=== PATIENT | male | born 1965 | race Caucasian/White ===

== ENCOUNTER → 2017-05-30 | Outpatient (CLI) | payer SELFPAY ==
--- NOTE | 2017-05-30 17:33 | RADIOLOGY REPORT (SQ) ---
EXAM DESCRIPTION: ANKLE LEFT COMPLETE COMPLETED DATE/TIME: 05/30/2017 4:38 pm REASON FOR STUDY: EFFUSION, LEFT ANKLE M25.472 EFFUSION, LEFT ANKLE COMPARISON: None. NUMBER OF VIEWS: Three views. TECHNIQUE: AP, lateral, and oblique radiographic images acquired of the left ankle. LIMITATIONS: None. FINDINGS: MINERALIZATION: Normal. BONES: No acute fracture or dislocation. No worrisome bone lesions. JOINTS: Joint effusion SOFT TISSUES: Moderate diffuse soft tissue swelling OTHER: Small heel spur. IMPRESSION: Soft tissue swelling joint effusion. Small heel spur. TECHNICAL DOCUMENTATION: JOB ID: [id number] [employer].- All Rights Reserved
== END ==
LOC: OD 16:12
PROVIDERS: ATTEND Physician Assistant Surgical
DX: M25.472 Effusion, left ankle (principal); M77.32 Calcaneal spur, left foot

== ENCOUNTER → 2017-08-16 | Outpatient (CLI) | payer SELFPAY ==
[2017-08-16 17:00] LABS: ABSOLUTE BASOPHILS # (AUTO) 0.1 10^3/uL (0.0-0.2); ABSOLUTE EOSINOPHILS # (AUTO) 0.2 10^3/uL (0.0-0.6); ABSOLUTE LYMPHOCYTES (AUTO) 1.6 10^3/uL (0.5-4.7); ABSOLUTE MONOCYTES (AUTO) 0.6 10^3/uL (0.1-1.4); ABSOLUTE NEUT (AUTO) 6.4 10^3/uL (1.7-8.2); BASOPHILS % (AUTO) 0.9 % (0-2); EOSINOPHILS % (AUTO) 1.9 % (0-6); HEMATOCRIT 39.5 % (37.9-51.0); HEMOGLOBIN 14.2 g/dL (13.5-17.0); LYMPHOCYTES % (AUTO) 17.6 % (13-45); MEAN CORPUSCULAR HGB CONC 35.9 g/dL (32.0-36.0); MEAN CORPUSCULAR VOLUME 84 fl (80-97); MONOCYTES % (AUTO) 7.2 % (3-13); PLATELET COUNT 285 10^3/uL (150-450); RED BLOOD COUNT 4.72 10^6/uL (4.35-5.55); RED CELL DISTRIBUTION WIDTH 13.2 % (11.5-14.0); SEGMENTED NEUTROPHILS % (AUTO) 72.4 % (42-78); TOTAL CELLS COUNTED % (AUTO) 100 %; WHITE BLOOD COUNT 8.9 10^3/uL (4.0-10.5)
[2017-08-16 17:17] LABS: ALANINE AMINOTRANSFERASE 35 U/L (21-72); ALBUMIN 4.1 g/dL (3.5-5.0); ALKALINE PHOSPHATASE 78 U/L (38-126); ANION GAP 11 (5-19); ASPARTATE AMINO TRANSFERASE 24 U/L (17-59); BILIRUBIN,DIRECT 0.4 mg/dL (0.0-0.4); BILIRUBIN,TOTAL 0.7 mg/dL (0.2-1.3); BLOOD UREA NITROGEN 16 mg/dL (7-20); CALCIUM 9.8 mg/dL (8.4-10.2); CARBON DIOXIDE 35 mmol/L (22-30); CHLORIDE 94 mmol/L (98-107); GLUCOSE 180 mg/dL (75-110); POTASSIUM 4.7 mmol/L (3.6-5.0); SODIUM 140.3 mmol/L (137-145); TOTAL PROTEIN 7.4 g/dL (6.3-8.2)
--- NOTE | 2017-08-16 18:10 | EKG REPORT ---
SEVERITY:- ABNORMAL ECG - SINUS RHYTHM LEFT VENTRICULAR HYPERTROPHY PROBABLE INFERIOR INFARCT, AGE INDETERMINATE : Confirmed by: Edgar Lobo MD 16-Aug-2017 18:09:13
== END ==
LOC: OD 15:43
PROVIDERS: ATTEND Podiatrist
DX: M67.472 Ganglion, left ankle and foot (principal); M79.672 Pain in left foot
CPT/HCPCS: 36415; 80053; 85025; 93005; 93010

== ENCOUNTER 2020-01-17 10:21 | Inpatient (IN) | payer BC ==
[2020-01-17] MEDS ORDERED: VANCOMYCIN HCL INJ 1000 MG VIAL IV ONE (13:09)
[2020-01-17] MEDS ORDERED: LEVOFLOXACIN 750 MG/D5W RTU 750 MG/150 ML RTUPB IV ONE (13:09)
[2020-01-17] MEDS ORDERED: RINGERS LACTATED IV ONE (13:09)
[2020-01-17] MEDS ORDERED: MORPHINE SULFATE 10 MG/ML INJ IV ONE (13:15)
[2020-01-17] MEDS ORDERED: METOCLOPRAMIDE HCL INJ/PF 10 MG/2 ML SDV IV ONE (13:15)
--- NOTE | 2020-01-17 13:27 | ER Document Report ---
ED General - General Chief Complaint: Leg Pain Stated Complaint: RIGHT LEG PAIN Time Seen by Provider: 01/17/20 10:43 TRAVEL OUTSIDE OF THE [place] IN LAST 30 DAYS: No - HPI Notes: Chief complaint: Right calf pain History of present illness: 54-year-old male presents via EMS for evaluation of severe right proximal calf pain. Patient has had progressively worsening pain in the right calf area for the last 3 days. He currently rates his pain 10/10. Patient denies any known prior history of DVT. He denies trauma to the extremity but notes that he has had what sounds like chronic osteomyelitis of his left foot and ankle for several years related to an old fracture. As a result of this he uses a cane and bears most of his weight on his right lower extremity. He apparently was seen by an orthopedic surgeon in [facility] recently who noted that the patient was having chronic recurrent infections in his left foot and ankle and indicated that it might be in his best interest to consider having the foot amputated. The patient is a poorly controlled type II diabetic and has a history of hypertension. He sees [facility]. Notes that he has been treated for "infection in his body" recently and was told specifically that he had a urinary tract infection. He is grown progressively weaker. He reports intermittent fevers at home. He denies chills. He denies nausea vomiting. He is taking multiple oral hypoglycemics. He is not currently on insulin. Patient says he is a former cigarette smoker. He denies consumption of alcohol. - Related Data Allergies/Adverse Reactions: Penicillins Allergy (Verified 01/17/20 11:49) Past Medical History - General Information source: Patient, Relative - Social History Smoking Status: Former Smoker Frequency of alcohol use: Rare Drug Abuse: None Family History: DM - Past Medical History Cardiac Medical History: Reports: Hx Hypertension Endocrine Medical History: Reports: Hx Diabetes Mellitus Type 2 Musculoskeletal Medical History: Reports Hx Musculoskeletal Trauma Traumatic Medical History: Reports: Hx Fractures Past Surgical History: Reports: Hx Orthopedic Surgery Review of Systems - Review of Systems Notes: Constitutional: As per HPI. HENT: Negative for sore throat. Eyes: Negative for visual changes. Cardiovascular: Negative for chest pain. Respiratory: Negative for shortness of breath. Gastrointestinal: Negative for abdominal pain, vomiting or diarrhea. Genitourinary: Reports polyuria. Musculoskeletal: As per HPI. Skin: Negative for rash. Neurological: Negative for headaches, weakness or numbness. 10 point ROS negative except as marked above and in HPI. Physical Exam - Vital signs Vitals: Temp Pulse Resp BP Pulse Ox 97.9 F 139 H 22 H 152/68 H 100 01/17/20 11:27 01/17/20 11:27 01/17/20 11:27 01/17/20 11:27 01/17/20 11:27 - Notes Notes: GENERAL: Acute and chronically ill-appearing middle-age male. SKIN: Sallow complexion. HEAD: Normocephalic atraumatic. EYES: PERRLA. EOMI. Conjunctivae and sclerae clear. EARS: CANALS AND TMS CLEAR. NOSE: CLEAR. MOUTH: Dry oral mucosa. Good dentition. No stridor or edema. No drooling. NECK: Supple. No masses or thyromegaly. No adenopathy. Carotids 2+ without bruits. No JVD. BACK: Symmetrical without tenderness. CHEST: Respirations unlabored. Breath sounds clear and symmetrical. HEART: Tachycardic regular rhythm. No murmur gallop or rub. ABDOMEN: Soft nontender without masses, organomegaly or rebound. Bowel sounds normally active. No bruits. GENITALIA: Deferred. EXTREMITIES: 1+ edema right lower leg. Patient has exquisite posterior calf tenderness proximally on the right side. Patient has chronic deformity of the medial aspect of the left foot and has a chronic open draining wound in this area. Cap refill less than 1.5 seconds. Dorsalis pedis and posterior tibial pulses 3+ and symmetrical. NEUROLOGICAL: GCS 15. Alert and oriented x3. Fluent speech. Cranial nerves II through XII intact. Sensorimotor and cerebellar normal. Normal tone. PSYCHIATRIC: Appropriate affect. Course - Vital Signs Vital signs: Temp Pulse Resp BP Pulse Ox 97.9 F 70 20 130/55 H 98 01/18/20 03:15 01/18/20 03:15 01/18/20 03:15 01/18/20 03:15 01/18/20 03:15 - Laboratory Result Diagrams: 01/17/20 09:55 01/17/20 09:55 Laboratory results interpreted by me: 01/17/20 01/17/20 01/17/20 09:55 09:55 09:55 WBC 26.3 H RBC 2.61 L Hgb 7.7 L Hct 22.4 L RDW 14.8 H Plt Count 816 H Seg Neuts % (Manual) 89 H Lymphocytes % (Manual) 5 L Abs Neuts (Manual) 23.4 H Abs Monocytes (Manual) 1.6 H PT 16.7 H Sodium 134.6 L Chloride 96 L Carbon Dioxide 19 L Anion Gap 20 H BUN 25 H Glucose 251 H POC Glucose Lactic Acid Direct Bilirubin 0.5 H Alkaline Phosphatase 200 H Albumin 2.6 L Urine Protein Urine Glucose (UA) Urine Ketones Urine Blood 01/17/20 01/17/20 01/17/20 13:38 13:55 14:30 WBC RBC Hgb Hct RDW Plt Count Seg Neuts % (Manual) Lymphocytes % (Manual) Abs Neuts (Manual) Abs Monocytes (Manual) PT Sodium Chloride Carbon Dioxide Anion Gap BUN Glucose POC Glucose 281 H Lactic Acid 3.1 H Direct Bilirubin Alkaline Phosphatase Albumin Urine Protein 100 H Urine Glucose (UA) >=500 H Urine Ketones 20 H Urine Blood SMALL H - EKG Interpretation by Me Additional EKG results interpreted by me: 01/17/20 13:31 Twelve-lead EKG reviewed by me contemporaneously: 1247 hrs. Indication for study: Tachycardia Rhythm: Sinus tachycardia Rate: 131 Intervals: Normal QRS axis: +[address]/T wave changes: None Comparison with prior tracing: Since prior tracing of 1506 the rate has increased to a sinus tachycardia. Interpretation: Sinus tachycardia Discharge - Discharge Clinical Impression: Charcot foot due to diabetes mellitus, DVT RLE, sepsis Anemia Qualifiers: Anemia type: unspecified type Qualified Code(s): D64.9 - Anemia, unspecified Clinical Impression: (Ruled Out): Sepsis Condition: Fair Disposition: ADMITTED INPATIENT Admitting Provider: Sree (Hospitalist) Unit Admitted: [facility]
[2020-01-17 13:40] LABS: INTERNATIONAL RATION (INR) 1.34; PROTHROMBIN TIME 16.7 SEC (11.4-15.4)
--- NOTE | 2020-01-17 13:42 | RADIOLOGY REPORT (SQ) ---
EXAM DESCRIPTION: CHEST SINGLE VIEW IMAGES COMPLETED DATE/TIME: 01/17/2020 1:33 pm REASON FOR STUDY: sepsis COMPARISON: 2009 EXAM PARAMETERS: NUMBER OF VIEWS: One view. TECHNIQUE: Single frontal radiographic view of the chest acquired. RADIATION DOSE: NA LIMITATIONS: None. FINDINGS: LUNGS AND PLEURA: No opacities, masses or pneumothorax. No pleural effusion. MEDIASTINUM AND HILAR STRUCTURES: No masses. Contour normal. HEART AND VASCULAR STRUCTURES: Heart normal in size. Normal vasculature. BONES: No acute findings. HARDWARE: None in the chest. OTHER: No other significant finding. IMPRESSION: NO ACUTE RADIOGRAPHIC FINDING IN THE CHEST. TECHNICAL DOCUMENTATION: JOB ID: [id number] 2010 [employer]- All Rights Reserved Reading location - IP/workstation name: [email or web address]
--- NOTE | 2020-01-17 13:44 | RADIOLOGY REPORT (SQ) ---
EXAM DESCRIPTION: FOOT LEFT COMPLETE IMAGES COMPLETED DATE/TIME: 01/17/2020 1:33 pm REASON FOR STUDY: pain/swelling COMPARISON: None. NUMBER OF VIEWS: Three views. TECHNIQUE: AP, lateral and oblique radiographic images acquired of the left foot. LIMITATIONS: None. FINDINGS: MINERALIZATION: Normal. BONES: Marked deformity of the hindfoot with Charcot joints. No acute fracture is seen. No osteomye litis is appreciated. JOINTS: No effusions. SOFT TISSUES: There is marked soft tissue swelling. OTHER: No other significant finding. IMPRESSION: There appear to be diabetic foot changes. No osteomyelitis is seen. Findings as descri bed. Marked soft tissue swelling. TECHNICAL DOCUMENTATION: JOB ID: [id number] 2010 [employer]- All Rights Reserved Reading location - IP/workstation name: [email or web address]
--- NOTE | 2020-01-17 13:47 | RADIOLOGY REPORT (SQ) ---
EXAM DESCRIPTION: TIBIA FIBULA RIGHT IMAGES COMPLETED DATE/TIME: 01/17/2020 1:33 pm REASON FOR STUDY: pain COMPARISON: None. NUMBER OF VIEWS: Two views. TECHNIQUE: Two radiographic images acquired of the right tibia and fibula to include the knee and an kle in at least one projection. LIMITATIONS: None. FINDINGS: MINERALIZATION: Normal. BONES: No acute fracture dislocation. There is calcification in the interosseous ligament in the dist al tib-fib SOFT TISSUES: No obvious swelling or foreign body. OTHER: No other significant finding. IMPRESSION: Possible prior interosseous ligament disruption. No acute finding in either the tibia o r the fibula. TECHNICAL DOCUMENTATION: JOB ID: [id number] 2010 [employer]- All Rights Reserved Reading location - IP/workstation name: [email or web address]
[2020-01-17 13:53] LABS: HEMATOCRIT 22.4 % (37.9-51.0); MEAN CORPUSCULAR HEMOGLOBIN 29.5 pg (27.0-33.4); MEAN CORPUSCULAR HGB CONC 34.4 g/dL (32.0-36.0); MEAN CORPUSCULAR VOLUME 86 fl (80-97); PLATELET COUNT 816 10^3/uL (150-450); RED BLOOD COUNT 2.61 10^6/uL (4.35-5.55); RED CELL DISTRIBUTION WIDTH 14.8 % (11.5-14.0); WHITE BLOOD COUNT 26.3 10^3/uL (4.0-10.5)
[2020-01-17 13:54] LABS: ALBUMIN 2.6 g/dL (3.5-5.0); ALKALINE PHOSPHATASE 200 U/L (38-126); ASPARTATE AMINO TRANSFERASE 35 U/L (17-59); BILIRUBIN,DIRECT 0.5 mg/dL (0.0-0.4); BILIRUBIN,TOTAL 0.8 mg/dL (0.2-1.3); BLOOD UREA NITROGEN 25 mg/dL (7-20); CALCIUM 9.1 mg/dL (8.4-10.2); CARBON DIOXIDE 19 mmol/L (22-30); CHLORIDE 96 mmol/L (98-107); GLUCOSE 251 mg/dL (75-110); POTASSIUM 4.4 mmol/L (3.6-5.0); TOTAL PROTEIN 6.9 g/dL (6.3-8.2)
[2020-01-17 14:01] LABS: ANION GAP 20 (5-19)
[2020-01-17 14:28] LABS: HEMOGLOBIN 7.7 g/dL (13.5-17.0)
[2020-01-17 14:31] LABS: ABSOLUTE LYMPHOCYTES# (MANUAL) 1.3 10^3/uL (0.5-4.7); ABSOLUTE MONOCYTES # (MANUAL) 1.6 10^3/uL (0.1-1.4); ANISOCYTOSIS SLIGHT; BASOPHILS % (MANUAL) 0 % (0-2); EOSINOPHILS % (MANUAL) 0 % (0-6); LYMPHOCYTES % (MANUAL) 5 % (13-45); MONOCYTES % (MANUAL) 6 % (3-13); PLATELET COMMENT INCREASED; SEGMENTED NEUTROPHILS % (MAN) 89 % (42-78); TOTAL CELLS COUNTED 100
[2020-01-17 14:32] LABS: POLYCHROMASIA 1+; TOXIC VACUOLATION PRESENT
[2020-01-17 14:33] LABS: HYPOCHROMASIA SLIGHT
[2020-01-17 14:47] LABS: APPEARANCE,URINE CLEAR; BILIRUBIN,URINE NEGATIVE (NEGATIVE); COLOR,URINE YELLOW; GLUCOSE, URINE >=500 mg/dL (NEGATIVE); KETONES,URINE 20 mg/dL (NEGATIVE); PROTEIN,URINE 100 mg/dL (NEGATIVE); URINE SPECIFIC GRAVITY 1.024; UROBILINOGEN,URINE NEGATIVE mg/dL (<2.0)
[2020-01-17 15:12] LABS: VENOUS BLOOD BASE EXCESS -3.1 mmol/L; VENOUS BLOOD HCO3 21.7 mmol/L (20-32); VENOUS BLOOD PCO2 37.1 mmHg (35-63); VENOUS BLOOD PH 7.39 (7.30-7.42)
--- NOTE | 2020-01-17 16:18 | RADIOLOGY REPORT (SQ) ---
EXAM DESCRIPTION: VENOUS UNILATERAL LOWER IMAGES COMPLETED DATE/TIME: 01/17/2020 4:00 pm REASON FOR STUDY: right calf pain/swelling COMPARISON: None. TECHNIQUE: Dynamic and static bell scale and color images acquired of the right leg venous system. S elected spectral images acquired with additional compression and augmentation maneuvers. The contrala teral common femoral vein and saphenofemoral junction were also imaged. Images stored on PACS. LIMITATIONS: None. FINDINGS: COMMON FEMORAL: Normal phasicity, compression and augmentation. No visualized echogenic ma terial on bell scale. No defects on color images. FEMORAL: Occlusive thrombus in the distal femoral vein and popliteal vein. POPLITEAL: See above. CALF VESSELS: Normal compression, augmentation. No visualized echogenic material on bell scale. No de fects on color images. GSV and SSV: Normal compression, augmentation. No visualized echogenic material on bell scale. No def ects on color images. ANY DEEP VENOUS INSUFFICIENCY: Not evaluated. ANY EVIDENCE OF POPLITEAL CYST: 4.9 x 3.9 x 2.0 cm. OTHER: No other significant finding. CONTRALATERAL COMMON FEMORAL VEIN AND SAPHENOFEMORAL JUNCTION: Normal phasicity, compression and augmentation. No visualized echogenic material on bell scale. No de fects on color images. IMPRESSION: Positive acute deep vein thrombosis femoral and popliteal veins. TECHNICAL DOCUMENTATION: JOB ID: [id number] 2010 [employer]- All Rights Reserved Reading location - IP/workstation name: [email or web address]
[2020-01-17] MEDS ORDERED: MAG HYDROX/AL HYDROX/SIMETH SUSP 30 ML UDCUP PO PRN (16:52)
[2020-01-17] MEDS ORDERED: ONDANSETRON HCL INJ/PF 4 MG/2 ML SDV IV PRN (16:52)
[2020-01-17] MEDS ORDERED: DEXTROSE 50%-WATER 25 GM/50 ML DISP.SYRIN IV PRN ×2 (16:58)
[2020-01-17] MEDS ORDERED: DEXTROSE 40% GEL 15 GM TUBE PO PRN ×2 (16:58)
[2020-01-17] MEDS ORDERED: GLUCAGON,HUMAN RECOMB 1 MG INJ IM PRN (16:58)
[2020-01-17] MEDS ORDERED: CLONIDINE HCL 0.2 MG TABLET PO ONE (17:03)
[2020-01-17] MEDS ORDERED: ACETAMINOPHEN 325 MG TABLET PO PRN (17:05)
--- NOTE | 2020-01-17 17:32 | PDOC H&P ---
History of Present Illness Admission Date/PCP: 01/17/20 16:53 Patient complains of: Right lower extremity pain History of Present Illness: BETTE LECHUGA is a 54 year old male with history of diabetes mellitus, hypertension, left foot fracture 2 years ago with subsequent deformity, GERD, who presents to the hospital with complaints of persistent pain in his right lower extremity from the region of years right thigh just above the knee to mid rubalcava. Mostly involving the posterior side and his calves. Pain is worse on ambulation. He denies chronic neuropathy. Patient notably had ankle fracture 2 years ago and never got surgical operation needs to fix it. Since then he has developed significant deformity of his right foot now with Charcot Beckie joint. He sees a cashier assistant outpatient and had initially planned to get it fixed but was never done. On his most recent visit with his cashier assistant, they made the decision that he needed to get it amputated. He is hoping that I could be a below the knee amputation. He denies any pain in the region but the area is pretty much normal. He does have significant ecchymosis and fluctuance over his left foot. Patient also notes that he was feeling ill about 3 weeks ago with generalized malaise and occasional chills. At this time he went to his PCP at [facility] and was placed on antibiotics. Reviewing his external medications it seems that this was Levaquin. He completed a course of 7 days of antibiotics and told he may have the flu but states he was treated for kidney infection. He however states he was not having any urinary symptoms at that point. And also had a COVID 19 test done at [facility] 2 weeks ago according to him which came back negative. Still occasionally feels malaise and some chills but not spiking any fevers. He denies any respiratory symptoms. Past Medical History Cardiac Medical History: Reports: Hypertension Denies: Atrial Fibrillation, Congestive Heart Failure, Coronary Artery Disease, Myocardial Infarction Pulmonary Medical History: Denies: Asthma, Chronic Obstructive Pulmonary Disease (COPD) Neurological Medical History: Denies: Hemorrhagic CVA, Ischemic CVA Endocrine Medical History: Reports: Diabetes Mellitus Type 2 Renal/ Medical History: Denies: Chronic Kidney Disease GI Medical History: Denies: Cirrhosis Past Surgical History Past Surgical History: Reports: Orthopedic Surgery Social History Information Source: Patient Smoking Status: Former Smoker Frequency of Alcohol Use: None Hx Recreational Drug Use: No - Advance Directive Resuscitation Status: Full Code Family History Family History: DM, Hypertension Parental Family History Reviewed: Yes Children Family History Reviewed: NA Sibling(s) Family History Reviewed.: Yes Medication/Allergy Allergies/Adverse Reactions: Penicillins Allergy (Verified 01/17/20 11:49) Review of Systems Constitutional: PRESENT: chills. ABSENT: fever(s), night sweats Eyes: ABSENT: visual disturbances Ears: ABSENT: hearing changes Nose, Mouth, and Throat: ABSENT: headache(s) Cardiovascular: ABSENT: chest pain, dyspnea on exertion Respiratory: ABSENT: cough, dyspnea, hemoptysis, sputum Gastrointestinal: PRESENT: constipation. ABSENT: abdominal pain, diarrhea, hematemesis, hematochezia, melena, nausea, vomiting Genitourinary: ABSENT: difficulty urinating, dysuria, hematuria Musculoskeletal: PRESENT: deformity - Left foot Integumentary: PRESENT: diaphoresis - Occasional Neurological: ABSENT: confusion, dizziness Psychiatric: ABSENT: depression Endocrine: ABSENT: polyuria Hematologic/Lymphatic: ABSENT: easy bleeding, easy bruising Physical Exam Vital Signs: Temp Pulse Resp BP Pulse Ox 97.9 F 139 H 18 184/95 H 99 01/17/20 11:27 01/17/20 11:27 01/17/20 16:01 01/17/20 16:01 01/17/20 16:01 Intake & Output 01/16/20 01/17/20 01/18/20 06:59 06:59 06:59 Intake Total 3550 Balance 3550 Weight 113.398 kg General appearance: PRESENT: no acute distress, cooperative Eye exam: PRESENT: EOMI Mouth exam: ABSENT: neck supple Neck exam: ABSENT: JVD Respiratory exam: PRESENT: clear to auscultation amdeline, symmetrical, unlabored. ABSENT: tachypnea, wheezes Cardiovascular exam: PRESENT: +S1, +S2, tachycardia. ABSENT: irregular rhythm GI/Abdominal exam: PRESENT: normal bowel sounds, soft. ABSENT: distended, firm, guarding, rebound, rigid, tenderness Extremities exam: PRESENT: other - Significant deformity with bony deformity and overlying soft tissue fluctuance with induration and ecchymosis of the left foot with some area of erythema. No active drainage. Right lower extremity tender a nd swollen all the way up to the knee tenderness mostly in cough.. ABSENT: calf tenderness, pedal edema Neurological exam: PRESENT: alert, awake, oriented to person, oriented to place, oriented to time, oriented to situation Psychiatric exam: ABSENT: agitated, anxious Focused psych exam: ABSENT: pressured speech Results Laboratory Results: 01/17/20 09:55 01/17/20 09:55 01/17/20 01/17/20 01/17/20 09:55 09:55 13:38 WBC 26.3 H RBC 2.61 L Hgb 7.7 L Hct 22.4 L MCV 86 MCH 29.5 MCHC 34.4 RDW 14.8 H Plt Count 816 H Seg Neutrophils % Not Reportable VBG pH VBG pCO2 VBG HCO3 VBG Base Excess Sodium 134.6 L Potassium 4.4 Chloride 96 L Carbon Dioxide 19 L Anion Gap 20 H BUN 25 H Creatinine 0.98 Est GFR ( Amer) > 60 Glucose 251 H Lactic Acid 3.1 H Calcium 9.1 Total Bilirubin 0.8 AST 35 Alkaline Phosphatase 200 H Total Protein 6.9 Albumin 2.6 L Urine Color Urine Appearance Urine pH Ur Specific [place] Urine Protein Urine Glucose (UA) Urine Ketones Urine Blood Urine RBC (Auto) 01/17/20 01/17/20 14:30 15:03 WBC RBC Hgb Hct MCV MCH MCHC RDW Plt Count Seg Neutrophils % VBG pH 7.39 VBG pCO2 37.1 VBG HCO3 21.7 VBG Base Excess -3.1 Sodium Potassium Chloride Carbon Dioxide Anion Gap BUN Creatinine Est GFR ( Amer) Glucose Lactic Acid Calcium Total Bilirubin AST Alkaline Phosphatase Total Protein Albumin Urine Color YELLOW Urine Appearance CLEAR Urine pH 5.0 Ur Specific [place] 1.024 Urine Protein 100 H Urine Glucose (UA) >=500 H Urine Ketones 20 H Urine Blood SMALL H Urine RBC (Auto) 1 Impressions: Chest X-Ray 01/17/20 13:10 IMPRESSION: NO ACUTE RADIOGRAPHIC FINDING IN THE CHEST. Venous Doppler Study 01/17/20 13:12 IMPRESSION: Positive acute deep vein thrombosis femoral and popliteal veins. Foot X-Ray 01/17/20 13:13 IMPRESSION: There appear to be diabetic foot changes. No osteomyelitis is seen. Findings as described. Marked soft tissue swelling. Tibia/Fibula X-Ray 01/17/20 13:14 IMPRESSION: Possible prior interosseous ligament disruption. No acute finding in either the tibia or the fibula. Assessment and Plan - Diagnosis (1) Left foot infection Is this a current diagnosis for this admission?: Yes Plan: Patient has fluctuant mass overlying his Charcot foot deformity of his left hindfoot. It is infected and may represent an abscess. Significant leukocytosis noted on lab work with sepsis. I have asked surgery to evaluate as he will likely need urgent OR for source control given sepsis and amputation. Empiric antibiotics with vancomycin and cefepime. Blood cultures have been obtained. (2) Charcot foot due to diabetes mellitus Is this a current diagnosis for this admission?: Yes Plan: Significant deformity of his left hindfoot. Does have history of ankle fracture 2 years ago that was never treated according to him. Follows with cashier assistant as outpatient and they agreed on proceeding with amputation. (3) Sepsis Qualifiers: Sepsis type: sepsis due to unspecified organism Sepsis acute organ dysfunction status: without acute organ dysfunction Qualified Code(s): A41.9 - Sepsis, unspecified organism Is this a current diagnosis for this admission?: Yes Plan: Significant leukocytosis, very tachycardic [EKG showing sinus tachycardia], with lactic acidosis. IV fluids IV antibiotics have been initiated Repeat lactic acid level (4) Acute deep vein thrombosis (DVT) of right lower extremity Qualifiers: Affected thrombotic vein of extremity: femoral Qualified Code(s): I82.411 - Acute embolism and thrombosis of right femoral vein Is this a current diagnosis for this admission?: Yes Plan: Noted on ultrasound Patient will need to be started on anticoagulation. I will await surgical evaluation regarding need for OR today before initiating patient on heparin drip. Pain control (5) Normocytic anemia Is this a current diagnosis for this admission?: Yes Plan: Significantly anemic with hemoglobin of 7.7. Hemoglobin was 14 2 years ago. Patient denies any evidence of bleeding GI//respiratory. We will get an urgent type and screen especially as I anticipate patient will need to go to the OR tonight. Iron studies, B12 and folic acid levels He has never had a colonoscopy (6) Lactic acidosis Is this a current diagnosis for this admission?: Yes Plan: Secondary to sepsis. Repeat lab (7) Hyperglycemia due to type 2 diabetes mellitus Qualifiers: Diabetes mellitus longterm insulin use: without truck terminal manager use Qualified Code(s): E11.65 - Type 2 diabetes mellitus with hyperglycemia Is this a current diagnosis for this admission?: Yes Plan: Takes metformin at home. We will put on sliding scale insulin and Accu-Cheks currently. (8) HTN (hypertension) Qualifiers: Hypertension type: essential hypertension Qualified Code(s): I10 - Essential (primary) hypertension Is this a current diagnosis for this admission?: Yes Plan: Uncontrolled hypertension currently with hypertensive urgency. Will resume his home antihypertensives and give him his first dose of clonidine now. We will also give losartan now. (9) Thrombocytosis Is this a current diagnosis for this admission?: Yes Plan: Likely reactive to anemic state - Time Time Spent with patient: 35 or more minutes Anticipated Discharge Disposition: Home, Self Care Anticipated Discharge Timeframe: undetermined
[2020-01-17] MEDS ORDERED: LOSARTAN POTASSIUM 50 MG TABLET PO ONE (17:33)
[2020-01-17] MEDS: INSULIN LISPRO 100 UNIT/ML 3 ML VIAL SUBCUT SCH (17:55)
[2020-01-17] MEDS ORDERED: METOPROLOL TARTRATE PF/INJ 5 MG/5 ML SDV IV ONE (18:06)
[2020-01-17] MEDS ORDERED: ONDANSETRON HCL INJ/PF 4 MG/2 ML SDV ONE (18:29)
[2020-01-17] MEDS ORDERED: HYDROMORPHONE HCL INJ/PF 2 MG/ML AMPULE ONE (18:29)
[2020-01-17] MEDS ORDERED: MIDAZOLAM 2 MG/2 ML INJ ONE (18:29)
[2020-01-17] MEDS ORDERED: FENTANYL CITRATE INJ/PF 100 MCG/2 ML AMPUL ONE (18:29)
[2020-01-17] MEDS ORDERED: LIDOCAINE 2% INJ-PF (20 MG/ML) 10 ML AMPUL ONE (18:29)
[2020-01-17] MEDS ORDERED: PROPOFOL INJ 200 MG/20 ML VIAL IV ONE (18:30)
[2020-01-17] MEDS ORDERED: NORMAL SALINE 250 ML IV PRN ×2 (18:38→18:43)
[2020-01-17] MEDS ORDERED: OXYCODONE-ACETAMINOPHEN 5-325 MG TABLET PO PRN ×2 (19:35)
[2020-01-17] MEDS ORDERED: FENTANYL CITRATE INJ/PF 100 MCG/2 ML AMPUL IV PRN ×3 (19:35)
[2020-01-17] MEDS ORDERED: MEPERIDINE HCL/PF INJ 25 MG/1 ML DISP.SYRIN IV PRN (19:35)
[2020-01-17] MEDS ORDERED: DIPHENHYDRAMINE HCL 50 MG/ML VIAL IV PRN (19:35)
[2020-01-17] MEDS ORDERED: MORPHINE SULFATE 10 MG/ML INJ IV PRN (19:35)
[2020-01-17] MEDS ORDERED: PROMETHAZINE HCL INJ 25 MG/1 ML VIAL IV PRN ×2 (19:35)
--- NOTE | 2020-01-17 20:39 | PDOC CONSULTATION ---
Consultation Consult Date: 01/17/20 Provider Consulted: SURGICAL SURGICALIST Consult reason:: Septic foot History of Present Illness Admission Date/PCP: 01/17/20 16:53 History of Present Illness: BETTE LECHUGA is a 54 year old male seen in consultation at the request of the hospitalist service. The patient presents to the emergency department for pain in his right leg, however upon admission he was found to be excessively tachycardic (140s), with a lactic acidosis, and a severe leukocytosis. The hospitalist believes the patient was exhibiting signs of severe sepsis. I was consulted to evaluate the patient and determine if the patient's left Charcot foot was possibly the source of this sepsis. The patient reports a long history of Charcot foot, treated conservatively. He reports that his orthopedist has been urging him to undergo amputation. He is a poorly controlled diabetic. The patient denies any pain in the left foot at present, but he does report increasing redness and swelling. He reports palpitations, fevers, chills, malaise, headache. He has not eaten since yesterday because he "does not feel good". He denies chest pain, shortness of breath, blurry vision. Past Medical History Cardiac Medical History: Reports: Hypertension Denies: Atrial Fibrillation, Congestive Heart Failure, Coronary Artery Disease, Myocardial Infarction Pulmonary Medical History: Denies: Asthma, Chronic Obstructive Pulmonary Disease (COPD) Neurological Medical History: Denies: Hemorrhagic CVA, Ischemic CVA Endocrine Medical History: Reports: Diabetes Mellitus Type 2 Renal/ Medical History: Denies: Chronic Kidney Disease GI Medical History: Denies: Cirrhosis Past Surgical History Past Surgical History: Reports: Orthopedic Surgery Social History Smoking Status: Former Smoker Frequency of Alcohol Use: None Hx Recreational Drug Use: No - Advance Directive Resuscitation Status: Full Code Family History Family History: DM, Hypertension Parental Family History Reviewed: Yes Children Family History Reviewed: Yes Sibling(s) Family History Reviewed.: Yes Medication/Allergy Home Medications: Clonidine HCl 0.3 mg PO QIDP PRN 01/17/20 Diazepam [Valium 5 mg Tablet] 5 mg PO BID 01/17/20 Empagliflozin [Jardiance] 10 mg PO DAILY 01/17/20 Hydrochlorothiazide 12.5 mg PO DAILY 01/17/20 Hydrocodone/Acetaminophen [[place] 5-325 mg Tablet] 2 tab PO BIDP PRN 01/17/20 Levofloxacin [Levaquin 500 mg Tablet] 500 mg PO DAILY 01/17/20 Losartan Potassium 100 mg PO DAILY 01/17/20 Metoprolol Succinate [Toprol Xl 25 mg Tab.sr] 25 mg PO BID 01/17/20 Allergies/Adverse Reactions: Penicillins Allergy (Verified 01/17/20 11:49) Review of Systems Constitutional: PRESENT: anorexia, chills, fatigue, fever(s) Eyes: ABSENT: visual disturbances Ears: ABSENT: hearing changes Nose, Mouth, and Throat: ABSENT: sore throat Cardiovascular: ABSENT: chest pain Respiratory: ABSENT: cough, dyspnea Gastrointestinal: ABSENT: abdominal pain, bloating Genitourinary: ABSENT: dysuria Musculoskeletal: ABSENT: back pain Integumentary: PRESENT: erythema, other - Swelling and erythema of the left foot. Swelling and tenderness of the right leg. Neurological: ABSENT: confusion, convulsions, dizziness Psychiatric: ABSENT: anxiety, depression Endocrine: ABSENT: cold intolerance, heat intolerance Physical Exam Vital Signs: Temp Pulse Resp BP Pulse Ox 97.9 F 139 H 18 175/96 H 100 01/17/20 11:27 01/17/20 11:27 01/17/20 18:41 01/17/20 18:41 01/17/20 18:31 Intake & Output 01/16/20 01/17/20 01/18/20 06:59 06:59 06:59 Intake Total 3550 Balance 3550 Weight 113.398 kg General appearance: PRESENT: other - Moderate distress, diaphoretic, tachycardic Head exam: PRESENT: atraumatic, normocephalic Eye exam: PRESENT: EOMI, PERRLA. ABSENT: scleral icterus Mouth exam: PRESENT: moist, neck supple Neck exam: ABSENT: meningismus, tenderness, thyromegaly, tracheal deviation Respiratory exam: PRESENT: unlabored. ABSENT: tachypnea Cardiovascular exam: PRESENT: tachycardia - Severe Pulses: PRESENT: normal radial pulses Vascular exam: PRESENT: pallor GI/Abdominal exam: PRESENT: soft. ABSENT: distended, rebound, tenderness Rectal exam: PRESENT: deferred Extremities exam: PRESENT: other - Severe left Charcot foot. Free-floating ankle joints. Large amount of erythema of the left ankle, with fluctuance of the entire left foot and lower leg Neurological exam: PRESENT: alert, awake, oriented to person, oriented to place, oriented to time, oriented to situation, CN II-XII grossly intact. ABSENT: motor sensory deficit Psychiatric exam: ABSENT: agitated, anxious, depressed Focused psych exam: ABSENT: delusional Skin exam: PRESENT: erythema - Left foot, other - Edema and mild tenderness to palpation of the right lower extremity. ABSENT: cyanosis Results Laboratory Results: 01/17/20 09:55 01/17/20 09:55 01/17/20 01/17/20 01/17/20 09:55 09:55 13:38 WBC 26.3 H RBC 2.61 L Hgb 7.7 L Hct 22.4 L MCV 86 MCH 29.5 MCHC 34.4 RDW 14.8 H Plt Count 816 H Seg Neutrophils % Not Reportable VBG pH VBG pCO2 VBG HCO3 VBG Base Excess Sodium 134.6 L Potassium 4.4 Chloride 96 L Carbon Dioxide 19 L Anion Gap 20 H BUN 25 H Creatinine 0.98 Est GFR ( Amer) > 60 Glucose 251 H Lactic Acid 3.1 H Calcium 9.1 Total Bilirubin 0.8 AST 35 Alkaline Phosphatase 200 H Total Protein 6.9 Albumin 2.6 L Urine Color Urine Appearance Urine pH Ur Specific [place] Urine Protein Urine Glucose (UA) Urine Ketones Urine Blood Urine RBC (Auto) Blood Type Antibody Screen 01/17/20 01/17/20 01/17/20 14:30 15:03 17:15 WBC RBC Hgb Hct MCV MCH MCHC RDW Plt Count Seg Neutrophils % VBG pH 7.39 VBG pCO2 37.1 VBG HCO3 21.7 VBG Base Excess -3.1 Sodium Potassium Chloride Carbon Dioxide Anion Gap BUN Creatinine Est GFR ( Amer) Glucose Lactic Acid 1.9 Calcium Total Bilirubin AST Alkaline Phosphatase Total Protein Albumin Urine Color YELLOW Urine Appearance CLEAR Urine pH 5.0 Ur Specific [place] 1.024 Urine Protein 100 H Urine Glucose (UA) >=500 H Urine Ketones 20 H Urine Blood SMALL H Urine RBC (Auto) 1 Blood Type Antibody Screen 01/17/20 17:15 WBC RBC Hgb Hct MCV MCH MCHC RDW Plt Count Seg Neutrophils % VBG pH VBG pCO2 VBG HCO3 VBG Base Excess Sodium Potassium Chloride Carbon Dioxide Anion Gap BUN Creatinine Est GFR ( Amer) Glucose Lactic Acid Calcium Total Bilirubin AST Alkaline Phosphatase Total Protein Albumin Urine Color Urine Appearance Urine pH Ur Specific [place] Urine Protein Urine Glucose (UA) Urine Ketones Urine Blood Urine RBC (Auto) Blood Type O POSITIVE Antibody Screen NEGATIVE Impressions: Chest X-Ray 01/17/20 13:10 IMPRESSION: NO ACUTE RADIOGRAPHIC FINDING IN THE CHEST. Venous Doppler Study 01/17/20 13:12 IMPRESSION: Positive acute deep vein thrombosis femoral and popliteal veins. Foot X-Ray 01/17/20 13:13 IMPRESSION: There appear to be diabetic foot changes. No osteomyelitis is seen. Findings as described. Marked soft tissue swelling. Tibia/Fibula X-Ray 01/17/20 13:14 IMPRESSION: Possible prior interosseous ligament disruption. No acute finding in either the tibia or the fibula. Assessment & Plan - Diagnosis (1) Diabetic infection of left foot Is this a current diagnosis for this admission?: Yes (2) Sepsis Qualifiers: Sepsis type: sepsis due to unspecified organism Sepsis acute organ dysfunction status: without acute organ dysfunction Qualified Code(s): A41.9 - Sepsis, unspecified organism Is this a current diagnosis for this admission?: Yes - Plan Summary Plan Summary: This is a 54-year-old male with signs of sepsis (tachycardia, leukocytosis, chills, diaphoresis) and a fluctuant, erythematous left foot and leg. I believe the patient has a septic left foot. I have recommended guillotine amputation immediately to help resolve the source of his sepsis. Plan for repeat evaluatio n in approximately 48 hours. When the wound appears clean, plan for formalization of below-knee amputation.
--- NOTE | 2020-01-17 20:45 | Operative Report ---
Nonrecallable Operative Report DATE OF SURGERY: 01/17/20 PREOPERATIVE DIAGNOSIS: Septic left foot POSTOPERATIVE DIAGNOSIS: 1. Septic left foot. 2. Large abscess, extending from the foot into the posterior compartment of the left leg. OPERATION: Guillotine amputation of the left leg, above the ankle with drainage of deep space abscess of the left lower leg SURGEON: FAB LEAL ANESTHESIA: GA TISSUE REMOVED OR ALTERED: Left foot and ankle COMPLICATIONS: None apparent ESTIMATED BLOOD LOSS: 30 cc PROCEDURE: Drains/implants: 4 x 4 gauze and Surgicel. Procedure in detail: After informed consent was obtained, the patient was brought to the operating room and laid in the supine position. The area of the left foot and leg were prepped and draped in a normal sterile fashion. A fishmouth incision was created at the ankle. Dissection was carried through the subcutaneous tissues using sharp dissection. The anterior tibial artery was identified first. It was suture ligated with 0 Vicryl. As the dissection was carried posteriorly, the tibia and fibula were encountered, above the ankle. These were divided using the reciprocating bone saw. Next, the posterior tibial artery was identified. It was ligated and divided using 0 Vicryl suture and Metzenbaum scissors. The Achilles tendon was divided above the ankle. Upon its division, a large amount of purulent material was encountered. There appeared to be a large abscess extending from the foot, up to the deep posterior compartment. An incision was extended up the medial portion of the leg, medial and posterior to the tibia, opening the deep posterior compartment. A large amount of purulent material was cleaned from the area. Oozing was encountered, without surgical bleeding. Electrocautery was used to achieve hemostasis. Surgicel was packed into the wound. Betadine soaked 4 x 4's were packed over top of the Surgicel, and over the distal tibia and fibula (at the point of transection). The fishmouth incision was reapproximated over the 4x4's. The stump was then wrapped in Kerlix and Coban. The procedure was at this time concluded. All sponge, instrument, and needle counts were correct x2 Condition: Fair.
[2020-01-17] MEDS: AMLODIPINE BESYLATE 5 MG TABLET PO SCH (21:24)
[2020-01-17] MEDS ORDERED: CEFEPIME 1 GM/D5W RTU 2 GM/100 ML RTUPB IV ONE (21:32)
--- NOTE | 2020-01-17 21:35 | EKG REPORT ---
SEVERITY:- OTHERWISE NORMAL ECG - SINUS TACHYCARDIA : Confirmed by: Riri Driscoll MD 17-Jan-2020 21:34:07
[2020-01-17] MEDS ORDERED: CEFEPIME 2 GM/D5W RTU 2 GM/50 ML RTUPB IV SCH (22:00)
[2020-01-17] MEDS ORDERED: VANCOMYCIN HCL INJ 1000 MG VIAL IV SCH (22:00)
[2020-01-18] MEDS: MELATONIN 5 MG TABLET PO PRN (00:42)
[2020-01-18] MEDS: MORPHINE SULFATE 10 MG/ML INJ IV PRN ×2 (02:23→06:17)
[2020-01-18] MEDS: CLONIDINE HCL 0.2 MG TABLET PO SCH ×4 (05:41→17:45)
[2020-01-18] MEDS: INSULIN LISPRO 100 UNIT/ML 3 ML VIAL SUBCUT SCH ×5 (05:41→22:36)
[2020-01-18] MEDS: PANTOPRAZOLE SODIUM 40 MG TABLET.DR PO SCH (05:41)
[2020-01-18] MEDS: KETOROLAC TROMETHAMINE INJ/PF 30 MG/1 ML SDV IV SCH ×3 (05:42→22:36)
[2020-01-18] MEDS ORDERED: VANCOMYCIN HCL INJ 1000 MG VIAL IV PRN (06:27)
[2020-01-18] MEDS ORDERED: VANCOMYCIN HCL 2,000 MG in DEXTROSE 5%-WATER 500 ML IV ONE (06:30)
[2020-01-18 06:46] LABS: ABSOLUTE RETICS # 0.088 10^6/uL (0.028-0.122); HEMATOCRIT 22.1 % (37.9-51.0); MEAN CORPUSCULAR HEMOGLOBIN 28.6 pg (27.0-33.4); MEAN CORPUSCULAR HGB CONC 33.8 g/dL (32.0-36.0); MEAN CORPUSCULAR VOLUME 85 fl (80-97); PLATELET COUNT 642 10^3/uL (150-450); RED BLOOD COUNT 2.62 10^6/uL (4.35-5.55); RED CELL DISTRIBUTION WIDTH 14.8 % (11.5-14.0); RETICULOCYTE COUNT (AUTO) 3.37 % (0.66-2.85); WHITE BLOOD COUNT 21.6 10^3/uL (4.0-10.5)
[2020-01-18 06:47] LABS: INTERNATIONAL RATION (INR) 1.32; PROTHROMBIN TIME 16.6 SEC (11.4-15.4)
[2020-01-18 06:48] LABS: PARTIAL THROMBOPLASTIN TIME 47.6 SEC (23.5-35.8)
[2020-01-18 07:05] LABS: ALBUMIN 2.5 g/dL (3.5-5.0); ALKALINE PHOSPHATASE 162 U/L (38-126); ANION GAP 19 (5-19); ASPARTATE AMINO TRANSFERASE 35 U/L (17-59); BILIRUBIN,DIRECT 0.5 mg/dL (0.0-0.4); BILIRUBIN,TOTAL 0.7 mg/dL (0.2-1.3); BLOOD UREA NITROGEN 20 mg/dL (7-20); CALCIUM 8.4 mg/dL (8.4-10.2); CARBON DIOXIDE 18 mmol/L (22-30); CHLORIDE 100 mmol/L (98-107); GLUCOSE 117 mg/dL (75-110); HEMOGLOBIN 7.5 g/dL (13.5-17.0); IRON(TIBC) 34.7 ug/dL (49-181); POTASSIUM 4.1 mmol/L (3.6-5.0); TOTAL PROTEIN 6.7 g/dL (6.3-8.2)
[2020-01-18 07:29] LABS: ABSOLUTE LYMPHOCYTES# (MANUAL) 0.2 10^3/uL (0.5-4.7); ABSOLUTE MONOCYTES # (MANUAL) 1.9 10^3/uL (0.1-1.4); BASOPHILS % (MANUAL) 0 % (0-2); EOSINOPHILS % (MANUAL) 0 % (0-6); LYMPHOCYTES % (MANUAL) 1 % (13-45); MONOCYTES % (MANUAL) 9 % (3-13); SEGMENTED NEUTROPHILS % (MAN) 90 % (42-78); TOTAL CELLS COUNTED 100
[2020-01-18 07:31] LABS: ANISOCYTOSIS SLIGHT; HYPOCHROMASIA SLIGHT; PLATELET COMMENT INCREASED; POLYCHROMASIA SLIGHT; TOXIC GRANULATION SLIGHT
[2020-01-18] MEDS ORDERED: VANCOMYCIN HCL INJ 1000 MG VIAL ONE (07:33)
[2020-01-18] MEDS: CEFEPIME HCL 2 GM in DEXTROSE 5%-WATER 50 ML IV SCH ×2 (10:21→22:35)
[2020-01-18] MEDS: HYDROCHLOROTHIAZIDE 12.5 MG TABLET PO SCH (10:22)
[2020-01-18] MEDS: LOSARTAN POTASSIUM 50 MG TABLET PO SCH (10:22)
[2020-01-18] MEDS: VANCOMYCIN HCL 1,500 MG in DEXTROSE 5%-WATER 250 ML IV SCH ×2 (10:22→17:43)
[2020-01-18] MEDS: AMLODIPINE BESYLATE 5 MG TABLET PO SCH ×2 (10:22→22:37)
[2020-01-18] MEDS: DIAZEPAM 5 MG TABLET PO SCH ×2 (10:22→17:45)
[2020-01-18] MEDS: METOPROLOL SUCCINATE 25 MG TAB.SR.24H PO SCH ×2 (10:23→17:45)
[2020-01-18] MEDS: HYDROCODONE/ACETAMINOPHEN 10-325 MG TABLET PO PRN ×3 (10:32→21:35)
--- NOTE | 2020-01-18 10:56 | PDOC PROGRESS REPORT ---
Subjective Progress Note for:: 01/18/20 Reason For Visit: LEFT FOOT ABSCESS,CHAROT JOINT,SEPSIS ; Patient doing well, recovered from the knee amputation; anticoagulation not resumed yet. Minimal drainage from stump dressing. Patient complaining of right calf and thigh pain Physical Exam Vital Signs: Temp Pulse Resp BP Pulse Ox 97.9 F 133 H 19 139/79 H 97 01/18/20 07:59 01/18/20 07:59 01/18/20 07:59 01/18/20 07:59 01/18/20 07:59 Intake & Output 01/17/20 01/18/20 01/19/20 06:59 06:59 06:59 Intake Total 4885 Output Total 1485 Balance 3400 Weight 105.9 kg General appearance: PRESENT: mild distress Musculoskeletal exam: PRESENT: other - Left lower extremity examined. Covan intact, with minimal drainage posteriorly. Right lower extremity examined; plus for tenderness, swelling of the calf, popliteal area and distal thigh consistent with acute DVT Results Laboratory Results: 01/18/20 05:56 01/18/20 05:56 01/17/20 01/17/20 01/17/20 09:55 09:55 13:38 WBC 26.3 H RBC 2.61 L Hgb 7.7 L Hct 22.4 L MCV 86 MCH 29.5 MCHC 34.4 RDW 14.8 H Plt Count 816 H Seg Neutrophils % Not Reportable Retic Count (auto) VBG pH VBG pCO2 VBG HCO3 VBG Base Excess Sodium 134.6 L Potassium 4.4 Chloride 96 L Carbon Dioxide 19 L Anion Gap 20 H BUN 25 H Creatinine 0.98 Est GFR ( Amer) > 60 Glucose 251 H Lactic Acid 3.1 H Calcium 9.1 Magnesium Iron TIBC % Saturation Ferritin Total Bilirubin 0.8 AST 35 Alkaline Phosphatase 200 H Total Protein 6.9 Albumin 2.6 L Vitamin B12 Folate Urine Color Urine Appearance Urine pH Ur Specific [place] Urine Protein Urine Glucose (UA) Urine Ketones Urine Blood Urine RBC (Auto) Blood Type Antibody Screen 01/17/20 01/17/20 01/17/20 14:30 15:03 17:15 WBC RBC Hgb Hct MCV MCH MCHC RDW Plt Count Seg Neutrophils % Retic Count (auto) VBG pH 7.39 VBG pCO2 37.1 VBG HCO3 21.7 VBG Base Excess -3.1 Sodium Potassium Chloride Carbon Dioxide Anion Gap BUN Creatinine Est GFR ( Amer) Glucose Lactic Acid 1.9 Calcium Magnesium Iron TIBC % Saturation Ferritin Total Bilirubin AST Alkaline Phosphatase Total Protein Albumin Vitamin B12 Folate Urine Color YELLOW Urine Appearance CLEAR Urine pH 5.0 Ur Specific [place] 1.024 Urine Protein 100 H Urine Glucose (UA) >=500 H Urine Ketones 20 H Urine Blood SMALL H Urine RBC (Auto) 1 Blood Type Antibody Screen 01/17/20 01/17/20 01/18/20 17:15 21:23 05:56 WBC 21.6 H RBC 2.62 L Hgb 7.5 L Hct 22.1 L MCV 85 MCH 28.6 MCHC 33.8 RDW 14.8 H Plt Count 642 H Seg Neutrophils % Not Reportable Retic Count (auto) 3.37 H VBG pH VBG pCO2 VBG HCO3 VBG Base Excess Sodium Potassium Chloride Carbon Dioxide Anion Gap BUN Creatinine Est GFR ( Amer) Glucose Lactic Acid 1.9 Calcium Magnesium Iron TIBC % Saturation Ferritin Total Bilirubin AST Alkaline Phosphatase Total Protein Albumin Vitamin B12 Folate Urine Color Urine Appearance Urine pH Ur Specific [place] Urine Protein Urine Glucose (UA) Urine Ketones Urine Blood Urine RBC (Auto) Blood Type O POSITIVE Antibody Screen NEGATIVE 01/18/20 05:56 WBC RBC Hgb Hct MCV MCH MCHC RDW Plt Count Seg Neutrophils % Retic Count (auto) VBG pH VBG pCO2 VBG HCO3 VBG Base Excess Sodium 136.8 L Potassium 4.1 Chloride 100 Carbon Dioxide 18 L Anion Gap 19 BUN 20 Creatinine 0.86 Est GFR ( Amer) > 60 Glucose 117 H Lactic Acid Calcium 8.4 Magnesium 1.7 Iron 34.7 L TIBC 168 L % Saturation 21 Ferritin 885.00 H Total Bilirubin 0.7 AST 35 Alkaline Phosphatase 162 H Total Protein 6.7 Albumin 2.5 L Vitamin B12 901.0 Folate 12.60 Urine Color Urine Appearance Urine pH Ur Specific [place] Urine Protein Urine Glucose (UA) Urine Ketones Urine Blood Urine RBC (Auto) Blood Type Antibody Screen 01/17/20 09:55 Blood Blood Culture (PCR) - Final Staphylococcus Aureus 01/17/20 13:38 Blood Blood Culture (PCR) - Final Staphylococcus Aureus Impressions: Chest X-Ray 01/17/20 13:10 IMPRESSION: NO ACUTE RADIOGRAPHIC FINDING IN THE CHEST. Venous Doppler Study 01/17/20 13:12 IMPRESSION: Positive acute deep vein thrombosis femoral and popliteal veins. Foot X-Ray 01/17/20 13:13 IMPRESSION: There appear to be diabetic foot changes. No osteomyelitis is seen. Findings as described. Marked soft tissue swelling. Tibia/Fibula X-Ray 01/17/20 13:14 IMPRESSION: Possible prior interosseous ligament disruption. No acute finding in either the tibia or the fibula. Assessment & Plan - Diagnosis (1) Diabetic infection of left foot Is this a current diagnosis for this admission?: Yes Plan: Impression: Patient is 1 day status post guillotine amputation left below the knee, with the wound packed open, interval control of septic focus; distant leukocytosis; on intravenous antibiotics Plan: 1. We will leave stump dressing intact today 2. Anticipate dressing takedown tomorrow, to reexamination; patient may be candidate for takeback for closure on Monday. 3. The above discussed with patient and hospitalist service. (2) Acute deep vein thrombosis (DVT) of right lower extremity Qualifiers: Affected thrombotic vein of extremity: femoral Qualified Code(s): I82.411 - Acute embolism and thrombosis of right femoral vein Is this a current diagnosis for this admission?: Yes Plan: Impression: Symptomatic right lower extremity DVT, acute Plan: 1. Re-bolus with heparin and resume heparin drip; discussed with hospitalist service 2. Patient can be up in a limited fashion, within 24 hours, with the physical therapy using a walker ,after heparin resumed. - Time Time Spent: 30 to 50 Minutes Critical Time spent with patient: Less than 15 minutes Medications reviewed and adjusted accordingly: Yes Anticipated Discharge Disposition: Home, Self Care Anticipated Discharge Timeframe: within 72 hours
--- NOTE | 2020-01-18 15:04 | PDOC PROGRESS REPORT ---
Subjective Progress Note for:: 01/18/20 Subjective:: Patient feels better today. I did have an amputation performed yesterday evening. Blood cultures growing staph aureus seems to be MRSA. He did complain of having some bleeding from the site. Reason For Visit: LEFT FOOT ABSCESS,CHAROT JOINT,SEPSIS Physical Exam Vital Signs: Temp Pulse Resp BP Pulse Ox 98.1 F 115 H 20 132/73 H 99 01/18/20 12:03 01/18/20 12:03 01/18/20 12:03 01/18/20 12:03 01/18/20 12:03 Intake & Output 01/17/20 01/18/20 01/19/20 06:59 06:59 06:59 Intake Total 4885 230 Output Total 1485 Balance 3400 230 Weight 105.9 kg General appearance: PRESENT: no acute distress, cooperative Neck exam: ABSENT: JVD Respiratory exam: PRESENT: symmetrical, unlabored. ABSENT: tachypnea, wheezes Cardiovascular exam: PRESENT: +S1, +S2, tachycardia. ABSENT: irregular rhythm GI/Abdominal exam: PRESENT: soft. ABSENT: rebound, rigid, tenderness Extremities exam: PRESENT: tenderness - Swelling and tenderness of his right's lower extremity from just above his thigh downwards, other - Left BKA Neurological exam: PRESENT: alert, awake, oriented to person, oriented to place, oriented to time Psychiatric exam: ABSENT: agitated, anxious Results Laboratory Results: 01/18/20 05:56 01/18/20 05:56 01/17/20 01/17/20 01/17/20 13:38 14:30 15:03 WBC RBC Hgb Hct MCV MCH MCHC RDW Plt Count Seg Neutrophils % Retic Count (auto) VBG pH 7.39 VBG pCO2 37.1 VBG HCO3 21.7 VBG Base Excess -3.1 Sodium Potassium Chloride Carbon Dioxide Anion Gap BUN Creatinine Est GFR ( Amer) Glucose Lactic Acid 3.1 H Calcium Magnesium Iron TIBC % Saturation Ferritin Total Bilirubin AST Alkaline Phosphatase Total Protein Albumin Vitamin B12 Folate Urine Color YELLOW Urine Appearance CLEAR Urine pH 5.0 Ur Specific [place] 1.024 Urine Protein 100 H Urine Glucose (UA) >=500 H Urine Ketones 20 H Urine Blood SMALL H Urine RBC (Auto) 1 Blood Type Antibody Screen 01/17/20 01/17/20 01/17/20 17:15 17:15 21:23 WBC RBC Hgb Hct MCV MCH MCHC RDW Plt Count Seg Neutrophils % Retic Count (auto) VBG pH VBG pCO2 VBG HCO3 VBG Base Excess Sodium Potassium Chloride Carbon Dioxide Anion Gap BUN Creatinine Est GFR ( Amer) Glucose Lactic Acid 1.9 1.9 Calcium Magnesium Iron TIBC % Saturation Ferritin Total Bilirubin AST Alkaline Phosphatase Total Protein Albumin Vitamin B12 Folate Urine Color Urine Appearance Urine pH Ur Specific [place] Urine Protein Urine Glucose (UA) Urine Ketones Urine Blood Urine RBC (Auto) Blood Type O POSITIVE Antibody Screen NEGATIVE 01/18/20 01/18/20 05:56 05:56 WBC 21.6 H RBC 2.62 L Hgb 7.5 L Hct 22.1 L MCV 85 MCH 28.6 MCHC 33.8 RDW 14.8 H Plt Count 642 H Seg Neutrophils % Not Reportable Retic Count (auto) 3.37 H VBG pH VBG pCO2 VBG HCO3 VBG Base Excess Sodium 136.8 L Potassium 4.1 Chloride 100 Carbon Dioxide 18 L Anion Gap 19 BUN 20 Creatinine 0.86 Est GFR ( Amer) > 60 Glucose 117 H Lactic Acid Calcium 8.4 Magnesium 1.7 Iron 34.7 L TIBC 168 L % Saturation 21 Ferritin 885.00 H Total Bilirubin 0.7 AST 35 Alkaline Phosphatase 162 H Total Protein 6.7 Albumin 2.5 L Vitamin B12 901.0 Folate 12.60 Urine Color Urine Appearance Urine pH Ur Specific [place] Urine Protein Urine Glucose (UA) Urine Ketones Urine Blood Urine RBC (Auto) Blood Type Antibody Screen 01/17/20 13:38 Blood Blood Culture (PCR) - Final Staphylococcus Aureus 01/17/20 09:55 Blood Blood Culture (PCR) - Final Staphylococcus Aureus Impressions: Chest X-Ray 01/17/20 13:10 IMPRESSION: NO ACUTE RADIOGRAPHIC FINDING IN THE CHEST. Venous Doppler Study 01/17/20 13:12 IMPRESSION: Positive acute deep vein thrombosis femoral and popliteal veins. Foot X-Ray 01/17/20 13:13 IMPRESSION: There appear to be diabetic foot changes. No osteomyelitis is seen. Findings as described. Marked soft tissue swelling. Tibia/Fibula X-Ray 01/17/20 13:14 IMPRESSION: Possible prior interosseous ligament disruption. No acute finding in either the tibia or the fibula. Assessment and Plan - Diagnosis (1) Abscess of left foot Is this a current diagnosis for this admission?: Yes Plan: Had large deep leg abscess. 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 Has open wound with plans for continued surgical debridement for inner leg abscess Empiric antibiotics with vancomycin and cefepime. Pain control with IV Toradol and morphine (2) MRSA bacteremia Is this a current diagnosis for this admission?: Yes Plan: Likely secondary to left leg abscess. Will treat with vancomycin. Will await full report about susceptibility. check a TTE on Monday. (3) Charcot foot due to diabetes mellitus Is this a current diagnosis for this admission?: Yes Plan: Had foot amputated (4) Sepsis Qualifiers: Sepsis type: sepsis due to unspecified organism Sepsis acute organ dysfunction status: without acute organ dysfunction Qualified Code(s): A41.9 - Sepsis, unspecified organism Is this a current diagnosis for this admission?: Yes Plan: Source control has been achieved. Continue IV antibiotics. Sepsis improved. Lactic acidosis resolved. (5) Acute deep vein thrombosis (DVT) of right lower extremity Qualifiers: Affected thrombotic vein of extremity: femoral Qualified Code(s): I82.411 - Acute embolism and thrombosis of right femoral vein Is this a current diagnosis for this admission?: Yes Plan: On heparin drip. (6) Anemia of chronic disease Is this a current diagnosis for this admission?: Yes Plan: Labs consistent with anemia of chronic disease. Actually not iron deficient on all. I suspect this is probably due to pain in the prolonged infected state carrying around that foot abscess for several months likely. He was transfused 1 unit. Will monitor CBC. (7) Hyperglycemia due to type 2 diabetes mellitus Qualifiers: Diabetes mellitus shelter insulin use: without director long term care use Qualified Code(s): E11.65 - Type 2 diabetes mellitus with hyperglycemia Is this a current diagnosis for this admission?: Yes Plan: Takes metformin and Jardiance at home. We will put on sliding scale insulin and Accu-Cheks currently. Hemoglobin A1c is 9.2. He will likely need to be on insulin. I will discuss this with him. In the meantime we will start a small dose of Lantus. (8) HTN (hypertension) Qualifiers: Hypertension type: essential hypertension Qualified Code(s): I10 - Essential (primary) hypertension Is this a current diagnosis for this admission?: Yes Plan: BP is better controlled. Continue clonidine, amlodipine and losartan (9) Thrombocytosis Is this a current diagnosis for this admission?: Yes Plan: Likely reactive to anemic state - Time Time Spent with patient: 15-24 minutes Anticipated Discharge Disposition: Home, Self Care Anticipated Discharge Timeframe: UNDETERMINED
[2020-01-18 15:21] LABS: HEMATOCRIT 19.6 % (37.9-51.0); MEAN CORPUSCULAR HEMOGLOBIN 28.5 pg (27.0-33.4); MEAN CORPUSCULAR HGB CONC 33.6 g/dL (32.0-36.0); MEAN CORPUSCULAR VOLUME 85 fl (80-97); PLATELET COUNT 542 10^3/uL (150-450); RED BLOOD COUNT 2.32 10^6/uL (4.35-5.55); WHITE BLOOD COUNT 16.2 10^3/uL (4.0-10.5)
[2020-01-18 15:25] LABS: INTERNATIONAL RATION (INR) 1.37
[2020-01-18 15:26] LABS: PARTIAL THROMBOPLASTIN TIME 49.4 SEC (23.5-35.8)
[2020-01-18 15:50] LABS: HEMOGLOBIN 6.6 g/dL (13.5-17.0)
[2020-01-18 15:51] LABS: ABSOLUTE LYMPHOCYTES# (MANUAL) 1.6 10^3/uL (0.5-4.7); ABSOLUTE MONOCYTES # (MANUAL) 0.5 10^3/uL (0.1-1.4); ANISOCYTOSIS SLIGHT; BAND NEUTROPHILS % (MANUAL) 2 % (3-5); BASOPHILS % (MANUAL) 0 % (0-2); EOSINOPHILS % (MANUAL) 0 % (0-6); LYMPHOCYTES % (MANUAL) 10 % (13-45); MONOCYTES % (MANUAL) 3 % (3-13); SEGMENTED NEUTROPHILS % (MAN) 85 % (42-78); TOTAL CELLS COUNTED 100; TOXIC GRANULATION 2+
[2020-01-18 15:52] LABS: PLATELET COMMENT ADEQUATE
[2020-01-18] MEDS ORDERED: NORMAL SALINE 250 ML IV PRN ×2 (15:53)
[2020-01-18] MEDS ORDERED: HEPARIN SOD (PORCINE) 1,000 UNIT/ML 10 ML VIAL IV PRN (17:19)
[2020-01-18 17:40] LABS: APPEARANCE,URINE CLEAR; BILIRUBIN,URINE NEGATIVE (NEGATIVE); COLOR,URINE YELLOW; GLUCOSE, URINE >=500 mg/dL (NEGATIVE); KETONES,URINE 20 mg/dL (NEGATIVE); LEUKOCYTE ESTERASE,URINE NEGATIVE (NEGATIVE); NITRITE,URINE NEGATIVE (NEGATIVE); PROTEIN,URINE 30 mg/dL (NEGATIVE); URINE SPECIFIC GRAVITY 1.023; UROBILINOGEN,URINE NEGATIVE mg/dL (<2.0)
[2020-01-18] MEDS: DOCUSATE SODIUM 100 MG CAPSULE PO SCH (17:45)
[2020-01-18] MEDS: HEPARIN SODIUM,PORCINE/D5W 25,000 UNIT/250 ML RTUINJ IV PRN (17:52)
[2020-01-18] MEDS ORDERED: INSULIN GLARGINE,HUM.REC.ANLOG 1,000 UNIT/10 ML VIAL SUBCUT SCH (22:00)
[2020-01-19] MEDS: CLONIDINE HCL 0.2 MG TABLET PO SCH ×4 (00:39→17:25)
[2020-01-19 04:38] LABS: ALBUMIN 2.2 g/dL (3.5-5.0); ALKALINE PHOSPHATASE 144 U/L (38-126); ANION GAP 6 (5-19); ASPARTATE AMINO TRANSFERASE 53 U/L (17-59); BILIRUBIN,DIRECT 0.4 mg/dL (0.0-0.4); BILIRUBIN,TOTAL 0.7 mg/dL (0.2-1.3); BLOOD UREA NITROGEN 25 mg/dL (7-20); CALCIUM 7.4 mg/dL (8.4-10.2); CARBON DIOXIDE 26 mmol/L (22-30); CHLORIDE 100 mmol/L (98-107); GLUCOSE 177 mg/dL (75-110); POTASSIUM 3.9 mmol/L (3.6-5.0)
[2020-01-19] MEDS: PANTOPRAZOLE SODIUM 40 MG TABLET.DR PO SCH (06:25)
[2020-01-19] MEDS: KETOROLAC TROMETHAMINE INJ/PF 30 MG/1 ML SDV IV SCH ×3 (06:26→21:38)
[2020-01-19] MEDS: VANCOMYCIN HCL 1,500 MG in DEXTROSE 5%-WATER 250 ML IV SCH ×2 (06:26→17:23)
[2020-01-19 08:42] LABS: HEMATOCRIT 23.5 % (37.9-51.0); HEMOGLOBIN 8.5 g/dL (13.5-17.0); MEAN CORPUSCULAR HEMOGLOBIN 30.9 pg (27.0-33.4); MEAN CORPUSCULAR HGB CONC 36.3 g/dL (32.0-36.0); MEAN CORPUSCULAR VOLUME 85 fl (80-97); PLATELET COUNT 473 10^3/uL (150-450); RED BLOOD COUNT 2.76 10^6/uL (4.35-5.55); RED CELL DISTRIBUTION WIDTH 14.2 % (11.5-14.0); WHITE BLOOD COUNT 18.5 10^3/uL (4.0-10.5)
[2020-01-19] MEDS: HEPARIN SODIUM,PORCINE/D5W 25,000 UNIT/250 ML RTUINJ IV PRN ×2 (09:24→23:53)
[2020-01-19] MEDS: METOPROLOL SUCCINATE 25 MG TAB.SR.24H PO SCH ×2 (09:25→17:25)
[2020-01-19] MEDS: DIAZEPAM 5 MG TABLET PO SCH ×2 (09:25→17:25)
[2020-01-19] MEDS: AMLODIPINE BESYLATE 5 MG TABLET PO SCH ×2 (09:25→21:39)
[2020-01-19] MEDS: INSULIN LISPRO 100 UNIT/ML 3 ML VIAL SUBCUT SCH ×4 (09:25→21:40)
[2020-01-19] MEDS: DOCUSATE SODIUM 100 MG CAPSULE PO SCH ×2 (09:25→17:25)
[2020-01-19] MEDS: LOSARTAN POTASSIUM 50 MG TABLET PO SCH (09:25)
[2020-01-19] MEDS: HYDROCHLOROTHIAZIDE 12.5 MG TABLET PO SCH (09:25)
[2020-01-19] MEDS: INSULIN GLARGINE,HUM.REC.ANLOG 1,000 UNIT/10 ML VIAL SUBCUT SCH ×2 (09:28→21:40)
[2020-01-19] MEDS: CEFEPIME HCL 2 GM in DEXTROSE 5%-WATER 50 ML IV SCH ×2 (09:29→23:07)
[2020-01-19] MEDS: HYDROCODONE/ACETAMINOPHEN 10-325 MG TABLET PO PRN ×3 (12:39→21:39)
[2020-01-19] MEDS: MORPHINE SULFATE 10 MG/ML INJ IV PRN ×2 (12:52→20:25)
--- NOTE | 2020-01-19 15:05 | PDOC PROGRESS REPORT ---
Subjective Progress Note for:: 01/19/20 Subjective:: Patient is doing well today. He has no complaints. He does complain of pain in the right leg due to the blood clot but actually has no pain whatsoever in his left leg as he has really bad neuropathy in that leg. States he takes metformin at home and was recently started on Jardiance breathing the past week before coming into the hospital. Reason For Visit: LEFT FOOT ABSCESS,CHAROT JOINT,SEPSIS Physical Exam Vital Signs: Temp Pulse Resp BP Pulse Ox 97.6 F 90 18 136/73 H 95 01/19/20 12:07 01/19/20 12:07 01/19/20 12:07 01/19/20 12:07 01/19/20 12:07 Intake & Output 01/18/20 01/19/20 01/20/20 06:59 06:59 06:59 Intake Total 4885 2843 387 Output Total 1485 1325 Balance 3400 1518 387 Weight 105.9 kg 106.1 kg General appearance: PRESENT: no acute distress, cooperative Neck exam: ABSENT: JVD Respiratory exam: PRESENT: symmetrical, unlabored. ABSENT: tachypnea, wheezes Cardiovascular exam: PRESENT: RRR, +S1, +S2. ABSENT: tachycardia GI/Abdominal exam: PRESENT: soft. ABSENT: rebound, rigid, tenderness Extremities exam: PRESENT: other - Swelling in right lower thigh and calf with tenderness. Nontender left BKA site Neurological exam: PRESENT: alert, awake, oriented to person, oriented to place, oriented to time, oriented to situation Psychiatric exam: ABSENT: agitated, anxious Results Laboratory Results: 01/19/20 06:06 01/19/20 03:38 01/17/20 01/18/20 01/18/20 17:15 15:00 17:15 WBC 16.2 H RBC 2.32 L Hgb 6.6 L Hct 19.6 L MCV 85 MCH 28.5 MCHC 33.6 RDW 15.0 H Plt Count 542 H Seg Neutrophils % Not Reportable Sodium Potassium Chloride Carbon Dioxide Anion Gap BUN Creatinine Est GFR ( Amer) Glucose Calcium Total Bilirubin AST Alkaline Phosphatase Total Protein Albumin Urine Color YELLOW Urine Appearance CLEAR Urine pH 5.0 Ur Specific [place] 1.023 Urine Protein 30 H Urine Glucose (UA) >=500 H Urine Ketones 20 H Urine Blood NEGATIVE Urine Nitrite NEGATIVE Ur Leukocyte Esterase NEGATIVE Urine WBC (Auto) 2 Urine RBC (Auto) 0 Blood Type O POSITIVE Antibody Screen NEGATIVE 01/19/20 01/19/20 03:38 06:06 WBC 18.5 H RBC 2.76 L Hgb 8.5 L Hct 23.5 L MCV 85 MCH 30.9 MCHC 36.3 H RDW 14.2 H Plt Count 473 H Seg Neutrophils % Sodium 131.8 L Potassium 3.9 Chloride 100 Carbon Dioxide 26 Anion Gap 6 BUN 25 H Creatinine 0.99 Est GFR ( Amer) > 60 Glucose 177 H Calcium 7.4 L Total Bilirubin 0.7 AST 53 Alkaline Phosphatase 144 H Total Protein 6.0 L Albumin 2.2 L Urine Color Urine Appearance Urine pH Ur Specific [place] Urine Protein Urine Glucose (UA) Urine Ketones Urine Blood Urine Nitrite Ur Leukocyte Esterase Urine WBC (Auto) Urine RBC (Auto) Blood Type Antibody Screen 01/17/20 19:40 Leg - Left Gram Stain - Final 01/17/20 19:40 Leg - Left Wound Culture - Final Mrsa (Meth Resis Staph Aureus) No Anaerobic Organisms 01/17/20 13:38 Blood Blood Culture (PCR) - Final Staphylococcus Aureus 01/17/20 13:38 Blood Blood Culture - Final Mrsa (Meth Resis Staph Aureus) 01/17/20 09:55 Blood Blood Culture (PCR) - Final Staphylococcus Aureus 01/17/20 09:55 Blood Blood Culture - Final Mrsa (Meth Resis Staph Aureus) Impressions: Chest X-Ray 01/17/20 13:10 IMPRESSION: NO ACUTE RADIOGRAPHIC FINDING IN THE CHEST. Venous Doppler Study 01/17/20 13:12 IMPRESSION: Positive acute deep vein thrombosis femoral and popliteal veins. Foot X-Ray 01/17/20 13:13 IMPRESSION: There appear to be diabetic foot changes. No osteomyelitis is seen. Findings as described. Marked soft tissue swelling. Tibia/Fibula X-Ray 01/17/20 13:14 IMPRESSION: Possible prior interosseous ligament disruption. No acute finding in either the tibia or the fibula. Assessment and Plan - Diagnosis (1) Abscess of left foot Is this a current diagnosis for this admission?: Yes Plan: Had large deep leg abscess. 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 Has open wound with plans for continued surgical debridement for inner leg abscess Wound culture growing MRSA. We will leave on empiric antibiotics with vancomycin and cefepime for today and consider de-escalating to vancomycin tomorrow or next if no further growths from the wound culture. PT/OT (2) MRSA bacteremia Is this a current diagnosis for this admission?: Yes Plan: Secondary to left leg abscess. Continue with vancomycin. Check a TTE on . (3) Charcot foot due to diabetes mellitus Is this a current diagnosis for this admission?: Yes Plan: S/p amputation (4) Acute deep vein thrombosis (DVT) of right lower extremity Qualifiers: Affected thrombotic vein of extremity: femoral Qualified Code(s): I82.411 - Acute embolism and thrombosis of right femoral vein Is this a current diagnosis for this admission?: Yes Plan: Continue with heparin drip for now as patient will need more surgical procedures. Monitor PTT. Pain control with Toradol and morphine. (5) Anemia of chronic disease Is this a current diagnosis for this admission?: Yes Plan: Labs consistent with anemia of chronic disease. Actually not iron deficient on all. I suspect this is probably due to pain in the prolonged infected state carrying around that foot abscess for several months likely. Complicated by acute blood loss from amputation. Received 3 units of blood so far. Hemoglobin seems good today. Will check another CBC in the morning. (6) Hyperglycemia due to type 2 diabetes mellitus Qualifiers: Diabetes mellitus senior living insulin use: without senior living use Qualified Code(s): E11.65 - Type 2 diabetes mellitus with hyperglycemia Is this a current diagnosis for this admission?: Yes Plan: Takes metformin and very recently started on Jardiance at home. Hemoglobin A1c is 9.2. He is willing to start insulin if needed. Resume metformin. We will put him on Lantus while inpatient and may possibly discharge him on a small dose of Lantus as well. Diabetes education (7) HTN (hypertension) Qualifiers: Hypertension type: essential hypertension Qualified Code(s): I10 - Essential (primary) hypertension Is this a current diagnosis for this admission?: Yes Plan: BP is better controlled. Continue clonidine, amlodipine and losartan (8) Thrombocytosis Is this a current diagnosis for this admission?: Yes Plan: Likely reactive to anemic state (9) Sepsis Qualifiers: Sepsis type: sepsis due to unspecified organism Sepsis acute organ dysfunction status: without acute organ dysfunction Qualified Code(s): A41.9 - Sepsis, unspecified organism Is this a current diagnosis for this admission?: Yes Plan: Resolved - Time Time Spent with patient: 15-24 minutes Anticipated Discharge Disposition: Home with Home Health Anticipated Discharge Timeframe: Undetermined
--- NOTE | 2020-01-19 15:23 | PDOC PROGRESS REPORT ---
Subjective Progress Note for:: 01/19/20 Reason For Visit: LEFT FOOT ABSCESS,CHAROT JOINT,SEPSIS Patient states his right lower extremity feels better; no complaints with his left leg. No fever overnight Physical Exam Vital Signs: Temp Pulse Resp BP Pulse Ox 97.6 F 98 18 136/73 H 95 01/19/20 12:07 01/19/20 14:00 01/19/20 12:07 01/19/20 12:07 01/19/20 12:07 Intake & Output 01/18/20 01/19/20 01/20/20 06:59 06:59 06:59 Intake Total 4885 2843 387 Output Total 1485 1325 Balance 3400 1518 387 Weight 105.9 kg 106.1 kg General appearance: PRESENT: no acute distress Musculoskeletal exam: PRESENT: other - Right lower extremity with persisting edema, tenderness and significantly changed compared to 24 hours ago Left lower extremity dressing completely removed with temporary sutures. There is vitalized fascia trimmed with scissors. 80% of the deep tissue appears viable; anterior skin flap mild to moderate ischemic changes Results Laboratory Results: 01/19/20 06:06 01/19/20 03:38 01/17/20 01/18/20 01/18/20 17:15 15:00 17:15 WBC 16.2 H RBC 2.32 L Hgb 6.6 L Hct 19.6 L MCV 85 MCH 28.5 MCHC 33.6 RDW 15.0 H Plt Count 542 H Seg Neutrophils % Not Reportable Sodium Potassium Chloride Carbon Dioxide Anion Gap BUN Creatinine Est GFR ( Amer) Glucose Calcium Total Bilirubin AST Alkaline Phosphatase Total Protein Albumin Urine Color YELLOW Urine Appearance CLEAR Urine pH 5.0 Ur Specific [place] 1.023 Urine Protein 30 H Urine Glucose (UA) >=500 H Urine Ketones 20 H Urine Blood NEGATIVE Urine Nitrite NEGATIVE Ur Leukocyte Esterase NEGATIVE Urine WBC (Auto) 2 Urine RBC (Auto) 0 Blood Type O POSITIVE Antibody Screen NEGATIVE 01/19/20 01/19/20 03:38 06:06 WBC 18.5 H RBC 2.76 L Hgb 8.5 L Hct 23.5 L MCV 85 MCH 30.9 MCHC 36.3 H RDW 14.2 H Plt Count 473 H Seg Neutrophils % Sodium 131.8 L Potassium 3.9 Chloride 100 Carbon Dioxide 26 Anion Gap 6 BUN 25 H Creatinine 0.99 Est GFR ( Amer) > 60 Glucose 177 H Calcium 7.4 L Total Bilirubin 0.7 AST 53 Alkaline Phosphatase 144 H Total Protein 6.0 L Albumin 2.2 L Urine Color Urine Appearance Urine pH Ur Specific [place] Urine Protein Urine Glucose (UA) Urine Ketones Urine Blood Urine Nitrite Ur Leukocyte Esterase Urine WBC (Auto) Urine RBC (Auto) Blood Type Antibody Screen 01/17/20 19:40 Leg - Left Gram Stain - Final 01/17/20 19:40 Leg - Left Wound Culture - Final Mrsa (Meth Resis Staph Aureus) No Anaerobic Organisms 01/17/20 13:38 Blood Blood Culture (PCR) - Final Staphylococcus Aureus 01/17/20 13:38 Blood Blood Culture - Final Mrsa (Meth Resis Staph Aureus) 01/17/20 09:55 Blood Blood Culture (PCR) - Final Staphylococcus Aureus 01/17/20 09:55 Blood Blood Culture - Final Mrsa (Meth Resis Staph Aureus) Impressions: Chest X-Ray 01/17/20 13:10 IMPRESSION: NO ACUTE RADIOGRAPHIC FINDING IN THE CHEST. Venous Doppler Study 01/17/20 13:12 IMPRESSION: Positive acute deep vein thrombosis femoral and popliteal veins. Foot X-Ray 01/17/20 13:13 IMPRESSION: There appear to be diabetic foot changes. No osteomyelitis is seen. Findings as described. Marked soft tissue swelling. Tibia/Fibula X-Ray 01/17/20 13:14 IMPRESSION: Possible prior interosseous ligament disruption. No acute finding in either the tibia or the fibula. Assessment & Plan - Diagnosis (1) Diabetic infection of left foot Is this a current diagnosis for this admission?: Yes Plan: Impression: Status post open amputation below the knee left side with marginal superior skin edge, and the devitalized tissue, a portion debrided today bedside; will need additional debridement prior to closure Plan: 1. Patient growing MRSA, on vancomycin 2. We will keep patient n.p.o. possible take back tomorrow for washout, additional debridement left BKA stump (2) Acute deep vein thrombosis (DVT) of right lower extremity Qualifiers: Affected thrombotic vein of extremity: femoral Qualified Code(s): I82.411 - Acute embolism and thrombosis of right femoral vein Is this a current diagnosis for this admission?: Yes - Time Time Spent: 30 to 50 Minutes Critical Time spent with patient: Less than 15 minutes Medications reviewed and adjusted accordingly: Yes Anticipated Discharge Disposition: Home with Home Health Anticipated Discharge Timeframe: within 72 hours
[2020-01-19] MEDS: METFORMIN HCL 500 MG TABLET PO SCH (17:24)
[2020-01-20] MEDS: MORPHINE SULFATE 10 MG/ML INJ IV PRN ×3 (00:28→09:22)
[2020-01-20] MEDS: CLONIDINE HCL 0.2 MG TABLET PO SCH ×5 (00:29→23:18)
[2020-01-20] MEDS: HYDROCODONE/ACETAMINOPHEN 10-325 MG TABLET PO PRN ×5 (02:27→23:20)
[2020-01-20] MEDS: KETOROLAC TROMETHAMINE INJ/PF 30 MG/1 ML SDV IV SCH ×3 (05:09→21:47)
[2020-01-20] MEDS: PANTOPRAZOLE SODIUM 40 MG TABLET.DR PO SCH (05:10)
[2020-01-20] MEDS: VANCOMYCIN HCL 1,500 MG in DEXTROSE 5%-WATER 250 ML IV SCH ×2 (05:42→17:46)
[2020-01-20 05:43] LABS: HEMATOCRIT 25.8 % (37.9-51.0); MEAN CORPUSCULAR HEMOGLOBIN 29.4 pg (27.0-33.4); MEAN CORPUSCULAR HGB CONC 34.9 g/dL (32.0-36.0); MEAN CORPUSCULAR VOLUME 84 fl (80-97); PLATELET COUNT 588 10^3/uL (150-450); RED BLOOD COUNT 3.07 10^6/uL (4.35-5.55); RED CELL DISTRIBUTION WIDTH 14.8 % (11.5-14.0); WHITE BLOOD COUNT 25.6 10^3/uL (4.0-10.5)
[2020-01-20 06:29] LABS: VANCOMYCIN,TROUGH 14.2 ug/mL (5.0-20.0)
[2020-01-20] MEDS: INSULIN LISPRO 100 UNIT/ML 3 ML VIAL SUBCUT SCH ×4 (08:50→21:46)
[2020-01-20] MEDS ORDERED: SUCCINYLCHOLINE CHLORIDE INJ 200 MG/10 ML VIAL ONE (08:57)
[2020-01-20] MEDS ORDERED: PHENYLEPHRINE HCL INJ/PF 10 MG/1 ML SDV ONE (08:57)
[2020-01-20] MEDS: DOCUSATE SODIUM 100 MG CAPSULE PO SCH ×2 (09:18→17:44)
[2020-01-20] MEDS: METFORMIN HCL 500 MG TABLET PO SCH ×2 (09:18→16:47)
[2020-01-20] MEDS: HYDROCHLOROTHIAZIDE 12.5 MG TABLET PO SCH (09:19)
[2020-01-20] MEDS: LOSARTAN POTASSIUM 50 MG TABLET PO SCH (09:19)
[2020-01-20] MEDS: AMLODIPINE BESYLATE 5 MG TABLET PO SCH ×2 (09:20→21:47)
[2020-01-20] MEDS: INSULIN GLARGINE,HUM.REC.ANLOG 1,000 UNIT/10 ML VIAL SUBCUT SCH ×2 (09:20→21:46)
[2020-01-20] MEDS: CEFEPIME HCL 2 GM in DEXTROSE 5%-WATER 50 ML IV SCH ×2 (09:20→21:49)
[2020-01-20] MEDS: METOPROLOL SUCCINATE 25 MG TAB.SR.24H PO SCH ×2 (09:21→17:44)
[2020-01-20] MEDS: DIAZEPAM 5 MG TABLET PO SCH ×2 (09:21→17:44)
[2020-01-20] MEDS ORDERED: FENTANYL CITRATE INJ/PF 250 MCG/5 ML AMPULE ONE (13:43)
[2020-01-20] MEDS ORDERED: ONDANSETRON HCL INJ/PF 4 MG/2 ML SDV ONE (13:44)
[2020-01-20] MEDS ORDERED: EPHEDRINE SULFATE INJ 50 MG/1 ML AMPULE ONE (13:44)
[2020-01-20] MEDS ORDERED: PROPOFOL INJ 200 MG/20 ML VIAL IV ONE (13:44)
[2020-01-20] MEDS ORDERED: MIDAZOLAM 2 MG/2 ML INJ ONE (13:44)
[2020-01-20] MEDS ORDERED: BUPIVACAINE HCL 0.25 % INJ/PF (2.5 MG/1 ML) 30 ML VIAL ONE (13:53)
[2020-01-20] MEDS ORDERED: PROMETHAZINE HCL INJ 25 MG/1 ML VIAL IV PRN ×2 (14:36)
[2020-01-20] MEDS ORDERED: MORPHINE SULFATE 10 MG/ML INJ IV PRN (14:36)
[2020-01-20] MEDS ORDERED: OXYCODONE-ACETAMINOPHEN 5-325 MG TABLET PO PRN (14:36)
[2020-01-20] MEDS ORDERED: FENTANYL CITRATE INJ/PF 100 MCG/2 ML AMPUL IV PRN ×3 (14:36)
[2020-01-20] MEDS ORDERED: DIPHENHYDRAMINE HCL 50 MG/ML VIAL IV PRN (14:36)
[2020-01-20] MEDS ORDERED: MEPERIDINE HCL/PF INJ 25 MG/1 ML DISP.SYRIN IV PRN (14:36)
--- NOTE | 2020-01-20 16:00 | PDOC PROGRESS REPORT ---
Subjective Progress Note for:: 01/20/20 Subjective:: Patient is doing well today. He has no complaints. He continues to complain of pain in the right leg due to the blood clot but actually has no pain whatsoever in his left leg as he has really bad neuropathy in that leg. Reason For Visit: LEFT FOOT ABSCESS,CHAROT JOINT,SEPSIS Physical Exam Vital Signs: Temp Pulse Resp BP Pulse Ox 98.2 F 116 H 12 126/75 H 94 01/20/20 14:51 01/20/20 15:06 01/20/20 15:06 01/20/20 15:06 01/20/20 15:06 Intake & Output 01/19/20 01/20/20 01/21/20 06:59 06:59 06:59 Intake Total 2843 1475 593 Output Total 1325 1475 500 Balance 1518 0 93 Weight 106.1 kg 107.4 kg General appearance: PRESENT: no acute distress, cooperative Neck exam: ABSENT: JVD Respiratory exam: PRESENT: symmetrical, unlabored. ABSENT: tachypnea, wheezes Cardiovascular exam: PRESENT: RRR, +S1, +S2. ABSENT: tachycardia GI/Abdominal exam: PRESENT: soft. ABSENT: rebound, rigid, tenderness Extremities exam: PRESENT: tenderness - right calf and thigh with swelling. Nontender left BKA stump Neurological exam: PRESENT: alert, awake, oriented to person, oriented to place, oriented to time Results Laboratory Results: 01/20/20 05:16 01/19/20 03:38 01/20/20 05:16 WBC 25.6 H RBC 3.07 L Hgb 9.0 L Hct 25.8 L MCV 84 MCH 29.4 MCHC 34.9 RDW 14.8 H Plt Count 588 H 01/19/20 03:38 Blood Blood Culture (PCR) - Final Staphylococcus Aureus Impressions: Chest X-Ray 01/17/20 13:10 IMPRESSION: NO ACUTE RADIOGRAPHIC FINDING IN THE CHEST. Venous Doppler Study 01/17/20 13:12 IMPRESSION: Positive acute deep vein thrombosis femoral and popliteal veins. Foot X-Ray 01/17/20 13:13 IMPRESSION: There appear to be diabetic foot changes. No osteomyelitis is seen. Findings as described. Marked soft tissue swelling. Tibia/Fibula X-Ray 01/17/20 13:14 IMPRESSION: Possible prior interosseous ligament disruption. No acute finding in either the tibia or the fibula. Assessment and Plan - Diagnosis (1) Abscess of left foot Is this a current diagnosis for this admission?: Yes Plan: Status post left BKA 01/17/2020. Wound culture growing MRSA. We will leave on empiric antibiotics with vancomycin and cefepime for today and consider de-escalating to vancomycin only tomorrow or next if no further growths from the wound culture. Patient being taken back to the OR today for further debridement and washout. PT/OT (2) MRSA bacteremia Is this a current diagnosis for this admission?: Yes Plan: Secondary to left leg abscess. Bacteremia persist on repeat blood cultures likely secondary to heavy bacterial burden from chronic abscess. Continue with vancomycin. Check a TTE. (3) Charcot foot due to diabetes mellitus Is this a current diagnosis for this admission?: Yes Plan: S/p amputation (4) Acute deep vein thrombosis (DVT) of right lower extremity Qualifiers: Affected thrombotic vein of extremity: femoral Qualified Code(s): I82.411 - Acute embolism and thrombosis of right femoral vein Is this a current diagnosis for this admission?: Yes Plan: Continue with heparin drip for now as patient will need more surgical procedures. Monitor PTT. Pain control with Toradol and morphine. (5) Anemia of chronic disease Is this a current diagnosis for this admission?: Yes Plan: Labs consistent with anemia of chronic disease. Actually not iron deficient on all. I suspect this is probably due to pain in the prolonged infected state carrying around that foot abscess for several months likely. Complicated by acute blood loss from amputation. Received 3 units of blood so far. Hemoglobin seems good today. Will monitor (6) Hyperglycemia due to type 2 diabetes mellitus Qualifiers: Diabetes mellitus care home insulin use: without moth exterminator use Qualified Code(s): E11.65 - Type 2 diabetes mellitus with hyperglycemia Is this a current diagnosis for this admission?: Yes Plan: Takes metformin and very recently started on Jardiance at home. Hemoglobin A1c is 9.2. He is willing to start insulin if needed. Resume metformin. We will put him on Lantus while inpatient and may possibly discharge him on a small dose of Lantus as well. Diabetes education (7) HTN (hypertension) Qualifiers: Hypertension type: essential hypertension Qualified Code(s): I10 - Essential (primary) hypertension Is this a current diagnosis for this admission?: Yes Plan: BP is better controlled. Continue clonidine, amlodipine and losartan (8) Thrombocytosis Is this a current diagnosis for this admission?: Yes Plan: Likely reactive to anemic state (9) Sepsis Qualifiers: Sepsis type: sepsis due to unspecified organism Sepsis acute organ dysfunction status: without acute organ dysfunction Qualified Code(s): A41.9 - Sepsis, unspecified organism Is this a current diagnosis for this admission?: Yes - Time Time Spent with patient: 15-24 minutes Anticipated Discharge Disposition: [facility] Facility Anticipated Discharge Timeframe: within 72 hours
--- NOTE | 2020-01-20 16:06 | PDOC PROGRESS REPORT ---
Subjective Progress Note for:: 01/20/20 Reason For Visit: LEFT FOOT ABSCESS,CHAROT JOINT,SEPSIS Physical Exam Vital Signs: Temp Pulse Resp BP Pulse Ox 98.2 F 116 H 12 126/75 H 94 01/20/20 14:51 01/20/20 15:06 01/20/20 15:06 01/20/20 15:06 01/20/20 15:06 Intake & Output 01/19/20 01/20/20 01/21/20 06:59 06:59 06:59 Intake Total 2843 1475 593 Output Total 1325 1475 500 Balance 1518 0 93 Weight 106.1 kg 107.4 kg Results Laboratory Results: 01/20/20 05:16 01/19/20 03:38 01/20/20 05:16 WBC 25.6 H RBC 3.07 L Hgb 9.0 L Hct 25.8 L MCV 84 MCH 29.4 MCHC 34.9 RDW 14.8 H Plt Count 588 H 01/19/20 03:38 Blood Blood Culture (PCR) - Final Staphylococcus Aureus Impressions: Chest X-Ray 01/17/20 13:10 IMPRESSION: NO ACUTE RADIOGRAPHIC FINDING IN THE CHEST. Venous Doppler Study 01/17/20 13:12 IMPRESSION: Positive acute deep vein thrombosis femoral and popliteal veins. Foot X-Ray 01/17/20 13:13 IMPRESSION: There appear to be diabetic foot changes. No osteomyelitis is seen. Findings as described. Marked soft tissue swelling. Tibia/Fibula X-Ray 01/17/20 13:14 IMPRESSION: Possible prior interosseous ligament disruption. No acute finding in either the tibia or the fibula. Assessment & Plan - Diagnosis (1) Diabetic infection of left foot Is this a current diagnosis for this admission?: Yes (2) Sepsis Qualifiers: Sepsis type: sepsis due to unspecified organism Sepsis acute organ dysfunction status: without acute organ dysfunction Qualified Code(s): A41.9 - Sepsis, unspecified organism Is this a current diagnosis for this admission?: Yes - Time Anticipated Discharge Disposition: Home with Home Health Anticipated Discharge Timeframe: unknown - Plan Summary Plan Summary: 54-year-old male status post guillotine amputation of the left foot due to overwhelming infection of the foot and leg. The patient looks better today. His heart rate is improved. Plan for washout of the lower extremities and debridement of any significantly necrotic tissue. The patient has agreed to this. Risks/benefits discussed, informed consent obtained, and all questions answered.
--- NOTE | 2020-01-20 19:31 | Operative Report ---
Nonrecallable Operative Report DATE OF SURGERY: 01/20/20 PREOPERATIVE DIAGNOSIS: Severe diabetic infection of the left lower extremity POSTOPERATIVE DIAGNOSIS: Same as above OPERATION: Irrigation and debridement of left lower extremity (skin and fatty soft tissue). SURGEON: FAB LEAL 1[employer] GUIDE: NISHA BENAVIDES ANESTHESIA: GA TISSUE REMOVED OR ALTERED: Skin and fatty soft tissue of the distal amputation site COMPLICATIONS: None apparent ESTIMATED BLOOD LOSS: Minimal PROCEDURE: Drains/implants: 4 x 4 soaked in Betadine. Procedure in detail: After informed consent was obtained, the patient was brought to the operating room and laid in the supine position. The previous amputation site was prepped and draped in a normal sterile fashion. There was necrotic appearing skin and fatty soft tissue in the distal amputation site. The necrotic skin and fatty soft tissue was debrided away sharply, excisionally. The wound was inspected. There was no active purulence. The wound was then irrigated. 4 x 4's soaked in Betadine were packed into the wound. The amputation stump was then wrapped with Kerlix and Lior bandages. At this time the procedure was concluded. All sponge, instrument, and needle counts were correct x2. Condition: Stable. Nisha Benavides PA-C was scrubbed and present the entirety of the procedure. She assisted with all portions of the procedure including inspection of the wound, debridement of the tissue, placement of the dressing.
--- NOTE | 2020-01-20 21:25 | XCELERA REPORT ---
[address] [address] Transthoracic Echocardiogram Report Name: BETTE LECHUGA Age: 54 yrs Gender: Male : 1965 Patient Status: Inpatient Patient Location: [address] [place] [address] Study Date: 01/20/2020 07:29 PM Height: 69 in Weight: 236 lb BSA: 2.2 m2 Procedure: A two-dimensional transthoracic echocardiogram with color flow and Doppler was performed. Study Quality: Poor. Reason For Study: SAureus bacteremia. Valve evaluation History: SAureus bacteremia : assess endocarditis. Ordering Physician: MONA COOMBS Performed By: Octavia Roche Interpretation Summary Poor qaulity study.No defenite vegetations or evidence of endocsrditis.Recommend PERLA if clinical suspicion is high. The left ventricle is normal in size. There is normal left ventricular wall thickness. LV EF is 60% Left ventricular systolic function is normal. Probably no regional or focal wall motion abnormalit. There is no thrombus. No ASD,VSD,or PFO seen. The right atrium is normal. The left atrial size is normal. There is no evidence of mitral valve prolapse. There is no mitral valve stenosis. There is a mild amount of mitral regurgitation There is no vegetation seen on the mitral valve. There is no aortic valvular vegetation. There is no aortic valve stenosis There is aortic sclerosis without aortic stenosis. No aortic regurgitation is present. There is no tricuspid stenosis. There is a trace amount of tricuspid regurgitation Tricuspid regurgitation jet envelope not well defined to measure RV systolic pressure accurately. There is no pulmonic valvular stenosis. There is a trace amount of pulmonic regurgitation The aortic root is not well visualized but is probably normal size. Poor qaulity study.No defenite vegetations or evidence of endocsrditis.Recommend PERLA if clinical suspicion is high. MMode/2D Measurements & Calculations RVDd: 3.6 cm LVIDd: 5.6 cm FS: 27.6 % Ao root diam: 3.5 cm IVSd: 0.97 cm LVIDs: 4.1 cm EDV(Teich): 156.3 ml Ao root area: 9.6 cm2 LVPWd: 1.0 cm ESV(Teich): 73.7 ml LA dimension: 4.0 cm EF(Teich): 52.9 % Doppler Measurements & Calculations MV E max maria c: MV P1/2t max maria c: Ao V2 max: LV V1 max P.9 cm/sec 100.8 cm/sec 135.7 cm/sec 3.9 mmHg MV A max maria c: MV P1/2t: 64.4 msec Ao max PG: LV V1 max: 101.2 cm/sec MVA(P1/2t): 3.4 cm2 7.4 mmHg 98.2 cm/sec MV E/A: 0.85 MV dec slope: 458.0 cm/sec2 MV dec time: 0.18 sec PA V2 max: MV P1/2t-pr_phl: 94.8 cm/sec 64.4 msec PA max P.6 mmHg Left Ventricle The left ventricle is normal in size. There is normal left ventricular wall thickness. LV EF is 60%. Left ventricular systolic function is normal. Doppler measurements suggest impaired left ventricular relaxation, which is associated with grade I/IV or mild diastolic dysfunction. Probably no regional or focal wall motion abnormalit. There is no thrombus. No ASD,VSD,or PFO seen. Right Ventricle The right ventricle is not well visualized secondary to technical limitations. Atria The right atrium is normal. The left atrial size is normal. Mitral Valve There is no evidence of mitral valve prolapse. There is no vegetation seen on the mitral valve. There is no mitral valve stenosis. There is a mild amount of mitral regurgitation. Aortic Valve There is no aortic valvular vegetation. There is no aortic valve stenosis. There is aortic sclerosis without aortic stenosis. No aortic regurgitation is present. Tricuspid Valve There is no tricuspid stenosis. There is a trace amount of tricuspid regurgitation. Tricuspid regurgitation jet envelope not well defined to measure RV systolic pressure accurately. Pulmonic Valve There is no pulmonic valvular stenosis. There is a trace amount of pulmonic regurgitation. Great Vessels The aortic root is not well visualized but is probably normal size. The inferior vena cava appeared normal and decreased > 50% with respiration (RAP 5-10 mmHg). Effusions There is no pericardial effusion. : MONA COOMBS Lakshmi
[2020-01-21] MEDS: HEPARIN SODIUM,PORCINE/D5W 25,000 UNIT/250 ML RTUINJ IV PRN ×2 (01:31→20:42)
[2020-01-21] MEDS: HYDROCODONE/ACETAMINOPHEN 10-325 MG TABLET PO PRN ×5 (03:23→23:26)
[2020-01-21] MEDS: CLONIDINE HCL 0.2 MG TABLET PO SCH ×4 (05:02→23:26)
[2020-01-21] MEDS: PANTOPRAZOLE SODIUM 40 MG TABLET.DR PO SCH (05:03)
[2020-01-21] MEDS: VANCOMYCIN HCL 1,500 MG in DEXTROSE 5%-WATER 250 ML IV SCH ×2 (05:03→17:15)
[2020-01-21] MEDS: KETOROLAC TROMETHAMINE INJ/PF 30 MG/1 ML SDV IV SCH ×3 (05:03→21:09)
[2020-01-21 06:38] LABS: HEMATOCRIT 23.1 % (37.9-51.0); HEMOGLOBIN 8.2 g/dL (13.5-17.0); MEAN CORPUSCULAR HGB CONC 35.2 g/dL (32.0-36.0); MEAN CORPUSCULAR VOLUME 85 fl (80-97); RED BLOOD COUNT 2.72 10^6/uL (4.35-5.55); RED CELL DISTRIBUTION WIDTH 14.5 % (11.5-14.0)
[2020-01-21 07:19] LABS: PLATELET COUNT 554 10^3/uL (150-450); WHITE BLOOD COUNT 25.2 10^3/uL (4.0-10.5)
[2020-01-21] MEDS: MORPHINE SULFATE 10 MG/ML INJ IV PRN ×3 (07:43→20:29)
[2020-01-21] MEDS: INSULIN LISPRO 100 UNIT/ML 3 ML VIAL SUBCUT SCH ×4 (07:56→21:10)
[2020-01-21] MEDS: METFORMIN HCL 500 MG TABLET PO SCH ×2 (07:56→17:15)
[2020-01-21] MEDS: HYDROCHLOROTHIAZIDE 12.5 MG TABLET PO SCH (09:35)
[2020-01-21] MEDS: LOSARTAN POTASSIUM 50 MG TABLET PO SCH (09:36)
[2020-01-21] MEDS: DOCUSATE SODIUM 100 MG CAPSULE PO SCH ×2 (09:36→17:15)
[2020-01-21] MEDS: METOPROLOL SUCCINATE 25 MG TAB.SR.24H PO SCH ×2 (09:36→17:15)
[2020-01-21] MEDS: DIAZEPAM 5 MG TABLET PO SCH ×2 (09:36→17:15)
[2020-01-21] MEDS: AMLODIPINE BESYLATE 5 MG TABLET PO SCH ×2 (09:36→21:11)
[2020-01-21] MEDS: INSULIN GLARGINE,HUM.REC.ANLOG 1,000 UNIT/10 ML VIAL SUBCUT SCH ×2 (09:37→21:10)
--- NOTE | 2020-01-21 10:11 | PDOC PROGRESS REPORT ---
Subjective Progress Note for:: 01/21/20 Reason For Visit: LEFT FOOT ABSCESS,CHAROT JOINT,SEPSIS Physical Exam Vital Signs: Temp Pulse Resp BP Pulse Ox 98.5 F 94 20 151/73 H 98 01/21/20 08:29 01/21/20 07:00 01/21/20 03:38 01/21/20 03:38 01/21/20 03:38 Intake & Output 01/20/20 01/21/20 01/22/20 06:59 06:59 06:59 Intake Total 1475 2228 Output Total 1475 2210 Balance 0 18 Weight 107.4 kg 108.1 kg General appearance: PRESENT: no acute distress Head exam: PRESENT: normocephalic Eye exam: PRESENT: EOMI Ear exam: PRESENT: normal external ear exam Mouth exam: PRESENT: dry mucosa Neck exam: PRESENT: full ROM Respiratory exam: PRESENT: clear to auscultation madeline Cardiovascular exam: PRESENT: RRR Pulses: PRESENT: +1 pedal pulses bilateral Vascular exam: PRESENT: normal capillary refill Breast: PRESENT: Normal GI/Abdominal exam: PRESENT: soft Rectal exam: PRESENT: deferred Extremities exam: PRESENT: other - left stump with betadine gauze in place min swelling or celliulitis Psychiatric exam: PRESENT: appropriate affect Skin exam: PRESENT: dry Results Laboratory Results: 01/21/20 05:45 01/19/20 03:38 01/21/20 05:45 WBC 25.2 H RBC 2.72 L Hgb 8.2 L Hct 23.1 L MCV 85 MCH 30.0 MCHC 35.2 RDW 14.5 H Plt Count 554 H 01/19/20 03:38 Blood Blood Culture (PCR) - Final Staphylococcus Aureus Impressions: Chest X-Ray 01/17/20 13:10 IMPRESSION: NO ACUTE RADIOGRAPHIC FINDING IN THE CHEST. Venous Doppler Study 01/17/20 13:12 IMPRESSION: Positive acute deep vein thrombosis femoral and popliteal veins. Foot X-Ray 01/17/20 13:13 IMPRESSION: There appear to be diabetic foot changes. No osteomyelitis is seen. Findings as described. Marked soft tissue swelling. Tibia/Fibula X-Ray 01/17/20 13:14 IMPRESSION: Possible prior interosseous ligament disruption. No acute finding in either the tibia or the fibula. Assessment & Plan - Time Anticipated Discharge Disposition: Home, Self Care Anticipated Discharge Timeframe: unk - Plan Summary Plan Summary: s/p above ankle amputation for deep abscess ]stump clean no cellulitis plan on formal bka in am.
--- NOTE | 2020-01-21 11:45 | PDOC PROGRESS REPORT ---
Subjective Progress Note for:: 01/21/20 Subjective:: Patient complains of pain in his right neck today. Little improved from yesterday. Pain medications. Denies any fever or chills. Reason For Visit: LEFT FOOT ABSCESS,CHAROT JOINT,SEPSIS Physical Exam Vital Signs: Temp Pulse Resp BP Pulse Ox 98.5 F 94 20 151/73 H 98 01/21/20 08:29 01/21/20 07:00 01/21/20 03:38 01/21/20 03:38 01/21/20 03:38 Intake & Output 01/20/20 01/21/20 01/22/20 06:59 06:59 06:59 Intake Total 1475 2228 Output Total 1475 2210 Balance 0 18 Weight 107.4 kg 108.1 kg General appearance: PRESENT: no acute distress, cooperative Neck exam: ABSENT: JVD Respiratory exam: PRESENT: symmetrical, unlabored. ABSENT: accessory muscle use, crackles, tachypnea, wheezes Cardiovascular exam: PRESENT: RRR, +S1, +S2. ABSENT: tachycardia GI/Abdominal exam: PRESENT: soft. ABSENT: rebound, rigid, tenderness Extremities exam: PRESENT: other - left BKA stump in clean dressing. right lower extremity tenderness and swelling -swelling improved Neurological exam: PRESENT: alert, awake, oriented to person, oriented to place, oriented to time, oriented to situation Results Laboratory Results: 01/21/20 05:45 01/19/20 03:38 01/21/20 05:45 WBC 25.2 H RBC 2.72 L Hgb 8.2 L Hct 23.1 L MCV 85 MCH 30.0 MCHC 35.2 RDW 14.5 H Plt Count 554 H 01/19/20 03:38 Blood Blood Culture (PCR) - Final Staphylococcus Aureus 01/19/20 03:38 Blood Blood Culture - Final Mrsa (Meth Resis Staph Aureus) Impressions: Chest X-Ray 01/17/20 13:10 IMPRESSION: NO ACUTE RADIOGRAPHIC FINDING IN THE CHEST. Venous Doppler Study 01/17/20 13:12 IMPRESSION: Positive acute deep vein thrombosis femoral and popliteal veins. Foot X-Ray 01/17/20 13:13 IMPRESSION: There appear to be diabetic foot changes. No osteomyelitis is seen. Findings as described. Marked soft tissue swelling. Tibia/Fibula X-Ray 09/25/20 13:14 IMPRESSION: Possible prior interosseous ligament disruption. No acute finding in either the tibia or the fibula. 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 OR wash out and further debridement done on 01/19 Wound culture growing MRSA. Continue Vancomycin Surgery following PT/OT (2) MRSA bacteremia Is this a current diagnosis for this admission?: Yes Plan: Secondary to abscess. TTE was technically suboptimal but did not show any vegetations Continue vancomycin and monitor Vanco trough Repeat blood cultures today. (3) Charcot foot due to diabetes mellitus Is this a current diagnosis for this admission?: Yes Plan: S/p amputation (4) Acute deep vein thrombosis (DVT) of right lower extremity Qualifiers: Affected thrombotic vein of extremity: femoral Qualified Code(s): I82.411 - Acute embolism and thrombosis of right femoral vein Is this a current diagnosis for this admission?: Yes Plan: Continue with heparin drip for now as patient will need more surgical p rocedures. Monitor PTT. Pain control (5) Anemia of chronic disease Is this a current diagnosis for this admission?: Yes Plan: Labs consistent with anemia of chronic disease. Actually not iron deficient on all. I suspect this is probably due to pain in the prolonged infected state carrying around that foot abscess for several months likely. Complicated by acute blood loss from amputation. Received 3 units of blood so far. Will monitor (6) Hyperglycemia due to type 2 diabetes mellitus Qualifiers: Diabetes mellitus computer terminal operator insulin use: without assisted use Qualified Code(s): E11.65 - Type 2 diabetes mellitus with hyperglycemia Is this a current diagnosis for this admission?: Yes Plan: Takes metformin and very recently started on Jardiance at home. Hemoglobin A1c is 9.2. He is willing to start insulin if needed. Continue metformin. Continue Lantus for now Diabetes education (7) HTN (hypertension) Qualifiers: Hypertension type: essential hypertension Qualified Code(s): I10 - Essential (primary) hypertension Is this a current diagnosis for this admission?: Yes Plan: Continue clonidine, amlodipine and losartan (8) Thrombocytosis Is this a current diagnosis for this admission?: Yes Plan: Likely reactive to anemic state (9) Sepsis Qualifiers: Sepsis type: sepsis due to unspecified organism Sepsis acute organ dysfunction status: without acute organ dysfunction Qualified Code(s): A41.9 - Sepsis, unspecified organism Is this a current diagnosis for this admission?: Yes - Time Time Spent with patient: Less than 15 minutes Anticipated Discharge Disposition: rehab vs home health Anticipated Discharge Timeframe: undetermined
[2020-01-21 12:53] LABS: PATH REVIEW PATHOLOGIST REVIEWED
[2020-01-22] MEDS: PANTOPRAZOLE SODIUM 40 MG TABLET.DR PO SCH (05:28)
[2020-01-22] MEDS: VANCOMYCIN HCL 1,500 MG in DEXTROSE 5%-WATER 250 ML IV SCH ×2 (05:33→18:46)
[2020-01-22] MEDS: KETOROLAC TROMETHAMINE INJ/PF 30 MG/1 ML SDV IV SCH ×3 (05:34→21:00)
[2020-01-22] MEDS: CLONIDINE HCL 0.2 MG TABLET PO SCH ×3 (06:55→17:31)
[2020-01-22] MEDS: MORPHINE SULFATE 10 MG/ML INJ IV PRN ×4 (06:55→21:40)
[2020-01-22 07:11] LABS: HEMATOCRIT 23.5 % (37.9-51.0); MEAN CORPUSCULAR HEMOGLOBIN 29.2 pg (27.0-33.4); MEAN CORPUSCULAR HGB CONC 34.2 g/dL (32.0-36.0); MEAN CORPUSCULAR VOLUME 85 fl (80-97); PLATELET COUNT 539 10^3/uL (150-450); RED BLOOD COUNT 2.75 10^6/uL (4.35-5.55); RED CELL DISTRIBUTION WIDTH 15.3 % (11.5-14.0)
[2020-01-22 07:32] LABS: WHITE BLOOD COUNT 23.9 10^3/uL (4.0-10.5)
[2020-01-22 07:36] LABS: ABSOLUTE LYMPHOCYTES# (MANUAL) 1.7 10^3/uL (0.5-4.7); ABSOLUTE MONOCYTES # (MANUAL) 0.2 10^3/uL (0.1-1.4); BASOPHILS % (MANUAL) 0 % (0-2); EOSINOPHILS % (MANUAL) 1 % (0-6); LYMPHOCYTES % (MANUAL) 7 % (13-45); MONOCYTES % (MANUAL) 1 % (3-13); SEGMENTED NEUTROPHILS % (MAN) 91 % (42-78); TOTAL CELLS COUNTED 100
[2020-01-22 07:39] LABS: ANISOCYTOSIS SLIGHT; PLATELET COMMENT ADEQUATE
[2020-01-22 07:40] LABS: POLYCHROMASIA SLIGHT
[2020-01-22] MEDS: INSULIN LISPRO 100 UNIT/ML 3 ML VIAL SUBCUT SCH ×4 (08:31→21:27)
[2020-01-22] MEDS: METFORMIN HCL 500 MG TABLET PO SCH ×2 (08:31→17:30)
[2020-01-22] MEDS: HYDROCODONE/ACETAMINOPHEN 10-325 MG TABLET PO PRN ×2 (09:04→18:46)
[2020-01-22] MEDS: DOCUSATE SODIUM 100 MG CAPSULE PO SCH ×2 (09:04→17:31)
[2020-01-22] MEDS: LOSARTAN POTASSIUM 50 MG TABLET PO SCH (09:04)
[2020-01-22] MEDS: HYDROCHLOROTHIAZIDE 12.5 MG TABLET PO SCH (09:05)
[2020-01-22] MEDS: INSULIN GLARGINE,HUM.REC.ANLOG 1,000 UNIT/10 ML VIAL SUBCUT SCH ×2 (09:05→21:28)
[2020-01-22] MEDS: AMLODIPINE BESYLATE 5 MG TABLET PO SCH ×2 (09:06→21:24)
[2020-01-22] MEDS: METOPROLOL SUCCINATE 25 MG TAB.SR.24H PO SCH ×2 (09:06→17:31)
[2020-01-22] MEDS: DIAZEPAM 5 MG TABLET PO SCH ×2 (09:06→17:30)
[2020-01-22] MEDS ORDERED: PHENYLEPHRINE HCL INJ/PF 10 MG/1 ML SDV ONE (09:48)
--- NOTE | 2020-01-22 12:11 | PDOC PROGRESS REPORT ---
Subjective Progress Note for:: 01/22/20 Subjective:: Patient is doing well today. Still has some pain in his leg. Plan for OR today. Reason For Visit: LEFT FOOT ABSCESS,CHAROT JOINT,SEPSIS Physical Exam Vital Signs: Temp Pulse Resp BP Pulse Ox 98.3 F 106 H 17 141/72 H 97 01/22/20 09:20 01/22/20 07:59 01/22/20 07:59 01/22/20 07:59 01/22/20 07:59 Intake & Output 01/21/20 01/22/20 01/23/20 06:59 06:59 06:59 Intake Total 2478 2452 250 Output Total 2210 2260 Balance 268 192 250 Weight 108.1 kg 108.1 kg General appearance: PRESENT: no acute distress, cooperative Neck exam: ABSENT: JVD Respiratory exam: PRESENT: symmetrical, unlabored. ABSENT: tachypnea, wheezes Cardiovascular exam: PRESENT: RRR, +S1, +S2. ABSENT: tachycardia GI/Abdominal exam: PRESENT: soft. ABSENT: rebound, rigid, tenderness Extremities exam: PRESENT: tenderness - Over right leg. Left leg is nontender. Neurological exam: PRESENT: alert, awake, oriented to person, oriented to place, oriented to time Results Laboratory Results: 01/22/20 06:49 01/22/20 06:49 01/22/20 01/22/20 06:49 06:49 WBC 23.9 H RBC 2.75 L Hgb 8.0 L Hct 23.5 L MCV 85 MCH 29.2 MCHC 34.2 RDW 15.3 H Plt Count 539 H Seg Neutrophils % Not Reportable Creatinine 0.93 Est GFR ( Amer) > 60 01/19/20 03:38 Blood Blood Culture (PCR) - Final Staphylococcus Aureus 01/19/20 03:38 Blood Blood Culture - Final Mrsa (Meth Resis Staph Aureus) Impressions: Chest X-Ray 01/17/20 13:10 IMPRESSION: NO ACUTE RADIOGRAPHIC FINDING IN THE CHEST. Venous Doppler Study 01/17/20 13:12 IMPRESSION: Positive acute deep vein thrombosis femoral and popliteal veins. Foot X-Ray 01/17/20 13:13 IMPRESSION: There appear to be diabetic foot changes. No osteomyelitis is seen. Findings as described. Marked soft tissue swelling. Tibia/Fibula X-Ray 01/17/20 13:14 IMPRESSION: Possible prior interosseous ligament disruption. No acute finding in either the tibia or the fibula. 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 OR wash out and further debridement done on 01/19 Wound culture growing MRSA. Continue Vancomycin -check trough Surgery taking patient to the OR today PMR consult placed for tomorrow for assessment for acute rehabilitation pending PT/OT assessment following further surgery today. systems planner confirms they can manage prolonged IV antibiotic course there. (2) MRSA bacteremia Is this a current diagnosis for this admission?: Yes Plan: Secondary to abscess. TTE was technically suboptimal but did not show any vegetations Continue vancomycin and monitor Vanco trough Follow-up repeat blood cultures PICC line to be placed once we can achieve negative blood cultures for at least 48 to 72 hours. ID consult (3) Charcot foot due to diabetes mellitus Is this a current diagnosis for this admission?: Yes Plan: S/p amputation (4) Acute deep vein thrombosis (DVT) of right lower extremity Qualifiers: Affected thrombotic vein of extremity: femoral Qualified Code(s): I82.411 - Acute embolism and thrombosis of right femoral vein Is this a current diagnosis for this admission?: Yes Plan: Continue with heparin drip for now as patient will need more surgical procedures. Monitor PTT. Pain control (5) Anemia of chronic disease Is this a current diagnosis for this admission?: Yes Plan: Labs consistent with anemia of chronic disease. Actually not iron deficient on all. I suspect this is probably due to pain in the prolonged infected state carrying around that foot abscess for several months likely. Complicated by acute blood loss from amputation. Received 3 units of blood so far during this admission. Will monitor (6) Hyperglycemia due to type 2 diabetes mellitus Qualifiers: Diabetes mellitus custodial insulin use: without custodial use Qualified Code(s): E11.65 - Type 2 diabetes mellitus with hyperglycemia Is this a current diagnosis for this admission?: Yes Plan: Takes metformin and very recently started on Jardiance at home. Hemoglobin A1c is 9.2. He is willing to start insulin if needed. Continue metformin. Continue Lantus for now Diabetes education (7) HTN (hypertension) Qualifiers: Hypertension type: essential hypertension Qualified Code(s): I10 - Essential (primary) hypertension Is this a current diagnosis for this admission?: Yes Plan: Continue clonidine, amlodipine and losartan (8) Thrombocytosis Is this a current diagnosis for this admission?: Yes Plan: Likely reactive to anemic state (9) Sepsis Qualifiers: Sepsis type: sepsis due to unspecified organism Sepsis acute organ dysfunction status: without acute organ dysfunction Qualified Code(s): A41.9 - Sepsis, unspecified organism Is this a current diagnosis for this admission?: Yes Plan: Resolved - Time Time Spent with patient: Less than 15 minutes Anticipated Discharge Disposition: Rehab Anticipated Discharge Timeframe: within 72 hours
[2020-01-22 12:31] LABS: VANCOMYCIN,TROUGH 42.5 ug/mL (5.0-20.0)
[2020-01-22] MEDS ORDERED: LIDOCAINE 2% INJ-PF (20 MG/ML) 10 ML AMPUL ONE (12:36)
[2020-01-22] MEDS ORDERED: FENTANYL CITRATE INJ/PF 100 MCG/2 ML AMPUL ONE (12:36)
[2020-01-22] MEDS ORDERED: PROPOFOL INJ 200 MG/20 ML VIAL IV ONE (12:36)
[2020-01-22] MEDS ORDERED: MIDAZOLAM 2 MG/2 ML INJ ONE (12:36)
[2020-01-22] MEDS ORDERED: ONDANSETRON HCL INJ/PF 4 MG/2 ML SDV ONE (12:36)
[2020-01-22] MEDS ORDERED: LIDOCAINE 1% INJ-PF (10 MG/ML) 30 ML SDV ONE (13:10)
[2020-01-22] MEDS ORDERED: BUPIVACAINE HCL 0.25 % INJ/PF (2.5 MG/1 ML) 30 ML VIAL ONE (13:10)
[2020-01-22] MEDS ORDERED: MEPERIDINE HCL/PF INJ 25 MG/1 ML DISP.SYRIN IV PRN (13:44)
[2020-01-22] MEDS ORDERED: DIPHENHYDRAMINE HCL 50 MG/ML VIAL IV PRN (13:44)
[2020-01-22] MEDS ORDERED: FENTANYL CITRATE INJ/PF 100 MCG/2 ML AMPUL IV PRN ×3 (13:44)
[2020-01-22] MEDS ORDERED: MORPHINE SULFATE 10 MG/ML INJ IV PRN (13:44)
[2020-01-22] MEDS ORDERED: OXYCODONE-ACETAMINOPHEN 5-325 MG TABLET PO PRN ×2 (13:44)
[2020-01-22] MEDS ORDERED: PROMETHAZINE HCL INJ 25 MG/1 ML VIAL IV PRN ×2 (13:44)
[2020-01-22] MEDS ORDERED: HYDROMORPHONE HCL INJ/PF 2 MG/ML AMPULE ONE (13:56)
--- NOTE | 2020-01-22 16:05 | PDOC PROGRESS REPORT ---
Subjective Progress Note for:: 01/22/20 Reason For Visit: LEFT FOOT ABSCESS,CHAROT JOINT,SEPSIS Physical Exam Vital Signs: Temp Pulse Resp BP Pulse Ox 99.1 F 105 H 20 131/74 H 96 01/22/20 12:38 01/22/20 12:38 01/22/20 12:38 01/22/20 12:38 01/22/20 12:38 Intake & Output 01/21/20 01/22/20 01/23/20 06:59 06:59 06:59 Intake Total 2478 2452 250 Output Total 2210 2260 1090 Balance 268 192 -840 Weight 108.1 kg 108.1 kg Results Laboratory Results: 01/22/20 06:49 01/22/20 06:49 01/22/20 01/22/20 06:49 06:49 WBC 23.9 H RBC 2.75 L Hgb 8.0 L Hct 23.5 L MCV 85 MCH 29.2 MCHC 34.2 RDW 15.3 H Plt Count 539 H Seg Neutrophils % Not Reportable Creatinine 0.93 Est GFR ( Amer) > 60 Impressions: Chest X-Ray 01/17/20 13:10 IMPRESSION: NO ACUTE RADIOGRAPHIC FINDING IN THE CHEST. Venous Doppler Study 01/17/20 13:12 IMPRESSION: Positive acute deep vein thrombosis femoral and popliteal veins. Foot X-Ray 01/17/20 13:13 IMPRESSION: There appear to be diabetic foot changes. No osteomyelitis is seen. Findings as described. Marked soft tissue swelling. Tibia/Fibula X-Ray 01/17/20 13:14 IMPRESSION: Possible prior interosseous ligament disruption. No acute finding in either the tibia or the fibula. Assessment & Plan - Diagnosis (1) Diabetic infection of left foot Is this a current diagnosis for this admission?: Yes (2) Sepsis Qualifiers: Sepsis type: sepsis due to unspecified organism Sepsis acute organ dysfunction status: without acute organ dysfunction Qualified Code(s): A41.9 - Sepsis, unspecified organism Is this a current diagnosis for this admission?: Yes - Time Anticipated Discharge Disposition: Home with Home Health Anticipated Discharge Timeframe: unknown - Plan Summary Plan Summary: 54-year-old male status post guillotine amputation of the left foot due to overwhelming infection of the foot and leg. The patient looks good today. Plan for formal Left BKA today. The patient has agreed to this. Risks/benefits discussed, informed consent obtained, and all questions answered
--- NOTE | 2020-01-22 17:12 | Operative Report ---
Nonrecallable Operative Report DATE OF SURGERY: 01/22/20 PREOPERATIVE DIAGNOSIS: 1. Septic left foot (diabetic foot infection). 2. Charcot joint POSTOPERATIVE DIAGNOSIS: Same as above OPERATION: Left below-knee amputation SURGEON: FAB LEAL ANESTHESIA: GA TISSUE REMOVED OR ALTERED: Left lower leg COMPLICATIONS: None apparent ESTIMATED BLOOD LOSS: 500 cc PROCEDURE: Drain/implants: 15 [place] round Rajiv drain. Procedure in detail: After informed consent was obtained, the patient was brought to the operating room and laid in the supine position. The area of the left lower extremity was prepped and draped in a normal sterile fashion. A ashleigh was made anteriorly, 5 fingerbreadths below the tibial tuberosity. Another 5 fingerbreadths were used to ashleigh the posterior flap. Once the leg was marked, the blade to create an incision through the skin, fatty soft tissue, and fascia of the anterior leg. The incision was carried distally, to the posterior flap, where it was completed posteriorly. Attention was then turned to division of the muscles of the anterior compartment. This was done with Bovie electrocautery. Next the tibia was cleaned, and divided using a reciprocating saw. A 45 degree notch was created in the anterior tibia. Once this was completed, the fibula was exposed. The peroneal artery was then ligated and divided. Next, a large bone cutters were used to divide the fibula. This was done approximately 3 cm superior to the tibial transection. The tibia and fibula were rotated anteriorly. The posterior compartment muscles were then removed from the bone with electrocautery. This was done all the way down to the end of the posterior flap. The posterior flap was then transected at this point. Next attention was turned to isolation and division of the tibial arteries. The tibial nerve was divided under traction. After this was completed, attention was turned to closure of the posterior flap. The fascia of the posterior leg was rotated anteriorly, and sutured to the anterior fascia. This was done with 0 Vicryl suture in [id number] fashion. Before complete closure, a 15 [place] round Rajiv drain was placed into the flap, and pulled out a separate stab incision. The drain was sutured into place using 2-0 nylon. After the fascia was completely closed, the subcutaneous tissues were closed using 2-0 Vicryl suture in interrupted subcuticular fashion. The overlying skin was closed using skin gomez. A dressing was then placed, and the procedure was concluded. All sponge, instrument, and needle counts were correct x2. Condition: Stable.
[2020-01-22 17:44] LABS: HEMATOCRIT 21.3 % (37.9-51.0); MEAN CORPUSCULAR HEMOGLOBIN 29.7 pg (27.0-33.4); MEAN CORPUSCULAR HGB CONC 34.7 g/dL (32.0-36.0); MEAN CORPUSCULAR VOLUME 86 fl (80-97); PLATELET COUNT 730 10^3/uL (150-450); RED BLOOD COUNT 2.49 10^6/uL (4.35-5.55)
[2020-01-22 18:25] LABS: HEMOGLOBIN 7.4 g/dL (13.5-17.0)
[2020-01-22 18:26] LABS: WHITE BLOOD COUNT 30.7 10^3/uL (4.0-10.5)
[2020-01-22] MEDS: MELATONIN 5 MG TABLET PO PRN (18:46)
--- NOTE | 2020-01-22 20:08 | Progress Note ---
Provider Note Provider Note: [facility] ID Telephone Advice Consultation Chart reviewed. Patient not examined. Patient is a 54-year-old man with unc ontrolled DM, peripheral neuropathy, peripheral vascular disease, left foot fracture 2 years ago (not corrected surgically). He was recently on levofloxacin for a presumptive UTI although he denies any urinary symptoms. On admission, 01/16, he was septic with a WBC of 26k, he was tachycardic. Blood culture positive for MRSA. He was evaluated by surgery after X ray of the foot and tibia were reviewed. A decision was made to take the patient to the OR on 01/16 for source control in preparation for definitive treatment with BKA. Wound culture was positive for MRSA as well. He was started on vancomycin and cefepime. Per operative note there was significant amount of pus at the amputation site. He was take n to the OR on 01/19 as well for debridement. Blood cultures from 01/16 and 01/18 positive, repeat cultures from 01/20 negative to date. He ultimately had BKA today for definitive treatment and source control. He continues on vancomycin. TTE on 01/19 didn't show vegetations but it was of poor quality. Doppler showed DVT femoral and popliteal veins. ID consulted for recommendations. PMH: DM Neuropathy PVD DVT Left leg HTN Allergies: Penicillins Allergy (Verified 01/17/20 11:49) Medications: Clonidine HCl 0.3 mg PO QIDP PRN 01/17/20 Diazepam [Valium 5 mg Tablet] 5 mg PO BID 01/17/20 Empagliflozin [Jardiance] 10 mg PO DAILY 01/17/20 Hydrochlorothiazide 12.5 mg PO DAILY 01/17/20 Hydrocodone/Acetaminophen [[place] 5-325 mg Tablet] 2 tab PO BIDP PRN 01/17/20 Levofloxacin [Levaquin 500 mg Tablet] 500 mg PO DAILY 01/17/20 Losartan Potassium 100 mg PO DAILY 01/17/20 Metoprolol Succinate [Toprol Xl 25 mg Tab.sr] 25 mg PO BID 01/17/20 Vital Signs: Temp Pulse Resp BP Pulse Ox 99.1 F 133 H 20 108/53 L 98 01/22/20 16:32 01/22/20 16:32 01/22/20 16:32 01/22/20 16:32 01/22/20 16:32 Intake & Output 01/21/20 01/22/20 01/23/20 06:59 06:59 06:59 Intake Total 4038 9476 3270 Output Total 2210 2260 1595 Balance 776 006 6597 Weight 108.1 kg 108.1 kg Weight/Height Weight 108.1 kg Height 5 ft 6 in Laboratories: 01/22/20 17:35 01/22/20 06:49 MCV 86 fl (80-97) 01/22/20 17:35 MCH 29.7 pg (27.0-33.4) 01/22/20 17:35 MCHC 34.7 g/dL (32.0-36.0) 01/22/20 17:35 RDW 15.0 % (11.5-14.0) H 01/22/20 17:35 Seg Neutrophils % Not Reportable 01/22/20 06:49 Retic Count (auto) 3.37 % (0.66-2.85) H 01/18/20 05:56 VBG pH 7.39 (7.30-7.42) 01/17/20 15:03 VBG pCO2 37.1 mmHg (35-63) 01/17/20 15:03 VBG HCO3 21.7 mmol/L (20-32) 01/17/20 15:03 VBG Base Excess -3.1 mmol/L 01/17/20 15:03 Chloride 100 mmol/L (98-107) 01/19/20 03:38 Carbon Dioxide 26 mmol/L (22-30) 01/19/20 03:38 Anion Gap 6 (5-19) 01/19/20 03:38 Est GFR ( Amer) > 60 (>60) 01/22/20 06:49 Glucose 177 mg/dL (75-110) H 01/19/20 03:38 Lactic Acid 1.9 mmol/L (0.7-2.1) 01/17/20 21:23 Calcium 7.4 mg/dL (8.4-10.2) L 01/19/20 03:38 Magnesium 1.7 mg/dL (1.6-2.3) 01/18/20 05:56 Iron 34.7 ug/dL (49-181) L 01/18/20 05:56 TIBC 168 ug/dL (250-450) L 01/18/20 05:56 % Saturation 21 % 01/18/20 05:56 Ferritin 885.00 ng/mL (17.9-464.0) H 01/18/20 05:56 Total Bilirubin 0.7 mg/dL (0.2-1.3) 01/19/20 03:38 AST 53 U/L (17-59) 01/19/20 03:38 Alkaline Phosphatase 144 U/L (38-126) H 01/19/20 03:38 Total Protein 6.0 g/dL (6.3-8.2) L 01/19/20 03:38 Albumin 2.2 g/dL (3.5-5.0) L 01/19/20 03:38 Vitamin B12 901.0 pg/mL (239-931) 01/18/20 05:56 Folate 12.60 ng/mL (>2.76) 01/18/20 05:56 Urine Color YELLOW 01/18/20 17:15 Urine Appearance CLEAR 01/18/20 17:15 Urine pH 5.0 (5.0-9.0) 01/18/20 17:15 Ur Specific [place] 1.023 01/18/20 17:15 Urine Protein 30 mg/dL (NEGATIVE) H 01/18/20 17:15 Urine Glucose (UA) >=500 mg/dL (NEGATIVE) H 01/18/20 17:15 Urine Ketones 20 mg/dL (NEGATIVE) H 01/18/20 17:15 Urine Blood NEGATIVE (NEGATIVE) 01/18/20 17:15 Urine Nitrite NEGATIVE (NEGATIVE) 01/18/20 17:15 Ur Leukocyte Esterase NEGATIVE (NEGATIVE) 01/18/20 17:15 Urine WBC (Auto) 2 /HPF 01/18/20 17:15 Urine RBC (Auto) 0 /HPF 01/18/20 17:15 Blood Type O POSITIVE 01/17/20 17:15 Antibody Screen NEGATIVE 01/17/20 17:15 Microbiology: Blood cultures 01/16 MRSA 01/18 MRSA 01/20 NGTD Wound culture 01/16 MRSA Radiology: Chest X-Ray 01/17/20 13:10 IMPRESSION: NO ACUTE RADIOGRAPHIC FINDING IN THE CHEST. Venous Doppler Study 01/17/20 13:12 IMPRESSION: Positive acute deep vein thrombosis femoral and popliteal veins. Foot X-Ray 01/17/20 13:13 IMPRESSION: There appear to be diabetic foot changes. No osteomyelitis is seen. Findings as described. Marked soft tissue swelling. Tibia/Fibula X-Ray 01/17/20 13:14 IMPRESSION: Possible prior interosseous ligament disruption. No acute finding in either the tibia or the fibula. Assessment and Recommendations: Patient evaluated for MRSA bacteremia in the setting of left diabetic foot infection. He is s/p source control with BKA, blood cultures from 01/20 negative in 24 hr. TTE was of poor quality but in the setting of a source of infection would not pursue PERLA unless persistent bacteremia despite source control. Leukcocytosis and thrombocytosis should improve now that there has been source control. Continue vancomycin with trough 15-20, monitor GFR. Duration of therapy will be 4 weeks from the day of the surgery as this is a complicated bacteremia. EOT 02/19/20. Please call if questions. Mignon Pacheco MD [facility] ID [id number]
[2020-01-23] MEDS: CLONIDINE HCL 0.2 MG TABLET PO SCH ×4 (00:09→17:12)
[2020-01-23] MEDS: HYDROCODONE/ACETAMINOPHEN 10-325 MG TABLET PO PRN ×3 (00:10→17:12)
[2020-01-23] MEDS: HEPARIN SODIUM,PORCINE/D5W 25,000 UNIT/250 ML RTUINJ IV PRN ×2 (00:12→18:43)
[2020-01-23] MEDS: MORPHINE SULFATE 10 MG/ML INJ IV PRN ×3 (03:46→13:18)
[2020-01-23] MEDS: PANTOPRAZOLE SODIUM 40 MG TABLET.DR PO SCH (05:25)
[2020-01-23] MEDS: KETOROLAC TROMETHAMINE INJ/PF 30 MG/1 ML SDV IV SCH ×3 (05:26→22:44)
[2020-01-23] MEDS: VANCOMYCIN HCL 1,500 MG in DEXTROSE 5%-WATER 250 ML IV SCH ×2 (05:27→17:13)
[2020-01-23] MEDS: INSULIN LISPRO 100 UNIT/ML 3 ML VIAL SUBCUT SCH ×4 (08:12→22:35)
[2020-01-23] MEDS: METFORMIN HCL 500 MG TABLET PO SCH ×2 (08:12→15:35)
[2020-01-23] MEDS: LOSARTAN POTASSIUM 50 MG TABLET PO SCH (09:56)
[2020-01-23] MEDS: METOPROLOL SUCCINATE 25 MG TAB.SR.24H PO SCH ×2 (09:56→17:12)
[2020-01-23] MEDS: INSULIN GLARGINE,HUM.REC.ANLOG 1,000 UNIT/10 ML VIAL SUBCUT SCH ×2 (09:56→22:49)
[2020-01-23] MEDS: HYDROCHLOROTHIAZIDE 12.5 MG TABLET PO SCH (09:56)
[2020-01-23] MEDS: DOCUSATE SODIUM 100 MG CAPSULE PO SCH ×2 (09:56→17:12)
[2020-01-23] MEDS: AMLODIPINE BESYLATE 5 MG TABLET PO SCH ×2 (09:56→22:54)
[2020-01-23] MEDS: DIAZEPAM 5 MG TABLET PO SCH ×2 (09:56→17:12)
--- NOTE | 2020-01-23 13:13 | PDOC PROGRESS REPORT ---
Subjective Progress Note for:: 01/23/20 Subjective:: No complaints Reason For Visit: LEFT FOOT ABSCESS,CHAROT JOINT,SEPSIS Physical Exam Vital Signs: Temp Pulse Resp BP Pulse Ox 98.7 F 113 H 19 130/66 H 94 01/23/20 11:12 01/23/20 11:12 01/23/20 11:12 01/23/20 11:12 01/23/20 11:12 Intake & Output 01/22/20 01/23/20 01/24/20 06:59 06:59 06:59 Intake Total 2452 4290 250 Output Total 2260 2600 Balance 192 1690 250 Weight 108.1 kg 110.9 kg General appearance: PRESENT: no acute distress, thin Extremities exam: PRESENT: other - Left lower extremity = BKA site covered by dressings dry, slightly tainted with blood at the distal aspect, and intact Results Laboratory Results: 01/22/20 17:35 01/22/20 06:49 01/22/20 17:35 WBC 30.7 H* RBC 2.49 L Hgb 7.4 L Hct 21.3 L MCV 86 MCH 29.7 MCHC 34.7 RDW 15.0 H Plt Count 730 H Impressions: Chest X-Ray 01/17/20 13:10 IMPRESSION: NO ACUTE RADIOGRAPHIC FINDING IN THE CHEST. Venous Doppler Study 01/17/20 13:12 IMPRESSION: Positive acute deep vein thrombosis femoral and popliteal veins. Foot X-Ray 01/17/20 13:13 IMPRESSION: There appear to be diabetic foot changes. No osteomyelitis is seen. Findings as described. Marked soft tissue swelling. Tibia/Fibula X-Ray 01/17/20 13:14 IMPRESSION: Possible prior interosseous ligament disruption. No acute finding in either the tibia or the fibula. Assessment & Plan - Diagnosis (1) Abscess of left foot Is this a current diagnosis for this admission?: Yes (2) Charcot foot due to diabetes mellitus Is this a current diagnosis for this admission?: Yes (3) Diabetic infection of left foot Is this a current diagnosis for this admission?: Yes - Time Anticipated Discharge Disposition: Home with Home Health Anticipated Discharge Timeframe: Patient [place] per the PCP - Plan Summary Plan Summary: Assessment: Postoperative day #1 following completion left BKA for left foot abscess Patient hemodynamically stable with slight tachycardia 113 White blood cell count 30,000 yesterday evening, most likely reactive leukocytosis Physical exam shows a left BKA stump with dressings slightly tinted with dried blood, dry, and intact Rajiv drain output about 35 mL, serosanguineous in type Plan: Continue current care Will unveil the left BKA site in 2 days Check CBC today and tomorrow
[2020-01-23 13:53] LABS: HEMATOCRIT 17.9 % (37.9-51.0); MEAN CORPUSCULAR HEMOGLOBIN 29.4 pg (27.0-33.4); MEAN CORPUSCULAR HGB CONC 34.7 g/dL (32.0-36.0); MEAN CORPUSCULAR VOLUME 85 fl (80-97); PLATELET COUNT 517 10^3/uL (150-450); RED BLOOD COUNT 2.11 10^6/uL (4.35-5.55); WHITE BLOOD COUNT 27.2 10^3/uL (4.0-10.5)
[2020-01-23 14:26] LABS: ABSOLUTE LYMPHOCYTES# (MANUAL) 0.3 10^3/uL (0.5-4.7); ABSOLUTE MONOCYTES # (MANUAL) 0.5 10^3/uL (0.1-1.4); BASOPHILS % (MANUAL) 0 % (0-2); EOSINOPHILS % (MANUAL) 0 % (0-6); HYPERSEGMENTED NEUTROPHILS PRESENT; LYMPHOCYTES % (MANUAL) 1 % (13-45); MONOCYTES % (MANUAL) 2 % (3-13); PLATELET COMMENT INCREASED; SEGMENTED NEUTROPHILS % (MAN) 97 % (42-78); TOTAL CELLS COUNTED 100
[2020-01-23 14:28] LABS: ANISOCYTOSIS 1+; POIKILOCYTOSIS 1+; POLYCHROMASIA SLIGHT; STOMATOCYTES 1+; TOXIC GRANULATION 1+
[2020-01-23 14:31] LABS: HEMOGLOBIN 6.2 g/dL (13.5-17.0)
[2020-01-23] MEDS ORDERED: NORMAL SALINE 250 ML IV PRN ×2 (14:50)
--- NOTE | 2020-01-23 14:50 | PDOC PROGRESS REPORT ---
Subjective Progress Note for:: 01/23/20 Subjective:: Complaining of pain as well as constipation Reason For Visit: LEFT FOOT ABSCESS,CHAROT JOINT,SEPSIS Physical Exam Vital Signs: Temp Pulse Resp BP Pulse Ox 98.7 F 113 H 19 130/66 H 94 01/23/20 11:12 01/23/20 11:12 01/23/20 11:12 01/23/20 11:12 01/23/20 11:12 Intake & Output 01/22/20 01/23/20 01/24/20 06:59 06:59 06:59 Intake Total 2452 4290 250 Output Total 2260 2600 Balance 192 1690 250 Weight 108.1 kg 110.9 kg General appearance: PRESENT: no acute distress, well-developed, well-nourished Head exam: PRESENT: atraumatic, normocephalic Eye exam: PRESENT: conjunctiva pink, EOMI, PERRLA. ABSENT: scleral icterus Ear exam: PRESENT: normal external ear exam Mouth exam: PRESENT: moist, tongue midline Neck exam: ABSENT: carotid bruit, JVD, lymphadenopathy, thyromegaly Respiratory exam: PRESENT: clear to auscultation madeline. ABSENT: rales, rhonchi, wheezes Cardiovascular exam: PRESENT: RRR, +S1, +S2. ABSENT: diastolic murmur, rubs, systolic murmur Pulses: PRESENT: normal dorsalis pedis pul Vascular exam: PRESENT: normal capillary refill GI/Abdominal exam: PRESENT: normal bowel sounds, soft. ABSENT: distended, guarding, mass, organolmegaly, rebound, tenderness Rectal exam: PRESENT: deferred Extremities exam: PRESENT: other - Left BKA, swelling of the right lower extremity. ABSENT: calf tenderness, clubbing, pedal edema Neurological exam: PRESENT: alert, awake, oriented to person, oriented to place, oriented to time, oriented to situation, CN II-XII grossly intact. ABSENT: motor sensory deficit Psychiatric exam: PRESENT: appropriate affect, normal mood. ABSENT: homicidal ideation, suicidal ideation Skin exam: PRESENT: dry, intact, warm. ABSENT: cyanosis, rash Results Laboratory Results: 01/23/20 13:44 01/22/20 06:49 01/22/20 01/23/20 17:35 13:44 WBC 30.7 H* 27.2 H RBC 2.49 L 2.11 L Hgb 7.4 L 6.2 L Hct 21.3 L 17.9 L MCV 86 85 MCH 29.7 29.4 MCHC 34.7 34.7 RDW 15.0 H 15.0 H Plt Count 730 H 517 H Seg Neutrophils % Not Reportable Impressions: Chest X-Ray 01/17/20 13:10 IMPRESSION: NO ACUTE RADIOGRAPHIC FINDING IN THE CHEST. Venous Doppler Study 01/17/20 13:12 IMPRESSION: Positive acute deep vein thrombosis femoral and popliteal veins. Foot X-Ray 01/17/20 13:13 IMPRESSION: There appear to be diabetic foot changes. No osteomyelitis is seen. Findings as described. Marked soft tissue swelling. Tibia/Fibula X-Ray 01/17/20 13:14 IMPRESSION: Possible prior interosseous ligament disruption. No acute finding in either the tibia or the fibula. 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 OR wash out and further debridement done on 01/19 Wound culture growing MRSA. Continue Vancomycin -check trough Surgery taking patient to the OR today PMR consult placed for tomorrow for assessment for acute rehabilitation pending PT/OT assessment following further surgery today. town planner confirms they can manage prolonged IV antibiotic course there. 01/22 appreciate surgery input (2) Acute deep vein thrombosis (DVT) of right lower extremity Qualifiers: Affected thrombotic vein of extremity: femoral Qualified Code(s): I82.411 - Acute embolism and thrombosis of right femoral vein Is this a current diagnosis for this admission?: Yes Plan: Continue with heparin drip for now as patient will need more surgical procedures. Monitor PTT. Pain control Will consider switching patient to oral anticoagulant once no surgical indication anticipated (3) Charcot foot due to diabetes mellitus Is this a current diagnosis for this admission?: Yes Plan: S/p amputation (4) Hyperglycemia due to type 2 diabetes mellitus Qualifiers: Diabetes mellitus jail insulin use: without jail use Qualified Code(s): E11.65 - Type 2 diabetes mellitus with hyperglycemia Is this a current diagnosis for this admission?: Yes Plan: Takes metformin and very recently started on Jardiance at home. Hemoglobin A1c is 9.2. He is willing to start insulin if needed. Continue metformin. Continue Lantus for now Diabetes education (5) MRSA bacteremia Is this a current diagnosis for this admission?: Yes Plan: Secondary to abscess. TTE was technically suboptimal but did not show any vegetations Continue vancomycin and monitor Vanco trough Follow-up repeat blood cultures PICC line to be placed once we can achieve negative blood cultures for at least 48 to 72 hours. ID consult appreciated (6) Sepsis Qualifiers: Sepsis type: sepsis due to unspecified organism Sepsis acute organ dysfunction status: without acute organ dysfunction Qualified Code(s): A41.9 - Sepsis, unspecified organism Is this a current diagnosis for this admission?: Yes Plan: Resolved (7) Acute blood loss anemia Is this a current diagnosis for this admission?: Yes (8) Acute blood loss as cause of postoperative anemia Is this a current diagnosis for this admission?: Yes Plan: His hemoglobin dropped from 7.4-6.2 today. Patient is to be transfused. 2 units of packed red blood cells - Plan Summary Summary: Infectious disease consultation appreciated. Blood cultures from 925 and 19 7 are positive with repeat cultures from 925- to date. PERLA on 01/11/2018 showing vegetations although was noted to be of poor quality. Patient also has DVT of the femoral and popliteal veins. He continues with a significant leukocytosis although there appears to be slight downward trend today. Infectious disease suggest no need to pursue PERLA at this time unless persistent bacteremia occurs despite source control. Patient had a recent BKA and hopefully it is felt that leukocytosis and thrombocytosis will improve. Plan is to continue vancomycin for 4 weeks from the day of the surgery, 02/19/2020 will be the estimated completion date of course unless further complications or call - Time Time Spent with patient: 15-24 minutes Medications reviewed and adjusted accordingly: Yes Anticipated Discharge Disposition: [facility] Facility Anticipated Discharge Timeframe: when bed available
--- NOTE | 2020-01-23 19:53 | Progress Note ---
Provider Note Provider Note: White blood cell count repeated at Patient left BKA stump examined: Staple line in place, wound clean, dry, and intact, Rajiv drain with a small amount of serosanguineous fluid Assessment and plan Leukocytosis unknown cause Plan: Chest x-ray at bedside stat UA with urine culture stat Blood culture x2 stat
--- NOTE | 2020-01-23 21:22 | RADIOLOGY REPORT (SQ) ---
EXAM DESCRIPTION: XR CHEST 1 VIEW COMPLETED DATE/TME: 01/23/2020 00:00 CLINICAL HISTORY: 54 years Male WBC 27.2 today, unknown reason, rule out pneumonia COMPARISON: 01/17/2020. FINDINGS: The cardiomediastinal silhouette appears unremarkable. No consolidating infiltrates or pleural effusions. No pneumothorax. IMPRESSION: No acute abnormality is identified.
[2020-01-24] MEDS: CLONIDINE HCL 0.2 MG TABLET PO SCH ×2 (05:37→06:00)
[2020-01-24] MEDS: KETOROLAC TROMETHAMINE INJ/PF 30 MG/1 ML SDV IV SCH (06:00)
[2020-01-24] MEDS: PANTOPRAZOLE SODIUM 40 MG TABLET.DR PO SCH (06:01)
[2020-01-24] MEDS: VANCOMYCIN HCL 1,500 MG in DEXTROSE 5%-WATER 250 ML IV SCH ×2 (07:00→17:59)
[2020-01-24] MEDS ORDERED: FUROSEMIDE INJ/PF 20 MG/2 ML SDV IV ONE (08:30)
[2020-01-24] MEDS: INSULIN LISPRO 100 UNIT/ML 3 ML VIAL SUBCUT SCH ×4 (08:49→21:52)
--- NOTE | 2020-01-24 08:50 | RADIOLOGY REPORT (SQ) ---
EXAM DESCRIPTION: CHEST SINGLE VIEW IMAGES COMPLETED DATE/TIME: 01/24/2020 8:40 am REASON FOR STUDY: Dyspnea COMPARISON: None. EXAM PARAMETERS: NUMBER OF VIEWS: One view. TECHNIQUE: Single frontal radiographic view of the chest acquired. RADIATION DOSE: NA LIMITATIONS: None. FINDINGS: LUNGS AND PLEURA: Low lung volumes with mild interstitial crowding. No focal consolidatio n, pleural effusion or pneumothorax. MEDIASTINUM AND HILAR STRUCTURES: No masses. Contour normal. HEART AND VASCULAR STRUCTURES: Heart normal in size. Normal vasculature. BONES: No acute findings. HARDWARE: None in the chest. OTHER: No other significant finding. IMPRESSION: Low lung volumes without other evidence of acute intrathoracic process. TECHNICAL DOCUMENTATION: JOB ID: [id number] 2010 [id number]- All Rights Reserved Reading location - IP/workstation name: [email or web address]
[2020-01-24 08:53] LABS: MEAN CORPUSCULAR HEMOGLOBIN 28.6 pg (27.0-33.4); MEAN CORPUSCULAR HGB CONC 34.3 g/dL (32.0-36.0); MEAN CORPUSCULAR VOLUME 84 fl (80-97); PLATELET COUNT 461 10^3/uL (150-450); RED BLOOD COUNT 2.39 10^6/uL (4.35-5.55); RED CELL DISTRIBUTION WIDTH 16.6 % (11.5-14.0); WHITE BLOOD COUNT 25.9 10^3/uL (4.0-10.5)
[2020-01-24] MEDS: METFORMIN HCL 500 MG TABLET PO SCH ×2 (08:53→16:49)
[2020-01-24 08:57] LABS: HEMOGLOBIN 6.8 g/dL (13.5-17.0)
[2020-01-24 09:12] LABS: ABSOLUTE LYMPHOCYTES# (MANUAL) 0.8 10^3/uL (0.5-4.7); ABSOLUTE MONOCYTES # (MANUAL) 1.6 10^3/uL (0.1-1.4); BAND NEUTROPHILS % (MANUAL) 1 % (3-5); BASOPHILS % (MANUAL) 0 % (0-2); EOSINOPHILS % (MANUAL) 1 % (0-6); LYMPHOCYTES % (MANUAL) 3 % (13-45); MONOCYTES % (MANUAL) 6 % (3-13); SEGMENTED NEUTROPHILS % (MAN) 89 % (42-78); TOTAL CELLS COUNTED 100
[2020-01-24 09:13] LABS: ANISOCYTOSIS 1+; HYPERSEGMENTED NEUTROPHILS PRESENT; OVALOCYTES SLIGHT; PLATELET COMMENT INCREASED; POIKILOCYTOSIS SLIGHT; SCHISTOCYTES SLIGHT
[2020-01-24 09:30] LABS: ANION GAP 6 (5-19); BLOOD UREA NITROGEN 23 mg/dL (7-20); CALCIUM 6.4 mg/dL (8.4-10.2); CARBON DIOXIDE 24 mmol/L (22-30); CHLORIDE 96 mmol/L (98-107); GLUCOSE 111 mg/dL (75-110); POTASSIUM 3.9 mmol/L (3.6-5.0)
[2020-01-24 09:32] LABS: VANCOMYCIN,TROUGH 26.9 ug/mL (5.0-20.0)
[2020-01-24] MEDS ORDERED: FUROSEMIDE INJ/PF 20 MG/2 ML SDV IV PRN (10:12)
[2020-01-24] MEDS ORDERED: NORMAL SALINE 250 ML IV PRN ×2 (10:12)
[2020-01-24] MEDS: HYDROCHLOROTHIAZIDE 12.5 MG TABLET PO SCH (10:26)
[2020-01-24] MEDS: DIAZEPAM 5 MG TABLET PO SCH ×2 (10:27→18:03)
[2020-01-24] MEDS: METOPROLOL SUCCINATE 25 MG TAB.SR.24H PO SCH ×2 (10:27→18:03)
[2020-01-24] MEDS: DOCUSATE SODIUM 100 MG CAPSULE PO SCH ×2 (10:28→18:03)
[2020-01-24 10:33] LABS: ARTERIAL BLOOD BASE EXCESS 0.7 mmol/L; ARTERIAL BLOOD H2CO3 1.09 mmol/L (1.05-1.35); ARTERIAL BLOOD HCO3 24.6 mmol/L (20-24); ARTERIAL BLOOD O2 SATURATION 93.8 % (94-98); ARTERIAL BLOOD PCO2 36.2 mmHg (35-45); ARTERIAL BLOOD PH 7.45 (7.35-7.45); ARTERIAL BLOOD PO2 65.2 mmHg (80-100); ARTERIAL BLOOD TOTAL CO2 25.7 mmol/L (23-27)
--- NOTE | 2020-01-24 10:36 | PDOC PROGRESS REPORT ---
Subjective Progress Note for:: 01/24/20 Subjective:: Patient noted to be more lethargic this morni is no visible or overt bleeding noted. He was actually examined by Dr. Hill yesterday evening and he was concerned about patient status to and he did order a bunch of test including a UA which showed glucosuria as well as ketonuria and he also ordered blood cultures. Patient is afebrile. His white count did show a downward trend although obviously still high. Ng. He apparently was also confused according to nursing staff. He just finished his second unit of blood in fact after shift started this morning because he pulled out for IVs according to the nursing staff. Reviewing his chart looks like he last received morphine about 1 PM on January 22 and Percocet maybe about 3 PM on January 22. He is easily arousable but definitely appears to be more lethargic today. Reason For Visit: LEFT FOOT ABSCESS,CHAROT JOINT,SEPSIS Physical Exam Vital Signs: Temp Pulse Resp BP Pulse Ox 98.3 F 90 16 109/77 94 01/24/20 06:48 01/24/20 07:00 01/24/20 06:48 01/24/20 06:48 01/24/20 06:48 Intake & Output 01/23/20 01/24/20 01/25/20 06:59 06:59 06:59 Intake Total 4290 2670 Output Total 2615 1040 Balance 1675 1630 Weight 110.9 kg 114.4 kg General appearance: PRESENT: no acute distress, other - Lethargic but easily arousable Head exam: PRESENT: atraumatic Eye exam: PRESENT: PERRLA Respiratory exam: PRESENT: clear to auscultation madeline, unlabored Cardiovascular exam: PRESENT: RRR, +S1, +S2 GI/Abdominal exam: PRESENT: normal bowel sounds, soft Rectal exam: PRESENT: deferred Extremities exam: PRESENT: calf tenderness - R leg, other - L BKA with intact stump Neurological exam: PRESENT: altered, oriented to person, oriented to place, oriented to situation Results Laboratory Results: 01/24/20 08:25 01/24/20 08:25 01/23/20 01/23/20 01/24/20 13:44 16:47 08:25 WBC 27.2 H RBC 2.11 L Hgb 6.2 L Hct 17.9 L MCV 85 MCH 29.4 MCHC 34.7 RDW 15.0 H Plt Count 517 H Seg Neutrophils % Not Reportable Sodium Potassium Chloride Carbon Dioxide Anion Gap BUN Creatinine 1.73 H Est GFR ( Amer) 50 L Glucose Calcium Blood Type O POSITIVE Antibody Screen NEGATIVE 01/24/20 01/24/20 08:25 08:25 WBC 25.9 H RBC 2.39 L Hgb 6.8 L Hct 20.0 L MCV 84 MCH 28.6 MCHC 34.3 RDW 16.6 H Plt Count 461 H Seg Neutrophils % Not Reportable Sodium 126.3 L Potassium 3.9 Chloride 96 L Carbon Dioxide 24 Anion Gap 6 BUN 23 H Creatinine 1.73 H Est GFR ( Amer) 50 L Glucose 111 H Calcium 6.4 L* Blood Type Antibody Screen 01/19/20 06:06 Blood Blood Culture - Final NO GROWTH IN 5 DAYS 01/24/20 08:25 NT-Pro-B Natriuret Pep [id number] H Impressions: Venous Doppler Study 01/17/20 13:12 IMPRESSION: Positive acute deep vein thrombosis femoral and popliteal veins. Foot X-Ray 01/17/20 13:13 IMPRESSION: There appear to be diabetic foot changes. No osteomyelitis is seen. Findings as described. Marked soft tissue swelling. Tibia/Fibula X-Ray 01/17/20 13:14 IMPRESSION: Possible prior interosseous ligament disruption. No acute finding in either the tibia or the fibula. Chest X-Ray 01/24/20 00:00 IMPRESSION: Low lung volumes without other evidence of acute intrathoracic process. Assessment and Plan - Diagnosis (1) Abscess of left foot Is this a current diagnosis for this admission?: Yes (2) Acute deep vein thrombosis (DVT) of right lower extremity Qualifiers: Affected thrombotic vein of extremity: femoral Qualified Code(s): I82.411 - Acute embolism and thrombosis of right femoral vein Is this a current diagnosis for this admission?: Yes (3) Charcot foot due to diabetes mellitus Is this a current diagnosis for this admission?: Yes (4) Hyperglycemia due to type 2 diabetes mellitus Qualifiers: Diabetes mellitus custodial insulin use: without custodial use Qualified Code(s): E11.65 - Type 2 diabetes mellitus with hyperglycemia Is this a current diagnosis for this admission?: Yes Plan: Takes metformin and very recently started on Jardiance at home. Hemoglobin A1c is 9.2. He is willing to start insulin if needed. Continue metformin. Continue Lantus for now Diabetes education Patient noted to have significant glucosuria as well as ketonuria. He probably is acidotic. I will check an ABG. However due to his elevated BNP he will have to be given fluid very judiciously. He did receive blood although I had to give him Lasix this morning due to his breathing reassess once his labs are available (5) MRSA bacteremia Is this a current diagnosis for this admission?: Yes (6) Sepsis Qualifiers: Sepsis type: sepsis due to unspecified organism Sepsis acute organ dysfunction status: without acute organ dysfunction Qualified Code(s): A41.9 - Sepsis, unspecified organism Is this a current diagnosis for this admission?: Yes (7) Acute blood loss anemia Is this a current diagnosis for this admission?: Yes (8) Acute blood loss as cause of postoperative anemia Is this a current diagnosis for this admission?: Yes (9) Acute kidney injury Is this a current diagnosis for this admission?: Yes Plan: Possibly multifactorial. His creatinine was 0.98 with a GFR of more than 60 and currently is creatinine is almost doubled to 1.7 with a GFR of 41. Patient has been on vancomycin this could be a contributing factor in addition to possible ATN. He is also ketotic. We will follow-up on vancomycin level and judicious fluid management. Once he is stable will obtain sonogram of his kidneys if indicated. - Plan Summary Summary: Infectious disease consultation appreciated. Blood cultures from 925 and 19 7 are positive with repeat cultures from 925- to date. PERLA on 01/11/2018 showing vegetations although was noted to be of poor quality. Patient also has DVT of the femoral and popliteal veins. He continues with a significant leukocytosis although there appears to be slight downward trend today. Infectious disease suggest no need to pursue PERLA at this time unless persistent bacteremia occurs despite source control. Patient had a recent BKA and hopefully it is felt that leukocytosis and thrombocytosis will improve. Plan is to continue vancomycin for 4 weeks from the day of the surgery, 02/19/2020 will be the estimated completion date of course unless further complications or call 01/23 Patient noted to be more lethargic this morni is no visible or overt bleeding noted. He was actually examined by Dr. Mixon yesterday evening and he was concerned about patient status to and he did order a bunch of test including a UA which showed glucosuria as well as ketonuria and he also ordered blood cultures. Patient is afebrile. His white count did show a downward trend although obviously still high. Ng. He apparently was also confused according to nursing staff. He just finished his second unit of blood in fact after shift started this morning because he pulled out for IVs according to the nursing staff. Reviewing his chart looks like he last received morphine about 1 PM on January 22 and Percocet maybe about 3 PM on January 22. He is easily arousable but definitely appears to be more lethargic today. Of note his vancomycin trough level is noted is high however patient was actually receiving vancomycin at the time this blood was drawn so this is not a true trough. A trough level has been scheduled for about 5 PM this evening. He is post transfusion hemoglobin was 6.8. He will be transfused another unit of blood at this time. I have also held his heparin, discontinue the Toradol will also discontinue the morphine and Percocet. Lethargy may be related to the clonidine which he was scheduled for 0.3 mg every 6 hours. I have discontinued the clonidine. An ABG is obtained and this is generally benign. Will place on supplemental O2. I will hold off on a CT scan at this time but if needed this will definitely be obtained. Corrected calcium is about 8.4 which is the lower limit of normal he received some blood transfusion which can actually lead to the citrate preservative leading to hypocalcemia so I expect the calcium level to come up some in a.m. - Time Time Spent with patient: 35 or more minutes [facility]ticip[facility] Anticipated Discharge Timeframe: when bed available
[2020-01-24 10:37] LABS: ARTERIAL BLOOD FIO2 21%
[2020-01-24] MEDS: AMLODIPINE BESYLATE 5 MG TABLET PO SCH (10:40)
[2020-01-24] MEDS: LOSARTAN POTASSIUM 50 MG TABLET PO SCH (10:40)
[2020-01-24] MEDS: INSULIN GLARGINE,HUM.REC.ANLOG 1,000 UNIT/10 ML VIAL SUBCUT SCH ×2 (10:52→22:07)
--- NOTE | 2020-01-24 11:31 | PDOC CONSULTATION ---
Consultation-Blank Consultation: Physical Medicine & Rehabilitation Progress Note Consultation request received and appreciated. Chart reviewed. 54-year-old male status post left [id number] amputation as definitive treatment for left foot abscess, Charcot joint, and sepsis. Other medical issues include acute right lower extremity DVT started on anticoagulation, acute blood loss anemia requiring transfusion of multiple units of packed red blood cells, and acute confusion over the last 24 hours. Further workup is ongoing per internal medicine, Gen. surgery, and infectious disease for the acute confusion. Physical medicine and rehabilitation consultation was requested to evaluate the patient for admission to acute inpatient rehabilitation. The patient was seen by acute care physical therapy and occupational therapy yesterday, but he had limited participation due to his acute confusion. For now, we will continue to follow patients progress in acute care therapy over the next several days while his acute medical issues (specifically his acute confusion) improve/resolve before making a final recommendation regarding the most appropriate postacute care rehabilitation setting. This extra time will allow the patient to demonstrate an ability to potentially tolerate and benefit from 3 hours per day of intensive therapies in at least 2 disciplines with continued acute care physical therapy and occupational therapy. Expect to make a final recommendation early to mid next week. Note: If the patient is accepted to acute inpatient rehabilitation, an insurance preauthorization will need to be obtained prior to transfer.
[2020-01-24 11:32] LABS: ALKALINE PHOSPHATASE 120 U/L (38-126); ASPARTATE AMINO TRANSFERASE 31 U/L (17-59); BILIRUBIN,DIRECT 0.5 mg/dL (0.0-0.4); BILIRUBIN,TOTAL 0.9 mg/dL (0.2-1.3)
[2020-01-24] MEDS: LACTULOSE SYRUP 20 GM/30 ML UDCUP PO PRN (13:18)
--- NOTE | 2020-01-24 13:58 | PDOC PROGRESS REPORT ---
Subjective Progress Note for:: 01/24/20 Subjective:: Jules appears slightly confused, cooperative Reason For Visit: LEFT FOOT ABSCESS,CHAROT JOINT,SEPSIS Physical Exam Vital Signs: Temp Pulse Resp BP Pulse Ox 97.7 F 102 H 16 117/61 99 01/24/20 13:43 01/24/20 13:43 01/24/20 13:43 01/24/20 13:43 01/24/20 13:43 Intake & Output 01/23/20 01/24/20 01/25/20 06:59 06:59 06:59 Intake Total 4290 2670 250 Output Total 2615 1040 Balance 1675 1630 250 Weight 110.9 kg 114.4 kg General appearance: PRESENT: mild distress, obese Respiratory exam: PRESENT: clear to auscultation madeline Cardiovascular exam: PRESENT: RRR GI/Abdominal exam: PRESENT: soft, other - Base, not distended not tender Results Laboratory Results: 01/24/20 08:25 01/24/20 08:25 01/23/20 01/23/20 01/24/20 13:44 16:47 08:25 WBC 27.2 H RBC 2.11 L Hgb 6.2 L Hct 17.9 L MCV 85 MCH 29.4 MCHC 34.7 RDW 15.0 H Plt Count 517 H Seg Neutrophils % Not Reportable Carbonic Acid HCO3/H2CO3 Ratio ABG pH ABG pCO2 ABG pO2 ABG HCO3 ABG O2 Saturation ABG Base Excess FiO2 Sodium Potassium Chloride Carbon Dioxide Anion Gap BUN Creatinine 1.73 H Est GFR ( Amer) 50 L Glucose Calcium Total Bilirubin AST Alkaline Phosphatase Total Protein Albumin Blood Type O POSITIVE Antibody Screen NEGATIVE 01/24/20 01/24/20 01/24/20 08:25 08:25 08:25 WBC 25.9 H RBC 2.39 L Hgb 6.8 L Hct 20.0 L MCV 84 MCH 28.6 MCHC 34.3 RDW 16.6 H Plt Count 461 H Seg Neutrophils % Not Reportable Carbonic Acid HCO3/H2CO3 Ratio ABG pH ABG pCO2 ABG pO2 ABG HCO3 ABG O2 Saturation ABG Base Excess FiO2 Sodium 126.3 L Potassium 3.9 Chloride 96 L Carbon Dioxide 24 Anion Gap 6 BUN 23 H Creatinine 1.73 H Est GFR ( Amer) 50 L Glucose 111 H Calcium 6.4 L* Total Bilirubin 0.9 AST 31 Alkaline Phosphatase 120 Total Protein 6.0 L Albumin 2.0 L Blood Type Antibody Screen 01/24/20 01/24/20 10:14 11:45 WBC RBC Hgb Hct MCV MCH MCHC RDW Plt Count Seg Neutrophils % Carbonic Acid 1.09 HCO3/H2CO3 Ratio 22:1 ABG pH 7.45 ABG pCO2 36.2 ABG pO2 65.2 L ABG HCO3 24.6 H ABG O2 Saturation 93.8 L ABG Base Excess 0.7 FiO2 21% Sodium Potassium Chloride Carbon Dioxide Anion Gap BUN Creatinine Est GFR ( Amer) Glucose Calcium Total Bilirubin AST Alkaline Phosphatase Total Protein Albumin Blood Type O POSITIVE Antibody Screen NEGATIVE 01/19/20 06:06 Blood Blood Culture - Final NO GROWTH IN 5 DAYS 01/24/20 08:25 NT-Pro-B Natriuret Pep 23345 H Impressions: Venous Doppler Study 01/17/20 13:12 IMPRESSION: Positive acute deep vein thrombosis femoral and popliteal veins. Foot X-Ray 01/17/20 13:13 IMPRESSION: There appear to be diabetic foot changes. No osteomyelitis is seen. Findings as described. Marked soft tissue swelling. Tibia/Fibula X-Ray 01/17/20 13:14 IMPRESSION: Possible prior interosseous ligament disruption. No acute finding in either the tibia or the fibula. Chest X-Ray 01/24/20 00:00 IMPRESSION: Low lung volumes without other evidence of acute intrathoracic process. Assessment & Plan - Diagnosis (1) Abscess of left foot Is this a current diagnosis for this admission?: Yes (2) Charcot foot due to diabetes mellitus Is this a current diagnosis for this admission?: Yes (3) Diabetic infection of left foot Is this a current diagnosis for this admission?: Yes - Time Anticipated Discharge Disposition: [facility] Anticipated Discharge Timeframe: When okayed by the primary care physician - Plan Summary Plan Summary: Assessment: Postoperative day #3 following completion left BKA Stump unveiled yesterday January 23, 2020, he was well healing, with staple line clean, dry, and intact, Rajiv drain with small amount of serosanguineous fluid (20 mils) Concerned about leukocytosis of 25,900 today, cause still unknown chest x-ray negative Blood culture done on January-hour pending so far Plan: No acute general surgery should not defied which may be caused leukocytosis Rajiv drain to be removed in the next few days once the output has decrerased to below 10 mL's per day
[2020-01-24 15:54] LABS: AMORPHOUS SEDIMENT,URINE 1+ /HPF; APPEARANCE,URINE CLOUDY; BILIRUBIN,URINE NEGATIVE (NEGATIVE); COLOR,URINE YELLOW; GLUCOSE, URINE 50 mg/dL (NEGATIVE); KETONES,URINE NEGATIVE (NEGATIVE); LEUKOCYTE ESTERASE,URINE NEGATIVE (NEGATIVE); NITRITE,URINE NEGATIVE (NEGATIVE); PROTEIN,URINE 30 mg/dL (NEGATIVE); URINE SPECIFIC GRAVITY 1.011; UROBILINOGEN,URINE NEGATIVE mg/dL (<2.0)
[2020-01-24] MEDS: HYDROCODONE/ACETAMINOPHEN 10-325 MG TABLET PO PRN ×2 (16:49→22:08)
[2020-01-24 16:50] LABS: HEMATOCRIT 20.3 % (37.9-51.0); MEAN CORPUSCULAR HEMOGLOBIN 28.8 pg (27.0-33.4); MEAN CORPUSCULAR HGB CONC 34.6 g/dL (32.0-36.0); MEAN CORPUSCULAR VOLUME 83 fl (80-97); PLATELET COUNT 533 10^3/uL (150-450); RED BLOOD COUNT 2.44 10^6/uL (4.35-5.55); RED CELL DISTRIBUTION WIDTH 16.9 % (11.5-14.0); WHITE BLOOD COUNT 26.8 10^3/uL (4.0-10.5)
[2020-01-24 17:08] LABS: VANCOMYCIN,TROUGH 32.6 ug/mL (5.0-20.0)
[2020-01-24 17:16] LABS: ABSOLUTE LYMPHOCYTES# (MANUAL) 0.8 10^3/uL (0.5-4.7); ABSOLUTE MONOCYTES # (MANUAL) 1.1 10^3/uL (0.1-1.4); BASOPHILS % (MANUAL) 0 % (0-2); EOSINOPHILS % (MANUAL) 0 % (0-6); LYMPHOCYTES % (MANUAL) 3 % (13-45); MONOCYTES % (MANUAL) 4 % (3-13); SEGMENTED NEUTROPHILS % (MAN) 93 % (42-78); TOTAL CELLS COUNTED 100
[2020-01-24 17:17] LABS: PLATELET COMMENT INCREASED
[2020-01-24 17:21] LABS: ANISOCYTOSIS 1+; OVALOCYTES SLIGHT; POIKILOCYTOSIS SLIGHT; POLYCHROMASIA SLIGHT; TOXIC GRANULATION 1+
[2020-01-24] MEDS ORDERED: MAGNESIUM CITRATE 296 ML BOTTLE PO ONE ×2 (18:30→19:45)
[2020-01-24] MEDS ORDERED: METOPROLOL TARTRATE PF/INJ 5 MG/5 ML SDV IV ONE (23:30)
[2020-01-25 01:16] LABS: ARTERIAL BLOOD BASE EXCESS -1.4 mmol/L; ARTERIAL BLOOD H2CO3 0.98 mmol/L (1.05-1.35); ARTERIAL BLOOD HCO3 22.3 mmol/L (20-24); ARTERIAL BLOOD O2 SATURATION 99.3 % (94-98); ARTERIAL BLOOD PCO2 32.7 mmHg (35-45); ARTERIAL BLOOD PH 7.45 (7.35-7.45); ARTERIAL BLOOD PO2 184.4 mmHg (80-100); ARTERIAL BLOOD TOTAL CO2 23.3 mmol/L (23-27)
[2020-01-25 01:20] LABS: ARTERIAL BLOOD FIO2 100%
[2020-01-25] MEDS: MELATONIN 5 MG TABLET PO PRN (03:55)
[2020-01-25] MEDS: PANTOPRAZOLE SODIUM 40 MG TABLET.DR PO SCH (05:06)
[2020-01-25 06:00] LABS: HEMATOCRIT 21.4 % (37.9-51.0); MEAN CORPUSCULAR HEMOGLOBIN 28.7 pg (27.0-33.4); MEAN CORPUSCULAR HGB CONC 34.9 g/dL (32.0-36.0); MEAN CORPUSCULAR VOLUME 82 fl (80-97); PLATELET COUNT 559 10^3/uL (150-450); RED CELL DISTRIBUTION WIDTH 16.7 % (11.5-14.0); WHITE BLOOD COUNT 28.2 10^3/uL (4.0-10.5)
[2020-01-25 06:07] LABS: HEMOGLOBIN 7.5 g/dL (13.5-17.0)
[2020-01-25 06:09] LABS: ANION GAP 7 (5-19); BLOOD UREA NITROGEN 27 mg/dL (7-20); CARBON DIOXIDE 23 mmol/L (22-30); CHLORIDE 91 mmol/L (98-107); GLUCOSE 93 mg/dL (75-110); POTASSIUM 4.4 mmol/L (3.6-5.0)
[2020-01-25 06:21] LABS: CALCIUM 6.5 mg/dL (8.4-10.2)
[2020-01-25 06:27] LABS: ABSOLUTE LYMPHOCYTES# (MANUAL) 1.1 10^3/uL (0.5-4.7); ABSOLUTE MONOCYTES # (MANUAL) 1.4 10^3/uL (0.1-1.4); BASOPHILS % (MANUAL) 0 % (0-2); EOSINOPHILS % (MANUAL) 0 % (0-6); LYMPHOCYTES % (MANUAL) 4 % (13-45); MONOCYTES % (MANUAL) 5 % (3-13); SEGMENTED NEUTROPHILS % (MAN) 91 % (42-78); TOTAL CELLS COUNTED 100
[2020-01-25 06:28] LABS: ANISOCYTOSIS 1+; OVALOCYTES 1+; PLATELET COMMENT ADEQUATE; POIKILOCYTOSIS 1+; TOXIC GRANULATION 1+
[2020-01-25] MEDS: METFORMIN HCL 500 MG TABLET PO SCH ×2 (08:55→17:58)
[2020-01-25] MEDS: INSULIN LISPRO 100 UNIT/ML 3 ML VIAL SUBCUT SCH ×4 (09:17→22:41)
[2020-01-25] MEDS: INSULIN GLARGINE,HUM.REC.ANLOG 1,000 UNIT/10 ML VIAL SUBCUT SCH ×2 (09:24→22:36)
[2020-01-25] MEDS: METOPROLOL SUCCINATE 25 MG TAB.SR.24H PO SCH ×2 (09:26→17:56)
[2020-01-25] MEDS: DOCUSATE SODIUM 100 MG CAPSULE PO SCH ×2 (09:26→17:55)
[2020-01-25] MEDS: HYDROCHLOROTHIAZIDE 12.5 MG TABLET PO SCH (09:26)
[2020-01-25] MEDS: AMLODIPINE BESYLATE 5 MG TABLET PO SCH (09:26)
[2020-01-25] MEDS: LOSARTAN POTASSIUM 50 MG TABLET PO SCH (09:26)
[2020-01-25 10:26] LABS: VANCOMYCIN,TROUGH 29.9 ug/mL (5.0-20.0)
[2020-01-25] MEDS ORDERED: CALCIUM GLUC IN NACL, ISO-OSM 1 GM/50 ML RTUPB IV ONE (11:00)
--- NOTE | 2020-01-25 12:19 | PDOC PROGRESS REPORT ---
Subjective Progress Note for:: 01/25/20 Subjective:: NO C/O PAIN Reason For Visit: LEFT FOOT ABSCESS,CHAROT JOINT,SEPSIS Physical Exam Vital Signs: Temp Pulse Resp BP Pulse Ox 97.8 F 70 20 177/83 H 93 01/25/20 07:59 01/25/20 07:59 01/25/20 07:59 01/25/20 07:59 01/25/20 07:59 Intake & Output 01/24/20 01/25/20 01/26/20 06:59 06:59 06:59 Intake Total 2670 908 Output Total 1040 930 15 Balance 1630 -22 -15 Weight 114.4 kg General appearance: PRESENT: no acute distress Eye exam: PRESENT: EOMI Ear exam: PRESENT: normal external ear exam Mouth exam: PRESENT: moist Teeth exam: PRESENT: poor dentation Neck exam: PRESENT: full ROM Respiratory exam: PRESENT: clear to auscultation madeline Cardiovascular exam: PRESENT: RRR Pulses: PRESENT: normal radial pulses Vascular exam: PRESENT: normal capillary refill Breast: PRESENT: Normal GI/Abdominal exam: PRESENT: soft Rectal exam: PRESENT: deferred Extremities exam: PRESENT: other - LEFT BKA STUMP CLEAN DRAIN APPROX 15CC?DAY NO CELLULITIS, SWELLING, MIN PAIN Neurological exam: PRESENT: alert Psychiatric exam: PRESENT: anxious Skin exam: PRESENT: dry Results Laboratory Results: 01/25/20 05:20 01/25/20 05:20 01/24/20 01/24/20 01/24/20 11:45 15:15 16:29 WBC 26.8 H RBC 2.44 L Hgb 7.0 L Hct 20.3 L MCV 83 MCH 28.8 MCHC 34.6 RDW 16.9 H Plt Count 533 H Seg Neutrophils % Not Reportable Carbonic Acid HCO3/H2CO3 Ratio ABG pH ABG pCO2 ABG pO2 ABG HCO3 ABG O2 Saturation ABG Base Excess FiO2 Sodium Potassium Chloride Carbon Dioxide Anion Gap BUN Creatinine Est GFR ( Amer) Glucose Calcium Urine Color YELLOW Urine Appearance CLOUDY Urine pH 5.0 Ur Specific [place] 1.011 Urine Protein 30 H Urine Glucose (UA) 50 H Urine Ketones NEGATIVE Urine Blood SMALL H Urine Nitrite NEGATIVE Ur Leukocyte Esterase NEGATIVE Urine WBC (Auto) 1 Urine RBC (Auto) 4 Blood Type O POSITIVE Antibody Screen NEGATIVE 01/25/20 01/25/20 01/25/20 01:10 05:20 05:20 WBC 28.2 H RBC 2.60 L Hgb 7.5 L Hct 21.4 L MCV 82 MCH 28.7 MCHC 34.9 RDW 16.7 H Plt Count 559 H Seg Neutrophils % Not Reportable Carbonic Acid 0.98 L HCO3/H2CO3 Ratio 22:1 ABG pH 7.45 ABG pCO2 32.7 L ABG pO2 184.4 H ABG HCO3 22.3 ABG O2 Saturation 99.3 H ABG Base Excess -1.4 FiO2 100% Sodium 121.0 L Potassium 4.4 Chloride 91 L Carbon Dioxide 23 Anion Gap 7 BUN 27 H Creatinine 2.29 H Est GFR ( Amer) 36 L Glucose 93 Calcium 6.5 L* Urine Color Urine Appearance Urine pH Ur Specific [place] Urine Protein Urine Glucose (UA) Urine Ketones Urine Blood Urine Nitrite Ur Leukocyte Esterase Urine WBC (Auto) Urine RBC (Auto) Blood Type Antibody Screen 01/24/20 08:25 NT-Pro-B Natriuret Pep [id number] H Impressions: Venous Doppler Study 01/17/20 13:12 IMPRESSION: Positive acute deep vein thrombosis femoral and popliteal veins. Foot X-Ray 01/17/20 13:13 IMPRESSION: There appear to be diabetic foot changes. No osteomyelitis is seen. Findings as described. Marked soft tissue swelling. Tibia/Fibula X-Ray 01/17/20 13:14 IMPRESSION: Possible prior interosseous ligament disruption. No acute finding in either the tibia or the fibula. Chest X-Ray 01/24/20 00:00 IMPRESSION: Low lung volumes without other evidence of acute intrathoracic process. Assessment & Plan - Time Anticipated Discharge Disposition: UNK Anticipated Discharge Timeframe: UNK - Plan Summary Plan Summary: S/P LEFT BKA FOR SEPTIC LEFT FOOT NOW WOUND IS HEALING WELL NO EVIDENCE OF ABSCESS, OR CELLULIITS WILL CONT TO FOOLLOW.
[2020-01-25] MEDS: HEPARIN SODIUM,PORCINE/D5W 25,000 UNIT/250 ML RTUINJ IV PRN (12:34)
--- NOTE | 2020-01-25 13:18 | PDOC PROGRESS REPORT ---
Subjective Progress Note for:: 01/25/20 Subjective:: Patient noted to be more lethargic this morni is no visible or overt bleeding noted. He was actually examined by Dr. Hill yesterday evening and he was concerned about patient status to and he did order a bunch of test including a UA which showed glucosuria as well as ketonuria and he also ordered blood cultures. Patient is afebrile. His white count did show a downward trend although obviously still high. Ng. He apparently was also confused according to nursing staff. He just finished his second unit of blood in fact after shift started this morning because he pulled out for IVs according to the nursing staff. Reviewing his chart looks like he last received morphine about 1 PM on January 22 and Percocet maybe about 3 PM on January 22. He is easily arousable but definitely appears to be more lethargic today. Patient apparently had an active night with periods of hypoxia however when I saw him this morning patient was on room air with O2 sat of about 96% Reason For Visit: LEFT FOOT ABSCESS,CHAROT JOINT,SEPSIS Physical Exam Vital Signs: Temp Pulse Resp BP Pulse Ox 97.8 F 70 20 177/83 H 93 01/25/20 07:59 01/25/20 07:59 01/25/20 07:59 01/25/20 07:59 01/25/20 07:59 Intake & Output 01/24/20 01/25/20 01/26/20 06:59 06:59 06:59 Intake Total 2670 1158 Output Total 1040 930 15 Balance 1630 228 -15 Weight 114.4 kg General appearance: PRESENT: no acute distress, well-developed, well-nourished Head exam: PRESENT: atraumatic Eye exam: PRESENT: conjunctiva pink, PERRLA. ABSENT: scleral icterus Mouth exam: PRESENT: moist, tongue midline Neck exam: ABSENT: carotid bruit, JVD, lymphadenopathy, thyromegaly Respiratory exam: PRESENT: decreased breath sounds, unlabored. ABSENT: rales, rhonchi, wheezes Cardiovascular exam: PRESENT: RRR, +S1, +S2. ABSENT: diastolic murmur, rubs, systolic murmur GI/Abdominal exam: PRESENT: normal bowel sounds, soft. ABSENT: distended, guarding, mass, organolmegaly, rebound, tenderness Rectal exam: PRESENT: deferred Extremities exam: PRESENT: other - L BKA stump looks clean, swelling RLE. ABSENT: calf tenderness, clubbing, pedal edema Neurological exam: PRESENT: alert, awake, oriented to person, oriented to place, oriented to time, oriented to situation. ABSENT: motor sensory deficit Psychiatric exam: PRESENT: appropriate affect, normal mood. ABSENT: homicidal ideation, suicidal ideation Skin exam: PRESENT: intact, warm. ABSENT: cyanosis, rash Results Laboratory Results: 01/25/20 05:20 01/25/20 05:20 01/24/20 01/24/20 01/24/20 11:45 15:15 16:29 WBC 26.8 H RBC 2.44 L Hgb 7.0 L Hct 20.3 L MCV 83 MCH 28.8 MCHC 34.6 RDW 16.9 H Plt Count 533 H Seg Neutrophils % Not Reportable Carbonic Acid HCO3/H2CO3 Ratio ABG pH ABG pCO2 ABG pO2 ABG HCO3 ABG O2 Saturation ABG Base Excess FiO2 Sodium Potassium Chloride Carbon Dioxide Anion Gap BUN Creatinine Est GFR ( Amer) Glucose Calcium Urine Color YELLOW Urine Appearance CLOUDY Urine pH 5.0 Ur Specific [place] 1.011 Urine Protein 30 H Urine Glucose (UA) 50 H Urine Ketones NEGATIVE Urine Blood SMALL H Urine Nitrite NEGATIVE Ur Leukocyte Esterase NEGATIVE Urine WBC (Auto) 1 Urine RBC (Auto) 4 Blood Type O POSITIVE Antibody Screen NEGATIVE 01/25/20 01/25/20 01/25/20 01:10 05:20 05:20 WBC 28.2 H RBC 2.60 L Hgb 7.5 L Hct 21.4 L MCV 82 MCH 28.7 MCHC 34.9 RDW 16.7 H Plt Count 559 H Seg Neutrophils % Not Reportable Carbonic Acid 0.98 L HCO3/H2CO3 Ratio 22:1 ABG pH 7.45 ABG pCO2 32.7 L ABG pO2 184.4 H ABG HCO3 22.3 ABG O2 Saturation 99.3 H ABG Base Excess -1.4 FiO2 100% Sodium 121.0 L Potassium 4.4 Chloride 91 L Carbon Dioxide 23 Anion Gap 7 BUN 27 H Creatinine 2.29 H Est GFR ( Amer) 36 L Glucose 93 Calcium 6.5 L* Urine Color Urine Appearance Urine pH Ur Specific [place] Urine Protein Urine Glucose (UA) Urine Ketones Urine Blood Urine Nitrite Ur Leukocyte Esterase Urine WBC (Auto) Urine RBC (Auto) Blood Type Antibody Screen 01/24/20 08:25 NT-Pro-B Natriuret Pep [id number] H Impressions: Venous Doppler Study 01/17/20 13:12 IMPRESSION: Positive acute deep vein thrombosis femoral and popliteal veins. Foot X-Ray 01/17/20 13:13 IMPRESSION: There appear to be diabetic foot changes. No osteomyelitis is seen. Findings as described. Marked soft tissue swelling. Tibia/Fibula X-Ray 01/17/20 13:14 IMPRESSION: Possible prior interosseous ligament disruption. No acute finding in either the tibia or the fibula. Chest X-Ray 01/24/20 00:00 IMPRESSION: Low lung volumes without other evidence of acute intrathoracic process. 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 OR wash out and further d ebridement done on 01/19 Wound culture growing MRSA. Continue Vancomycin -check trough Surgery taking patient to the OR today PMR consult placed for tomorrow for assessment for acute rehabilitation pending PT/OT assessment following further surgery today. assistant media planner confirms they can manage prolonged IV antibiotic course there. 01/22 appreciate surgery input (2) Acute deep vein thrombosis (DVT) of right lower extremity Qualifiers: Affected thrombotic vein of extremity: femoral Qualified Code(s): I82.411 - Acute embolism and thrombosis of right femoral vein Is this a current diagnosis for this admission?: Yes (3) Charcot foot due to diabetes mellitus Is this a current diagnosis for this admission?: Yes (4) Hyperglycemia due to type 2 diabetes mellitus Qualifiers: Diabetes mellitus termite exterminator helper insulin use: without termite exterminator helper use Qualified Code(s): E11.65 - Type 2 diabetes mellitus with hyperglycemia Is this a current diagnosis for this admission?: Yes (5) MRSA bacteremia Is this a current diagnosis for this admission?: Yes (6) Sepsis Qualifiers: Sepsis type: sepsis due to unspecified organism Sepsis acute organ dysfunction status: without acute organ dysfunction Qualified Code(s): A41.9 - Sepsis, unspecified organism Is this a current diagnosis for this admission?: Yes (7) Acute blood loss anemia Is this a current diagnosis for this admission?: Yes (8) Acute blood loss as cause of postoperative anemia Is this a current diagnosis for this admission?: Yes (9) Acute kidney injury Is this a current diagnosis for this admission?: Yes - Plan Summary Summary: Infectious disease consultation appreciated. Blood cultures from 925 and 19 7 are positive with repeat cultures from 925- to date. PERLA on 01/11/2018 showing vegetations although was noted to be of poor quality. Patient also has DVT of the femoral and popliteal veins. He continues with a significant leukocytosis although there appears to be slight downward trend today. Infectious disease suggest no need to pursue PERLA at this time unless persistent bacteremia occurs despite source control. Patient had a recent BKA and hopefully it is felt that leukocytosis and thrombocytosis will improve. Plan is to continue vancomycin for 4 weeks from the day of the surgery, 02/19/2020 will be the estimated completion date of course unless further complications or call 01/23 Patient noted to be more lethargic this morni is no visible or overt bleeding noted. He was actually examined by Dr. Mixon yesterday evening and he was concerned about patient status to and he did order a bunch of test including a UA which showed glucosuria as well as ketonuria and he also ordered blood cultures. Patient is afebrile. His white count did show a downward trend although obviously still high. Ng. He apparently was also confused according to nursing staff. He just finished his second unit of blood in fact after shift started this morning because he pulled out for IVs according to the nursing staff. Reviewing his chart looks like he last received morphine about 1 PM on January 22 and Percocet maybe about 3 PM on January 22. He is easily arousable but definitely appears to be more lethargic today. Of note his vancomycin trough level is noted is high however patient was actually receiving vancomycin at the time this blood was drawn so this is not a true trough. A trough level has been scheduled for about 5 PM this evening. He is post transfusion hemoglobin was 6.8. He will be transfused another unit of blood at this time. I have also held his heparin, discontinue the Toradol will also discontinue the morphine and Percocet. Lethargy may be related to the clonidine which he was scheduled for 0.3 mg every 6 hours. I have discontinued the clonidine. An ABG is obtained and this is generally benign. Will place on supplemental O2. I will hold off on a CT scan at this time but if needed this will definitely be obtained. Corrected calcium is about 8.4 which is the lower limit of normal he received some blood transfusion which can actually lead to the citrate preservative leading to hypocalcemia so I expect the calcium level to come up some in a.m. 01/24 patient apparently had issues with his breathing during the night including periods of hypoxia. There was concern for a possible PE because he was off heparin however patient was on heparin until about 10 AM yesterday and the heparin was held really because of his anemia and concerns for acute blood loss. His hemoglobin has been stable. I have restarted his heparin. His breathing this morning indicates no evidence of any issues. Will follow up with a VQ scan Echocardiogram done reveals no definite vegetations or evidence of endocarditis. His blood cultures including the one from yesterday have been negative. His white count is still elevated at 28,000. Although he has no abdominal symptoms I will go ahead and obtain a CT of his abdomen to rule out any occult source of infection. Urinalysis is basically benign. Acute kidney injury his kidney function has actually worsened again from 0.8 on admission now currently at 2.29. His vancomycin trough level is elevated at 29.9. His last dose was January 23 at about 9 AM - Time Time Spent with patient: 25-34 minutes Anticipated Discharge Disposition: [facility] Facility Anticipated Discharge Timeframe: within 72 hours
--- NOTE | 2020-01-25 13:28 | RADIOLOGY REPORT (SQ) ---
EXAM DESCRIPTION: NM LUNG PERFUSION SCAN IMAGES COMPLETED DATE/TIME: 01/25/2020 11:00 am REASON FOR STUDY: New Onset SOB, Current Hx DVT COMPARISON: Chest x-ray dated 01/24/2020. RADIONUCLIDE AND DOSE: 5.42 millicuries TC-99m MAA The route of agent administration: Intravenous TECHNIQUE: Eight views of the lungs acquired following injection of MAA. LIMITATIONS: None. FINDINGS: PERFUSION: Small subsegmental perfusion defect in the right upper lobe. Otherwise homogen eous distribution throughout both lungs.. OTHER: No other significant finding. IMPRESSION: LOW PROBABILITY OF PULMONARY EMBOLISM. TECHNICAL DOCUMENTATION: JOB ID: [id number] 2010 [employer]- All Rights Reserved Reading location - IP/workstation name: [email or web address]
[2020-01-25] MEDS: CLONIDINE HCL 0.2 MG TABLET PO SCH ×2 (13:34→22:37)
[2020-01-25] MEDS: NORMAL SALINE 1000 ML 1,000 ML IV PRN (15:35)
[2020-01-25] MEDS ORDERED: GUAIFENESIN SYRP 200 MG/10 ML UDC PO PRN (17:56)
[2020-01-25] MEDS ORDERED: BENZOCAINE/MENTHOL SORE THROAT LOZENGE BUCCAL PRN (17:56)
--- NOTE | 2020-01-25 18:41 | RADIOLOGY REPORT (SQ) ---
EXAM DESCRIPTION: CT ABD/PELVIS ORAL ONLY IMAGES COMPLETED DATE/TIME: 01/25/2020 5:49 pm REASON FOR STUDY: Persistent leukocytosis, Bacteremia COMPARISON: None. TECHNIQUE: CT scan of the abdomen and pelvis performed with oral contrast and no intravenous contras t. Images reviewed with lung, soft tissue, and bone windows. Reconstructed coronal and sagittal MPR i mages reviewed. All images stored on PACS. All CT scanners at this facility use dose modulation, iterative reconstruction, and/or weight based d osing when appropriate to reduce radiation dose to as low as reasonably achievable (ALARA). [facility]: Dose Right [facility]: CareDose [facility]: Dose Right [facility]: Teradose 4D [facility]: [employer] RADIATION DOSE: CT Rad equipment meets quality standard of care and radiation dose reduction techniq ues were employed. CTDIvol: 18.1 mGy. DLP: 1038 mGy-cm.mGy. LIMITATIONS: None. FINDINGS: LOWER CHEST: Large pleural effusions. NON-CONTRASTED LIVER, SPLEEN, ADRENALS: Evaluation limited by lack of IV contrast. No identified sign ificant masses. PANCREAS: No masses. No peripancreatic inflammatory changes. GALLBLADDER: No identified stones by CT criteria. No inflammatory changes to suggest cholecystitis. RIGHT KIDNEY AND URETER: No solid masses. No significant calcification. No hydronephrosis or hydroure ter. LEFT KIDNEY AND URETER: No solid masses. No significant calcification. No hydronephrosis or hydrouret er. AORTA AND RETROPERITONEUM: No aneurysm. No retroperitoneal masses or adenopathy. BOWEL AND PERITONEAL CAVITY: No obvious masses or inflammatory changes. No free fluid. APPENDIX: Normal. PELVIS, BLADDER, AND ABDOMINAL WALL: No abnormal pelvic masses. No abdominal wall hernias. Bladder un remarkable. BONES: No significant findings. Degenerative changes in the spine. OTHER: No other significant findings. IMPRESSION: 1. LARGE PLEURAL EFFUSIONS. 2. NO SIGNIFICANT OR ACUTE ABDOMINAL PROCESS. TECHNICAL DOCUMENTATION: JOB ID: [id number] Quality ID # [id number]: Final reports with documentation of one or more dose reduction techniques (e.g., Au tomated exposure control, adjustment of the mA and/or kV according to patient size, use of iterative reconstruction technique) 2010 [employer]- All Rights Reserved Reading location - IP/workstation name: [email or web address]
[2020-01-25 19:19] LABS: ANION GAP 6 (5-19); BLOOD UREA NITROGEN 27 mg/dL (7-20); CARBON DIOXIDE 22 mmol/L (22-30); CHLORIDE 93 mmol/L (98-107); GLUCOSE 120 mg/dL (75-110); POTASSIUM 4.2 mmol/L (3.6-5.0)
[2020-01-25 19:32] LABS: CALCIUM 6.4 mg/dL (8.4-10.2)
[2020-01-25] MEDS ORDERED: FUROSEMIDE 40 MG TABLET ONE (20:29)
[2020-01-25] MEDS: FUROSEMIDE 40 MG TABLET PO SCH (20:32)
[2020-01-25] MEDS: CALCIUM GLUCONATE 1 GM/NS 50 ML RTU IV SCH ×2 (20:33→22:37)
[2020-01-26] MEDS: HEPARIN SODIUM,PORCINE/D5W 25,000 UNIT/250 ML RTUINJ IV PRN ×2 (01:42→15:27)
[2020-01-26] MEDS: MORPHINE SULFATE 10 MG/ML INJ IV PRN ×4 (03:26→22:03)
[2020-01-26 05:30] LABS: HEMATOCRIT 21.5 % (37.9-51.0); MEAN CORPUSCULAR HEMOGLOBIN 28.4 pg (27.0-33.4); MEAN CORPUSCULAR HGB CONC 34.5 g/dL (32.0-36.0); MEAN CORPUSCULAR VOLUME 82 fl (80-97); PLATELET COUNT 570 10^3/uL (150-450); RED BLOOD COUNT 2.61 10^6/uL (4.35-5.55); RED CELL DISTRIBUTION WIDTH 16.8 % (11.5-14.0); WHITE BLOOD COUNT 24.8 10^3/uL (4.0-10.5)
[2020-01-26 05:55] LABS: ANION GAP 8 (5-19); BLOOD UREA NITROGEN 27 mg/dL (7-20); CARBON DIOXIDE 20 mmol/L (22-30); CHLORIDE 93 mmol/L (98-107); GLUCOSE 112 mg/dL (75-110); POTASSIUM 4.4 mmol/L (3.6-5.0)
[2020-01-26] MEDS: CLONIDINE HCL 0.2 MG TABLET PO SCH ×3 (06:02→22:06)
[2020-01-26] MEDS: PANTOPRAZOLE SODIUM 40 MG TABLET.DR PO SCH (06:04)
[2020-01-26 06:23] LABS: ABSOLUTE MONOCYTES # (MANUAL) 1.2 10^3/uL (0.1-1.4); BASOPHILS % (MANUAL) 1 % (0-2); EOSINOPHILS % (MANUAL) 0 % (0-6); LYMPHOCYTES % (MANUAL) 4 % (13-45); MONOCYTES % (MANUAL) 5 % (3-13); SEGMENTED NEUTROPHILS % (MAN) 90 % (42-78); TOTAL CELLS COUNTED 100
[2020-01-26 06:24] LABS: HYPERSEGMENTED NEUTROPHILS PRESENT; PLATELET COMMENT INCREASED
[2020-01-26 06:25] LABS: ANISOCYTOSIS 1+
[2020-01-26 06:26] LABS: CALCIUM 6.8 mg/dL (8.4-10.2); OVALOCYTES SLIGHT; POLYCHROMASIA SLIGHT; SCHISTOCYTES SLIGHT
[2020-01-26 06:29] LABS: POIKILOCYTOSIS SLIGHT
[2020-01-26 06:30] LABS: HEMOGLOBIN 7.4 g/dL (13.5-17.0)
[2020-01-26] MEDS: INSULIN LISPRO 100 UNIT/ML 3 ML VIAL SUBCUT SCH ×4 (08:14→22:07)
[2020-01-26] MEDS: METFORMIN HCL 500 MG TABLET PO SCH ×2 (08:24→17:03)
[2020-01-26] MEDS: NORMAL SALINE 1000 ML 1,000 ML IV PRN ×2 (08:29→22:15)
[2020-01-26] MEDS: HYDROCHLOROTHIAZIDE 12.5 MG TABLET PO SCH (09:28)
[2020-01-26] MEDS: DOCUSATE SODIUM 100 MG CAPSULE PO SCH ×2 (09:29→17:33)
[2020-01-26] MEDS: AMLODIPINE BESYLATE 5 MG TABLET PO SCH (09:29)
[2020-01-26] MEDS: METOPROLOL SUCCINATE 25 MG TAB.SR.24H PO SCH ×2 (09:30→17:32)
[2020-01-26] MEDS: LOSARTAN POTASSIUM 50 MG TABLET PO SCH (09:30)
--- NOTE | 2020-01-26 09:30 | PDOC PROGRESS REPORT ---
Subjective Progress Note for:: 01/26/20 Subjective:: Patient comfortable, awake Reason For Visit: LEFT FOOT ABSCESS,CHAROT JOINT,SEPSIS Physical Exam Vital Signs: Temp Pulse Resp BP Pulse Ox 98.3 F 107 H 20 131/77 H 94 01/26/20 07:29 01/26/20 07:29 01/26/20 07:29 01/26/20 07:29 01/26/20 07:29 Intake & Output 01/25/20 01/26/20 01/27/20 06:59 06:59 06:59 Intake Total 1158 1685 Output Total 930 1900 Balance 228 -215 Weight 119.2 kg General appearance: PRESENT: no acute distress, other - Pale Extremities exam: PRESENT: other - Left lower extremity = BKA site well healed, gomez in place, surgical wound clean, dry, and intact, Rajiv drain in place with serosanguineous fluid Results Laboratory Results: 01/26/20 05:13 01/26/20 05:13 01/25/20 01/26/20 01/26/20 18:15 05:13 05:13 WBC 24.8 H RBC 2.61 L Hgb 7.4 L Hct 21.5 L MCV 82 MCH 28.4 MCHC 34.5 RDW 16.8 H Plt Count 570 H Seg Neutrophils % Not Reportable Sodium 121.0 L 120.5 L* Potassium 4.2 4.4 Chloride 93 L 93 L Carbon Dioxide 22 20 L Anion Gap 6 8 BUN 27 H 27 H Creatinine 2.30 H 2.43 H Est GFR ( Amer) 36 L 34 L Glucose 120 H 112 H Calcium 6.4 L* 6.8 L* Albumin 01/26/20 05:13 WBC RBC Hgb Hct MCV MCH MCHC RDW Plt Count Seg Neutrophils % Sodium Potassium Chloride Carbon Dioxide Anion Gap BUN Creatinine Est GFR ( Amer) Glucose Calcium Albumin 1.9 L 01/24/20 15:15 Clean Catch Midstream Urine Culture - Final Yeast, Not Suzette Albicans 01/24/20 08:25 NT-Pro-B Natriuret Pep [id number] H Impressions: Venous Doppler Study 01/17/20 13:12 IMPRESSION: Positive acute deep vein thrombosis femoral and popliteal veins. Foot X-Ray 01/17/20 13:13 IMPRESSION: There appear to be diabetic foot changes. No osteomyelitis is seen. Findings as described. Marked soft tissue swelling. Tibia/Fibula X-Ray 01/17/20 13:14 IMPRESSION: Possible prior interosseous ligament disruption. No acute finding in either the tibia or the fibula. Chest X-Ray 01/24/20 00:00 IMPRESSION: Low lung volumes without other evidence of acute intrathoracic process. Abdomen/Pelvis CT 01/25/20 00:00 IMPRESSION: 1. LARGE PLEURAL EFFUSIONS. 2. NO SIGNIFICANT OR ACUTE ABDOMINAL PROCESS. Lung Scan-VQ NM 01/25/20 23:10 IMPRESSION: LOW PROBABILITY OF PULMONARY EMBOLISM. Assessment & Plan - Diagnosis (1) Abscess of left foot Is this a current diagnosis for this admission?: Yes (2) Charcot foot due to diabetes mellitus Is this a current diagnosis for this admission?: Yes (3) Diabetic infection of left foot Is this a current diagnosis for this admission?: Yes - Time Anticipated Discharge Disposition: [facility] Facility Anticipated Discharge Timeframe: As per PCP - Plan Summary Plan Summary: Assessment: S/p left BKA due to severe left foot abscess Physical exam shows a well-healing BKA wound with stable in place, staple line clean, dry, and intact Scant output from the Rajiv drain, serosanguineous in type Plan: Remove the Rajiv drain today I am recommending physical therapy consultation to place left BKA stump sanitation manager Gomez to be removed 3 weeks after surgery After the gomez will be removed, the patient can be fitted for a prosthesis. We will sign off. Please call me with questions.
[2020-01-26] MEDS: INSULIN GLARGINE,HUM.REC.ANLOG 1,000 UNIT/10 ML VIAL SUBCUT SCH ×2 (09:31→22:04)
[2020-01-26] MEDS: FUROSEMIDE 40 MG TABLET PO SCH (09:31)
--- NOTE | 2020-01-26 14:20 | PDOC PROGRESS REPORT ---
Subjective Progress Note for:: 01/26/20 Subjective:: Patient noted to be more lethargic this morni is no visible or overt bleeding noted. He was actually examined by Dr. Hill yesterday evening and he was concerned about patient status to and he did order a bunch of test including a UA which showed glucosuria as well as ketonuria and he also ordered blood cultures. Patient is afebrile. His white count did show a downward trend although obviously still high. Ng. He apparently was also confused according to nursing staff. He just finished his second unit of blood in fact after shift started this morning because he pulled out for IVs according to the nursing staff. Reviewing his chart looks like he last received morphine about 1 PM on January 22 and Percocet maybe about 3 PM on January 22. He is easily arousable but definitely appears to be more lethargic today. Patient apparently had an active night with periods of hypoxia however when I saw him this morning patient was on room air with O2 sat of about 96% 01/25 patient is feeling pretty good this morning. In fact he is awake and alert and much more active than not seen him over the last few days. He also states that he is feeling better. Reason For Visit: LEFT FOOT ABSCESS,CHAROT JOINT,SEPSIS Physical Exam Vital Signs: Temp Pulse Resp BP Pulse Ox 98.4 F 105 H 15 126/73 H 96 01/26/20 11:23 01/26/20 11:23 01/26/20 11:23 01/26/20 11:23 01/26/20 11:23 Intake & Output 01/25/20 01/26/20 01/27/20 06:59 06:59 06:59 Intake Total 1158 1685 600 Output Total 930 1900 Balance 228 -215 600 Weight 119.2 kg General appearance: PRESENT: no acute distress, morbidly obese, well-developed, well-nourished Head exam: PRESENT: atraumatic Eye exam: PRESENT: EOMI, PERRLA. ABSENT: scleral icterus Ear exam: PRESENT: normal external ear exam Mouth exam: PRESENT: moist, tongue midline Neck exam: ABSENT: carotid bruit, JVD, lymphadenopathy, thyromegaly Respiratory exam: PRESENT: decreased breath sounds, unlabored. ABSENT: rales, rhonchi, wheezes Cardiovascular exam: PRESENT: RRR, +S1, +S2. ABSENT: diastolic murmur, rubs, systolic murmur Pulses: PRESENT: normal dorsalis pedis pul Vascular exam: PRESENT: normal capillary refill GI/Abdominal exam: PRESENT: normal bowel sounds, soft. ABSENT: distended, guarding, mass, organolmegaly, rebound, tenderness Rectal exam: PRESENT: deferred Extremities exam: PRESENT: calf tenderness - Right calf with blisters and ecchymoses, full ROM, other - 3 plus edema RLE Soft tissue contusion and echymoses on RUE w\from wrist to elbow, minimal tenderness LLE BKA, healing stump. ABSENT: clubbing, pedal edema Neurological exam: PRESENT: alert, awake, oriented to person, oriented to place, oriented to time, oriented to situation, CN II-XII grossly intact. ABSENT: motor sensory deficit Psychiatric exam: PRESENT: appropriate affect, normal mood. ABSENT: homicidal ideation, suicidal ideation Skin exam: PRESENT: erythema, vesicles - Blisters RLE, warm. ABSENT: cyanosis, rash Results Laboratory Results: 01/26/20 05:13 01/26/20 05:13 01/25/20 01/26/20 01/26/20 18:15 05:13 05:13 WBC 24.8 H RBC 2.61 L Hgb 7.4 L Hct 21.5 L MCV 82 MCH 28.4 MCHC 34.5 RDW 16.8 H Plt Count 570 H Seg Neutrophils % Not Reportable Sodium 121.0 L 120.5 L* Potassium 4.2 4.4 Chloride 93 L 93 L Carbon Dioxide 22 20 L Anion Gap 6 8 BUN 27 H 27 H Creatinine 2.30 H 2.43 H Est GFR ( Amer) 36 L 34 L Glucose 120 H 112 H Calcium 6.4 L* 6.8 L* Albumin 01/26/20 05:13 WBC RBC Hgb Hct MCV MCH MCHC RDW Plt Count Seg Neutrophils % Sodium Potassium Chloride Carbon Dioxide Anion Gap BUN Creatinine Est GFR ( Amer) Glucose Calcium Albumin 1.9 L 01/21/20 13:10 Blood Blood Culture - Final NO GROWTH IN 5 DAYS 01/21/20 13:00 Blood Blood Culture - Final NO GROWTH IN 5 DAYS 01/24/20 15:15 Clean Catch Midstream Urine Culture - Final Yeast, Not Suzette Albicans 01/24/20 08:25 NT-Pro-B Natriuret Pep 43059 H Impressions: Venous Doppler Study 01/17/20 13:12 IMPRESSION: Positive acute deep vein thrombosis femoral and popliteal veins. Foot X-Ray 01/17/20 13:13 IMPRESSION: There appear to be diabetic foot changes. No osteomyelitis is seen. Findings as described. Marked soft tissue swelling. Tibia/Fibula X-Ray 01/17/20 13:14 IMPRESSION: Possible prior interosseous ligament disruption. No acute finding in either the tibia or the fibula. Chest X-Ray 01/24/20 00:00 IMPRESSION: Low lung volumes without other evidence of acute intrathoracic process. Abdomen/Pelvis CT 01/25/20 00:00 IMPRESSION: 1. LARGE PLEURAL EFFUSIONS. 2. NO SIGNIFICANT OR ACUTE ABDOMINAL PROCESS. Lung Scan-VQ NM 01/25/20 23:10 IMPRESSION: LOW PROBABILITY OF PULMONARY EMBOLISM. Assessment and Plan - Diagnosis (1) Abscess of left foot Is this a current diagnosis for this admission?: Yes (2) Acute deep vein thrombosis (DVT) of right lower extremity Qualifiers: Affected thrombotic vein of extremity: femoral Qualified Code(s): I82.411 - Acute embolism and thrombosis of right femoral vein Is this a current diagnosis for this admission?: Yes (3) Charcot foot due to diabetes mellitus Is this a current diagnosis for this admission?: Yes (4) Hyperglycemia due to type 2 diabetes mellitus Qualifiers: Diabetes mellitus watermelon inspector insulin use: without half-way use Qualified Code(s): E11.65 - Type 2 diabetes mellitus with hyperglycemia Is this a current diagnosis for this admission?: Yes (5) MRSA bacteremia Is this a current diagnosis for this admission?: Yes (6) Sepsis Qualifiers: Sepsis type: sepsis due to unspecified organism Sepsis acute organ dysfunction status: without acute organ dysfunction Qualified Code(s): A41.9 - Sepsis, unspecified organism Is this a current diagnosis for this admission?: Yes Plan: Resolved (7) Acute blood loss anemia Is this a current diagnosis for this admission?: Yes Plan: Hemoglobin appears to be relatively stable status post packed red blood cell transfusion. He has been restarted back on heparin. After the thoracentesis I think we can safely start him on an oral anticoagulant (8) Acute blood loss as cause of postoperative anemia Is this a current diagnosis for this admission?: Yes (9) Acute kidney injury Is this a current diagnosis for this admission?: Yes Plan: Possibly multifactorial. His creatinine was 0.98 with a GFR of more than 60 and currently is creatinine is almost doubled to 1.7 with a GFR of 41. Patient has been on vancomycin this could be a contributing factor in addition to possible ATN. He is also ketotic. We will follow-up on vancomycin level and judicious fluid management. Once he is stable will obtain sonogram of his kidneys if indicated. 01/25 kidney function continues to worsen update slowly. Vancomycin has been on hold. We will recheck his trough level in a.m. He is nonoliguric (10) Hyponatremia Is this a current diagnosis for this admission?: Yes Plan: Etiology of this is not quite clear. Urine electrolytes are currently pending as well as osmolality. Interestingly enough patient mental status is actually better than he had been in the past. His sodium is 120 today but his mentation is much improved. He tells me that he is always had a problems with low sodium and was able to explain clearly what he had been told in the past. He is said he has never been this low though reviewing the records. I have switched him to some normal saline infusion and asked him to curtail his oral intake. He however is also on heparin drip with hypotonic infusion which is probably not helping. He has also received Lasix but this is really just over the last few days so I doubt that this is the etiology of his hyponatremia (11) Pleural effusion Is this a current diagnosis for this admission?: Yes Plan: CT scan of the abdomen actually revealed a large pleural effusion this may explain patient's bout with acute respiratory distress that he had a few nights ago. He has been on Lasix which seems to have helped. A thoracentesis has been scheduled for tomorrow. As such I did place him on heparin and the plan will be to DC the heparin tomorrow morning prior to the procedure - Plan Summary Summary: Infectious disease consultation appreciated. Blood cultures from 925 and 19 7 are positive with repeat cultures from 925- to date. PERLA on 01/11/2018 showing vegetations although was noted to be of poor quality. Patient also has DVT of the femoral and popliteal veins. He continues with a significant leukocytosis although there appears to be slight downward trend today. Infectious disease suggest no need to pursue PERLA at this time unless persistent bacteremia occurs despite source control. Patient had a recent BKA and hopefully it is felt that leukocytosis and thrombocytosis will improve. Plan is to continue vancomycin for 4 weeks from the day of the surgery, 02/19/2020 will be the estimated completion date of course unless further complications or call 01/23 Patient noted to be more lethargic this morni is no visible or overt bleeding noted. He was actually examined by Dr. Mixon yesterday evening and he was concerned about patient status to and he did order a bunch of test including a UA which showed glucosuria as well as ketonuria and he also ordered blood cultures. Patient is afebrile. His white count did show a downward trend although obviously still high. Ng. He apparently was also confused according to nursing staff. He just finished his second unit of blood in fact after shift started this morning because he pulled out for IVs according to the nursing staff. Reviewing his chart looks like he last received morphine about 1 PM on January 22 and Percocet maybe about 3 PM on January 22. He is easily arousable but definitely appears to be more lethargic today. Of note his vancomycin trough level is noted is high however patient was actually receiving vancomycin at the time this blood was drawn so this is not a true trough. A trough level has been scheduled for about 5 PM this evening. He is post transfusion hemoglobin was 6.8. He will be transfused another unit of blood at this time. I have also held his heparin, discontinue the Toradol wi ll also discontinue the morphine and Percocet. Lethargy may be related to the clonidine which he was scheduled for 0.3 mg every 6 hours. I have discontinued the clonidine. An ABG is obtained and this is generally benign. Will place on supplemental O2. I will hold off on a CT scan at this time but if needed this will definitely be obtained. Corrected calcium is about 8.4 which is the lower limit of normal he received some blood transfusion which can actually lead to the citrate preservative leading to hypocalcemia so I expect the calcium level to come up some in a.m. 01/24 patient apparently had issues with his breathing during the night including periods of hypoxia. There was concern for a possible PE because he was off heparin however patient was on heparin until about 10 AM yesterday and the heparin was held really because of his anemia and concerns for acute blood loss. His hemoglobin has been stable. I have restarted his heparin. His breathing this morning indicates no evidence of any issues. Will follow up with a VQ scan Echocardiogram done reveals no definite vegetations or evidence of endocarditis. His blood cultures including the one from yesterday have been negative. His white count is still elevated at 28,000. Although he has no abdominal symptoms I will go ahead and obtain a CT of his abdomen to rule out any occult source of infection. Urinalysis is basically benign. Acute kidney injury his kidney function has actually worsened again from 0.8 on admission now currently at 2.29. His vancomycin trough level is elevated at 29.9. His last dose was January 23 at about 9 AM 01/25 blood cultures continue to be negative. Urine cultures noted for Suzette however this is likely superinfection. Will defer treatment for now - Time Time Spent with patient: 25-34 minutes Medications reviewed and adjusted accordingly: Yes Anticipated Discharge Disposition: [facility] Facility Anticipated Discharge Timeframe: within 72 hours
[2020-01-26 16:58] LABS: URINE SODIUM 39 mmol/L (30-90)
[2020-01-26 17:11] LABS: OSMOLALITY,URINE 175 mOsm/kg (300-900)
[2020-01-27] MEDS ORDERED: FUROSEMIDE INJ/PF 20 MG/2 ML SDV ONE (00:35)
[2020-01-27] MEDS ORDERED: LORAZEPAM INJ 2 MG/1 ML VIAL ONE (00:35)
[2020-01-27] MEDS ORDERED: FUROSEMIDE INJ/PF 20 MG/2 ML SDV IV ONE (01:00)
[2020-01-27] MEDS ORDERED: LEVALBUTEROL HCL NEB 1.25 MG/3 ML AMPUL NEB ONE ×2 (01:24→01:30)
[2020-01-27] MEDS ORDERED: MORPHINE SULFATE 10 MG/ML INJ IV PRN (01:44)
[2020-01-27 01:46] LABS: ARTERIAL BLOOD BASE EXCESS -3.6 mmol/L; ARTERIAL BLOOD H2CO3 1.19 mmol/L (1.05-1.35); ARTERIAL BLOOD HCO3 21.6 mmol/L (20-24); ARTERIAL BLOOD O2 SATURATION 96.3 % (94-98); ARTERIAL BLOOD PCO2 39.5 mmHg (35-45); ARTERIAL BLOOD PH 7.36 (7.35-7.45); ARTERIAL BLOOD PO2 87.6 mmHg (80-100); ARTERIAL BLOOD TOTAL CO2 22.8 mmol/L (23-27)
[2020-01-27 01:47] LABS: ARTERIAL BLOOD FIO2 2 L
--- NOTE | 2020-01-27 01:58 | RADIOLOGY REPORT (SQ) ---
EXAM DESCRIPTION: XR CHEST 1 VIEW COMPLETED DATE/TME: 01/27/2020 00:00 CLINICAL HISTORY: 54 years, Male, SOB getting worse COMPARISON: 01/24/2020 chest NUMBER OF VIEWS: 1 TECHNIQUE: Portable chest LIMITATIONS: None. FINDINGS: Heart size is stable. Low lung volumes with development of mixed interstitial and airspace opacities. No pneumothorax IMPRESSION: Development of mixed interstitial and airspace opacities may reflect pulmonary edema or pneumonitis copyright 2011 [employer]- All Rights Reserved
[2020-01-27] MEDS ORDERED: MORPHINE SULFATE 10 MG/ML INJ IV ONE (02:00)
--- NOTE | 2020-01-27 02:01 | Progress Note ---
Provider Note Provider Note: Critical CARE note: 01/27/2020 Critical care start time: 1:17 AM Critical care issue: Hypoxia and increased work of breathing A rapid response was called the patient's room due to progressively worsening hypoxia and increased work of breathing on the part of the patient. Patient has become very anxious and is using accessory muscles of respiration in order to breathe. Chest exam shows minimal movement of air throughout the chest with mild wheezing more prominent on the right than the left. A chest x-ray was obtained which showed mild hyperinflation. Notably there were no significant pleural effusions noted to my evaluation of the chest x-ray. Patient was subsequently treated with morphine sulfate in addition to Ativan which she had been given a few minutes earlier. His heparin infusion was to be discontinued at 6 AM for thoracentesis and I have recommended that heparin infusion be continued until it can be reassessed by his primary hospitalist provider in the morning. The patient was noted to have improvement after adequate time for the Ativan to take effect and after receiving IV morphine 2 mg x 1 and being started on a nebulizer treatment with Xopenex as well as plans for using BiPAP to help reduce his work of breathing. 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 Critical care end time: 1:59 AM Total critical care time: 17 minutes
[2020-01-27 02:08] LABS: HEMATOCRIT 24.4 % (37.9-51.0); HEMOGLOBIN 8.4 g/dL (13.5-17.0); MEAN CORPUSCULAR HEMOGLOBIN 28.5 pg (27.0-33.4); MEAN CORPUSCULAR HGB CONC 34.2 g/dL (32.0-36.0); MEAN CORPUSCULAR VOLUME 83 fl (80-97); PLATELET COUNT 976 10^3/uL (150-450); RED BLOOD COUNT 2.93 10^6/uL (4.35-5.55); RED CELL DISTRIBUTION WIDTH 16.5 % (11.5-14.0)
[2020-01-27 02:21] LABS: ALBUMIN 2.4 g/dL (3.5-5.0); ALKALINE PHOSPHATASE 157 U/L (38-126); ANION GAP 12 (5-19); ASPARTATE AMINO TRANSFERASE 27 U/L (17-59); BILIRUBIN,DIRECT 0.5 mg/dL (0.0-0.4); BILIRUBIN,TOTAL 0.9 mg/dL (0.2-1.3); BLOOD UREA NITROGEN 29 mg/dL (7-20); CARBON DIOXIDE 18 mmol/L (22-30); CHLORIDE 92 mmol/L (98-107); GLUCOSE 113 mg/dL (75-110); POTASSIUM 4.4 mmol/L (3.6-5.0); TOTAL PROTEIN 6.5 g/dL (6.3-8.2)
[2020-01-27 02:28] LABS: VANCOMYCIN,TROUGH 21.6 ug/mL (5.0-20.0)
[2020-01-27 02:30] LABS: CALCIUM 6.8 mg/dL (8.4-10.2)
[2020-01-27 02:31] LABS: ABSOLUTE LYMPHOCYTES# (MANUAL) 2.5 10^3/uL (0.5-4.7); ABSOLUTE MONOCYTES # (MANUAL) 2.1 10^3/uL (0.1-1.4); BASOPHILS % (MANUAL) 0 % (0-2); EOSINOPHILS % (MANUAL) 0 % (0-6); LYMPHOCYTES % (MANUAL) 7 % (13-45); MONOCYTES % (MANUAL) 6 % (3-13); SEGMENTED NEUTROPHILS % (MAN) 87 % (42-78); TOTAL CELLS COUNTED 100
[2020-01-27 02:34] LABS: ANISOCYTOSIS 1+; OVALOCYTES 1+; PLATELET CLUMPS PRESENT; PLATELET COMMENT INCREASED; POIKILOCYTOSIS 1+; TEAR DROP CELLS SLIGHT; TOXIC GRANULATION SLIGHT
[2020-01-27 02:36] LABS: WHITE BLOOD COUNT 35.4 10^3/uL (4.0-10.5)
[2020-01-27] MEDS ORDERED: HEPARIN SODIUM,PORCINE/D5W 25,000 UNIT/250 ML RTUINJ IV ONE (04:31)
[2020-01-27] MEDS: HEPARIN SODIUM,PORCINE/D5W 25,000 UNIT/250 ML RTUINJ IV PRN ×2 (04:39→23:26)
[2020-01-27] MEDS: PANTOPRAZOLE SODIUM 40 MG TABLET.DR PO SCH (05:17)
[2020-01-27] MEDS: CLONIDINE HCL 0.2 MG TABLET PO SCH ×3 (05:18→22:35)
[2020-01-27] MEDS: LORAZEPAM INJ 2 MG/1 ML VIAL IV PRN (05:18)
[2020-01-27] MEDS: INSULIN LISPRO 100 UNIT/ML 3 ML VIAL SUBCUT SCH ×4 (08:13→22:36)
[2020-01-27] MEDS: METFORMIN HCL 500 MG TABLET PO SCH ×2 (08:13→17:16)
[2020-01-27] MEDS ORDERED: CALCIUM GLUC IN NACL, ISO-OSM 1 GM/50 ML RTUPB IV ONE (09:00)
[2020-01-27] MEDS: MAGNESIUM SULFATE/D5W 1 GM/100 ML RTUPB IV SCH ×2 (09:26→11:03)
[2020-01-27] MEDS: DOCUSATE SODIUM 100 MG CAPSULE PO SCH ×2 (09:35→17:37)
[2020-01-27] MEDS: HYDROCHLOROTHIAZIDE 12.5 MG TABLET PO SCH (09:35)
[2020-01-27] MEDS: METOPROLOL SUCCINATE 25 MG TAB.SR.24H PO SCH ×2 (09:36→17:36)
[2020-01-27] MEDS: AMLODIPINE BESYLATE 5 MG TABLET PO SCH (09:37)
[2020-01-27] MEDS: HYDROCODONE/ACETAMINOPHEN 5-325 MG TABLET PO PRN ×3 (09:37→22:25)
[2020-01-27] MEDS: FUROSEMIDE 40 MG TABLET PO SCH (09:38)
[2020-01-27] MEDS: LOSARTAN POTASSIUM 50 MG TABLET PO SCH (09:38)
[2020-01-27] MEDS: LEVALBUTEROL HCL NEB 0.63 MG/3 ML AMPUL NEB PRN (09:46)
[2020-01-27] MEDS: INSULIN GLARGINE,HUM.REC.ANLOG 1,000 UNIT/10 ML VIAL SUBCUT SCH ×2 (10:00→22:36)
[2020-01-27 10:30] LABS: INTERNATIONAL RATION (INR) 1.16
--- NOTE | 2020-01-27 10:39 | PDOC PROGRESS REPORT ---
Subjective Progress Note for:: 01/27/20 Subjective:: Patient noted to be more lethargic this morni is no visible or overt bleeding noted. He was actually examined by Dr. Hill yesterday evening and he was concerned about patient status to and he did order a bunch of test including a UA which showed glucosuria as well as ketonuria and he also ordered blood cultures. Patient is afebrile. His white count did show a downward trend although obviously still high. Ng. He apparently was also confused according to nursing staff. He just finished his second unit of blood in fact after shift started this morning because he pulled out for IVs according to the nursing staff. Reviewing his chart looks like he last received morphine about 1 PM on January 22 and Percocet maybe about 3 PM on January 22. He is easily arousable but definitely appears to be more lethargic today. Patient apparently had an active night with periods of hypoxia however when I saw him this morning patient was on room air with O2 sat of about 96% 01/25 patient is feeling pretty good this morning. In fact he is awake and alert and much more active than not seen him over the last few days. He also states that he is feeling better. 01/26 patient was stable throughout the daytime yesterday January but apparently had another episode of bronchospasm during the night. He was treated with morphine and Ativan. He was felt that he likely was very anxious. By the time I saw him again this morning patient was stable with normal respiration. He does admit that he has been on Valium at home for about 10 years due to anxiety. Reason For Visit: LEFT FOOT ABSCESS,CHAROT JOINT,SEPSIS Physical Exam Vital Signs: Temp Pulse Resp BP Pulse Ox 98.2 F 100 16 133/74 H 100 01/27/20 09:35 01/27/20 09:46 01/27/20 09:46 01/27/20 09:35 01/27/20 09:46 Intake & Output 01/26/20 01/27/20 01/28/20 06:59 06:59 06:59 Intake Total 1685 3013 45 Output Total 1900 1625 Balance -215 1388 45 Weight 119.2 kg 120 kg General appearance: PRESENT: no acute distress, morbidly obese, well-developed, well-nourished Head exam: PRESENT: atraumatic, normocephalic Eye exam: PRESENT: EOMI, PERRLA. ABSENT: scleral icterus Ear exam: PRESENT: normal external ear exam Mouth exam: PRESENT: moist, tongue midline Neck exam: ABSENT: carotid bruit, JVD, lymphadenopathy, thyromegaly Respiratory exam: PRESENT: clear to auscultation madeline, symmetrical, unlabored. ABSENT: rales, rhonchi, wheezes Cardiovascular exam: PRESENT: RRR, +S1, +S2. ABSENT: diastolic murmur, rubs, systolic murmur GI/Abdominal exam: PRESENT: normal bowel sounds, soft. ABSENT: distended, guarding, mass, organolmegaly, rebound, tenderness Rectal exam: PRESENT: deferred Extremities exam: PRESENT: other - Swelling and erythema of the right calf with superficial blisters. Left BKA with healing wound. ABSENT: calf tenderness, clubbing, pedal edema Neurological exam: PRESENT: alert, awake, oriented to person, oriented to place, oriented to time, oriented to situation, CN II-XII grossly intact. ABSENT: motor sensory deficit Psychiatric exam: PRESENT: appropriate affect, normal mood. ABSENT: homicidal ideation, suicidal ideation Skin exam: PRESENT: dry, rash, warm, other - Superficial sacral ulcer that is healing. Blisters on right lower extremity with area of erythema on the calf, left upper extremity skin contusion that resolving. ABSENT: cyanosis Results Laboratory Results: 01/27/20 01:36 01/27/20 01:36 01/26/20 01/27/20 01/27/20 16:20 01:14 01:36 WBC 35.4 H* RBC 2.93 L Hgb 8.4 L Hct 24.4 L MCV 83 MCH 28.5 MCHC 34.2 RDW 16.5 H Plt Count 976 H Seg Neutrophils % Not Reportable Carbonic Acid 1.19 HCO3/H2CO3 Ratio 18:1 ABG pH 7.36 ABG pCO2 39.5 ABG pO2 87.6 ABG HCO3 21.6 ABG O2 Saturation 96.3 ABG Base Excess -3.6 FiO2 2 L Sodium Potassium Chloride Carbon Dioxide Anion Gap BUN Creatinine Est GFR ( Amer) Glucose Calcium Magnesium Total Bilirubin AST Alkaline Phosphatase Total Protein Albumin Urine Osmolality 175 L 01/27/20 01:36 WBC RBC Hgb Hct MCV MCH MCHC RDW Plt Count Seg Neutrophils % Carbonic Acid HCO3/H2CO3 Ratio ABG pH ABG pCO2 ABG pO2 ABG HCO3 ABG O2 Saturation ABG Base Excess FiO2 Sodium 122.4 L Potassium 4.4 Chloride 92 L Carbon Dioxide 18 L Anion Gap 12 BUN 29 H Creatinine 2.63 H Est GFR ( Amer) 31 L Glucose 113 H Calcium 6.8 L* Magnesium 1.5 L Total Bilirubin 0.9 AST 27 Alkaline Phosphatase 157 H Total Protein 6.5 Albumin 2.4 L Urine Osmolality 01/21/20 13:10 Blood Blood Culture - Final NO GROWTH IN 5 DAYS 01/21/20 13:00 Blood Blood Culture - Final NO GROWTH IN 5 DAYS 01/24/20 08:25 NT-Pro-B Natriuret Pep 64850 H Impressions: Venous Doppler Study 01/17/20 13:12 IMPRESSION: Positive acute deep vein thrombosis femoral and popliteal veins. Foot X-Ray 01/17/20 13:13 IMPRESSION: There appear to be diabetic foot changes. No osteomyelitis is seen. Findings as described. Marked soft tissue swelling. Tibia/Fibula X-Ray 01/17/20 13:14 IMPRESSION: Possible prior interosseous ligament disruption. No acute finding in either the tibia or the fibula. Abdomen/Pelvis CT 01/25/20 00:00 IMPRESSION: 1. LARGE PLEURAL EFFUSIONS. 2. NO SIGNIFICANT OR ACUTE ABDOMINAL PROCESS. Lung Scan-VQ NM 01/25/20 23:10 IMPRESSION: LOW PROBABILITY OF PULMONARY EMBOLISM. Chest X-Ray 01/27/20 00:00 IMPRESSION: Development of mixed interstitial and airspace opacities may reflect pulmonary edema or pneumonitis copyright 2011 [employer]- All Rights Reserved Assessment and Plan - Diagnosis (1) Abscess of left foot Is this a current diagnosis for this admission?: Yes (2) Acute deep vein thrombosis (DVT) of right lower extremity Qualifiers: Affected thrombotic vein of extremity: femoral Qualified Code(s): I82.411 - Acute embolism and thrombosis of right femoral vein Is this a current diagnosis for this admission?: Yes (3) Charcot foot due to diabetes mellitus Is this a current diagnosis for this admission?: Yes (4) Hyperglycemia due to type 2 diabetes mellitus Qualifiers: Diabetes mellitus tube former operator insulin use: without long-term use Qualified Code(s): E11.65 - Type 2 diabetes mellitus with hyperglycemia Is this a current diagnosis for this admission?: Yes (5) MRSA bacteremia Is this a current diagnosis for this admission?: Yes (6) Sepsis Qualifiers: Sepsis type: sepsis due to unspecified organism Sepsis acute organ dysfunction status: without acute organ dysfunction Qualified Code(s): A41.9 - Sepsis, unspecified organism Is this a current diagnosis for this admission?: Yes (7) Acute blood loss anemia Is this a current diagnosis for this admission?: Yes (8) Acute blood loss as cause of postoperative anemia Is this a current diagnosis for this admission?: Yes (9) Acute kidney injury Is this a current diagnosis for this admission?: Yes (10) Hyponatremia Is this a current diagnosis for this admission?: Yes (11) Pleural effusion Is this a current diagnosis for this admission?: Yes (12) Hypomagnesemia Is this a current diagnosis for this admission?: Yes - Plan Summary Summary: Infectious disease consultation appreciated. Blood cultures from 925 and 19 7 are positive with repeat cultures from 925- to date. PERLA on 01/11/2018 showing vegetations although was noted to be of poor quality. Patient also has DVT of the femoral and popliteal veins. He continues with a significant leukocytosis a lthough there appears to be slight downward trend today. Infectious disease suggest no need to pursue PERLA at this time unless persistent bacteremia occurs despite source control. Patient had a recent BKA and hopefully it is felt that leukocytosis and thrombocytosis will improve. Plan is to continue vancomycin for 4 weeks from the day of the surgery, 02/19/2020 will be the estimated completion date of course unless further complications or call 01/23 Patient noted to be more lethargic this morni is no visible or overt bleeding noted. He was actually examined by Dr. Mixon yesterday evening and he was concerned about patient status to and he did order a bunch of test including a UA which showed glucosuria as well as ketonuria and he also ordered blood cultures. Patient is afebrile. His white count did show a downward trend although obviously still high. Ng. He apparently was also confused according to nursing staff. He just finished his second unit of blood in fact after shift started this morning because he pulled out for IVs according to the nursing staff. Reviewing his chart looks like he last received morphine about 1 PM on January 22 and Percocet maybe about 3 PM on January 22. He is easily arousable but definitely appears to be more lethargic today. Of note his vancomycin trough level is noted is high however patient was actually receiving vancomycin at the time this blood was drawn so this is not a true trough. A trough level has been scheduled for about 5 PM this evening. He is post transfusion hemoglobin was 6.8. He will be transfused another unit of blood at this time. I have also held his heparin, discontinue the Toradol will also discontinue the morphine and Percocet. Lethargy may be related to the clonidine which he was scheduled for 0.3 mg every 6 hours. I have discontinued the clonidine. An ABG is obtained and this is generally benign. Will place on supplemental O2. I will hold off on a CT scan at this time but if needed this will definitely be obtained. Corrected calcium is about 8.4 which is the lower limit of normal he received some blood transfusion which can actually lead to the citrate preservative leading to hypocalcemia so I expect the calcium level to come up some in a.m. 01/24 patient apparently had issues with his breathing during the night including periods of hypoxia. There was concern for a possible PE because he was off heparin however patient was on heparin until about 10 AM yesterday and the heparin was held really because of his anemia and concerns for acute blood loss. His hemoglobin has been stable. I have restarted his heparin. His breathing this morning indicates no evidence of any issues. Will follow up with a VQ scan Echocardiogram done reveals no definite vegetations or evidence of endocarditis. His blood cultures including the one from yesterday have been negative. His white count is still elevated at 28,000. Although he has no abdominal symptoms I will go ahead and obtain a CT of his abdomen to rule out any occult source of infection. Urinalysis is basically benign. Acute kidney injury his kidney function has actually worsened again from 0.8 on admission now currently at 2.29. His vancomycin trough level is elevated at 29.9. His last dose was January 23 at about 9 AM 01/25 blood cultures continue to be negative. Urine cultures noted for Suzette however this is likely superinfection. Will defer treatment for now 01/26 acute renal failure which is likely multifactorial including possible vancomycin nephrotoxicity. His vancomycin has been on hold since January 23. His level is coming down. His kidney function is set of plateau although still slightly rising. CAT scan shows no acute issues with his kidneys. He also has been placed on Lasix over the last few days which may be compounding the UZIEL so will need to monitor this. Hyponatremia, etiology not quite clear although this could be multifactorialUrine osmolality is quite low at 175 with a urine sodium of 39 which fit a pattern of SIADH although patient has been on Lasix which may complicate the picture a little bit. I will restrict his oral fluids. He is also getting Heparin in hypotonic fluids and is also getting other IV infusions and a hypotonic fluid which may not all be helpful at all however patient's mentation is actually stabilized and improved. There is no change in his mental status. His sodium picked up a little bit to 122 today. We will continue to monitor this closely but at this point there appears to be no indication for hypertonic saline or any other aggressive intervention. Patient appears to be slightly hypervolemic Leukocytosis which continues to be of concern. His white count is 35,000 today however patient is definitely not septic clinically and he has been afebrile with relatively stable vital signs. I understand that this white count was obtained during the [facility] so I will obtain another white count later on today to see where it is at. Patient has been off antibiotics for about 3 days now due to his vancomycin toxicity. His platelet count is also noted to be about 400 points higher than it was yesterday. He is scheduled to have a thoracentesis done today and we will follow-up on the results. Blood cultures have been negative although there appears to be no specific sign of infection and general surgery has reviewed is stump which apparently looks clean consideration for a bone scan may be made if there are still concerns about the site of infection. I did examine his whole skin today and although he does have the contusion of his left upper extremity as well as the swelling and erythema of his right lower extremity at this definitely would not account for his very high white count. Deep venous thrombosis of the right lower extremity. Patient has been on heparin initially because it was felt that he may need surgical intervention and then because thoracentesis was being planned for today. I think he probably can be placed on oral anticoagulant by tomorrow if he remains stable. We will also put a PICC line in him today as patient requires frequent blood draws with poor access and since he will be off anticoagulant this may be a good time to do this - Time Time Spent with patient: 25-34 minutes Medications reviewed and adjusted accordingly: Yes Anticipated Discharge Disposition: [facility]-Way Facility Anticipated Discharge Timeframe: within 72 hours
[2020-01-27] MEDS: LORAZEPAM 1 MG TABLET PO SCH ×2 (12:32→22:29)
[2020-01-27 16:17] LABS: FLUID APPEARANCE CLEAR; FLUID COLOR YELLOW; FLUID TYPE PLEURAL; FLUID VISCOSITY LIQUID
[2020-01-27 16:18] LABS: FLUID SOURCE LUNG
--- NOTE | 2020-01-27 16:40 | RADIOLOGY REPORT (SQ) ---
EXAM DESCRIPTION: PICC INSERTION IMAGES COMPLETED DATE/TIME: 01/27/2020 4:23 pm REASON FOR STUDY: extended term antibiotics COMPARISON: None. FLUOROSCOPY TIME: 24 seconds 1 images saved to PACS. TECHNIQUE: Fluoroscopic and ultrasound guided PICC placement. LIMITATIONS: None. PROCEDURE: After written consent and assessment were obtained, the patient was brought into the [facility] roscopy room and placed supine on the table. Ultrasound evaluation of potential access sites were per formed. After successfully identifying a patent right upper extremity basilic vein, the right arm was prepped and draped in a sterile fashion along with the ultrasound probe. The entry site was anesthet ized with 1% lidocaine. A 21 gauge 7 cm needle was advanced through the skin and into the basilic vei n under live ultrasound guidance. An ultrasound image was saved to PACS confirming access site. A . 018 guide wire was then inserted through the needle and into the venous system. The needle was then r emoved and an 11 blade scalpel was used to make a 1cm skin incision. A 5 fr peel-away sheath was adv anced over the wire and into the venous system. A measurement was then made using the existing wire a nd live fluoroscopic guidance. The wire was then removed and trimmed. The PICC was advanced through t he peel-away sheath and into the venous system. The peel-away sheath was removed and the catheter was adhered to the patients arm with a stat lock. The catheter was then aspirated and flushed and a ster ile bandage was placed over the access site. A fluoroscopic spot image was saved to PACS confirming the catheter tip within the SVC. IMPRESSION: SUCCESSFUL PLACEMENT OF A 5 FR DUAL LUMEN 42 CM PICC IN THE RIGHT BASILIC VEIN. COMMENT: Patient medication list reviewed: Yes- Quality ID# [id number]:Eligible professional attests to doc umenting in the medical record they obtained, updated, or reviewed the patient's current medications. . Quality ID 145: Final reports for procedures using fluoroscopy that document radiation exposure avis james, or exposure time and number of fluorographic images (if radiation exposure indices are not avail able) Quality ID #76: The patient was prepped and draped using maximum sterile barrier technique including cap, mask, sterile gown, sterile gloves, a large sterile sheet, hand hygiene, and 2% Chlorhexidine fo r cutaneous antisepsis. When ultrasound is used, sterile ultrasound techniques are followed requiring sterile gel and sterile probes. TECHNICAL DOCUMENTATION: JOB ID: [id number] 2010 [employer]- All Rights Reserved rev Reading location - IP/workstation name: [email or web address]
--- NOTE | 2020-01-27 16:48 | RADIOLOGY REPORT (SQ) ---
EXAM DESCRIPTION: U/S THORACENTESIS WITH IMAGING IMAGES COMPLETED DATE/TIME: 01/27/2020 4:14 pm REASON FOR STUDY: Large pleural effusion COMPARISON: None. RADIATION DOSE: None LIMITATIONS: None. PROCEDURE: Procedure, risks, benefit, and alternative explained to patient who then gave written con sent. The right posterior chest wall was marked using ultrasound guidance. A time-out was called fo r correct marking verification. Chest prepped and draped using sterile technique. Local anesthesia a chieved using 10 ml of 1% lidocaine injection. A 6 German Thmu-O-Vrtefgix needle was introduced into the right pleural space. Fluid was aspirated. Then 850 of straw-colored fluid was removed and the entry site was covered with sterile bandage. Fluid sample sent to the lab. No immediate complicatio ns noted. Images acquired during the procedure were stored on PACS. FINDINGS: ENTRY SITE: Right posterior chest wall FLUID VOLUME: 850 FLUID ANALYSIS: Straw-colored OTHER: None IMPRESSION: SUCCESSFUL RIGHT THORACENTESIS USING ULTRASOUND GUIDANCE. COMMENT: Patient medication list reviewed: Yes- Quality ID# [id number]:Eligible professional attests to doc umenting in the medical record they obtained, updated, or reviewed the patient's current medications. TECHNICAL DOCUMENTATION: JOB ID: [id number] 2010 [employer]- All Rights Reserved Reading location - IP/workstation name: [email or web address] [id number]
--- NOTE | 2020-01-27 18:25 | RADIOLOGY REPORT (SQ) ---
EXAM DESCRIPTION: CHEST SINGLE VIEW IMAGES COMPLETED DATE/TIME: 01/27/2020 4:23 pm; 01/27/2020 6:11 pm REASON FOR STUDY: post thora; 2 hour post thora COMPARISON: Earlier exam at 0130 hours TECHNIQUE: Single frontal radiographic view of the chest acquired. NUMBER OF VIEWS: 2 LIMITATIONS: None. FINDINGS: LUNGS AND PLEURA: No pneumothorax. No consolidation or pleural effusion. MEDIASTINUM AND HILAR STRUCTURES: Stable. HEART AND VASCULAR STRUCTURES: Stable. BONES: No acute findings. HARDWARE: New right-sided PICC line catheter tip overlies the SVC near the RA junction. OTHER: No other significant finding. IMPRESSION: NO ACUTE FINDINGS.New right-sided PICC line catheter tip overlies the SVC near the RA ju nction. TECHNICAL DOCUMENTATION: JOB ID: [id number] [place]-72 2010 [employer]- All Rights Reserved Reading location - IP/workstation name: [email or web address]
--- NOTE | 2020-01-27 18:25 | RADIOLOGY REPORT (SQ) ---
EXAM DESCRIPTION: CHEST SINGLE VIEW IMAGES COMPLETED DATE/TIME: 01/27/2020 4:23 pm; 01/27/2020 6:11 pm REASON FOR STUDY: post thora; 2 hour post thora COMPARISON: Earlier exam at 0130 hours TECHNIQUE: Single frontal radiographic view of the chest acquired. NUMBER OF VIEWS: 2 LIMITATIONS: None. FINDINGS: LUNGS AND PLEURA: No pneumothorax. No consolidation or pleural effusion. MEDIASTINUM AND HILAR STRUCTURES: Stable. HEART AND VASCULAR STRUCTURES: Stable. BONES: No acute findings. HARDWARE: New right-sided PICC line catheter tip overlies the SVC near the RA junction. OTHER: No other significant finding. IMPRESSION: NO ACUTE FINDINGS.New right-sided PICC line catheter tip overlies the SVC near the RA ju nction. TECHNICAL DOCUMENTATION: JOB ID: [id number] [place]-72 2010 [employer]- All Rights Reserved Reading location - IP/workstation name: [email or web address] [facility]
[2020-01-27] MEDS: NORMAL SALINE 1000 ML 1,000 ML IV PRN (21:05)
[2020-01-27 21:07] LABS: HEMATOCRIT 18.8 % (37.9-51.0); MEAN CORPUSCULAR HEMOGLOBIN 30.1 pg (27.0-33.4); MEAN CORPUSCULAR HGB CONC 36.4 g/dL (32.0-36.0); MEAN CORPUSCULAR VOLUME 83 fl (80-97); PLATELET COUNT 563 10^3/uL (150-450); RED BLOOD COUNT 2.28 10^6/uL (4.35-5.55); RED CELL DISTRIBUTION WIDTH 16.7 % (11.5-14.0); WHITE BLOOD COUNT 22.7 10^3/uL (4.0-10.5)
[2020-01-27 21:31] LABS: ABSOLUTE LYMPHOCYTES# (MANUAL) 0.5 10^3/uL (0.5-4.7); ABSOLUTE MONOCYTES # (MANUAL) 0.2 10^3/uL (0.1-1.4); BASOPHILS % (MANUAL) 0 % (0-2); EOSINOPHILS % (MANUAL) 1 % (0-6); LYMPHOCYTES % (MANUAL) 2 % (13-45); MONOCYTES % (MANUAL) 1 % (3-13); SEGMENTED NEUTROPHILS % (MAN) 96 % (42-78); TOTAL CELLS COUNTED 100
[2020-01-27 21:32] LABS: ANISOCYTOSIS 1+; HEMOGLOBIN 6.9 g/dL (13.5-17.0); PLATELET CLUMPS PRESENT; PLATELET COMMENT INCREASED; PLATELET GIANT PRESENT; PLATELET LARGE PRESENT; POLYCHROMASIA SLIGHT; TOXIC GRANULATION 1+
[2020-01-27] MEDS: MELATONIN 5 MG TABLET PO PRN (22:29)
[2020-01-27] MEDS ORDERED: HEPARIN SOD (PORCINE) 1,000 UNIT/ML 10 ML VIAL IV PRN (22:58)
[2020-01-28] MEDS: LORAZEPAM INJ 2 MG/1 ML VIAL IV PRN (03:23)
[2020-01-28] MEDS: HYDROCODONE/ACETAMINOPHEN 5-325 MG TABLET PO PRN ×4 (03:44→20:31)
[2020-01-28] MEDS: PANTOPRAZOLE SODIUM 40 MG TABLET.DR PO SCH (05:52)
[2020-01-28] MEDS: CLONIDINE HCL 0.2 MG TABLET PO SCH ×3 (05:52→22:06)
[2020-01-28 06:57] LABS: HEMATOCRIT 21.1 % (37.9-51.0); MEAN CORPUSCULAR HGB CONC 34.7 g/dL (32.0-36.0); MEAN CORPUSCULAR VOLUME 84 fl (80-97); PLATELET COUNT 610 10^3/uL (150-450); RED BLOOD COUNT 2.52 10^6/uL (4.35-5.55); RED CELL DISTRIBUTION WIDTH 16.6 % (11.5-14.0); WHITE BLOOD COUNT 21.5 10^3/uL (4.0-10.5)
[2020-01-28 07:23] LABS: VANCOMYCIN,TROUGH 15.7 ug/mL (5.0-20.0)
[2020-01-28 07:26] LABS: ANION GAP 8 (5-19); BLOOD UREA NITROGEN 32 mg/dL (7-20); CARBON DIOXIDE 22 mmol/L (22-30); CHLORIDE 91 mmol/L (98-107); GLUCOSE 114 mg/dL (75-110); POTASSIUM 4.3 mmol/L (3.6-5.0)
[2020-01-28 07:37] LABS: CALCIUM 6.8 mg/dL (8.4-10.2)
[2020-01-28 08:00] LABS: HEMOGLOBIN 7.3 g/dL (13.5-17.0)
[2020-01-28 08:04] LABS: ABSOLUTE LYMPHOCYTES# (MANUAL) 0.4 10^3/uL (0.5-4.7); ABSOLUTE MONOCYTES # (MANUAL) 1.3 10^3/uL (0.1-1.4); BAND NEUTROPHILS % (MANUAL) 1 % (3-5); BASOPHILS % (MANUAL) 0 % (0-2); EOSINOPHILS % (MANUAL) 0 % (0-6); LYMPHOCYTES % (MANUAL) 2 % (13-45); MONOCYTES % (MANUAL) 6 % (3-13); PLATELET COMMENT INCREASED; SEGMENTED NEUTROPHILS % (MAN) 91 % (42-78); TOTAL CELLS COUNTED 100
[2020-01-28 08:05] LABS: ANISOCYTOSIS 1+; PLATELET LARGE PRESENT; POLYCHROMASIA SLIGHT
[2020-01-28] MEDS: METFORMIN HCL 500 MG TABLET PO SCH (08:38)
[2020-01-28] MEDS ORDERED: CALCIUM GLUCONATE 1000 MG/10 ML INJ IV ONE (08:58)
[2020-01-28] MEDS: INSULIN LISPRO 100 UNIT/ML 3 ML VIAL SUBCUT SCH ×5 (09:01→22:20)
[2020-01-28] MEDS: INSULIN GLARGINE,HUM.REC.ANLOG 1,000 UNIT/10 ML VIAL SUBCUT SCH ×2 (09:22→22:06)
[2020-01-28] MEDS: FUROSEMIDE 40 MG TABLET PO SCH (09:33)
[2020-01-28] MEDS: DOCUSATE SODIUM 100 MG CAPSULE PO SCH ×2 (09:34→17:27)
[2020-01-28] MEDS: AMLODIPINE BESYLATE 5 MG TABLET PO SCH (09:34)
[2020-01-28] MEDS: LORAZEPAM 1 MG TABLET PO SCH ×2 (09:34→22:04)
[2020-01-28] MEDS: METOPROLOL SUCCINATE 25 MG TAB.SR.24H PO SCH ×2 (09:35→17:25)
[2020-01-28] MEDS: LOSARTAN POTASSIUM 50 MG TABLET PO SCH (09:36)
[2020-01-28] MEDS: VANCOMYCIN HCL 750 MG in DEXTROSE 5%-WATER 250 ML IV SCH (09:40)
[2020-01-28] MEDS ORDERED: METHYLPREDNISOLONE INJ 125 MG/2 ML SDV ONE (09:59)
[2020-01-28] MEDS: CALCIUM GLUCONATE 1 GM/NS 50 ML RTU IV SCH ×2 (11:53→12:54)
--- NOTE | 2020-01-28 15:19 | RADIOLOGY REPORT (SQ) ---
EXAM DESCRIPTION: CHEST SINGLE VIEW IMAGES COMPLETED DATE/TIME: 01/28/2020 3:03 pm REASON FOR STUDY: SOB/R/O PNA COMPARISON: 01/27/2020 TECHNIQUE: Single frontal radiographic view of the chest acquired. NUMBER OF VIEWS: One view. LIMITATIONS: None. FINDINGS: LUNGS AND PLEURA: No pneumothorax. Increasing left medial basilar consolidation. No sign ificant pleural effusion. MEDIASTINUM AND HILAR STRUCTURES: Stable. HEART AND VASCULAR STRUCTURES: Stable. BONES: No acute findings. HARDWARE: Right PICC line. OTHER: No other significant finding. IMPRESSION: Increasing left medial basilar consolidation. TECHNICAL DOCUMENTATION: JOB ID: [id number] [place]-72 2010 [employer]- All Rights Reserved Reading location - IP/workstation name: [email or web address]
[2020-01-28 16:13] LABS: ARTERIAL BLOOD BASE EXCESS -4.1 mmol/L; ARTERIAL BLOOD FIO2 2L; ARTERIAL BLOOD H2CO3 0.88 mmol/L (1.05-1.35); ARTERIAL BLOOD HCO3 19.4 mmol/L (20-24); ARTERIAL BLOOD O2 SATURATION 97.6 % (94-98); ARTERIAL BLOOD PCO2 29.4 mmHg (35-45); ARTERIAL BLOOD PH 7.44 (7.35-7.45); ARTERIAL BLOOD PO2 96.3 mmHg (80-100); ARTERIAL BLOOD TOTAL CO2 20.3 mmol/L (23-27)
[2020-01-28] MEDS ORDERED: NORMAL SALINE 1000 ML 1,000 ML IV PRN (17:01)
--- NOTE | 2020-01-28 17:01 | PDOC CONSULTATION ---
Consultation Consult Date: 01/28/20 Provider Consulted: Julio RENEE Consult reason:: UZIEL and Hyponatremia History of Present Illness Admission Date/PCP: 01/17/20 16:53 History of Present Illness: BETTE LECHUGA is a 54 year old male with history of diabetes mellitus, hypertension, left foot fracture 2 years ago with subsequent deformity and pain. He came to the ER for the pain getting worse in his left ankle/calf area. He claims that he has been seeing plasma specialist for the ankle. The pain has been there for about few months. He was recently placed on antibiotics for concern of it being infected. He had chills but no fevers. In the ER it was found that his left foot was infected and that he also had bacteria in his blood. At the time creatinine was at a normal level. 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 On 01/21 it was found that his vanc levels were high at 42.5. The vanc was stopped. On 01/23 it was found that his creatinine had jumped from normal to 1.73. He was placed on IV fluids. At the same time his white count was still elevated so a CT of abdomen was done to check for other infections and to look at the kidneys. He also had been having some SOB. A large pleural effusion was found on CT. He was placed on IV furosemide and fluids were stopped. He had a thoracentesis and PICC line placement on 01/26. SOB improved some with that draining. Creatinine continued to elevate up to 2.72 today. Today his chest x-ray remains clear and he remains off fluids. As far as the sodium on 01/18 it went from 136 to 131, 01/23 it was 126, 01/24 it was 121, 01/25 it was 120 with a urine osmality of 175 and urine sodium of 39. Sodium today was 121. He has not been having any nausea, vomiting or diarrhea. He is only consuming 32 ounces of water a day. He denies any s/s of hyponatremia. Past Medical History Cardiac Medical History: Reports: Hypertension-primary Denies: Atrial Fibrillation, Coronary Artery Disease, Myocardial Infarction Pulmonary Medical History: Denies: Asthma, Chronic Obstructive Pulmonary Disease (COPD) Neurological Medical History: Denies: Hemorrhagic CVA, Ischemic CVA Endocrine Medical History: Reports: Diabetes Mellitus Type 2 GI Medical History: Denies: Cirrhosis Psychiatric Medical History: Denies: Depression Past Surgical History Past Surgical History: Reports: Orthopedic Surgery Social History Smoking Status: Former Smoker Frequency of Alcohol Use: Rare Hx Recreational Drug Use: No Drugs: None - Advance Directive Resuscitation Status: Full Code Family History Parental Family History Reviewed: Yes Children Family History Reviewed: Unknown Sibling(s) Family History Reviewed.: Unknown Medication/Allergy Home Medications: Clonidine HCl 0.3 mg PO QIDP PRN 01/17/20 Diazepam [Valium 5 mg Tablet] 5 mg PO BID 01/17/20 Empagliflozin [Jardiance] 10 mg PO DAILY 01/17/20 Hydrochlorothiazide 12.5 mg PO DAILY 01/17/20 Hydrocodone/Acetaminophen [[place]hen 5-325 mg Tablet] 2 tab PO BIDP PRN 01/17/20 Levofloxacin [Levaquin 500 mg Tablet] 500 mg PO DAILY 01/17/20 Losartan Potassium 100 mg PO DAILY 01/17/20 Metoprolol Succinate [Toprol Xl 25 mg Tab.sr] 25 mg PO BID 01/17/20 Allergies/Adverse Reactions: Penicillins Allergy (Verified 01/17/20 11:49) Review of Systems Constitutional: PRESENT: chills. ABSENT: anorexia, fever(s), weakness Eyes: ABSENT: visual disturbances Cardiovascular: PRESENT: dyspnea on exertion, edema. ABSENT: chest pain, orthropnea, palpitations Respiratory: PRESENT: dyspnea. ABSENT: cough, sputum Gastrointestinal: ABSENT: abdominal pain, constipation, diarrhea, nausea, vomiting Genitourinary: ABSENT: difficulty urinating, dysuria, hematuria Neurological: ABSENT: confusion, dizziness, weakness Physical Exam Vital Signs: Temp Pulse Resp BP Pulse Ox 97.7 F 87 16 145/76 H 98 01/28/20 10:00 01/28/20 09:00 01/28/20 09:00 01/28/20 06:05 01/28/20 09:00 Intake & Output 01/27/20 01/28/20 01/29/20 06:59 06:59 06:59 Intake Total 301 2751 Output Total 1625 2100 Balance 1388 651 Weight 120 kg 120.9 kg General appearance: PRESENT: no acute distress, well-developed, well-nourished Eye exam: ABSENT: scleral icterus Mouth exam: PRESENT: moist, neck supple Neck exam: ABSENT: JVD, tracheal deviation Respiratory exam: PRESENT: clear to auscultation madeline. ABSENT: accessory muscle use, crackles, rales, rhonchi, wheezes Cardiovascular exam: PRESENT: +S1, +S2 GI/Abdominal exam: PRESENT: soft. ABSENT: ascites, distended, firm, tenderness Extremities exam: PRESENT: pedal edema, +2 edema Musculoskeletal exam: PRESENT: deformity - -L BKA Neurological exam: PRESENT: alert, awake, oriented to person, oriented to place, oriented to time, oriented to situation Psychiatric exam: PRESENT: appropriate affect, normal mood Skin exam: PRESENT: dry, intact, warm. ABSENT: cyanosis Results Laboratory Results: 01/28/20 05:45 01/28/20 05:45 01/27/20 01/27/20 01/27/20 15:15 20:34 23:55 WBC 22.7 H RBC 2.28 L Hgb 6.9 L Hct 18.8 L MCV 83 MCH 30.1 MCHC 36.4 H RDW 16.7 H Plt Count 563 H Seg Neutrophils % Not Reportable Sodium Potassium Chloride Carbon Dioxide Anion Gap BUN Creatinine Est GFR ( Amer) Glucose Calcium Magnesium Fluid Type PLEURAL Fluid Source LUNG Fluid Color YELLOW Fluid Appearance CLEAR Fluid Viscosity LIQUID Fluid WBC 648 Fluid RBC 138 Blood Type O POSITIVE Antibody Screen NEGATIVE 01/28/20 01/28/20 05:45 05:45 WBC 21.5 H RBC 2.52 L Hgb 7.3 L Hct 21.1 L MCV 84 MCH 29.0 MCHC 34.7 RDW 16.6 H Plt Count 610 H Seg Neutrophils % Not Reportable Sodium 121.1 L Potassium 4.3 Chloride 91 L Carbon Dioxide 22 Anion Gap 8 BUN 32 H Creatinine 2.72 H Est GFR ( Amer) 29 L Glucose 114 H Calcium 6.8 L* Magnesium 1.7 Fluid Type Fluid Source Fluid Color Fluid Appearance Fluid Viscosity Fluid WBC Fluid RBC Blood Type Antibody Screen 01/24/20 01/28/20 08:25 05:45 Creatine Kinase 102 NT-Pro-B Natriuret Pep 36428 H Impressions: Venous Doppler Study 01/17/20 13:12 IMPRESSION: Positive acute deep vein thrombosis femoral and popliteal veins. Foot X-Ray 01/17/20 13:13 IMPRESSION: There appear to be diabetic foot changes. No osteomyelitis is seen. Findings as described. Marked soft tissue swelling. Tibia/Fibula X-Ray 01/17/20 13:14 IMPRESSION: Possible prior interosseous ligament disruption. No acute finding in either the tibia or the fibula. Abdomen/Pelvis CT 01/25/20 00:00 IMPRESSION: 1. LARGE PLEURAL EFFUSIONS. 2. NO SIGNIFICANT OR ACUTE ABDOMINAL PROCESS. Lung Scan-VQ NM 01/25/20 23:10 IMPRESSION: LOW PROBABILITY OF PULMONARY EMBOLISM. PICC Line Insertion 01/27/20 00:00 IMPRESSION: SUCCESSFUL PLACEMENT OF A 5 FR DUAL LUMEN 42 CM PICC IN THE RIGHT BASILIC VEIN. Thoracentesis Ultrasound 01/27/20 08:00 IMPRESSION: SUCCESSFUL RIGHT THORACENTESIS USING ULTRASOUND GUIDANCE. Chest X-Ray 01/27/20 17:45 IMPRESSION: NO ACUTE FINDINGS.New right-sided PICC line catheter tip overlies the SVC near the RA junction. Assessment & Plan - Diagnosis (1) Acute kidney injury Is this a current diagnosis for this admission?: Yes Plan: nonoliguric, likely a combination of vanc toxicity and ATN from his bacterial i nfection. CT did not show any obstruction. Will look to continue on the furosemide to help get the fluid off his leg. Will also look to start normal saline at 75mL an hour to help with flushing out the kidneys and add albumin before giving the furosemide. Follow up with labs tomorrow. (2) Hyponatremia Is this a current diagnosis for this admission?: Yes Plan: Will look to follow up with labs, having sodium checked more often. Now starting normal saline at 75mL an hour and continue the furosemide to keep shifting fluid off. Also adding albumin before he is given the furosemide. Likely fluid related, need to rule out SIADH. (3) Acute blood loss as cause of postoperative anemia Is this a current diagnosis for this admission?: Yes Plan: Per hospitalist services (4) MRSA bacteremia Is this a current diagnosis for this admission?: Yes Plan: on vanc but currently on hold (5) Sepsis Qualifiers: Sepsis type: sepsis due to unspecified organism Sepsis acute organ dysfunction status: without acute organ dysfunction Qualified Code(s): A41.9 - Sepsis, unspecified organism Is this a current diagnosis for this admission?: Yes Plan: on vanc but currently on hold. (6) Acute deep vein thrombosis (DVT) of right lower extremity Qualifiers: Affected thrombotic vein of extremity: femoral Qualified Code(s): I82.411 - Acute embolism and thrombosis of right femoral vein Is this a current diagnosis for this admission?: Yes Plan: currently on a heparin drip (7) Charcot foot due to diabetes mellitus Is this a current diagnosis for this admission?: Yes Plan: recently had a L BKA (8) Diabetic infection of left foot Is this a current diagnosis for this admission?: Yes Plan: Had a L BKA, was on vanc but currently on hold (9) HTN (hypertension) Qualifiers: Hypertension type: essential hypertension Qualified Code(s): I10 - Essential (primary) hypertension Is this a current diagnosis for this admission?: Yes Plan: mostly controlled (10) Hyperglycemia due to type 2 diabetes mellitus Qualifiers: Diabetes mellitus rat exterminator insulin use: without rat exterminator use Qualified Code(s): E11.65 - Type 2 diabetes mellitus with hyperglycemia Is this a current diagnosis for this admission?: Yes Plan: advised on better control of his diabetes (11) Pleural effusion Is this a current diagnosis for this admission?: Yes Plan: stable at the time, looks to be developing hospital acquired pneumonia.
--- NOTE | 2020-01-28 17:46 | PDOC PROGRESS REPORT ---
Subjective Progress Note for:: 01/28/20 Subjective:: Patient continues to have pain in his right leg. States the pain has progressed. Denies fever or chills. He does endorse some shortness of breath because occasionally. Notably he is also having some increased erythema and rumpling of the skin behind his right calf. Reason For Visit: LEFT FOOT ABSCESS,CHAROT JOINT,SEPSIS Physical Exam Vital Signs: Temp Pulse Resp BP Pulse Ox 97.2 F 86 19 144/82 H 100 01/28/20 12:02 01/28/20 14:00 01/28/20 16:49 01/28/20 12:02 01/28/20 16:49 Intake & Output 01/27/20 01/28/20 01/29/20 06:59 06:59 06:59 Intake Total 3013 2751 790 Output Total 1625 2100 850 Balance 1388 651 -60 Weight 120 kg 120.9 kg General appearance: PRESENT: no acute distress, cooperative Neck exam: ABSENT: JVD Respiratory exam: PRESENT: symmetrical, unlabored. ABSENT: tachypnea, wheezes Cardiovascular exam: PRESENT: RRR, +S1, +S2. ABSENT: tachycardia GI/Abdominal exam: PRESENT: soft. ABSENT: rebound, rigid, tenderness Extremities exam: PRESENT: other - erythema with some associated bleb in posterior calf region Neurological exam: PRESENT: alert, awake, oriented to person, oriented to place, oriented to time, oriented to situation Psychiatric exam: ABSENT: agitated, anxious Focused psych exam: ABSENT: restlessness Skin exam: ABSENT: jaundice Results Laboratory Results: 01/28/20 05:45 01/28/20 05:45 01/27/20 01/27/20 01/28/20 20:34 23:55 05:45 WBC 22.7 H 21.5 H RBC 2.28 L 2.52 L Hgb 6.9 L 7.3 L Hct 18.8 L 21.1 L MCV 83 84 MCH 30.1 29.0 MCHC 36.4 H 34.7 RDW 16.7 H 16.6 H Plt Count 563 H 610 H Seg Neutrophils % Not Reportable Not Reportable Carbonic Acid HCO3/H2CO3 Ratio ABG pH ABG pCO2 ABG pO2 ABG HCO3 ABG O2 Saturation ABG Base Excess FiO2 Sodium Potassium Chloride Carbon Dioxide Anion Gap BUN Creatinine Est GFR ( Amer) Glucose Calcium Ionized Calcium Elizabeth Magnesium Blood Type O POSITIVE Antibody Screen NEGATIVE 01/28/20 01/28/20 01/28/20 05:45 14:52 15:55 WBC RBC Hgb Hct MCV MCH MCHC RDW Plt Count Seg Neutrophils % Carbonic Acid 0.88 L HCO3/H2CO3 Ratio 22:1 ABG pH 7.44 ABG pCO2 29.4 L ABG pO2 96.3 ABG HCO3 19.4 L ABG O2 Saturation 97.6 ABG Base Excess -4.1 FiO2 2L Sodium 121.1 L Potassium 4.3 Chloride 91 L Carbon Dioxide 22 Anion Gap 8 BUN 32 H Creatinine 2.72 H Est GFR ( Amer) 29 L Glucose 114 H Calcium 6.8 L* Ionized Calcium Elizabeth 1.03 L Magnesium 1.7 Blood Type Antibody Screen 01/24/20 01/28/20 08:25 05:45 Creatine Kinase 102 NT-Pro-B Natriuret Pep 43654 H Impressions: Venous Doppler Study 01/17/20 13:12 IMPRESSION: Positive acute deep vein thrombosis femoral and popliteal veins. Foot X-Ray 01/17/20 13:13 IMPRESSION: There appear to be diabetic foot changes. No osteomyelitis is seen. Findings as described. Marked soft tissue swelling. Tibia/Fibula X-Ray 01/17/20 13:14 IMPRESSION: Possible prior interosseous ligament disruption. No acute finding in either the tibia or the fibula. Abdomen/Pelvis CT 01/25/20 00:00 IMPRESSION: 1. LARGE PLEURAL EFFUSIONS. 2. NO SIGNIFICANT OR ACUTE ABDOMINAL PROCESS. Lung Scan-VQ NM 01/25/20 23:10 IMPRESSION: LOW PROBABILITY OF PULMONARY EMBOLISM. PICC Line Insertion 01/27/20 00:00 IMPRESSION: SUCCESSFUL PLACEMENT OF A 5 FR DUAL LUMEN 42 CM PICC IN THE RIGHT BASILIC VEIN. Thoracentesis Ultrasound 01/27/20 08:00 IMPRESSION: SUCCESSFUL RIGHT THORACENTESIS USING ULTRASOUND GUIDANCE. Chest X-Ray 01/28/20 00:00 IMPRESSION: Increasing left medial basilar consolidation. Assessment and Plan - Diagnosis (1) Acute kidney injury Is this a current diagnosis for this admission?: Yes Plan: Suspected to be secondary to vancomycin toxicity more likely and/or ATN from infection Creatinine continues to rise. Consulted nephrology who has recommended giving some IV fluids with diuresis. We will monitor renal function closely and urine output. (2) Hyponatremia Is this a current diagnosis for this admission?: Yes Plan: possibly 2/2 renal failure or siadh. Hold HCTZ and continue Lasix. I will also give 1 g sodium chloride tablet. Nephrology consulted. Monitor BMP closely (3) Pleural effusion Is this a current diagnosis for this admission?: Yes Plan: At 850 cc of fluid removed from right lung 01/27/2020. Diagnostic labs pending. Seems to be on room air today. He did get short of breath today so we will repeat imaging especially as chest x-ray showing questionable infiltrate lungs. Continue Lasix (4) Acute deep vein thrombosis (DVT) of right lower extremity Qualifiers: Affected thrombotic vein of extremity: femoral Qualified Code(s): I82.411 - Acute embolism and thrombosis of right femoral vein Is this a current diagnosis for this admission?: Yes Plan: Has been on heparin drip and maintained therapeutic PTTs. However he is developing more erythema in his calf and swelling. Also some notable distal neuropathy but uncertain if that is chronic. DP and PT pulses are very much dopplerable. Will repeat venous vascular imaging. Monitor Dopplers every shift. Continue heparin drip but will monitor closely to see if thrombolytic/thrombectomy intervention is warranted. (5) Abscess of left foot Is this a current diagnosis for this admission?: Yes Plan: Status post left BKA 01/17/2020 for deep leg abscess has subsequently had multiple OR visits for further debridement and source control. Currently seems like down no further plans for surgical intervention and surgery has signed off. MRSA - C/w Vancomycin (6) MRSA bacteremia Is this a current diagnosis for this admission?: Yes Plan: Secondary to abscess. TTE was technically suboptimal but did not show any vegetations Continue vancomycin and monitor Vanco trough (7) Charcot foot due to diabetes mellitus Is this a current diagnosis for this admission?: Yes (8) Anemia of chronic disease Is this a current diagnosis for this admission?: Yes (9) Hyperglycemia due to type 2 diabetes mellitus Qualifiers: Diabetes mellitus donor relations manager insulin use: without fdc use Qualified Code(s): E11.65 - Type 2 diabetes mellitus with hyperglycemia Is this a current diagnosis for this admission?: Yes (10) HTN (hypertension) Qualifiers: Hypertension type: essential hypertension Qualified Code(s): I10 - Essential (primary) hypertension Is this a current diagnosis for this admission?: Yes (11) Thrombocytosis Is this a current diagnosis for this admission?: Yes - Time Time Spent with patient: 25-34 minutes Anticipated Discharge Disposition: Assisted Facility Anticipated Discharge Timeframe: within 72 hours
[2020-01-28 18:10] LABS: ANION GAP 7 (5-19); BLOOD UREA NITROGEN 33 mg/dL (7-20); CALCIUM 7.4 mg/dL (8.4-10.2); CARBON DIOXIDE 23 mmol/L (22-30); CHLORIDE 91 mmol/L (98-107); GLUCOSE 165 mg/dL (75-110); POTASSIUM 4.2 mmol/L (3.6-5.0)
[2020-01-28] MEDS ORDERED: ALBUMIN HUMAN 12.5 GM/50 ML RTUINJ IV ONE (18:30)
[2020-01-28] MEDS ORDERED: SODIUM CHLORIDE 1 GM TABLET PO ONE (19:30)
--- NOTE | 2020-01-28 21:02 | RADIOLOGY REPORT (SQ) ---
INDICATION: Increasing edema.. PROCEDURE: Real-time grayscale, color, and pulse Doppler ultrasound imaging of the right lower extremity deep venous system was performed. 43 images. COMPARISON: January 17, 2020 FINDINGS: The common femoral vein and proximal superficial femoral vein are patent. Thrombus is again identified distal superficial vein through popliteal. This appears to be occlusive/near occlusive. This appearance is similar when compared to prior.. . The visualized deep calf veins appear patent. Lesions within the popliteal fossa, likely a complex Lucio's cyst. This is larger than prior measuring 8 x 4 x 3.5 cm on current IMPRESSION: Deep venous thrombosis left superficial femoral vein distally extending to popliteal. This appearance is similar to prior. The presumed complex Lucio's cyst within the popliteal fossa appears larger on current when compared to prior.
[2020-01-28] MEDS: HEPARIN SODIUM,PORCINE/D5W 25,000 UNIT/250 ML RTUINJ IV PRN (22:08)
[2020-01-29] MEDS: HYDROCODONE/ACETAMINOPHEN 5-325 MG TABLET PO PRN ×4 (01:08→21:36)
--- NOTE | 2020-01-29 02:30 | RADIOLOGY REPORT (SQ) ---
CLINICAL INDICATION: abnormal CXR. edema vs pna?. Pulmonary infiltrate. TECHNIQUE: Noncontrast spiral axial CT imaging was obtained of the chest with multiplanar reconstructions. This exam was performed according to our departmental dose-optimization program, which includes automated exposure control, adjustment of the mA and/or kV according to patient size and/or use of iterative reconstruction techniques. COMPARISON: None. CORRELATION: None. FINDINGS: The heart is prominent with coronary calcification. No pericardial effusion. No bulky mediastinal adenopathy. Right-sided PICC. Device in good position. The lungs demonstrate small to moderate bilateral pleural effusions with adjacent airspace disease both atelectatic and consolidated. No pneumothorax. Visualized abdominal contents are unremarkable. Visualized bones demonstrate age-appropriate osteoarthritis. IMPRESSION: Small to moderate bilateral pleural effusions. Adjacent airspace disease both atelectatic and consolidated. Bibasilar pneumonia could have this appearance. No significant pulmonary edema.
[2020-01-29] MEDS: LORAZEPAM INJ 2 MG/1 ML VIAL IV PRN ×2 (03:11→20:04)
[2020-01-29] MEDS: LACTULOSE SYRUP 20 GM/30 ML UDCUP PO PRN (03:22)
[2020-01-29] MEDS: CLONIDINE HCL 0.2 MG TABLET PO SCH ×3 (05:43→21:35)
[2020-01-29] MEDS: PANTOPRAZOLE SODIUM 40 MG TABLET.DR PO SCH (05:43)
[2020-01-29 06:31] LABS: ABSOLUTE BASOPHILS # (AUTO) 0.1 10^3/uL (0.0-0.2); ABSOLUTE EOSINOPHILS # (AUTO) 0.1 10^3/uL (0.0-0.6); ABSOLUTE NEUT (AUTO) 16.2 10^3/uL (1.7-8.2); BASOPHILS % (AUTO) 0.5 % (0-2); EOSINOPHILS % (AUTO) 0.4 % (0-6); HEMATOCRIT 22.3 % (37.9-51.0); LYMPHOCYTES % (AUTO) 5.6 % (13-45); MEAN CORPUSCULAR HEMOGLOBIN 28.4 pg (27.0-33.4); MEAN CORPUSCULAR HGB CONC 34.2 g/dL (32.0-36.0); MEAN CORPUSCULAR VOLUME 83 fl (80-97); MONOCYTES % (AUTO) 5.6 % (3-13); PLATELET COUNT 578 10^3/uL (150-450); RED BLOOD COUNT 2.68 10^6/uL (4.35-5.55); RED CELL DISTRIBUTION WIDTH 16.1 % (11.5-14.0); SEGMENTED NEUTROPHILS % (AUTO) 87.9 % (42-78); TOTAL CELLS COUNTED % (AUTO) 100 %; WHITE BLOOD COUNT 18.5 10^3/uL (4.0-10.5)
[2020-01-29 06:36] LABS: HEMOGLOBIN 7.6 g/dL (13.5-17.0)
[2020-01-29 06:44] LABS: ANION GAP 9 (5-19); BLOOD UREA NITROGEN 31 mg/dL (7-20); CALCIUM 7.2 mg/dL (8.4-10.2); CARBON DIOXIDE 20 mmol/L (22-30); CHLORIDE 93 mmol/L (98-107); GLUCOSE 147 mg/dL (75-110); POTASSIUM 4.5 mmol/L (3.6-5.0)
[2020-01-29 07:36] LABS: URINE SODIUM 16 mmol/L (30-90)
[2020-01-29 07:59] LABS: OSMOLALITY,URINE 179 mOsm/kg (300-900)
[2020-01-29] MEDS: DOCUSATE SODIUM 100 MG CAPSULE PO SCH ×2 (10:15→17:28)
[2020-01-29] MEDS: AMLODIPINE BESYLATE 5 MG TABLET PO SCH (10:15)
[2020-01-29] MEDS: METOPROLOL SUCCINATE 25 MG TAB.SR.24H PO SCH ×2 (10:15→17:28)
[2020-01-29] MEDS: LOSARTAN POTASSIUM 50 MG TABLET PO SCH (10:16)
[2020-01-29] MEDS: VANCOMYCIN HCL 750 MG in DEXTROSE 5%-WATER 250 ML IV SCH (10:16)
[2020-01-29] MEDS: LORAZEPAM 1 MG TABLET PO SCH ×2 (10:16→21:24)
[2020-01-29] MEDS: INSULIN GLARGINE,HUM.REC.ANLOG 1,000 UNIT/10 ML VIAL SUBCUT SCH ×2 (10:24→21:34)
[2020-01-29] MEDS: LEVALBUTEROL HCL NEB 0.63 MG/3 ML AMPUL NEB PRN ×2 (11:09→20:34)
--- NOTE | 2020-01-29 11:10 | PDOC CONSULTATION ---
Consultation-Blank Consultation: Physical Medicine & Rehabilitation Progress Note Chart reviewed. The patient is still dealing with multiple acute medical issues with further workup and treatment per internal medicine and various consultants. We will continue to follow the patient's progress to make a final recommendation regarding the muscle appropriate postacute care rehabilitation setting as he nears resolution of these acute issues and discharge.
[2020-01-29] MEDS: INSULIN LISPRO 100 UNIT/ML 3 ML VIAL SUBCUT SCH ×4 (11:38→21:35)
[2020-01-29] MEDS ORDERED: BISACODYL 5 MG TABEC PO ONE (12:00)
[2020-01-29] MEDS: ALBUMIN HUMAN 12.5 GM/50 ML RTUINJ IV SCH ×3 (12:52→21:16)
[2020-01-29] MEDS: FUROSEMIDE INJ/PF 40 MG/4 ML SDV IV SCH (13:26)
--- NOTE | 2020-01-29 13:41 | PDOC PROGRESS REPORT ---
Subjective Progress Note for:: 01/29/20 Subjective:: Patient was seen laying in bed at the time of examination. He claimed to be doing better than yesterday. He did not have any issues with SOB. He denies chest pain. n/v/d/c. Unfortunately the urine output is not accurate. Reason For Visit: LEFT FOOT ABSCESS,CHAROT JOINT,SEPSIS Physical Exam Vital Signs: Temp Pulse Resp BP Pulse Ox 98.3 F 99 18 140/79 H 100 01/29/20 12:13 01/29/20 12:13 01/29/20 12:13 01/29/20 12:13 01/29/20 12:13 Intake & Output 01/28/20 01/29/20 01/30/20 06:59 06:59 06:59 Intake Total 2751 2507 250 Output Total 2100 1725 Balance 651 782 250 Weight 120.9 kg 121.5 kg Cardiovascular exam: PRESENT: +S1, +S2 GI/Abdominal exam: PRESENT: soft. ABSENT: ascites, distended, firm, tenderness Results Laboratory Results: 01/29/20 05:47 01/29/20 05:47 01/27/20 01/27/20 01/27/20 15:15 15:15 15:15 WBC RBC Hgb Hct MCV MCH MCHC RDW Plt Count Seg Neutrophils % Carbonic Acid HCO3/H2CO3 Ratio ABG pH ABG pCO2 ABG pO2 ABG HCO3 ABG O2 Saturation ABG Base Excess FiO2 Sodium Potassium Chloride Carbon Dioxide Anion Gap BUN Creatinine Est GFR ( Amer) Glucose Serum Osmolality Lactic Acid Calcium Ionized Calcium Elizabeth Urine Osmolality Fluid Glucose 150 Fluid Total Protein Fluid Albumin 0.6 Fluid LDH 104 01/27/20 01/28/20 01/28/20 15:15 14:52 15:55 WBC RBC Hgb Hct MCV MCH MCHC RDW Plt Count Seg Neutrophils % Carbonic Acid 0.88 L HCO3/H2CO3 Ratio 22:1 ABG pH 7.44 ABG pCO2 29.4 L ABG pO2 96.3 ABG HCO3 19.4 L ABG O2 Saturation 97.6 ABG Base Excess -4.1 FiO2 2L Sodium Potassium Chloride Carbon Dioxide Anion Gap BUN Creatinine Est GFR ( Amer) Glucose Serum Osmolality Lactic Acid Calcium Ionized Calcium Elizabeth 1.03 L Urine Osmolality Fluid Glucose Fluid Total Protein 1.5 Fluid Albumin Fluid LDH 10/10/1101/29/20 01/29/20 17:33 05:47 05:47 WBC 18.5 H RBC 2.68 L Hgb 7.6 L Hct 22.3 L MCV 83 MCH 28.4 MCHC 34.2 RDW 16.1 H Plt Count 578 H Seg Neutrophils % 87.9 H Carbonic Acid HCO3/H2CO3 Ratio ABG pH ABG pCO2 ABG pO2 ABG HCO3 ABG O2 Saturation ABG Base Excess FiO2 Sodium 120.7 L* 122.2 L Potassium 4.2 4.5 Chloride 91 L 93 L Carbon Dioxide 23 20 L Anion Gap 7 9 BUN 33 H 31 H Creatinine 2.70 H 2.29 H Est GFR ( Amer) 30 L 36 L Glucose 165 H 147 H Serum Osmolality Lactic Acid Calcium 7.4 L 7.2 L Ionized Calcium Elizabeth Urine Osmolality Fluid Glucose Fluid Total Protein Fluid Albumin Fluid LDH 01/29/20 01/29/20 01/29/20 05:47 05:47 05:47 WBC RBC Hgb Hct MCV MCH MCHC RDW Plt Count Seg Neutrophils % Carbonic Acid HCO3/H2CO3 Ratio ABG pH ABG pCO2 ABG pO2 ABG HCO3 ABG O2 Saturation ABG Base Excess FiO2 Sodium Potassium Chloride Carbon Dioxide Anion Gap BUN Creatinine Est GFR ( Amer) Glucose Serum Osmolality 267 L Lactic Acid 1.1 Calcium Ionized Calcium Elizabeth Urine Osmolality 179 L Fluid Glucose Fluid Total Protein Fluid Albumin Fluid LDH 01/24/20 08:30 Blood Blood Culture - Final NO GROWTH IN 5 DAYS 01/24/20 08:25 Blood Blood Culture - Final NO GROWTH IN 5 DAYS 01/24/20 01/28/20 08:25 05:45 Creatine Kinase 102 NT-Pro-B Natriuret Pep [id number] H Impressions: Foot X-Ray 01/17/20 13:13 IMPRESSION: There appear to be diabetic foot changes. No osteomyelitis is seen. Findings as described. Marked soft tissue swelling. Tibia/Fibula X-Ray 01/17/20 13:14 IMPRESSION: Possible prior interosseous ligament disruption. No acute finding in either the tibia or the fibula. Abdomen/Pelvis CT 01/25/20 00:00 IMPRESSION: 1. LARGE PLEURAL EFFUSIONS. 2. NO SIGNIFICANT OR ACUTE ABDOMINAL PROCESS. Lung Scan-VQ NM 01/25/20 23:10 IMPRESSION: LOW PROBABILITY OF PULMONARY EMBOLISM. PICC Line Insertion 01/27/20 00:00 IMPRESSION: SUCCESSFUL PLACEMENT OF A 5 FR DUAL LUMEN 42 CM PICC IN THE RIGHT BASILIC VEIN. Thoracentesis Ultrasound 01/27/20 08:00 IMPRESSION: SUCCESSFUL RIGHT THORACENTESIS USING ULTRASOUND GUIDANCE. Chest CT 01/28/20 00:00 IMPRESSION: Small to moderate bilateral pleural effusions. Adjacent airspace disease both atelectatic and consolidated. Bibasilar pneumonia could have this appearance. No significant pulmonary edema. Chest X-Ray 01/28/20 00:00 IMPRESSION: Increasing left medial basilar consolidation. Venous Doppler Study 01/28/20 00:00 IMPRESSION: Deep venous thrombosis left superficial femoral vein distally extending to popliteal. This appearance is similar to prior. The presumed complex Lucio's cyst within the popliteal fossa appears larger on current when compared to prior. Assessment & Plan - Diagnosis (1) Acute kidney injury Is this a current diagnosis for this admission?: Yes Plan: nonoliguric, likely a combination of vanc toxicity and ATN from his bacterial infection. Improving on normal saline and furosemide. Will look to switch the diuretics to IV and have albumin given an hour prior to giving the furosemide. If urine output is less than input than the normal saline will need to be decreased and the furosemide increased. (2) Hyponatremia Is this a current diagnosis for this admission?: Yes Plan: Looks to be mostly from volume overload. Will continue on the furosemide, switching to IV. Will continue normal saline too as both are improving the sodium. If I's&O's is still positive tomorrow than the normal saline will be decreased. (3) Acute blood loss as cause of postoperative anemia Is this a current diagnosis for this admission?: Yes Plan: Per hospitalist services (4) MRSA bacteremia Is this a current diagnosis for this admission?: Yes Plan: on vanc (5) Sepsis Qualifiers: Sepsis type: sepsis due to unspecified organism Sepsis acute organ dysfunction status: without acute organ dysfunction Qualified Code(s): A41.9 - Sepsis, unspecified organism Is this a current diagnosis for this admission?: Yes Plan: on vanc (6) Acute deep vein thrombosis (DVT) of right lower extremity Qualifiers: Affected thrombotic vein of extremity: femoral Qualified Code(s): I82.411 - Acute embolism and thrombosis of right femoral vein Is this a current diagnosis for this admission?: Yes Plan: currently on a heparin drip (7) Charcot foot due to diabetes mellitus Is this a current diagnosis for this admission?: Yes Plan: recently had a L BKA (8) Diabetic infection of left foot Is this a current diagnosis for this admission?: Yes Plan: Had a L BKA, was on vanc but currently on hold (9) HTN (hypertension) Qualifiers: Hypertension type: essential hypertension Qualified Code(s): I10 - Ess ential (primary) hypertension Is this a current diagnosis for this admission?: Yes Plan: mostly controlled (10) Hyperglycemia due to type 2 diabetes mellitus Qualifiers: Diabetes mellitus care home insulin use: without care home use Qualified Code(s): E11.65 - Type 2 diabetes mellitus with hyperglycemia Is this a current diagnosis for this admission?: Yes (11) Pleural effusion Is this a current diagnosis for this admission?: Yes Plan: stable at the time,
[2020-01-29] MEDS ORDERED: FUROSEMIDE INJ/PF 40 MG/4 ML SDV IV ONE (18:13)
[2020-01-29] MEDS ORDERED: FUROSEMIDE 40 MG TABLET PO SCH (18:15)
[2020-01-29] MEDS ORDERED: NORMAL SALINE 1000 ML 1,000 ML IV PRN (18:16)
--- NOTE | 2020-01-29 18:26 | PDOC PROGRESS REPORT ---
Subjective Progress Note for:: 01/29/20 Subjective:: Patient complains of constipation. Feels better today. Shortness of breath feels better as well. Reason For Visit: LEFT FOOT ABSCESS,CHAROT JOINT,SEPSIS Physical Exam Vital Signs: Temp Pulse Resp BP Pulse Ox 98.5 F 98 17 145/72 H 100 01/29/20 15:49 01/29/20 15:49 01/29/20 15:49 01/29/20 15:49 01/29/20 15:49 Intake & Output 01/28/20 01/29/20 01/30/20 06:59 06:59 06:59 Intake Total 2751 2507 780 Output Total 2100 1725 Balance 651 782 780 Weight 120.9 kg 121.5 kg General appearance: PRESENT: no acute distress, cooperative Neck exam: ABSENT: JVD Respiratory exam: PRESENT: symmetrical, unlabored. ABSENT: tachypnea, wheezes Cardiovascular exam: PRESENT: RRR, +S1, +S2. ABSENT: tachycardia GI/Abdominal exam: PRESENT: soft. ABSENT: rebound, rigid, tenderness Extremities exam: PRESENT: calf tenderness, tenderness Neurological exam: PRESENT: alert, awake, oriented to person, oriented to place, oriented to time, oriented to situation Psychiatric exam: ABSENT: agitated, anxious Results Laboratory Results: 01/29/20 05:47 01/29/20 14:30 01/27/20 01/27/20 01/27/20 15:15 15:15 15:15 WBC RBC Hgb Hct MCV MCH MCHC RDW Plt Count Seg Neutrophils % Sodium Potassium Chloride Carbon Dioxide Anion Gap BUN Creatinine Est GFR ( Amer) Glucose Serum Osmolality Lactic Acid Calcium Urine Osmolality Fluid Glucose 150 Fluid Total Protein Fluid Albumin 0.6 Fluid LDH 104 01/27/20 01/28/20 01/29/20 15:15 17:33 05:47 WBC 18.5 H RBC 2.68 L Hgb 7.6 L Hct 22.3 L MCV 83 MCH 28.4 MCHC 34.2 RDW 16.1 H Plt Count 578 H Seg Neutrophils % 87.9 H Sodium 120.7 L* Potassium 4.2 Chloride 91 L Carbon Dioxide 23 Anion Gap 7 BUN 33 H Creatinine 2.70 H Est GFR ( Amer) 30 L Glucose 165 H Serum Osmolality Lactic Acid Calcium 7.4 L Urine Osmolality Fluid Glucose Fluid Total Protein 1.5 Fluid Albumin Fluid LDH 10/07/20 10/07/20 10/07/20 05:47 05:47 05:47 WBC RBC Hgb Hct MCV MCH MCHC RDW Plt Count Seg Neutrophils % Sodium 122.2 L Potassium 4.5 Chloride 93 L Carbon Dioxide 20 L Anion Gap 9 BUN 31 H Creatinine 2.29 H Est GFR ( Amer) 36 L Glucose 147 H Serum Osmolality 267 L Lactic Acid Calcium 7.2 L Urine Osmolality 179 L Fluid Glucose Fluid Total Protein Fluid Albumin Fluid LDH 01/29/20 01/29/20 05:47 14:30 WBC RBC Hgb Hct MCV MCH MCHC RDW Plt Count Seg Neutrophils % Sodium 121.5 L Potassium Chloride Carbon Dioxide Anion Gap BUN Creatinine Est GFR ( Amer) Glucose Serum Osmolality Lactic Acid 1.1 Calcium Urine Osmolality Fluid Glucose Fluid Total Protein Fluid Albumin Fluid LDH 01/24/20 08:30 Blood Blood Culture - Final NO GROWTH IN 5 DAYS 01/24/20 08:25 Blood Blood Culture - Final NO GROWTH IN 5 DAYS 01/24/20 01/28/20 08:25 05:45 Creatine Kinase 102 NT-Pro-B Natriuret Pep [id number] H Impressions: Foot X-Ray 01/17/20 13:13 IMPRESSION: There appear to be diabetic foot changes. No osteomyelitis is seen. Findings as described. Marked soft tissue swelling. Tibia/Fibula X-Ray 01/17/20 13:14 IMPRESSION: Possible prior interosseous ligament disruption. No acute finding in either the tibia or the fibula. Abdomen/Pelvis CT 01/25/20 00:00 IMPRESSION: 1. LARGE PLEURAL EFFUSIONS. 2. NO SIGNIFICANT OR ACUTE ABDOMINAL PROCESS. Lung Scan-VQ NM 01/25/20 23:10 IMPRESSION: LOW PROBABILITY OF PULMONARY EMBOLISM. PICC Line Insertion 01/27/20 00:00 IMPRESSION: SUCCESSFUL PLACEMENT OF A 5 FR DUAL LUMEN 42 CM PICC IN THE RIGHT BASILIC VEIN. Thoracentesis Ultrasound 01/27/20 08:00 IMPRESSION: SUCCESSFUL RIGHT THORACENTESIS USING ULTRASOUND GUIDANCE. Chest CT 01/28/20 00:00 IMPRESSION: Small to moderate bilateral pleural effusions. Adjacent airspace disease both atelectatic and consolidated. Bibasilar pneumonia could have this appearance. No significant pulmonary edema. Chest X-Ray 01/28/20 00:00 IMPRESSION: Increasing left medial basilar consolidation. Venous Doppler Study 01/28/20 00:00 IMPRESSION: Deep venous thrombosis left superficial femoral vein distally extending to popliteal. This appearance is similar to prior. The presumed complex Lucio's cyst within the popliteal fossa appears larger on current when compared to prior. Assessment and Plan - Diagnosis (1) Acute kidney injury Is this a current diagnosis for this admission?: Yes Plan: Suspected to be secondary to vancomycin toxicity more likely and/or ATN from infection Creatinine improved today Nephrology is following and recommending continuation of gentle IV fluids, Albumin and Lasix to hydrate kidneys. We will monitor renal function closely and urine output. (2) Hyponatremia Is this a current diagnosis for this admission?: Yes Plan: possibly 2/2 renal failure or siadh. Hold HCTZ and continue Lasix. Received a dose of Lasix IV this morning as well as albumin. I will give another dose of Lasix and albumin this afternoon. Sodium level does not seem to be improved this afternoon. Nephrology following (3) Pleural effusion Is this a current diagnosis for this admission?: Yes Plan: At 850 cc of fluid removed from right lung 01/27/2020. Diagnostic labs pending. CT showing small right-sided effusion but moderate size in the left lung. Likely secondary to third spacing from renal failure and hypoalbuminemia Continue Lasix. Will defer on further intervention at this point unless patient gets significantly dyspneic. (4) Acute deep vein thrombosis (DVT) of right lower extremity Qualifiers: Affected thrombotic vein of extremity: femoral Qualified Code(s): I82.411 - Acute embolism and thrombosis of right femoral vein Is this a current diagnosis for this admission?: Yes Plan: Has been on heparin drip and maintained therapeutic PTTs. However he is developing more erythema in his calf and swelling. Also some notable distal neuropathy but uncertain if that is chronic. DP and PT pulses are very much dopplerable. Repeat venous ultrasound does not show any progression of the clot burden. Monitor Dopplers every shift. Continue heparin drip but will monitor closely to see if thrombolytic/thrombectomy intervention is warranted. (5) Abscess of left foot Is this a current diagnosis for this admission?: Yes Plan: Status post left BKA 01/17/2020 for deep leg abscess &osteomyelitis has subsequently had multiple OR visits for further debridement and source control. Currently seems like down no further plans for surgical intervention and surgery has signed off. MRSA - C/w Vancomycin (6) MRSA bacteremia Is this a current diagnosis for this admission?: Yes Plan: Secondary to abscess. TTE was technically suboptimal but did not show any vegetations Continue vancomycin and monitor Vanco trough (7) Charcot foot due to diabetes mellitus Is this a current diagnosis for this admission?: Yes (8) Anemia of chronic disease Is this a current diagnosis for this admission?: Yes (9) Hyperglycemia due to type 2 diabetes mellitus Qualifiers: Diabetes mellitus medical terminologist insulin use: without custodial use Qualified Code(s): E11.65 - Type 2 diabetes mellitus with hyperglycemia Is this a current diagnosis for this admission?: Yes (10) HTN (hypertension) Qualifiers: Hypertension type: essential hypertension Qualified Code(s): I10 - Essential (primary) hypertension Is this a current diagnosis for this admission?: Yes (11) Thrombocytosis Is this a current diagnosis for this admission?: Yes - Time Time Spent with patient: 15-24 minutes Anticipated Discharge Disposition: Tertiary - rehab - acute Anticipated Discharge Timeframe: within 72 hours
[2020-01-29] MEDS: HEPARIN SODIUM,PORCINE/D5W 25,000 UNIT/250 ML RTUINJ IV PRN (23:44)
[2020-01-30] MEDS: HYDROCODONE/ACETAMINOPHEN 5-325 MG TABLET PO PRN ×2 (01:40→12:19)
[2020-01-30] MEDS: LORAZEPAM INJ 2 MG/1 ML VIAL IV PRN (02:51)
[2020-01-30] MEDS ORDERED: HYDROCODONE/ACETAMINOPHEN 5-325 MG TABLET PO ONE (03:00)
[2020-01-30] MEDS ORDERED: FENTANYL CITRATE INJ/PF 100 MCG/2 ML AMPUL IV ONE (03:49)
[2020-01-30] MEDS: PANTOPRAZOLE SODIUM 40 MG TABLET.DR PO SCH (06:05)
[2020-01-30] MEDS: CLONIDINE HCL 0.2 MG TABLET PO SCH ×3 (06:05→21:26)
[2020-01-30 06:58] LABS: HEMATOCRIT 20.7 % (37.9-51.0); MEAN CORPUSCULAR HEMOGLOBIN 28.9 pg (27.0-33.4); MEAN CORPUSCULAR HGB CONC 34.6 g/dL (32.0-36.0); MEAN CORPUSCULAR VOLUME 83 fl (80-97); PLATELET COUNT 499 10^3/uL (150-450); RED BLOOD COUNT 2.48 10^6/uL (4.35-5.55); RED CELL DISTRIBUTION WIDTH 16.7 % (11.5-14.0); WHITE BLOOD COUNT 18.9 10^3/uL (4.0-10.5)
[2020-01-30 07:02] LABS: HEMOGLOBIN 7.2 g/dL (13.5-17.0)
[2020-01-30 07:03] LABS: ALBUMIN 2.3 g/dL (3.5-5.0); ALKALINE PHOSPHATASE 118 U/L (38-126); ANION GAP 8 (5-19); ASPARTATE AMINO TRANSFERASE 20 U/L (17-59); BILIRUBIN,DIRECT 0.5 mg/dL (0.0-0.4); BILIRUBIN,TOTAL 0.9 mg/dL (0.2-1.3); BLOOD UREA NITROGEN 32 mg/dL (7-20); CALCIUM 7.3 mg/dL (8.4-10.2); CARBON DIOXIDE 23 mmol/L (22-30); CHLORIDE 91 mmol/L (98-107); GLUCOSE 205 mg/dL (75-110); POTASSIUM 3.7 mmol/L (3.6-5.0); TOTAL PROTEIN 6.3 g/dL (6.3-8.2)
--- NOTE | 2020-01-30 08:56 | EKG REPORT ---
SEVERITY:- ABNORMAL ECG - SINUS TACHYCARDIA REPOL ABNRM SUGGESTS ISCHEMIA, DIFFUSE LEADS PROLONGED QT INTERVAL : Confirmed by: Riri Driscoll MD 30-Jan-2020 08:55:47
[2020-01-30] MEDS: NITROGLYCERIN 0.4 MG/TAB 25 TAB/BOTTLE SL PRN ×2 (11:00→18:08)
--- NOTE | 2020-01-30 12:14 | PDOC PROGRESS REPORT ---
Subjective Progress Note for:: 01/30/20 Reason For Visit: Saw the patient today in the hospital. His is by his bedside. Patient looks comfortable laying down. He complaining of persistent shortness of breath with mild pleuritic centralized chest pain. He denies any history of fever or chills. He admits to the fact he is very anxious. His bowels are better. He is urinating well. Appetite is fair to good. No history of any nausea vomiting or abdominal pains. To recap the patient is was admitted with left diabetic foot underwent left BKA. Underlying background history of diabetes mellitus hypertension .Current diagnosis includes acute hyponatremia, UZIEL-now ATN/Vanc toxicity, right femoral DVT. Earlier VQ scan done was negative. Reviewed labs and medications. Physical Exam Vital Signs: Temp Pulse Resp BP Pulse Ox 98.4 F 118 H 18 167/80 H 97 01/30/20 08:00 01/30/20 08:00 01/30/20 08:00 01/30/20 08:00 01/30/20 08:00 Intake & Output 01/29/20 01/30/20 01/31/20 06:59 06:59 06:59 Intake Total 2507 1705 Output Total 1725 1800 Balance 782 -95 Weight 121.5 kg 120.9 kg General appearance: PRESENT: no acute distress Exam: Patient looks and admits to the fact is very anxious.He is not sure if he might be hyperventilating. Respiratory exam: PRESENT: clear to auscultation madeline, decreased breath sounds. ABSENT: crackles Cardiovascular exam: PRESENT: +S1, +S2 GI/Abdominal exam: PRESENT: normal bowel sounds, soft. ABSENT: ascites, distended, firm, organomegaly, tenderness Extremities exam: PRESENT: +1 edema - Of the right leg. No edema of the left thigh. Neurological exam: PRESENT: alert, awake, oriented to person, oriented to place Psychiatric exam: PRESENT: anxious Skin exam: PRESENT: mottled - On the bottom of his right leg indicative of venous stasis.. ABSENT: erythema, rash Results Laboratory Results: 01/30/20 06:00 01/30/20 06:00 01/27/20 01/27/20 01/27/20 15:15 15:15 15:15 WBC RBC Hgb Hct MCV MCH MCHC RDW Plt Count Sodium Potassium Chloride Carbon Dioxide Anion Gap BUN Creatinine Est GFR ( Amer) Glucose Calcium Magnesium Total Bilirubin AST Alkaline Phosphatase Total Protein Albumin Fluid pH 8.1 Fluid Glucose 150 Fluid Total Protein Fluid Albumin 0.6 Fluid LDH 01/27/20 01/27/20 01/29/20 15:15 15:15 14:30 WBC RBC Hgb Hct MCV MCH MCHC RDW Plt Count Sodium 121.5 L Potassium Chloride Carbon Dioxide Anion Gap BUN Creatinine Est GFR ( Amer) Glucose Calcium Magnesium Total Bilirubin AST Alkaline Phosphatase Total Protein Albumin Fluid pH Fluid Glucose Fluid Total Protein 1.5 Fluid Albumin Fluid LDH 104 01/30/20 01/30/20 01/30/20 06:00 06:00 06:00 WBC 18.9 H RBC 2.48 L Hgb 7.2 L Hct 20.7 L MCV 83 MCH 28.9 MCHC 34.6 RDW 16.7 H Plt Count 499 H Sodium 122.4 L Potassium 3.7 Chloride 91 L Carbon Dioxide 23 Anion Gap 8 BUN 32 H Creatinine 2.56 H Est GFR ( Amer) 32 L Glucose 205 H Calcium 7.3 L Magnesium 1.4 L Total Bilirubin 0.9 AST 20 Alkaline Phosphatase 118 Total Protein 6.3 Albumin 2.3 L Fluid pH Fluid Glucose Fluid Total Protein Fluid Albumin Fluid LDH 01/27/20 15:15 Chest - Right Side Gram Stain - Final 01/24/20 08:30 Blood Blood Culture - Final NO GROWTH IN 5 DAYS 01/24/20 08:25 Blood Blood Culture - Final NO GROWTH IN 5 DAYS 01/24/20 01/28/20 01/30/20 08:25 05:45 03:05 Creatine Kinase 102 Troponin I 0.062 NT-Pro-B Natriuret Pep [id number] H 01/30/20 06:00 Creatine Kinase Troponin I 0.046 NT-Pro-B Natriuret Pep Impressions: Foot X-Ray 01/17/20 13:13 IMPRESSION: There appear to be diabetic foot changes. No osteomyelitis is seen. Findings as described. Marked soft tissue swelling. Tibia/Fibula X-Ray 01/17/20 13:14 IMPRESSION: Possible prior interosseous ligament disruption. No acute finding in either the tibia or the fibula. Abdomen/Pelvis CT 01/25/20 00:00 IMPRESSION: 1. LARGE PLEURAL EFFUSIONS. 2. NO SIGNIFICANT OR ACUTE ABDOMINAL PROCESS. Lung Scan-VQ NM 01/25/20 23:10 IMPRESSION: LOW PROBABILITY OF PULMONARY EMBOLISM. PICC Line Insertion 01/27/20 00:00 IMPRESSION: SUCCESSFUL PLACEMENT OF A 5 FR DUAL LUMEN 42 CM PICC IN THE RIGHT BASILIC VEIN. Thoracentesis Ultrasound 01/27/20 08:00 IMPRESSION: SUCCESSFUL RIGHT THORACENTESIS USING ULTRASOUND GUIDANCE. Chest CT 01/28/20 00:00 IMPRESSION: Small to moderate bilateral pleural effusions. Adjacent airspace disease both atelectatic and consolidated. Bibasilar pneumonia could have this appearance. No significant pulmonary edema. Chest X-Ray 01/28/20 00:00 IMPRESSION: Increasing left medial basilar consolidation. Venous Doppler Study 01/28/20 00:00 IMPRESSION: Deep venous thrombosis left superficial femoral vein distally extending to popliteal. This appearance is similar to prior. The presumed complex Lucio's cyst within the popliteal fossa appears larger on current when compared to prior. Assessment & Plan - Diagnosis (1) Acute kidney injury Is this a current diagnosis for this admission?: Yes Plan: Currently nonoliguric. Multifactorial. ATN/Vanc toxicity. Continue on gentle fluid hydration with saline. The renal numbers are relatively stable. (2) Hyponatremia Is this a current diagnosis for this admission?: Yes Plan: Most likely combination of SIADH/prerenal. Continue on gentle fluids. We will start him on tolvaptan as well. Monitor. (3) Acute deep vein thrombosis (DVT) of right lower extremity Qualifiers: Affected thrombotic vein of extremity: femoral Qualified Code(s): I82.411 - Acute embolism and thrombosis of right femoral vein Is this a current diagnosis for this admission?: Yes Plan: Currently on IV heparin. Concerned about shortness of breath and pleuritic chest pain for pulmonary embolism. Discussed with Dr. Balbuena/hospitalist. ? need to be transferred to tertiary care center given his multiple complex issues and ? need for IVC filter. (4) Diabetic infection of left foot Is this a current diagnosis for this admission?: Yes Plan: Status post left BKA. (5) Anemia of chronic disease Is this a current diagnosis for this admission?: Yes Plan: Monitor. (6) HTN (hypertension) Qualifiers: Hypertension type: essential hypertension Qualified Code(s): I10 - Essential (primary) hypertension Is this a current diagnosis for this admission?: Yes Plan: Stable. (7) MRSA bacteremia Is this a current diagnosis for this admission?: Yes Plan: Initially on vancomycin but became toxic and that was held. Now restarted after vancomycin levels were subtherapeutic. Managed by hospitalist. (8) Heart failure with reduced ejection fraction Is this a current diagnosis for this admission?: Yes Plan: Needs risk stratification. He is having some dyspnea currently but hard to say whether its heart failure versus PE versus anxiety attacks. Given his DVT , he is at high risk for PE and needs to be monitored closely for that.
[2020-01-30] MEDS: AMLODIPINE BESYLATE 5 MG TABLET PO SCH (12:17)
[2020-01-30] MEDS: METOPROLOL SUCCINATE 25 MG TAB.SR.24H PO SCH ×2 (12:17→18:11)
[2020-01-30] MEDS: DOCUSATE SODIUM 100 MG CAPSULE PO SCH ×2 (12:19→18:10)
[2020-01-30] MEDS: LORAZEPAM 1 MG TABLET PO SCH ×2 (12:19→21:22)
[2020-01-30] MEDS: MAGNESIUM SULFATE/D5W 1 GM/100 ML RTUPB IV SCH ×2 (12:21→14:06)
[2020-01-30] MEDS: CEFEPIME 1 GM/D5W RTU 1 GM/50 ML RTUPB IV SCH ×2 (12:22→21:21)
[2020-01-30] MEDS: LOSARTAN POTASSIUM 50 MG TABLET PO SCH (12:37)
[2020-01-30] MEDS: INSULIN GLARGINE,HUM.REC.ANLOG 1,000 UNIT/10 ML VIAL SUBCUT SCH ×2 (12:38→23:11)
[2020-01-30] MEDS: VANCOMYCIN HCL 750 MG in DEXTROSE 5%-WATER 250 ML IV SCH (12:45)
[2020-01-30] MEDS: ALBUMIN HUMAN 12.5 GM/50 ML RTUINJ IV SCH (12:48)
[2020-01-30] MEDS: INSULIN LISPRO 100 UNIT/ML 3 ML VIAL SUBCUT SCH ×4 (12:54→23:10)
--- NOTE | 2020-01-30 13:02 | XCELERA REPORT ---
[address] [address] Transthoracic Echocardiogram Report Name: BETTE LECHUGA Age: 54 yrs Gender: Male : 1965 Patient Status: Inpatient Patient Location: [address] [place] [address] Study Date: 01/30/2020 11:30 AM Height: 66 in Weight: 266 lb BSA: 2.3 m2 Procedure: A two-dimensional transthoracic echocardiogram with color flow and Doppler was performed in limited views only. The study was technically adequate with some images being suboptimal in quality. Previous Echo done 01/20/20. Reason For Study: suspected PE Right heart strain Ordering Physician: MONA COOMBS Performed By: Xuan Vo Interpretation Summary The left ventricle is mildly dilated. The left ventricle is hyperdynamic. Due to the poor quality of the echocardiogram, an assessment of left ventricular ejection fraction cannot be made. Best estimate is 40-45%. LV diastolic function could not be adequately assessed. Regional wall motion abnormalities cannot be excluded due to limited visualization. RV is of normal size without gross echocardiographic evidence of strain. Mitral, aortic and pulmonic valves were not well visualized. Trace to mild TR. No echocardiographic evidence of pulmonary hypertension. MMode/2D Measurements & Calculations RVDd: 3.4 cm LVIDd: 5.5 cm FS: 22.4 % Ao root diam: 3.3 cm IVSd: 1.0 cm LVIDs: 4.3 cm EDV(Teich): 148.2 ml Ao root area: 8.3 cm2 LVPWd: 0.97 cm ESV(Teich): 82.0 ml LA dimension: 4.2 cm EF(Teich): 44.7 % Doppler Measurements & Calculations TR max maria c: 271.5 cm/sec TR max P.5 mmHg Left Ventricle The left ventricle is mildly dilated. The left ventricle is hyperdynamic. Due to the poor quality of the echocardiogram, an assessment of left ventricular ejection fraction cannot be made. Best estimate is 40-45. LV diastolic function could not be adequately assessed. Regional wall motion abnormalities cannot be excluded due to limited visualization. Right Ventricle The right ventricle is grossly normal size. There is normal right ventricular wall thickness. The right ventricular systolic function is normal. Atria The right atrium is normal. The left atrial size is normal. Mitral Valve The mitral valve is not well visualized. Aortic Valve The aortic valve is not well visualized secondary to technical limitations. Tricuspid Valve The tricuspid valve is not well visualized, but is grossly normal. There is no tricuspid stenosis. There is a trace to mild amount of tricuspid regurgitation. Tricuspid regurgitation jet envelope not well defined to measure RV systolic pressure accurately. Pulmonic Valve The pulmonic valve is not well visualized. Great Vessels The inferior vena cava appeared normal and decreased < 50% with respiration (RAP 10-15 mmHg). : MONA COOMBS Antonio
[2020-01-30] MEDS ORDERED: MAGNESIUM OXIDE 400 MG TABLET PO ONE ×2 (14:02→17:00)
[2020-01-30] MEDS ORDERED: POLYETHYLENE GLYCOL 3350 POWDER 17 GM/1 PACKET PO ONE ×2 (14:03→17:00)
[2020-01-30] MEDS: FUROSEMIDE INJ/PF 40 MG/4 ML SDV IV SCH (14:04)
[2020-01-30 15:54] LABS: ANION GAP 10 (5-19); BLOOD UREA NITROGEN 32 mg/dL (7-20); CALCIUM 7.5 mg/dL (8.4-10.2); CARBON DIOXIDE 20 mmol/L (22-30); CHLORIDE 93 mmol/L (98-107); GLUCOSE 205 mg/dL (75-110); POTASSIUM 4.5 mmol/L (3.6-5.0)
[2020-01-30] MEDS: TOLVAPTAN 15 MG TABLET PO SCH (16:56)
--- NOTE | 2020-01-30 18:10 | PDOC PROGRESS REPORT ---
Subjective Progress Note for:: 01/30/20 Subjective:: Patient has some chest pain last night. Notably he was experiencing pain in his right leg which became severe, he became distressed and still having chest pain. His troponins were minimally elevated but did not trend up. He also experienced some shortness of breath at that time. He still having some chest tightness this morning but mostly feels short of breath when he is laying down flat. I do wonder if his pleural effusion is starting to build up more. Reason For Visit: LEFT FOOT ABSCESS,CHAROT JOINT,SEPSIS Physical Exam Vital Signs: Temp Pulse Resp BP Pulse Ox 98.0 F 112 H 18 162/74 H 96 01/30/20 16:00 01/30/20 16:00 01/30/20 16:00 01/30/20 16:00 01/30/20 16:00 Intake & Output 01/29/20 01/30/20 01/31/20 06:59 06:59 06:59 Intake Total 2507 1705 950 Output Total 1725 1800 1200 Balance 782 -95 -250 Weight 121.5 kg 120.9 kg General appearance: PRESENT: no acute distress, cooperative Neck exam: ABSENT: JVD Respiratory exam: PRESENT: decreased breath sounds - In bilateral lung bases, symmetrical, unlabored. ABSENT: accessory muscle use, rales, tachypnea, wheezes Cardiovascular exam: PRESENT: +S1, +S2, tachycardia. ABSENT: irregular rhythm GI/Abdominal exam: PRESENT: soft. ABSENT: rebound, rigid, tenderness Extremities exam: PRESENT: tenderness - with erythema of right calf Neurological exam: PRESENT: alert, awake, oriented to person, oriented to place, oriented to time Results Laboratory Results: 01/30/20 06:00 01/30/20 15:01 01/27/20 01/30/20 01/30/20 15:15 06:00 06:00 WBC 18.9 H RBC 2.48 L Hgb 7.2 L Hct 20.7 L MCV 83 MCH 28.9 MCHC 34.6 RDW 16.7 H Plt Count 499 H Sodium 122.4 L Potassium 3.7 Chloride 91 L Carbon Dioxide 23 Anion Gap 8 BUN 32 H Creatinine 2.56 H Est GFR ( Amer) 32 L Glucose 205 H Calcium 7.3 L Magnesium Total Bilirubin 0.9 AST 20 Alkaline Phosphatase 118 Total Protein 6.3 Albumin 2.3 L Fluid pH 8.1 01/30/20 01/30/20 06:00 15:01 WBC RBC Hgb Hct MCV MCH MCHC RDW Plt Count Sodium 122.7 L Potassium 4.5 Chloride 93 L Carbon Dioxide 20 L Anion Gap 10 BUN 32 H Creatinine 2.33 H Est GFR ( Amer) 35 L Glucose 205 H Calcium 7.5 L Magnesium 1.4 L Total Bilirubin AST Alkaline Phosphatase Total Protein Albumin Fluid pH 01/27/20 15:15 Chest - Right Side Gram Stain - Final 01/24/20 01/28/20 01/30/20 08:25 05:45 03:05 Creatine Kinase 102 Troponin I 0.062 NT-Pro-B Natriuret Pep 46154 H 01/30/20 06:00 Creatine Kinase Troponin I 0.046 NT-Pro-B Natriuret Pep Impressions: Foot X-Ray 01/17/20 13:13 IMPRESSION: There appear to be diabetic foot changes. No osteomyelitis is seen. Findings as described. Marked soft tissue swelling. Tibia/Fibula X-Ray 01/17/20 13:14 IMPRESSION: Possible prior interosseous ligament disruption. No acute finding in either the tibia or the fibula. Abdomen/Pelvis CT 01/25/20 00:00 IMPRESSION: 1. LARGE PLEURAL EFFUSIONS. 2. NO SIGNIFICANT OR ACUTE ABDOMINAL PROCESS. Lung Scan-VQ NM 01/25/20 23:10 IMPRESSION: LOW PROBABILITY OF PULMONARY EMBOLISM. PICC Line Insertion 01/27/20 00:00 IMPRESSION: SUCCESSFUL PLACEMENT OF A 5 FR DUAL LUMEN 42 CM PICC IN THE RIGHT BASILIC VEIN. Thoracentesis Ultrasound 01/27/20 08:00 IMPRESSION: SUCCESSFUL RIGHT THORACENTESIS USING ULTRASOUND GUIDANCE. Chest CT 01/28/20 00:00 IMPRESSION: Small to moderate bilateral pleural effusions. Adjacent airspace disease both atelectatic and consolidated. Bibasilar pneumonia could have this appearance. No significant pulmonary edema. Chest X-Ray 01/28/20 00:00 IMPRESSION: Increasing left medial basilar consolidation. Venous Doppler Study 01/28/20 00:00 IMPRESSION: Deep venous thrombosis left superficial femoral vein distally extending to popliteal. This appearance is similar to prior. The presumed complex Lucio's cyst within the popliteal fossa appears larger on current when compared to prior. Assessment and Plan - Diagnosis (1) Acute kidney injury Is this a current diagnosis for this admission?: Yes Plan: Suspected to be secondary to vancomycin toxicity more likely and/or ATN from infection Nephrology is following - recommending continuation of daily Albumin and on minimal rate of saline We will monitor renal function closely. Urine output is improving (2) Hyponatremia Is this a current diagnosis for this admission?: Yes Plan: Nephrology managing - tolvaptan administered today check chem 7 in am (3) Pleural effusion Is this a current diagnosis for this admission?: Yes Plan: At 850 cc of fluid removed from right lung 01/27/2020. CT showing small right-sided effusion but moderate size in the left lung. Likely secondary to third spacing from renal failure and hypoalbuminemia Given SOB especially when laying flat and chest tightness, I have scheduled US chest for tomorrow for re-evaluation and subsequent therapeutic thoracentesis. Heparin gtt to be held at midnight. (4) Chest pain Qualifiers: Chest pain type: unspecified Qualified Code(s): R07.9 - Chest pain, unspecified Is this a current diagnosis for this admission?: Yes Plan: troponin minimally elevated without upward trend. Obtained a limited TTE today to evaluate to see if any evidence of right heart strain/PE from his DVT but the TTE shows no evidence of RV dilation/strain or pulmonary htn. The TTE did however fern picker an acute EF drop but was very poor visualization of LV so could be skewed. I have discussed with Dr. Smalls who will be seeing patient tomorrow and getting better echo windows. Of note patient informs me that has had negative stress tests in the past (5) Acute deep vein thrombosis (DVT) of right lower extremity Qualifiers: Affected thrombotic vein of extremity: femoral Qualified Code(s): I82.411 - Acute embolism and thrombosis of right femoral vein Is this a current diagnosis for this admission?: Yes Plan: Has been on heparin drip and maintained therapeutic PTTs. Large clot burden involving distal femoral and popliteal but does not seem to have progressed on repeat venous Doppler Has very good DP & PT pulses on doppler w/o evidence of compartment syndrome at this time. Still continues to experience significant pain in Right calf. I will put him on Percocet on some as needed morphine for breakthrough. Wound was evaluated by commercial loan specialist. 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 Currently seems like down no further plans for surgical intervention and surgery has signed off. MRSA Bacteremia- C/w Vancomycin - ID recommending 28 days duration starting from last debridement on 01/21. EOT of 02/18. TTE was technically suboptimal but did not show any vegetations (7) Anemia of chronic disease Is this a current diagnosis for this admission?: Yes Plan: Labs consistent with anemia of chronic disease. Actually not iron deficient on all. I suspect this is probably due to pain in the prolonged infected state carrying around that foot abscess for several months likely. Complicated by acute blood loss from amputation. Received transfusions during this admission. Will monitor (8) Hyperglycemia due to type 2 diabetes mellitus Qualifiers: Diabetes mellitus [facility] insulin use: without exterminator helper termite use Qualified Code(s): E11.65 - Type 2 diabetes mellitus with hyperglycemia Is this a current diagnosis for this admission?: Yes Plan: Takes metformin and very recently started on Jardiance at home - held Hemoglobin A1c is 9.2. Continue Lantus for now (9) Thrombocytosis Is this a current diagnosis for this admission?: Yes Plan: Likely reactive to anemic state - Time Time Spent with patient: 35 or more minutes Anticipated Discharge Disposition: acute rehab Anticipated Discharge Timeframe: undetermined
[2020-01-30] MEDS: LEVALBUTEROL HCL NEB 0.63 MG/3 ML AMPUL NEB PRN (20:31)
[2020-01-30] MEDS: LACTULOSE SYRUP 20 GM/30 ML UDCUP PO PRN (20:44)
[2020-01-30] MEDS: MORPHINE SULFATE 10 MG/ML INJ IV PRN (20:47)
[2020-01-30] MEDS: TEMAZEPAM 7.5 MG CAPSULE PO SCH (21:22)
[2020-01-30] MEDS: OXYCODONE-ACETAMINOPHEN 5-325 MG TABLET PO PRN (23:10)
[2020-01-31] MEDS: MORPHINE SULFATE 10 MG/ML INJ IV PRN ×2 (02:58→20:25)
[2020-01-31] MEDS: PANTOPRAZOLE SODIUM 40 MG TABLET.DR PO SCH (06:00)
[2020-01-31] MEDS: OXYCODONE-ACETAMINOPHEN 5-325 MG TABLET PO PRN ×3 (06:00→22:39)
[2020-01-31] MEDS: CLONIDINE HCL 0.2 MG TABLET PO SCH ×3 (06:00→22:52)
[2020-01-31] MEDS: LACTULOSE SYRUP 20 GM/30 ML UDCUP PO PRN (06:12)
[2020-01-31 07:06] LABS: ABSOLUTE BASOPHILS # (AUTO) 0.1 10^3/uL (0.0-0.2); ABSOLUTE EOSINOPHILS # (AUTO) 0.1 10^3/uL (0.0-0.6); ABSOLUTE LYMPHOCYTES (AUTO) 0.9 10^3/uL (0.5-4.7); ABSOLUTE MONOCYTES (AUTO) 1.1 10^3/uL (0.1-1.4); ABSOLUTE NEUT (AUTO) 13.5 10^3/uL (1.7-8.2); BASOPHILS % (AUTO) 0.3 % (0-2); EOSINOPHILS % (AUTO) 0.6 % (0-6); HEMATOCRIT 20.1 % (37.9-51.0); LYMPHOCYTES % (AUTO) 5.5 % (13-45); MEAN CORPUSCULAR VOLUME 83 fl (80-97); MONOCYTES % (AUTO) 7.2 % (3-13); PLATELET COUNT 459 10^3/uL (150-450); RED BLOOD COUNT 2.43 10^6/uL (4.35-5.55); RED CELL DISTRIBUTION WIDTH 16.6 % (11.5-14.0); SEGMENTED NEUTROPHILS % (AUTO) 86.4 % (42-78); TOTAL CELLS COUNTED % (AUTO) 100 %; WHITE BLOOD COUNT 15.6 10^3/uL (4.0-10.5)
[2020-01-31] MEDS: TOLVAPTAN 15 MG TABLET PO SCH (08:26)
[2020-01-31] MEDS: INSULIN LISPRO 100 UNIT/ML 3 ML VIAL SUBCUT SCH ×4 (08:27→22:48)
[2020-01-31 09:17] LABS: ALBUMIN 2.3 g/dL (3.5-5.0); ALKALINE PHOSPHATASE 115 U/L (38-126); ANION GAP 8 (5-19); ASPARTATE AMINO TRANSFERASE 19 U/L (17-59); BILIRUBIN,DIRECT 0.7 mg/dL (0.0-0.4); BLOOD UREA NITROGEN 31 mg/dL (7-20); CALCIUM 7.6 mg/dL (8.4-10.2); CARBON DIOXIDE 24 mmol/L (22-30); CHLORIDE 93 mmol/L (98-107); GLUCOSE 161 mg/dL (75-110); POTASSIUM 4.4 mmol/L (3.6-5.0); TOTAL PROTEIN 6.1 g/dL (6.3-8.2)
[2020-01-31] MEDS: METOPROLOL SUCCINATE 25 MG TAB.SR.24H PO SCH ×2 (10:27→18:18)
[2020-01-31] MEDS: DOCUSATE SODIUM 100 MG CAPSULE PO SCH ×2 (10:27→18:18)
[2020-01-31] MEDS: LORAZEPAM 1 MG TABLET PO SCH ×2 (10:28→22:39)
[2020-01-31] MEDS: LOSARTAN POTASSIUM 50 MG TABLET PO SCH (10:28)
[2020-01-31] MEDS: CEFEPIME 1 GM/D5W RTU 1 GM/50 ML RTUPB IV SCH (10:29)
[2020-01-31] MEDS: FUROSEMIDE INJ/PF 40 MG/4 ML SDV IV SCH (10:29)
[2020-01-31] MEDS: AMLODIPINE BESYLATE 5 MG TABLET PO SCH (10:29)
[2020-01-31] MEDS: POLYETHYLENE GLYCOL 3350 POWDER 17 GM/1 PACKET PO SCH (10:29)
[2020-01-31] MEDS: ALBUMIN HUMAN 12.5 GM/50 ML RTUINJ IV SCH (10:34)
[2020-01-31] MEDS: INSULIN GLARGINE,HUM.REC.ANLOG 1,000 UNIT/10 ML VIAL SUBCUT SCH ×2 (10:35→22:51)
--- NOTE | 2020-01-31 10:46 | PDOC CONSULTATION ---
Consultation Consult Date: 01/31/20 Attending physician:: MONA COOMBS Provider Consulted: JON ISBELL Consult reason:: Cardiomyopathy History of Present Illness Admission Date/PCP: 01/17/20 16:53 History of Present Illness: BETTE LECHUGA is a 54 year old male with history of hypertension, type 2 diabetes, GERD, DVT, Lucio's cyst who was initially admitted on 01/17/2020 and who is consulted to our service for evaluation of new onset cardiomyopathy. The patient has had a very complicated hospital course since admission. He was initially diagnosed with a DVT and eventually developed MRSA bacteremia and sepsis presumably from a septic left foot. He underwent below the knee amputation on 01/17/2020 and was placed on antibiotics. Unfortunately he de veloped acute renal failure and eventually ATN presumably from vancomycin and since then nephrology has been following the patient. His electrolytes became very abnormal with hyperkalemia and severe hyponatremia at which time nephrology recommended IV fluids along with diuresis and albumin prior to diuretic dose. At some point the patient also received salt tablets. He developed shortness of breath and was found to have a significant pleural effusion and underwent thoracentesis on 01/27/2020 at which time 850 cc of fluid were removed. On 01/29/2020 the patient was noted to be fluid overloaded by nephrology. 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 He has also been significantly anemic with a very elevated proBNP on 01/24/2020 at 11,000. Of note, his fluid balance is +11,725 cc. The patient is found sleeping comfortably and easily arousable. He tends to doze off after just a few minutes of conversation. His is very engaged in his care and answers most of her questions. Physical exam on 01/31/2020: GENERAL: Sleeping but easily arousable however appears to be tired and dozes off quite frequently during our conversation. Oriented x3 with normal mood. Not in acute distress. Disheveled. He is generalized edematous consistent with anasarca. HEENT: Normocephalic, atraumatic. Pupils equal. Sclerae anicteric. Oropharynx moist. NECK: Difficult to evaluate for JVD due to his body habitus and anasarca. No carotid bruits. LUNGS: Clear to auscultation bilaterally. Normal respiratory effort without the use of accessory muscles or intercostal retractions. CARDIOVASCULAR: Regular rate and rhythm, normal S1 and S2 without murmurs, rubs, or gallops. PMI not displaced. EXTREMITIES: 3+ pitting edema on the right leg, left leg is amputated below the knee. There is generalized pitting edema including abdomen, thighs, upper extremities. Edema, no cyanosis, no clubbing. +2 pulses femoral and pedal pulses bilaterally. : His scrotum is edematous. SKIN: Diffuse bruises particularly in the upper extremities. NEUROLOGIC: Nonfocal. No gross sensory or motor deficits bilateral upper or lower extremities. Cardiac studies: Echocardiogram on 01/30/2020: -Poor quality study. -Mild LV enlargement. -Hyperdynamic left ventricular function. -EF between 40 and 45% (60% in a prior study 2 weeks ago). -Cannot rule out regional wall motion abnormalities. -No RV strain. -Trace to mild MR. -Aortic valve, tricuspid valve and pulmonic valve were not well visualized. Past Medical History Cardiac Medical History: Reports: Hypertension Denies: Atrial Fibrillation, Congestive Heart Failure, Coronary Artery Disease, Myocardial Infarction Pulmonary Medical History: Denies: Asthma, Chronic Obstructive Pulmonary Disease (COPD) Neurological Medical History: Denies: Hemorrhagic CVA, Ischemic CVA Endocrine Medical History: Reports: Diabetes Mellitus Type 2 Renal/ Medical History: Denies: Chronic Kidney Disease GI Medical History: Denies: Cirrhosis Psychiatric Medical History: Denies: Depression Past Surgical History Past Surgical History: Reports: Orthopedic Surgery Social History Smoking Status: Former Smoker Frequency of Alcohol Use: Rare Hx Recreational Drug Use: No Drugs: None - Advance Directive Resuscitation Status: Full Code Family History Family History: DM Parental Family History Reviewed: Yes Children Family History Reviewed: Yes Sibling(s) Family History Reviewed.: Yes Medication/Allergy Home Medications: Clonidine HCl 0.3 mg PO QIDP PRN 01/17/20 Diazepam [Valium 5 mg Tablet] 5 mg PO BID 01/17/20 Empagliflozin [Jardiance] 10 mg PO DAILY 01/17/20 Hydrochlorothiazide 12.5 mg PO DAILY 01/17/20 Hydrocodone/Acetaminophen [[place] 5-325 mg Tablet] 2 tab PO BIDP PRN 01/17/20 Levofloxacin [Levaquin 500 mg Tablet] 500 mg PO DAILY 01/17/20 Losartan Potassium 100 mg PO DAILY 01/17/20 Metoprolol Succinate [Toprol Xl 25 mg Tab.sr] 25 mg PO BID 01/17/20 Allergies/Adverse Reactions: Penicillins Allergy (Verified 01/17/20 11:49) Physical Exam Vital Signs: Temp Pulse Resp BP Pulse Ox 97.3 F 99 12 144/77 H 100 01/31/20 03:45 01/31/20 03:45 01/31/20 04:44 01/31/20 03:45 01/31/20 03:45 Intake & Output 01/29/20 01/30/20 01/31/20 06:59 06:59 06:59 Intake Total 2507 1705 2453 Output Total 1725 1800 2150 Balance 782 -95 303 Weight 121.5 kg 120.9 kg Results Laboratory Results: 01/30/20 06:00 01/30/20 15:01 01/27/20 01/30/20 01/30/20 15:15 06:00 06:00 WBC 18.9 H RBC 2.48 L Hgb 7.2 L Hct 20.7 L MCV 83 MCH 28.9 MCHC 34.6 RDW 16.7 H Plt Count 499 H Sodium 122.4 L Potassium 3.7 Chloride 91 L Carbon Dioxide 23 Anion Gap 8 BUN 32 H Creatinine 2.56 H Est GFR ( Amer) 32 L Glucose 205 H Calcium 7.3 L Magnesium Total Bilirubin 0.9 AST 20 Alkaline Phosphatase 118 Total Protein 6.3 Albumin 2.3 L Fluid pH 8.1 01/30/20 01/30/20 06:00 15:01 WBC RBC Hgb Hct MCV MCH MCHC RDW Plt Count Sodium 122.7 L Potassium 4.5 Chloride 93 L Carbon Dioxide 20 L Anion Gap 10 BUN 32 H Creatinine 2.33 H Est GFR ( Amer) 35 L Glucose 205 H Calcium 7.5 L Magnesium 1.4 L Total Bilirubin AST Alkaline Phosphatase Total Protein Albumin Fluid pH 01/27/20 15:15 Chest - Right Side Gram Stain - Final 01/24/20 01/28/20 01/30/20 08:25 05:45 03:05 Creatine Kinase 102 Troponin I 0.062 NT-Pro-B Natriuret Pep 26630 H 01/30/20 06:00 Creatine Kinase Troponin I 0.046 NT-Pro-B Natriuret Pep Impressions: Foot X-Ray 01/17/20 13:13 IMPRESSION: There appear to be diabetic foot changes. No osteomyelitis is seen. Findings as described. Marked soft tissue swelling. Tibia/Fibula X-Ray 01/17/20 13:14 IMPRESSION: Possible prior interosseous ligament disruption. No acute finding in either the tibia or the fibula. Abdomen/Pelvis CT 01/25/20 00:00 IMPRESSION: 1. LARGE PLEURAL EFFUSIONS. 2. NO SIGNIFICANT OR ACUTE ABDOMINAL PROCESS. Lung Scan-VQ NM 01/25/20 23:10 IMPRESSION: LOW PROBABILITY OF PULMONARY EMBOLISM. PICC Line Insertion 01/27/20 00:00 IMPRESSION: SUCCESSFUL PLACEMENT OF A 5 FR DUAL LUMEN 42 CM PICC IN THE RIGHT BASILIC VEIN. Thoracentesis Ultrasound 01/27/20 08:00 IMPRESSION: SUCCESSFUL RIGHT THORACENTESIS USING ULTRASOUND GUIDANCE. Chest CT 01/28/20 00:00 IMPRESSION: Small to moderate bilateral pleural effusions. Adjacent airspace disease both atelectatic and consolidated. Bibasilar pneumonia could have this appearance. No significant pulmonary edema. Chest X-Ray 01/28/20 00:00 IMPRESSION: Increasing left medial basilar consolidation. Venous Doppler Study 01/28/20 00:00 IMPRESSION: Deep venous thrombosis left superficial femoral vein distally extending to popliteal. This appearance is similar to prior. The presumed complex Lucio's cyst within the popliteal fossa appears larger on current when compared to prior. 01/30/20 06:00 01/30/20 15:01 MCV 83 fl (80-97) 01/30/20 06:00 MCH 28.9 pg (27.0-33.4) 01/30/20 06:00 MCHC 34.6 g/dL (32.0-36.0) 01/30/20 06:00 RDW 16.7 % (11.5-14.0) H 01/30/20 06:00 Seg Neutrophils % 87.9 % (42-78) H 01/29/20 05:47 Retic Count (auto) 3.37 % (0.66-2.85) H 01/18/20 05:56 Carbonic Acid 0.88 mmol/L (1.05-1.35) L 01/28/20 15:55 HCO3/H2CO3 Ratio 22:1 01/28/20 15:55 ABG pH 7.44 (7.35-7.45) 01/28/20 15:55 ABG pCO2 29.4 mmHg (35-45) L 01/28/20 15:55 ABG pO2 96.3 mmHg (80-100) 01/28/20 15:55 ABG HCO3 19.4 mmol/L (20-24) L 01/28/20 15:55 ABG O2 Saturation 97.6 % (94-98) 01/28/20 15:55 ABG Base Excess -4.1 mmol/L 01/28/20 15:55 VBG pH 7.39 (7.30-7.42) 01/17/20 15:03 VBG pCO2 37.1 mmHg (35-63) 01/17/20 15:03 VBG HCO3 21.7 mmol/L (20-32) 01/17/20 15:03 VBG Base Excess -3.1 mmol/L 01/17/20 15:03 FiO2 2L 01/28/20 15:55 Chloride 93 mmol/L (98-107) L 01/30/20 15:01 Carbon Dioxide 20 mmol/L (22-30) L 01/30/20 15:01 Anion Gap 10 (5-19) 01/30/20 15:01 Est GFR ( Amer) 35 (>60) L 01/30/20 15:01 Glucose 205 mg/dL (75-110) H 01/30/20 15:01 Serum Osmolality 267 mOsm/kg (275-301) L 01/29/20 05:47 Lactic Acid 1.1 mmol/L (0.7-2.1) 01/29/20 05:47 Calcium 7.5 mg/dL (8.4-10.2) L 01/30/20 15:01 Ionized Calcium [place] 1.03 mmol/L (1.14-1.30) L 01/28/20 14:52 Magnesium 1.4 mg/dL (1.6-2.3) L 01/30/20 06:00 Iron 34.7 ug/dL (49-181) L 01/18/20 05:56 TIBC 168 ug/dL (250-450) L 01/18/20 05:56 % Saturation 21 % 01/18/20 05:56 Ferritin 885.00 ng/mL (17.9-464.0) H 01/18/20 05:56 Total Bilirubin 0.9 mg/dL (0.2-1.3) 01/30/20 06:00 AST 20 U/L (17-59) 01/30/20 06:00 Alkaline Phosphatase 118 U/L (38-126) 01/30/20 06:00 Total Protein 6.3 g/dL (6.3-8.2) 01/30/20 06:00 Albumin 2.3 g/dL (3.5-5.0) L 01/30/20 06:00 Vitamin B12 901.0 pg/mL (239-931) 01/18/20 05:56 Folate 12.60 ng/mL (>2.76) 01/18/20 05:56 Urine Color YELLOW 01/24/20 15:15 Urine Appearance CLOUDY 01/24/20 15:15 Urine pH 5.0 (5.0-9.0) 01/24/20 15:15 Ur Specific [place] 1.011 01/24/20 15:15 Urine Protein 30 mg/dL (NEGATIVE) H 01/24/20 15:15 Urine Glucose (UA) 50 mg/dL (NEGATIVE) H 01/24/20 15:15 Urine Ketones NEGATIVE mg/dL (NEGATIVE) 01/24/20 15:15 Urine Blood SMALL (NEGATIVE) H 01/24/20 15:15 Urine Nitrite NEGATIVE (NEGATIVE) 01/24/20 15:15 Ur Leukocyte Esterase NEGATIVE (NEGATIVE) 01/24/20 15:15 Urine WBC (Auto) 1 /HPF 01/24/20 15:15 Urine RBC (Auto) 4 /HPF 01/24/20 15:15 Urine Osmolality 179 mOsm/kg (300-900) L 01/29/20 05:47 Fluid Type PLEURAL 01/27/20 15:15 Fluid Source LUNG 01/27/20 15:15 Fluid Color YELLOW 01/27/20 15:15 Fluid Appearance CLEAR 01/27/20 15:15 Fluid Viscosity LIQUID 01/27/20 15:15 Fluid pH 8.1 (Not Estab.) 01/27/20 15:15 Fluid WBC 648 /uL 01/27/20 15:15 Fluid RBC 138 /uL 01/27/20 15:15 Fluid Glucose 150 mg/dL (.) 01/27/20 15:15 Fluid Total Protein 1.5 g/dL (.) 01/27/20 15:15 Fluid Albumin 0.6 g/dL (Not Estab.) 01/27/20 15:15 Fluid LDH 104 IU/L (.) 01/27/20 15:15 Blood Type O POSITIVE 01/27/20 23:55 Antibody Screen NEGATIVE 01/27/20 23:55 01/27/20 15:15 Chest - Right Side Gram Stain - Final 01/24/20 01/28/20 01/30/20 08:25 05:45 03:05 Creatine Kinase 102 Troponin I 0.062 NT-Pro-B Natriuret Pep 57929 H 01/30/20 06:00 Creatine Kinase Troponin I 0.046 NT-Pro-B Natriuret Pep Current Medication List Generic Name Dose Route Start Last Admin Trade Name Freq PRN Reason Stop Dose Admin Al Hydrox/Mg Hydrox/Simethicone 15 ml 01/17/20 16:52 Maalox Plus Susp 30 Udcup PO 02/16/20 16:51 Q6HP PRN HEARTBURN Amlodipine Besylate 5 mg 01/25/20 10:00 01/30/20 12:17 Norvasc 5 Mg Tablet PO 02/24/20 09:59 5 mg DAILY WOJCIECH Administration Clonidine 0.2 mg 01/25/20 14:00 01/31/20 06:00 Catapres 0.2 Mg Tablet PO 02/24/20 13:59 0.2 mg Q8 WOJCIECH Administration Dextrose 12.5 gm 01/17/20 16:58 Dextrose Inj 50% Syringe (25 Gm/50 Ml) IV 02/16/20 16:57 PRN PRN FOR BG 50-69 IN ALERT PATIENT Protocol Dextrose 25 gm 01/17/20 16:58 Dextrose Inj 50% Syringe (25 Gm/50 Ml) IV 02/16/20 16:57 PRN PRN PER PROTOCOL Protocol Docusate Sodium 100 mg 01/18/20 18:00 01/30/20 18:10 Colace 100 Mg Capsule PO 02/17/20 17:59 100 mg BID WOJCIECH Administration Furosemide 40 mg 01/29/20 10:00 01/30/20 14:04 Lasix Inj/Pf 40 Mg/4 Ml Sdv IV 02/28/20 09:59 40 mg DAILY WOJCIECH Administration Glucagon 1 mg 01/17/20 16:58 Glucagen Inj 1 Mg Vial IM 02/16/20 16:57 PRN PRN Evaluate for BG < 70 Protocol Glucose 15 gm 01/17/20 16:58 Glutose 40% Gel 15 Gm Tube PO 02/16/20 16:57 PRN PRN FOR BG 50-69 IN ALERT PATIENT Protocol Glucose 30 gm 01/17/20 16:58 Glutose 40% Gel 15 Gm Tube PO 02/16/20 16:57 PRN PRN FOR BG < 50 IN ALERT PATIENT Protocol Guaifenesin 200 mg 01/25/20 17:56 Robitussin Syrup 200 Mg/10 Ml Ud Cup PO 02/24/20 17:55 Q4HP PRN COUGH Heparin Sodium (Porcine) 0 - 12,000 unit 01/27/20 22:58 Heparin Inj 1,000 Unit/Ml 10 Ml Vial IV 02/26/20 22:57 .BOLUS PER PROTOCOL PRN RESPOND TO aPTT VALUE Protocol Heparin Sodium/Dextrose 25,000 unit in 250 mls @ 0 mls/hr 01/27/20 22:58 01/31/20 00:19 Heparin Rtu 25,000 Unit/250 Ml D5w Premix IV 02/26/20 22:57 0 mls/hr CONTINUOUS PRN 0 mls/hr THIS MED IS NOT "PRN" Titration Protocol Titrate Vancomycin HCl 750 mg/ 250 mls @ 166.667 mls/hr 01/28/20 10:00 01/30/20 14:45 Dextrose IV 02/04/20 09:59 Infused DAILY WOJCIECH Infusion Albumin Human 12.5 gm in 50 mls @ 50 mls/hr 01/29/20 10:15 01/30/20 12:48 Albuminar-25 Rtu Inj 12.5 Gm/50 Ml Premix IV 02/01/20 10:14 2.3 mls/hr DAILY WOJCIECH 2.3 mls/hr Administration Sodium Chloride 1,000 mls @ 25 mls/hr 01/29/20 18:16 Nacl 0.9% 1000 Ml Iv Soln IV 02/27/20 17:00 CONTINUOUS PRN THIS MED IS NOT "PRN" Cefepime HCl 1 gm in 50 mls @ 100 mls/hr 01/30/20 10:00 01/30/20 22:00 Maxipime Rtu 1 Gm/D5w 50 Ml Premix Bag IV 02/06/20 09:59 Infused Q12 WOJCIECH Infusion Insulin Glargine 10 unit 01/19/20 10:00 01/30/20 23:11 Lantus Insulin 100 Unit/1 Ml 10 Ml SUBCUT 02/18/20 09:59 10 unit Q12 WOJCIECH Administration Insulin Human Lispro 0 - 12 unit 01/18/20 16:00 01/30/20 23:10 Humalog Insulin 100 Unit/1 Ml 3 Ml Vial SUBCUT 02/17/20 15:59 4 unit ACHS WOJCIECH Administration Protocol Lactulose 10 gm 01/23/20 15:18 01/31/20 06:12 Cephulac Syrup 20 Gm/30 Ml Udcup PO 02/22/20 15:17 10 gm DAILYP PRN Administration Constipation Levalbuterol HCl 0.63 mg 01/27/20 01:45 01/30/20 20:31 Xopenex Neb 0.63 Mg/3 Ml Ampul NEB 02/26/20 01:44 0.63 mg RTQ2HP PRN Administration SHORTNESS OF BREATH Lorazepam 1 mg 01/27/20 11:30 01/30/20 21:22 Ativan 1 Mg Tablet PO 02/03/20 11:29 1 mg Q12 WOJCIECH Administration Losartan Potassium 50 mg 01/25/20 10:00 01/30/20 12:37 Cozaar 50 Mg Tablet PO 02/24/20 09:59 50 mg DAILY WOJCIECH Administration Melatonin 5 mg 01/18/20 00:40 01/27/20 22:29 Melatonin 5 Mg Tablet PO 02/17/20 00:39 5 mg HSP PRN Administration INSOMNIA Metoprolol Succinate 37.5 mg 01/26/20 18:00 01/30/20 18:11 Toprol Xl 25 Mg Tab.Sr PO 02/25/20 17:59 37.5 mg BID WOJCIECH Administration Morphine Sulfate 2 mg 01/30/20 14:19 01/31/20 02:58 Morphine 10 Mg/Ml Inj IV 02/06/20 14:18 2 mg Q4HP PRN Administration FOR BREAKTHROUGH PAIN Nitroglycerin 1 tab 01/30/20 09:59 01/30/20 18:08 Nitrostat 0.4 Mg (1/150 Gr) Tabs 25/Bottle SL 02/29/20 09:58 1 tab Q5MP PRN Administration CHEST PAIN Oxycodone/Acetaminophen 2 tab 01/30/20 17:41 01/31/20 06:00 Percocet 5-325 Mg Tablet PO 02/06/20 17:40 2 tab Q6HP PRN Administration FOR PAIN SCALE 3-5 Pantoprazole Sodium 40 mg 01/18/20 06:00 01/31/20 06:[address] Tablet PO 02/17/20 05:59 40 mg Q6AM WOJCIECH Administration Polyethylene Glycol 17 gm 01/31/20 10:00 Miralax Powder 17 Gm/Packet PO 03/01/20 09:59 DAILY WOJCIECH Temazepam 7.5 mg 01/30/20 22:00 01/30/20 21:22 Restoril 7.5 Mg Capsule PO 02/06/20 21:59 7.5 mg QHS WOJCIECH Administration Throat Lozenges 1 each 01/25/20 17:56 Chloraseptic Sore Throat Lozenge BUCCAL 02/24/20 17:55 Q4HP PRN FOR SORE THROAT Tolvaptan 15 mg 01/30/20 12:30 01/30/20 16:56 Samsca 15 Mg Tablet PO 02/04/20 12:29 15 mg QAM WOJCIECH Administration Discontinued Medications Generic Name Dose Route Start Last Admin Trade Name Freq PRN Reason Stop Dose Admin Acetaminophen 975 mg 01/17/20 17:05 Tylenol 325 Mg Tablet PO 02/16/20 17:04 Q4HP PRN FOR PAIN SCALE 1-3 Hydrocodone Bitart/Acetaminophen 1 tab 01/17/20 23:35 01/24/20 22:08 [place] 10-325 Mg Tablet PO 01/24/20 23:34 1 tab Q4HP PRN Administration FOR PAIN Hydrocodone Bitart/Acetaminophen 1 tab 01/26/20 16:07 01/30/20 12:19 [place] 5-325 Mg Tablet PO 02/02/20 16:06 1 tab Q4HP PRN Administration PAIN SCALE 1-3/5 Hydrocodone Bitart/Acetaminophen 1 tab 01/30/20 03:00 01/30/20 02:51 [place] 5-325 Mg Tablet PO 01/30/20 03:01 1 tab NOW ONE Administration Amlodipine Besylate 5 mg 01/17/20 22:00 01/24/20 10:40 Norvasc 5 Mg Tablet PO 02/16/20 21:59 Not Given Q12 WOJCIECH Bisacodyl 10 mg 01/29/20 12:00 01/29/20 12:53 Dulcolax 5 Mg Tablet PO 01/29/20 12:01 10 mg NOW ONE Administration Bupivacaine HCl Confirm 01/20/20 13:53 Sensorcaine-Mpf 0.25% Inj 30 Ml Sdv Administered 01/20/20 13:54 Dose 30 ml .ROUTE .STK-MED ONE Bupivacaine HCl Confirm 01/22/20 13:10 Sensorcaine-Mpf 0.25% Inj 30 Ml Sdv Administered 01/22/20 13:11 Dose 30 ml .ROUTE .STK-MED ONE Clonidine 0.3 mg 01/18/20 00:00 01/24/20 06:00 Catapres 0.2 Mg Tablet PO 02/17/20 00:00 0.3 mg Q6 WOJCIECH Administration Clonidine 0.3 mg 01/17/20 17:03 01/17/20 18:05 Catapres 0.2 Mg Tablet PO 01/17/20 17:04 Not Given NOW ONE Diazepam 5 mg 01/18/20 10:00 01/24/20 18:03 Valium 5 Mg Tablet PO 01/25/20 09:59 5 mg BID WOJCIECH Administration Diphenhydramine HCl 12.5 mg 01/17/20 19:35 Benadryl Inj 50 Mg/1 Ml Vial IV 01/17/20 22:35 .WHILE IN PACU PRN ITCHING Diphenhydramine HCl 12.5 mg 01/20/20 14:36 Benadryl Inj 50 Mg/1 Ml Vial IV 01/20/20 17:36 .WHILE IN PACU PRN ITCHING Diphenhydramine HCl 12.5 mg 01/22/20 13:44 Benadryl Inj 50 Mg/1 Ml Vial IV 01/22/20 16:44 .WHILE IN PACU PRN ITCHING Ephedrine Sulfate Confirm 01/20/20 13:44 Ephedrine Sulfate Inj 50 Mg/Ml Ampule Administered 01/20/20 13:45 Dose 50 mg .ROUTE .STK-MED ONE Fentanyl Citrate Confirm 01/17/20 18:29 Sublimaze Inj/Pf 100 Mcg/2 Ml Ampule Administered 01/17/20 18:30 Dose 100 mcg .ROUTE .STK-MED ONE Fentanyl Citrate 25 mcg 01/17/20 19:35 Sublimaze Inj/Pf 100 Mcg/2 Ml Ampule IV 01/17/20 22:35 .WHILE IN PACU PRN PAIN SCALE 2-3 Fentanyl Citrate 12.5 mcg 01/17/20 19:35 Sublimaze Inj/Pf 100 Mcg/2 Ml Ampule IV 01/17/20 22:35 .WHILE IN PACU PRN PAIN SCALE OF 1 Fentanyl Citrate 50 mcg 01/17/20 19:35 Sublimaze Inj/Pf 100 Mcg/2 Ml Ampule IV 01/17/20 22:35 .WHILE IN PACU PRN PAIN SCALE 4-5 Fentanyl Citrate Confirm 01/20/20 13:43 Sublimaze Inj/Pf 250 Mcg/5 Ml Ampule Administered 01/20/20 13:44 Dose 250 mcg .ROUTE .STK-MED ONE Fentanyl Citrate 25 mcg 01/20/20 14:36 Sublimaze Inj/Pf 100 Mcg/2 Ml Ampule IV 01/20/20 17:36 .WHILE IN PACU PRN PAIN SCALE 2-3 Fentanyl Citrate 12.5 mcg 01/20/20 14:36 Sublimaze Inj/Pf 100 Mcg/2 Ml Ampule IV 01/20/20 17:36 .WHILE IN PACU PRN PAIN SCALE OF 1 Fentanyl Citrate 50 mcg 01/20/20 14:36 Sublimaze Inj/Pf 100 Mcg/2 Ml Ampule IV 01/20/20 17:36 .WHILE IN PACU PRN PAIN SCALE 4-5 Fentanyl Citrate Confirm 01/22/20 12:36 Sublimaze Inj/Pf 100 Mcg/2 Ml Ampule Administered 01/22/20 12:37 Dose 100 mcg .ROUTE .STK-MED ONE Fentanyl Citrate 25 mcg 01/22/20 13:44 Sublimaze Inj/Pf 100 Mcg/2 Ml Ampule IV 01/22/20 16:44 .WHILE IN PACU PRN PAIN SCALE 2-3 Fentanyl Citrate 12.5 mcg 01/22/20 13:44 Sublimaze Inj/Pf 100 Mcg/2 Ml Ampule IV 01/22/20 16:44 .WHILE IN PACU PRN PAIN SCALE OF 1 Fentanyl Citrate 50 mcg 01/22/20 13:44 Sublimaze Inj/Pf 100 Mcg/2 Ml Ampule IV 01/22/20 16:44 .WHILE IN PACU PRN PAIN SCALE 4-5 Fentanyl Citrate 25 mcg 01/30/20 03:49 01/30/20 06:05 Sublimaze Inj/Pf 100 Mcg/2 Ml Ampule IV 01/30/20 03:50 25 mcg NOW ONE Administration Furosemide 20 mg 01/24/20 08:30 01/24/20 08:54 Lasix Inj/Pf 20 Mg/2 Ml Sdv IV 01/24/20 08:31 20 mg NOW ONE Administration Furosemide 20 mg 01/24/20 10:12 Lasix Inj/Pf 20 Mg/2 Ml Sdv IV 01/25/20 10:11 .AFTER FIRST UNIT PRN THIS MED IS NOT "PRN" Furosemide 40 mg 01/25/20 19:00 01/28/20 09:33 Lasix 40 Mg Tablet PO 02/24/20 18:59 40 mg DAILY WOJCIECH Administration Furosemide Confirm 01/25/20 20:29 01/25/20 20:33 Lasix 40 Mg Tablet Administered 01/25/20 20:30 Not Given Dose 40 mg .ROUTE .STK-MED ONE Furosemide Confirm 01/27/20 00:35 01/27/20 00:47 Lasix Inj/Pf 20 Mg/2 Ml Sdv Administered 01/27/20 00:36 20 mg Dose Administration 20 mg .ROUTE .STK-MED ONE Furosemide 20 mg 01/27/20 01:00 01/27/20 05:20 Lasix Inj/Pf 20 Mg/2 Ml Sdv IV 01/27/20 01:01 Not Given NOW ONE Furosemide 40 mg 01/29/20 18:13 01/29/20 23:46 Lasix Inj/Pf 40 Mg/4 Ml Sdv IV 01/29/20 18:14 40 mg NOW ONE Administration Furosemide 40 mg 01/29/20 18:15 01/29/20 20:03 Lasix 40 Mg Tablet PO 02/28/20 18:14 40 mg BID WOJCIECH Administration Hard Fat/Phenylephrine 10 mg 01/20/20 08:57 Ander-Synephrine Inj/Pf 10 Mg/1 Ml Sdv .ROUTE 01/20/20 08:58 .STK-MED ONE Hard Fat/Phenylephrine 10 mg 01/22/20 09:48 Ander-Synephrine Inj/Pf 10 Mg/1 Ml Sdv .ROUTE 01/22/20 09:49 .STK-MED ONE Heparin Sodium (Porcine) 0 - 12,000 unit 01/18/20 17:19 01/18/20 17:47 Heparin Inj 1,000 Unit/Ml 10 Ml Vial IV 02/17/20 17:18 8,472 units .BOLUS PER PROTOCOL PRN Administration RESPOND TO aPTT VALUE Protocol Heparin Sodium (Porcine) Confirm 01/27/20 12:27 01/27/20 17:16 Heparin Flush 10 Unit/Ml 5 Ml Disp.Syrg Administered 01/27/20 12:28 Not Given Dose 50 unit IV .STK-MED ONE Hydrochlorothiazide 12.5 mg 01/18/20 10:00 01/27/20 09:35 Hydrodiuril 12.5 Mg Tablet PO 02/17/20 09:59 12.5 mg DAILY WOJCIECH Administration Hydromorphone HCl Confirm 01/17/20 18:29 Dilaudid Inj/Pf 2 Mg/Ml Ampule Administered 01/17/20 18:30 Dose 2 mg .ROUTE .STK-MED ONE Hydromorphone HCl Confirm 01/22/20 13:56 Dilaudid Inj/Pf 2 Mg/Ml Ampule Administered 01/22/20 13:57 Dose 2 mg .ROUTE .STK-MED ONE Lactated Ringer's 3,400 mls @ 850 mls/hr 01/17/20 13:09 01/17/20 17:02 Lactated Ringers 1000 Ml Iv Soln 30 ml/kg infuse over 4 hr (3400 ml) 01/17/20 17:08 Infused IV Infusion BOLUS ONE Levofloxacin/Dextrose 750 mg in 150 mls @ 100 mls/hr 01/17/20 13:09 01/17/20 15:10 Levaquin Rtu 750 Mg/D5w 150 Ml Premix IV 01/17/20 14:38 Infused NOW ONE Infusion Cefepime HCl 2 gm in 50 mls @ 100 mls/hr 01/17/20 22:00 01/17/20 21:34 Maxipime Rtu 2 Gm-D5w 50 Ml Premix Bag IV 01/24/20 21:59 100 ml/hr Q12 WOJCIECH 100 mls/hr Administration Sodium Chloride 250 mls @ 30 mls/hr 01/17/20 18:38 Nacl 0.9% 250 Ml Iv Soln IV 01/18/20 18:37 .DURING TRANSFUSION PRN THIS MED IS NOT "PRN" Sodium Chloride 250 mls @ 30 mls/hr 01/17/20 18:43 Nacl 0.9% 250 Ml Iv Soln IV 01/18/20 18:42 .DURING TRANSFUSION PRN THIS MED IS NOT "PRN" Cefepime HCl Confirm 01/17/20 21:32 01/18/20 00:41 Maxipime Rtu 1 Gm/D5w 50 Ml Premix Bag Administered 01/17/20 21:33 Not Given Dose 2 gm in 100 mls @ ud IV .STK-MED ONE Cefepime HCl 2 gm/ Dextrose 50 mls @ 100 mls/hr 01/18/20 10:00 01/20/20 21:49 IV 01/25/20 09:59 100 mls/hr Q12 WOJCIECH Administration Vancomycin HCl 1,500 mg/ 250 mls @ 166.667 mls/hr 01/18/20 09:00 01/24/20 17:59 Dextrose IV 01/28/20 08:59 Not Given Q12A WOJCIECH Heparin Sodium/Dextrose 25,000 unit in 250 mls @ 0 mls/hr 01/18/20 14:19 01/28/20 00:06 Heparin Rtu 25,000 Unit/250 Ml D5w Premix IV 02/17/20 14:18 Infused CONTINUOUS PRN Titration THIS MED IS NOT "PRN" Protocol Titrate Sodium Chloride 250 mls @ 30 mls/hr 01/18/20 15:53 Nacl 0.9% 250 Ml Iv Soln IV 01/19/20 15:52 .DURING TRANSFUSION PRN THIS MED IS NOT "PRN" Sodium Chloride 250 mls @ 0 mls/hr 01/18/20 15:53 Nacl 0.9% 250 Ml Iv Soln IV 01/19/20 15:52 CONTINUOUS PRN AFTER EACH UNIT As Directed Sodium Chloride 250 mls @ 30 mls/hr 01/23/20 14:50 Nacl 0.9% 250 Ml Iv Soln IV 01/24/20 14:49 .DURING TRANSFUSION PRN THIS MED IS NOT "PRN" Sodium Chloride 250 mls @ 0 mls/hr 01/23/20 14:50 Nacl 0.9% 250 Ml Iv Soln IV 01/24/20 14:49 CONTINUOUS PRN AFTER EACH UNIT As Directed Sodium Chloride 250 mls @ 30 mls/hr 01/24/20 10:12 Nacl 0.9% 250 Ml Iv Soln IV 01/25/20 10:11 .DURING TRANSFUSION PRN THIS MED IS NOT "PRN" Sodium Chloride 250 mls @ 0 mls/hr 01/24/20 10:12 Nacl 0.9% 250 Ml Iv Soln IV 01/25/20 10:11 CONTINUOUS PRN AFTER EACH UNIT As Directed Sodium Chloride 1,000 mls @ 75 mls/hr 01/25/20 09:40 01/29/20 06:27 Nacl 0.9% 1000 Ml Iv Soln IV 02/24/20 09:39 Infused CONTINUOUS PRN Infusion THIS MED IS NOT "PRN" Calcium Gluconate 1 gm in 50 mls @ 50 mls/hr 01/25/20 11:00 01/25/20 12:29 Calcium Gluconate Rtu 1 Gm/50 Ml IV 01/25/20 11:59 50 mls/hr NOW ONE Administration Calcium Gluconate 1 gm in 50 mls @ 50 mls/hr 01/25/20 20:30 01/25/20 22:37 Calcium Gluconate Rtu 1 Gm/50 Ml IV 01/25/20 22:29 50 mls/hr Q1H WOJCIECH Administration Heparin Sodium/Dextrose Confirm 01/27/20 04:31 01/27/20 05:10 Heparin Rtu 25,000 Unit/250 Ml D5w Premix Administered 01/27/20 04:32 Not Given Dose 25,000 unit in 250 mls @ ud IV .STK-MED ONE Magnesium Sulfate/Dextrose 1 gm in 100 mls @ 100 mls/hr 01/27/20 09:00 01/27/20 20:38 Magnesium Sulfate Rtu-D5w 1 Gm/100 Ml Premix IV 01/27/20 10:59 Infused Q1H WOJCIECH Infusion Calcium Gluconate 1 gm in 50 mls @ 50 mls/hr 01/27/20 09:00 01/27/20 09:46 Calcium Gluconate Rtu 1 Gm/50 Ml IV 01/27/20 09:59 50 mls/hr NOW ONE Administration Calcium Gluconate 1 gm in 50 mls @ 50 mls/hr 01/28/20 09:30 01/28/20 12:54 Calcium Gluconate Rtu 1 Gm/50 Ml IV 01/28/20 11:29 50 mls/hr Q1H WOJCIECH Administration Sodium Chloride 1,000 mls @ 75 mls/hr 01/28/20 17:01 Nacl 0.9% 1000 Ml Iv Soln IV 02/27/20 17:00 CONTINUOUS PRN THIS MED IS NOT "PRN" Albumin Human 12.5 gm in 50 mls @ 50 mls/hr 01/28/20 18:30 01/29/20 06:27 Albuminar-25 Rtu Inj 12.5 Gm/50 Ml Premix IV 01/28/20 19:29 Infused NOW ONE Infusion Albumin Human 12.5 gm in 50 mls @ 50 mls/hr 01/29/20 21:00 01/29/20 21:16 Albuminar-25 Rtu Inj 12.5 Gm/50 Ml Premix IV 01/29/20 22:59 50 mls/hr Q1H WOJCIECH 50 mls/hr Administration Magnesium Sulfate/Dextrose 1 gm in 100 mls @ 100 mls/hr 01/30/20 11:30 14:06 Magnesium Sulfate Rtu-D5w 1 Gm/100 Ml Premix IV 01/30/20 13:29 100 ml/hr Q1H WOJCIECH 100 mls/hr Administration Insulin Glargine 10 unit 01/18/20 22:00 01/18/20 22:37 Lantus Insulin 100 Unit/1 Ml 10 Ml SUBCUT 02/17/20 21:59 10 unit QHS WOJCIECH Administration Insulin Human Lispro 0 - 12 unit 01/17/20 18:00 01/18/20 12:25 Humalog Insulin 100 Unit/1 Ml 3 Ml Vial SUBCUT 02/16/20 17:59 4 unit Q6 WOJCIECH Administration Protocol Ketorolac Tromethamine 30 mg 01/18/20 06:00 01/19/20 13:59 Toradol Inj/Pf 30 Mg/1 Ml Sdv IV 01/23/20 05:59 30 mg Q8 WOJCIECH Administration Ketorolac Tromethamine 15 mg 01/19/20 22:00 01/24/20 06:00 Toradol Inj/Pf 30 Mg/1 Ml Sdv IV 01/24/20 21:59 15 mg Q8 WOJCIECH Administration Levalbuterol HCl Confirm 01/27/20 01:24 01/27/20 01:48 Xopenex Neb 1.25 Mg/3 Ml Ampul Administered 01/27/20 01:25 Not Given Dose 1.25 mg NEB .STK-MED ONE Levalbuterol HCl 1.25 mg 01/27/20 01:30 01/27/20 01:42 Xopenex Neb 1.25 Mg/3 Ml Ampul NEB 01/27/20 01:31 1.25 mg NOW ONE Administration Lidocaine HCl Confirm 01/17/20 18:29 Xylocaine 2% Inj-Pf (20 Mg/Ml) 10 Ml Ampul Administered 01/17/20 18:30 Dose 10 ml .ROUTE .STK-MED ONE Lidocaine HCl Confirm 01/22/20 12:36 Xylocaine 2% Inj-Pf (20 Mg/Ml) 10 Ml Ampul Administered 01/22/20 12:37 Dose 10 ml .ROUTE .STK-MED ONE Lidocaine HCl Confirm 01/22/20 13:10 Xylocaine 1% Inj-Pf (10 Mg/Ml) 30 Ml Sdv Administered 01/22/20 13:11 Dose 30 ml .ROUTE .STK-MED ONE Lorazepam Confirm 01/27/20 00:35 01/27/20 00:49 Ativan Inj 2 Mg/1 Ml Vial Administered 01/27/20 00:36 2 mg Dose Administration 2 mg .ROUTE .STK-MED ONE Lorazepam 1 mg 01/27/20 00:55 01/30/20 02:51 Ativan Inj 2 Mg/1 Ml Vial IV 02/03/20 00:54 1 mg Q4HP PRN Administration ANXIETY Losartan Potassium 100 mg 01/18/20 10:00 01/24/20 10:40 Cozaar 50 Mg Tablet PO 02/17/20 09:59 Not Given DAILY WOJCIECH Losartan Potassium 50 mg 01/17/20 17:33 01/17/20 18:05 Cozaar 50 Mg Tablet PO 01/17/20 17:34 Not Given NOW ONE Magnesium Citrate 296 ml 01/24/20 18:30 01/24/20 21:54 Citrate Of Magnesia 296 Ml Bottle PO 01/24/20 18:31 Not Given NOW ONE Magnesium Citrate 296 ml 01/24/20 19:45 01/24/20 21:54 Citrate Of Magnesia 296 Ml Bottle PO 01/24/20 19:46 Not Given NOW ONE Magnesium Oxide 800 mg 01/30/20 14:02 01/30/20 17:06 Mag-Ox 400 Mg Tablet PO 01/30/20 14:03 Not Given NOW ONE Magnesium Oxide 800 mg 01/30/20 17:00 01/30/20 16:55 Mag-Ox 400 Mg Tablet PO 01/30/20 17:01 800 mg NOW ONE Administration Meperidine HCl 12.5 mg 01/17/20 19:35 Demerol Inj 25 Mg/1 Ml Syringe IV 01/17/20 22:35 .WHILE IN PACU PRN Shivering Meperidine HCl 12.5 mg 01/20/20 14:36 Demerol Inj 25 Mg/1 Ml Syringe IV 01/20/20 17:36 .WHILE IN PACU PRN Shivering Meperidine HCl 12.5 mg 01/22/20 13:44 Demerol Inj 25 Mg/1 Ml Syringe IV 01/22/20 16:44 .WHILE IN PACU PRN Shivering Metformin HCl 1,000 mg 01/19/20 16:00 01/28/20 08:38 Glucophage 500 Mg Tablet PO 02/18/20 15:59 1,000 mg BIDACBS WOJCIECH Administration Methylprednisolone Sodium Succinate Confirm 01/28/20 09:59 01/28/20 11:49 Solu-Medrol Inj/Pf 125 Mg/2 Ml Sdv Administered 01/28/20 10:00 Not Given Dose 125 mg .ROUTE .STK-MED ONE Metoclopramide HCl 10 mg 01/17/20 13:15 01/17/20 13:35 Reglan Inj/Pf 10 Mg/2 Ml Sdv IV 01/17/20 13:16 10 mg NOW ONE Administration Metoprolol Succinate 25 mg 01/18/20 10:00 01/26/20 09:30 Toprol Xl 25 Mg Tab.Sr PO 02/17/20 09:59 25 mg BID WOJCIECH Administration Metoprolol Tartrate 5 mg 01/17/20 18:06 01/17/20 18:24 Lopressor Inj/Pf 5 Mg/5 Ml Sdv IV 01/17/20 18:07 5 mg NOW ONE Administration Metoprolol Tartrate 5 mg 01/24/20 23:30 01/24/20 23:24 Lopressor Inj/Pf 5 Mg/5 Ml Sdv IV 01/24/20 23:31 5 mg NOW ONE Administration Midazolam HCl Confirm 01/17/20 18:29 Versed 2 Mg/2 Ml Inj Administered 01/17/20 18:30 Dose 2 mg .ROUTE .STK-MED ONE Midazolam HCl Confirm 01/20/20 13:44 Versed 2 Mg/2 Ml Inj Administered 01/20/20 13:45 Dose 2 mg .ROUTE .STK-MED ONE Midazolam HCl Confirm 01/22/20 12:36 Versed 2 Mg/2 Ml Inj Administered 01/22/20 12:37 Dose 2 mg .ROUTE .STK-MED ONE Morphine Sulfate 4 mg 01/17/20 13:15 01/17/20 13:35 Morphine 10 Mg/Ml Inj IV 01/17/20 13:16 4 mg NOW ONE Administration Morphine Sulfate 2 mg 01/17/20 17:05 01/21/20 14:31 Morphine 10 Mg/Ml Inj IV 01/24/20 17:04 2 mg Q4HP PRN Administration FOR PAIN SCALE 4-5 Morphine Sulfate 3 mg 01/17/20 19:35 Morphine 10 Mg/Ml Inj IV 01/17/20 22:35 .WHILE IN PACU PRN FOR BREAKTHROUGH PAIN Morphine Sulfate 3 mg 01/20/20 14:36 Morphine 10 Mg/Ml Inj IV 01/20/20 17:36 .WHILE IN PACU PRN FOR BREAKTHROUGH PAIN Morphine Sulfate 3 mg 01/21/20 16:30 01/23/20 13:18 Morphine 10 Mg/Ml Inj IV 01/24/20 17:04 3 mg Q4HP PRN Administration FOR PAIN SCALE 4-5 Morphine Sulfate 3 mg 01/22/20 13:44 Morphine 10 Mg/Ml Inj IV 01/22/20 16:44 .WHILE IN PACU PRN FOR BREAKTHROUGH PAIN Morphine Sulfate 2 mg 01/26/20 03:05 01/26/20 13:01 Morphine 10 Mg/Ml Inj IV 02/02/20 03:04 2 mg Q4HP PRN Administration PAIN Morphine Sulfate 2 mg 01/26/20 17:30 01/26/20 22:03 Morphine 10 Mg/Ml Inj IV 02/02/20 03:04 2 mg Q4HP PRN Administration PAIN SCALE 4-5/5 Morphine Sulfate 2 mg 01/27/20 02:00 01/27/20 01:25 Morphine 10 Mg/Ml Inj IV 01/27/20 02:01 2 mg NOW ONE Administration Morphine Sulfate 2 mg 01/27/20 01:44 Morphine 10 Mg/Ml Inj IV 02/03/20 01:43 Q1HP PRN Acute Severe Dyspnea Ondansetron HCl 4 mg 01/17/20 16:52 01/18/20 00:10 Zofran Inj/Pf 4 Mg/2 Ml Sdv IV 02/16/20 16:51 4 mg Q8HP PRN Administration FOR NAUSEA/VOMITING Ondansetron HCl Confirm 01/17/20 18:29 Zofran Inj/Pf 4 Mg/2 Ml Sdv Administered 01/17/20 18:30 Dose 4 mg .ROUTE .STK-MED ONE Ondansetron HCl Confirm 01/20/20 13:44 Zofran Inj/Pf 4 Mg/2 Ml Sdv Administered 01/20/20 13:45 Dose 4 mg .ROUTE .STK-MED ONE Ondansetron HCl Confirm 01/22/20 12:36 Zofran Inj/Pf 4 Mg/2 Ml Sdv Administered 01/22/20 12:37 Dose 4 mg .ROUTE .STK-MED ONE Oxycodone/Acetaminophen 1 tab 01/17/20 19:35 Percocet 5-325 Mg Tablet PO 01/17/20 22:35 .WHILE IN PACU PRN PAIN SCALE 1-2 Oxycodone/Acetaminophen 2 tab 01/17/20 19:35 Percocet 5-325 Mg Tablet PO 01/17/20 22:35 .WHILE IN PACU PRN PAIN SCALE 3 OR GREATER Oxycodone/Acetaminophen 1 tab 01/20/20 14:36 Percocet 5-325 Mg Tablet PO 01/20/20 17:36 .WHILE IN PACU PRN PAIN SCALE 1-2 Oxycodone/Acetaminophen 1 tab 01/22/20 13:44 Percocet 5-325 Mg Tablet PO 01/22/20 16:44 .WHILE IN PACU PRN PAIN SCALE 1-2 Oxycodone/Acetaminophen 2 tab 01/22/20 13:44 Percocet 5-325 Mg Tablet PO 01/22/20 16:44 .WHILE IN PACU PRN PAIN SCALE 3 OR GREATER Polyethylene Glycol 17 gm 01/30/20 14:03 01/30/20 17:06 Miralax Powder 17 Gm/Packet PO 01/30/20 14:04 Not Given NOW ONE Polyethylene Glycol 17 gm 01/30/20 17:00 01/30/20 16:56 Miralax Powder 17 Gm/Packet PO 01/30/20 17:01 17 gm NOW ONE Administration Promethazine HCl 12.5 mg 01/17/20 19:35 Phenergan Inj 25 Mg/1 Ml Vial IV 01/17/20 22:35 .WHILE IN PACU PRN NAUSEA AND VOMITING Promethazine HCl 25 mg 01/17/20 19:35 Phenergan Inj 25 Mg/1 Ml Vial IV 01/17/20 22:35 .WHILE IN PACU PRN NAUSEA AND VOMITING Promethazine HCl 12.5 mg 01/20/20 14:36 Phenergan Inj 25 Mg/1 Ml Vial IV 01/20/20 17:36 .WHILE IN PACU PRN NAUSEA AND VOMITING Promethazine HCl 25 mg 01/20/20 14:36 Phenergan Inj 25 Mg/1 Ml Vial IV 01/20/20 17:36 .WHILE IN PACU PRN NAUSEA AND VOMITING Promethazine HCl 12.5 mg 01/22/20 13:44 Phenergan Inj 25 Mg/1 Ml Vial IV 01/22/20 16:44 .WHILE IN PACU PRN NAUSEA AND VOMITING Promethazine HCl 25 mg 01/22/20 13:44 Phenergan Inj 25 Mg/1 Ml Vial IV 01/22/20 16:44 .WHILE IN PACU PRN NAUSEA AND VOMITING Propofol Confirm 01/17/20 18:30 Diprivan Inj 200 Mg/20 Ml Vial Administered 01/17/20 18:31 Dose 200 mg IV .STK-MED ONE Propofol Confirm 01/20/20 13:44 Diprivan Inj 200 Mg/20 Ml Vial Administered 01/20/20 13:45 Dose 200 mg IV .STK-MED ONE Propofol Confirm 01/22/20 12:36 Diprivan Inj 200 Mg/20 Ml Vial Administered 01/22/20 12:37 Dose 200 mg IV .STK-MED ONE Sodium Chloride 1 gm 01/28/20 19:30 01/28/20 19:30 Sodium Chloride 1 Gm Tablet PO 01/28/20 19:31 1 gm NOW ONE Administration Succinylcholine Chloride 200 mg 01/20/20 08:57 Anectine Inj 200 Mg/10 Ml Vial .ROUTE 01/20/20 08:58 .STK-MED ONE Vancomycin HCl 1,000 mg 01/17/20 13:09 01/17/20 13:45 Vancocin Inj 1000 Mg Vial IV 01/17/20 13:10 1,000 mg IVBAG (ED) ONE Administration Vancomycin HCl Confirm 01/18/20 07:33 01/18/20 10:24 Vancocin Inj 1000 Mg Vial Administered 01/18/20 07:34 Not Given Dose 1,000 mg .ROUTE .STK-MED ONE Assessment & Plan - Diagnosis (1) Heart failure with reduced ejection fraction Is this a current diagnosis for this admission?: Yes Plan: Very unfortunate 54-year-old male who has suffered multiple complications after he was admitted for sepsis secondary to a left foot abscess. Currently he has multiple electrolyte abnormalities particularly moderate to severe hyponatremia which is multifactorial however hypervolemia appears to be a big contributor. He is in anasarca with renal dysfunction and with at least +11.7 L in his fluid balance since admission. Nephrology had been managing his diuresis given his renal dysfunction. His ejection fraction is decreased from a prior study approximately 2 weeks ago however the current study is very poor in quality however his ejection fraction is not normal and likely multifactorial in etiology to include acute medical illness, significant fluid overload, sepsis among others. This patient is very sick and I believe he should be transferred to a higher echelon of care. The case was discussed with the patient, his and the hospitalist, Dr. Church. Recommendations: -Transfer to a higher echelon of care. -Aggressive diuresis. -Discontinue IV fluids. -Continue beta-hadley and ARB. -Discontinue Norvasc. -Further diuresis per nephrology recommendations. -Cardiology does not have further recommendations therefore we will sign off the case. Please reconsult if clinically necessary.
[2020-01-31] MEDS: VANCOMYCIN HCL 750 MG in DEXTROSE 5%-WATER 250 ML IV SCH (12:01)
--- NOTE | 2020-01-31 12:58 | PDOC PROGRESS REPORT ---
Subjective Progress Note for:: 01/31/20 Reason For Visit: Patient seen today in the hospital. He says his breathing is slightly better and he still has a pleuritic chest pain which is not as bad as it was over the last couple of days. Labs and medications shows that his renal numbers are stable. Good urine output. Physical Exam Vital Signs: Temp Pulse Resp BP Pulse Ox 97.6 F 110 H 17 137/70 H 95 01/31/20 11:43 01/31/20 11:43 01/31/20 11:43 01/31/20 11:43 01/31/20 11:43 Intake & Output 01/30/20 01/31/20 02/01/20 06:59 06:59 06:59 Intake Total 1705 2753 50 Output Total 1800 2425 Balance -95 328 50 Weight 120.9 kg 118.9 kg General appearance: PRESENT: no acute distress Respiratory exam: PRESENT: clear to auscultation madeline, decreased breath sounds. ABSENT: crackles Cardiovascular exam: PRESENT: +S1, +S2 GI/Abdominal exam: PRESENT: normal bowel sounds, soft. ABSENT: ascites, distended, firm, organomegaly, tenderness Extremities exam: PRESENT: pedal edema - Of his right leg where he has a DVT and there is hardly any on his left leg. Neurological exam: PRESENT: alert, awake, oriented to person, oriented to place Psychiatric exam: PRESENT: anxious, depressed Results Laboratory Results: 01/31/20 06:15 01/31/20 06:15 01/30/20 01/31/20 01/31/20 15:01 06:15 06:15 WBC 15.6 H RBC 2.43 L Hgb 7.0 L Hct 20.1 L MCV 83 MCH 29.0 MCHC 35.0 RDW 16.6 H Plt Count 459 H Seg Neutrophils % 86.4 H Sodium 122.7 L 125.3 L Potassium 4.5 4.4 Chloride 93 L 93 L Carbon Dioxide 20 L 24 Anion Gap 10 8 BUN 32 H 31 H Creatinine 2.33 H 2.36 H Est GFR ( Amer) 35 L 35 L Glucose 205 H 161 H Calcium 7.5 L 7.6 L Total Bilirubin 1.0 AST 19 Alkaline Phosphatase 115 Total Protein 6.1 L Albumin 2.3 L Blood Type Antibody Screen 01/31/20 01/31/20 07:00 07:36 WBC RBC Hgb Hct MCV MCH MCHC RDW Plt Count Seg Neutrophils % Sodium Potassium Chloride Carbon Dioxide Anion Gap BUN Creatinine Est GFR ( Amer) Glucose Calcium Total Bilirubin AST Alkaline Phosphatase Total Protein Albumin Blood Type Cancelled O POSITIVE Antibody Screen Cancelled NEGATIVE 01/27/20 15:15 Chest - Right Side Gram Stain - Final 01/27/20 15:15 Chest - Right Side Body Fluid Culture - Final NO AEROBIC OR ANAEROBIC ORGANISMS RECOVERED 01/24/20 01/28/20 01/30/20 08:25 05:45 03:05 Creatine Kinase 102 Troponin I 0.062 NT-Pro-B Natriuret Pep 89309 H 01/30/20 06:00 Creatine Kinase Troponin I 0.046 NT-Pro-B Natriuret Pep Impressions: Foot X-Ray 01/17/20 13:13 IMPRESSION: There appear to be diabetic foot changes. No osteomyelitis is seen. Findings as described. Marked soft tissue swelling. Tibia/Fibula X-Ray 01/17/20 13:14 IMPRESSION: Possible prior interosseous ligament disruption. No acute finding in either the tibia or the fibula. Abdomen/Pelvis CT 01/25/20 00:00 IMPRESSION: 1. LARGE PLEURAL EFFUSIONS. 2. NO SIGNIFICANT OR ACUTE ABDOMINAL PROCESS. Lung Scan-VQ NM 01/25/20 23:10 IMPRESSION: LOW PROBABILITY OF PULMONARY EMBOLISM. PICC Line Insertion 01/27/20 00:00 IMPRESSION: SUCCESSFUL PLACEMENT OF A 5 FR DUAL LUMEN 42 CM PICC IN THE RIGHT BASILIC VEIN. Thoracentesis Ultrasound 01/27/20 08:00 IMPRESSION: SUCCESSFUL RIGHT THORACENTESIS USING ULTRASOUND GUIDANCE. Chest CT 01/28/20 00:00 IMPRESSION: Small to moderate bilateral pleural effusions. Adjacent airspace disease both atelectatic and consolidated. Bibasilar pneumonia could have this appearance. No significant pulmonary edema. Chest X-Ray 01/28/20 00:00 IMPRESSION: Increasing left medial basilar consolidation. Venous Doppler Study 01/28/20 00:00 IMPRESSION: Deep venous thrombosis left superficial femoral vein distally extending to popliteal. This appearance is similar to prior. The presumed complex Lucio's cyst within the popliteal fossa appears larger on current when compared to prior. Assessment & Plan - Diagnosis (1) Acute kidney injury Is this a current diagnosis for this admission?: Yes Plan: Currently nonoliguric. Multifactorial. ATN/Vanc toxicity. Continue on gentle fluid hydration with saline. The renal numbers are relatively stable.Monitor for Vanco toxicity given the fact that he has been restarted on it. (2) Hyponatremia Is this a current diagnosis for this admission?: Yes Plan: Most likely combination of SIADH/prerenal. Continue on gentle fluids. Slowly improving sodium after having started on tolvaptan as well. Monitor.I would hold back on the tolvaptan once his sodium reaches 130. I am off as of later today and Dr. Maradiaga will be on Monday. (3) Acute deep vein thrombosis (DVT) of right lower extremity Qualifiers: Affected thrombotic vein of extremity: femoral Qualified Code(s): I82.411 - Acute embolism and thrombosis of right femoral vein Is this a current diagnosis for this admission?: Yes Plan: Currently on IV heparin. Concerned about shortness of breath and pleuritic chest pain for pulmonary embolism. ? need to be transferred to tertiary care center given his multiple complex issues and ? need for IVC filter. (4) Diabetic infection of left foot Is this a current diagnosis for this admission?: Yes Plan: Status post left BKA. (5) Anemia of chronic disease Is this a current diagnosis for this admission?: Yes Plan: Monitor. (6) HTN (hypertension) Qualifiers: Hypertension type: essential hypertension Qualified Code(s): I10 - Essential (primary) hypertension Is this a current diagnosis for this admission?: Yes Plan: Stable. (7) MRSA bacteremia Is this a current diagnosis for this admission?: Yes Plan: Initially on vancomycin but became toxic and that was held. Now restarted after vancomycin levels were subtherapeutic. Monitor vanc levels every third day because of his previous vanc toxicity. Managed by hospitalist. (8) Heart failure with reduced ejection fraction Is this a current diagnosis for this admission?: Yes Plan: Needs risk stratification. He is having some dyspnea currently but hard to say whether its heart failure versus PE versus anxiety attacks. Given his DVT , he is at high risk for PE and needs to be monitored closely for that.
[2020-01-31] MEDS ORDERED: NORMAL SALINE 250 ML IV PRN ×2 (14:15)
--- NOTE | 2020-01-31 14:15 | PDOC PROGRESS REPORT ---
Subjective Progress Note for:: 01/31/20 Subjective:: 54 year old male with history of diabetes mellitus, hypertension, left foot fracture 2 years ago with subsequent deformity, GERD, who presents to the hospital with complaints of persistent pain in his right lower extremity from the region of years right thigh just above the knee to mid rubalcava. Mostly involving the posterior side and his calves. Pain is worse on ambulation. He denies chronic neuropathy. Patient notably had ankle fracture 2 years ago and never got surgical operation needs to fix it. Since then he has developed significant deformity of his right foot now with Charcot Beckie joint. He sees a electrical prospecting operator outpatient and had initially planned to get it fixed but was never done. On his most recent visit with his electrical prospecting operator, they made the decision that he needed to get it amputated. He is hoping that I could be a below the knee amputation. He denies any pain in the region but the area is pretty much normal. He does have significant ecchymosis and fluctuance over his left foot. Patient also notes that he was feeling ill about 3 weeks ago with generalized malaise and occasional chills. At this time he went to his PCP at [facility] and was placed on antibiotics. Reviewing his external medications it seems that this was Levaquin. He completed a course of 7 days of antibiotics and told he may have the flu but states he was treated for kidney infection. He however states he was not having any urinary symptoms at that point. And also had a COVID 19 test done at [facility] 2 weeks ago according to him which came back negative. Still occasionally feels malaise and some chills but not spiking any fevers. He denies any respiratory symptoms. 01/31/[id number]-[id number]-old male with a diabetes mellitus, hypertension, left BKA, g astroparesis reflux disease came in with complaints of right lower extremity pain found to have a DVT. Patient is started on heparin drip. Hemoglobin is 7. Echocardiogram done on 928 shows EF of 60%, repeat echocardiogram yesterday indicates EF of 40 to 45%. He is also hyponatremic receiving IV fluids and tolvaptan. Cardiology team is concerned about fluid overload think he needed dialysis. Per the nephrology team thinks patient need IV fluids. Patient also has a low albumin with anasarca with edema around the scrotum and right lower extremity. Patient has bilateral pleural effusions had a right-sided thoracentesis is going for left-sided thoracentesis. Dr. Smalls called me to notify that patient is overall prognosis poor needs to be transferred to tertiary care facility. I spoke to Dr. Harrison relief charge nurse and agreed with my recommendation that patient need to go to a tertiary care center for IVC filter placement for right-sided DVT.: Called [facility] for transfer request. Reason For Visit: LEFT FOOT ABSCESS,CHAROT JOINT,SEPSIS Physical Exam Vital Signs: Temp Pulse Resp BP Pulse Ox 97.6 F 110 H 13 137/70 H 95 01/31/20 11:43 01/31/20 11:43 01/31/20 13:43 01/31/20 11:43 01/31/20 13:43 Intake & Output 01/30/20 01/31/20 02/01/20 06:59 06:59 06:59 Intake Total 1705 2753 50 Output Total 1800 2425 Balance -95 328 50 Weight 120.9 kg 118.9 kg General appearance: PRESENT: no acute distress, obese Head exam: PRESENT: atraumatic Eye exam: PRESENT: PERRLA Mouth exam: PRESENT: moist, tongue midline Teeth exam: PRESENT: poor dentation Neck exam: ABSENT: carotid bruit, JVD, lymphadenopathy, thyromegaly Respiratory exam: PRESENT: crackles, decreased breath sounds Cardiovascular exam: PRESENT: tachycardia. ABSENT: diastolic murmur, rubs, systolic murmur GI/Abdominal exam: PRESENT: normal bowel sounds, soft. ABSENT: distended, guarding, mass, organolmegaly, rebound, tenderness Rectal exam: PRESENT: deferred Extremities exam: PRESENT: full ROM. ABSENT: calf tenderness, clubbing, pedal edema Neurological exam: PRESENT: alert, awake, oriented to person, oriented to place, oriented to time, oriented to situation, CN II-XII grossly intact. ABSENT: motor sensory deficit Psychiatric exam: PRESENT: appropriate affect, normal mood. ABSENT: homicidal ideation, suicidal ideation Results Laboratory Results: 01/31/20 06:15 01/31/20 06:15 01/30/20 01/31/20 01/31/20 15:01 06:15 06:15 WBC 15.6 H RBC 2.43 L Hgb 7.0 L Hct 20.1 L MCV 83 MCH 29.0 MCHC 35.0 RDW 16.6 H Plt Count 459 H Seg Neutrophils % 86.4 H Sodium 122.7 L 125.3 L Potassium 4.5 4.4 Chloride 93 L 93 L Carbon Dioxide 20 L 24 Anion Gap 10 8 BUN 32 H 31 H Creatinine 2.33 H 2.36 H Est GFR ( Amer) 35 L 35 L Glucose 205 H 161 H Calcium 7.5 L 7.6 L Total Bilirubin 1.0 AST 19 Alkaline Phosphatase 115 Total Protein 6.1 L Albumin 2.3 L Blood Type Antibody Screen 01/31/20 01/31/20 07:00 07:36 WBC RBC Hgb Hct MCV MCH MCHC RDW Plt Count Seg Neutrophils % Sodium Potassium Chloride Carbon Dioxide Anion Gap BUN Creatinine Est GFR ( Amer) Glucose Calcium Total Bilirubin AST Alkaline Phosphatase Total Protein Albumin Blood Type Cancelled O POSITIVE Antibody Screen Cancelled NEGATIVE 01/27/20 15:15 Chest - Right Side Gram Stain - Final 01/27/20 15:15 Chest - Right Side Body Fluid Culture - Final NO AEROBIC OR ANAEROBIC ORGANISMS RECOVERED 01/24/20 01/28/20 01/30/20 08:25 05:45 03:05 Creatine Kinase 102 Troponin I 0.062 NT-Pro-B Natriuret Pep 44254 H 01/30/20 06:00 Creatine Kinase Troponin I 0.046 NT-Pro-B Natriuret Pep Impressions: Foot X-Ray 01/17/20 13:13 IMPRESSION: There appear to be diabetic foot changes. No osteomyelitis is seen. Findings as described. Marked soft tissue swelling. Tibia/Fibula X-Ray 01/17/20 13:14 IMPRESSION: Possible prior interosseous ligament disruption. No acute finding in either the tibia or the fibula. Abdomen/Pelvis CT 01/25/20 00:00 IMPRESSION: 1. LARGE PLEURAL EFFUSIONS. 2. NO SIGNIFICANT OR ACUTE ABDOMINAL PROCESS. Lung Scan-VQ NM 01/25/20 23:10 IMPRESSION: LOW PROBABILITY OF PULMONARY EMBOLISM. PICC Line Insertion 01/27/20 00:00 IMPRESSION: SUCCESSFUL PLACEMENT OF A 5 FR DUAL LUMEN 42 CM PICC IN THE RIGHT BASILIC VEIN. Thoracentesis Ultrasound 01/27/20 08:00 IMPRESSION: SUCCESSFUL RIGHT THORACENTESIS USING ULTRASOUND GUIDANCE. Chest CT 01/28/20 00:00 IMPRESSION: Small to moderate bilateral pleural effusions. Adjacent airspace disease both atelectatic and consolidated. Bibasilar pneumonia could have this appearance. No significant pulmonary edema. Chest X-Ray 01/28/20 00:00 IMPRESSION: Increasing left medial basilar consolidation. Venous Doppler Study 01/28/20 00:00 IMPRESSION: Deep venous thrombosis left superficial femoral vein distally extending to popliteal. This appearance is similar to prior. The presumed complex Lucio's cyst within the popliteal fossa appears larger on current when compared to prior. Assessment and Plan - Diagnosis (1) Acute kidney injury Is this a current diagnosis for this admission?: Yes Plan: Suspected to be secondary to vancomycin toxicity more likely and/or ATN from infection Nephrology is following - recommending continuation of daily Albumin and on minimal rate of saline We will monitor renal function closely. Urine output is improving 01/31/2020-serum creatinine is 2.36. Nonoliguric. Acute kidney injury most likely secondary to ATN from infection/vancomycin toxicity. (2) Hyponatremia Is this a current diagnosis for this admission?: Yes Plan: Nephrology managing - tolvaptan administered today check chem 7 in am 01/31/2020-serum sodium is 125. Think IV gentle hydration and a tolvaptan.receiving gentle iv hydration and talvatan (3) Pleural effusion Is this a current diagnosis for this admission?: Yes Plan: At 850 cc of fluid removed from right lung 01/27/2020. CT showing small right-sided effusion but moderate size in the left lung. Likely secondary to third spacing from renal failure and hypoalbuminemia Given SOB especially when laying flat and chest tightness, I have scheduled US chest for tomorrow for re-evaluation and subsequent therapeutic thoracentesis. Heparin gtt to be held at midnight. 01/31/2020-patient has bilateral pleural effusions, thoracentesis was done on the right side is going for less likely a thoracentesis today. (4) Chest pain Qualifiers: Chest pain type: unspecified Qualified Code(s): R07.9 - Chest pain, unspecified Is this a current diagnosis for this admission?: Yes Plan: troponin minimally elevated without upward trend. Obtained a limited TTE today to evaluate to see if any evidence of right heart strain/PE from his DVT but the TTE shows no evidence of RV dilation/strain or p ulmonary htn. The TTE did however hop picker an acute EF drop but was very poor visualization of LV so could be skewed. I have discussed with Dr. Smalls who will be seeing patient tomorrow and getting better echo windows. Of note patient informs me that has had negative stress tests in the past 01/31/2020-patient denies any chest pains today. Echocardiogram shows drop in EF from 60% on 01/19 to 45% yesterday. On examination scrotal edema, right lower extremity edema present. (5) Acute deep vein thrombosis (DVT) of right lower extremity Qualifiers: Affected thrombotic vein of extremity: femoral Qualified Code(s): I82.411 - Acute embolism and thrombosis of right femoral vein Is this a current diagnosis for this admission?: Yes Plan: Has been on heparin drip and maintained therapeutic PTTs. Large clot burden involving distal femoral and popliteal but does not seem to have progressed on repeat venous Doppler Has very good DP & PT pulses on doppler w/o evidence of compartment syndrome at this time. Still continues to experience significant pain in Right calf. I will put him on Percocet on some as needed morphine for breakthrough. Wound was evaluated by chargeback specialist. 01/31/20-patient has right lower leg DVT on heparin drip at this time. Patient may need IVC filter in a tertiary care facility. Heparin drip is on hold because the patient is going for thoracentesis today. 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 Currently seems like down no further plans for surgical intervention and surgery has signed off. MRSA Bacteremia- C/w Vancomycin - ID recommending 28 days duration starting from last debridement on 01/21. EOT of 02/18. TTE was technically suboptimal but did not show any vegetations 01/31/2020-patient has a left BKA. 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 Has MRSA bacteremia treated with vancomycin but it was on hold for vancomycin toxicity. (7) Anemia of chronic disease Is this a current diagnosis for this admission?: Yes Plan: Labs consistent with anemia of chronic disease. Actually not iron deficient on all. I suspect this is probably due to pain in the prolonged infected state carrying around that foot abscess for several months likely. Complicated by acute blood loss from amputation. Received transfusions during this admission. Will monitor 01/31/2020-hemoglobin is 7.0 today. To transfuse 2 units of PRBC. And to give Lasix in between the transfusions. (8) Hyperglycemia due to type 2 diabetes mellitus Qualifiers: Diabetes mellitus detention insulin use: without superintendent marine oil terminal use Qualified Code(s): E11.65 - Type 2 diabetes mellitus with hyperglycemia Is this a current diagnosis for this admission?: Yes Plan: Takes metformin and very recently started on Jardiance at home - held Hemoglobin A1c is 9.2. Continue Lantus for now (9) CHF (congestive heart failure) Is this a current diagnosis for this admission?: Yes Plan: 01/31/2020-echocardiogram indicates EF of 40 to 45% with bilateral pleural effusions and pulmonary edema. Patient is acute congestive systolic heart failure - Time Anticipated Discharge Disposition: Nursing Home Facility Anticipated Discharge Timeframe: within 72 hours
[2020-01-31] MEDS: TEMAZEPAM 7.5 MG CAPSULE PO SCH (22:39)
[2020-02-01] MEDS ORDERED: FUROSEMIDE INJ/PF 20 MG/2 ML SDV IV PRN (01:00)
[2020-02-01] MEDS: MORPHINE SULFATE 10 MG/ML INJ IV PRN ×2 (03:52→23:43)
[2020-02-01] MEDS: PANTOPRAZOLE SODIUM 40 MG TABLET.DR PO SCH (05:30)
[2020-02-01] MEDS: CLONIDINE HCL 0.2 MG TABLET PO SCH ×3 (05:32→21:37)
[2020-02-01 06:11] LABS: HEMOGLOBIN 8.8 g/dL (13.5-17.0); MEAN CORPUSCULAR HEMOGLOBIN 29.1 pg (27.0-33.4); MEAN CORPUSCULAR HGB CONC 35.4 g/dL (32.0-36.0); MEAN CORPUSCULAR VOLUME 82 fl (80-97); PLATELET COUNT 405 10^3/uL (150-450); RED BLOOD COUNT 3.03 10^6/uL (4.35-5.55); RED CELL DISTRIBUTION WIDTH 16.4 % (11.5-14.0); WHITE BLOOD COUNT 15.2 10^3/uL (4.0-10.5)
[2020-02-01 06:17] LABS: ALBUMIN 2.3 g/dL (3.5-5.0); ALKALINE PHOSPHATASE 102 U/L (38-126); ANION GAP 10 (5-19); ASPARTATE AMINO TRANSFERASE 19 U/L (17-59); BILIRUBIN,DIRECT 0.6 mg/dL (0.0-0.4); BILIRUBIN,TOTAL 1.4 mg/dL (0.2-1.3); BLOOD UREA NITROGEN 32 mg/dL (7-20); CALCIUM 7.4 mg/dL (8.4-10.2); CARBON DIOXIDE 22 mmol/L (22-30); CHLORIDE 96 mmol/L (98-107); GLUCOSE 144 mg/dL (75-110); POTASSIUM 4.3 mmol/L (3.6-5.0); TOTAL PROTEIN 6.1 g/dL (6.3-8.2)
[2020-02-01 07:37] LABS: ABSOLUTE LYMPHOCYTES# (MANUAL) 1.1 10^3/uL (0.5-4.7); ABSOLUTE MONOCYTES # (MANUAL) 0.9 10^3/uL (0.1-1.4); BASOPHILS % (MANUAL) 0 % (0-2); EOSINOPHILS % (MANUAL) 1 % (0-6); LYMPHOCYTES % (MANUAL) 7 % (13-45); MONOCYTES % (MANUAL) 6 % (3-13); SEGMENTED NEUTROPHILS % (MAN) 86 % (42-78); TOTAL CELLS COUNTED 100
[2020-02-01 07:40] LABS: ANISOCYTOSIS 1+; TOXIC GRANULATION SLIGHT
[2020-02-01 07:41] LABS: PLATELET COMMENT ADEQUATE
[2020-02-01] MEDS: TOLVAPTAN 15 MG TABLET PO SCH (07:50)
[2020-02-01] MEDS: OXYCODONE-ACETAMINOPHEN 5-325 MG TABLET PO PRN ×3 (07:50→22:56)
[2020-02-01] MEDS: INSULIN LISPRO 100 UNIT/ML 3 ML VIAL SUBCUT SCH ×4 (08:56→21:38)
--- NOTE | 2020-02-01 10:02 | PDOC PROGRESS REPORT ---
Subjective Progress Note for:: 02/01/20 Subjective:: 54 year old male with history of diabetes mellitus, hypertension, left foot fracture 2 years ago with subsequent deformity, GERD, who presents to the hospital with complaints of persistent pain in his right lower extremity from the region of years right thigh just above the knee to mid rubalcava. Mostly involving the posterior side and his calves. Pain is worse on ambulation. He denies chronic neuropathy. Patient notably had ankle fracture 2 years ago and never got surgical operation needs to fix it. Since then he has developed significant deformity of his right foot now with Charcot Beckie joint. He sees a clinical admissions manager outpatient and had initially planned to get it fixed but was never done. On his most recent visit with his clinical admissions manager, they made the decision that he needed to get it amputated. He is hoping that I could be a below the knee amputation. He denies any pain in the region but the area is pretty much normal. He does have significant ecchymosis and fluctuance over his left foot. Patient also notes that he was feeling ill about 3 weeks ago with generalized malaise and occasional chills. At this time he went to his PCP at [facility] and was placed on antibiotics. Reviewing his external medications it seems that this was Levaquin. He completed a course of 7 days of antibiotics and told he may have the flu but states he was treated for kidney infection. He however states he was not having any urinary symptoms at that point. And also had a COVID 19 test done at [facility] 2 weeks ago according to him which came back negative. Still occasionally feels malaise and some chills but not spiking any fevers. He denies any respiratory symptoms. 01/31/[id number]-old male with a diabetes mellitus, hypertension, left BKA, g astroparesis reflux disease came in with complaints of right lower extremity pain found to have a DVT. Patient is started on heparin drip. Hemoglobin is 7. Echocardiogram done on 928 shows EF of 60%, repeat echocardiogram yesterday indicates EF of 40 to 45%. He is also hyponatremic receiving IV fluids and tolvaptan. Cardiology team is concerned about fluid overload think he needed dialysis. Per the nephrology team thinks patient need IV fluids. Patient also has a low albumin with anasarca with edema around the scrotum and right lower extremity. Patient has bilateral pleural effusions had a right-sided thoracentesis is going for left-sided thoracentesis. Dr. Smalls called me to notify that patient is overall prognosis poor needs to be transferred to tertiary care facility. I spoke to Dr. Harrison architectural administrative assistant and agreed with my recommendation that patient need to go to a tertiary care center for IVC filter placement for right-sided DVT.: Called [facility] for transfer request. 02/01/2020-patient looks much better compared to yesterday. He received 2 units of PRBC yesterday. Latest hemoglobin is 8.8. Today's PTT is pending. Based on the results patient may may not go to left-sided thoracentesis today. Comfortably in the bed communicating well not on oxygen at the time of examination. Patient is requiring BiPAP during the night. Heparin drip is on hold for possible left-sided thoracentesis today. Serum sodium improved to 128. To discontinue IV fluids at this time. To continue tolvaptan to continue Lasix at this time. Reason For Visit: LEFT FOOT ABSCESS,CHAROT JOINT,SEPSIS Physical Exam Vital Signs: Temp Pulse Resp BP Pulse Ox 97.9 F 105 H 20 150/85 H 96 02/01/20 07:56 02/01/20 08:36 02/01/20 08:36 02/01/20 07:56 02/01/20 07:56 Intake & Output 01/31/20 02/01/20 02/02/20 06:59 06:59 06:59 Intake Total 2753 3089 Output Total 2425 3500 Balance 328 -411 Weight 118.9 kg 121.1 kg General appearance: PRESENT: no acute distress, morbidly obese Head exam: PRESENT: atraumatic Eye exam: PRESENT: conjunctiva pale, PERRLA Mouth exam: PRESENT: moist, tongue midline Teeth exam: PRESENT: poor dentation Neck exam: PRESENT: carotid bruit Respiratory exam: PRESENT: crackles, decreased breath sounds Cardiovascular exam: PRESENT: RRR. ABSENT: diastolic murmur, rubs, systolic murmur GI/Abdominal exam: PRESENT: normal bowel sounds, soft. ABSENT: distended, guarding, mass, organolmegaly, rebound, tenderness Rectal exam: PRESENT: deferred Gentrourinary exam: PRESENT: other - Has a scrotal edema improving. Extremities exam: PRESENT: other - The left BKA stump is wrapped with Lior wrap. Right lower leg with 2+ pedal edema present. Neurological exam: PRESENT: alert, awake, oriented to person, oriented to place, oriented to time, oriented to situation, CN II-XII grossly intact. ABSENT: motor sensory deficit Results Laboratory Results: 02/01/20 05:40 02/01/20 05:40 01/31/20 02/01/20 02/01/20 07:36 05:40 05:40 WBC 15.2 H RBC 3.03 L Hgb 8.8 L Hct 25.0 L MCV 82 MCH 29.1 MCHC 35.4 RDW 16.4 H Plt Count 405 Seg Neutrophils % Not Reportable Sodium 128.4 L Potassium 4.3 Chloride 96 L Carbon Dioxide 22 Anion Gap 10 BUN 32 H Creatinine 2.39 H Est GFR ( Amer) 34 L Glucose 144 H Calcium 7.4 L Total Bilirubin 1.4 H AST 19 Alkaline Phosphatase 102 Total Protein 6.1 L Albumin 2.3 L Blood Type O POSITIVE Antibody Screen NEGATIVE 01/27/20 15:15 Chest - Right Side Gram Stain - Final 01/27/20 15:15 Chest - Right Side Body Fluid Culture - Final NO AEROBIC OR ANAEROBIC ORGANISMS RECOVERED 01/24/20 01/28/20 01/30/20 08:25 05:45 03:05 Creatine Kinase 102 Troponin I 0.062 NT-Pro-B Natriuret Pep 60425 H 01/30/20 06:00 Creatine Kinase Troponin I 0.046 NT-Pro-B Natriuret Pep Impressions: Foot X-Ray 01/17/20 13:13 IMPRESSION: There appear to be diabetic foot changes. No osteomyelitis is seen. Findings as described. Marked soft tissue swelling. Tibia/Fibula X-Ray 01/17/20 13:14 IMPRESSION: Possible prior interosseous ligament disruption. No acute finding in either the tibia or the fibula. Abdomen/Pelvis CT 01/25/20 00:00 IMPRESSION: 1. LARGE PLEURAL EFFUSIONS. 2. NO SIGNIFICANT OR ACUTE ABDOMINAL PROCESS. Lung Scan-VQ NM 01/25/20 23:10 IMPRESSION: LOW PROBABILITY OF PULMONARY EMBOLISM. PICC Line Insertion 01/27/20 00:00 IMPRESSION: SUCCESSFUL PLACEMENT OF A 5 FR DUAL LUMEN 42 CM PICC IN THE RIGHT BASILIC VEIN. Thoracentesis Ultrasound 01/27/20 08:00 IMPRESSION: SUCCESSFUL RIGHT THORACENTESIS USING ULTRASOUND GUIDANCE. Chest CT 01/28/20 00:00 IMPRESSION: Small to moderate bilateral pleural effusions. Adjacent airspace disease both atelectatic and consolidated. Bibasilar pneumonia could have this appearance. No significant pulmonary edema. Chest X-Ray 01/28/20 00:00 IMPRESSION: Increasing left medial basilar consolidation. Venous Doppler Study 01/28/20 00:00 IMPRESSION: Deep venous thrombosis left superficial femoral vein distally extending to popliteal. This appearance is similar to prior. The presumed complex Lucio's cyst within the popliteal fossa appears larger on current when compared to prior. Assessment and Plan - Diagnosis (1) Acute kidney injury Is this a current diagnosis for this admission?: Yes Plan: Suspected to be secondary to vancomycin toxicity more likely and/or ATN from infection Nephrology is following - recommending continuation of daily Albumin and on minimal rate of saline We will monitor renal function closely. Urine output is improving 01/31/2020-serum creatinine is 2.36. Nonoliguric. Acute kidney injury most likely secondary to ATN from infection/vancomycin toxicity. 02/01/2020-serum creatinine today is 2.39. Stable. Estimated GFR is around 29. Nonoliguric. Nephrology on board. (2) Hyponatremia Is this a current diagnosis for this admission?: Yes Plan: Nephrology managing - tolvaptan administered today check chem 7 in am 01/31/2020-serum sodium is 125. Think IV gentle hydration and a tolvaptan.receiving gentle iv hydration and talvatan 02/01/2020-serum sodium today is 128. Improved from 125. On tolvaptan, Lasix at this time. IV fluids are discontinued. To discontinue tolvaptan for today and recheck the labs tomorrow. (3) Pleural effusion Is this a current diagnosis for this admission?: Yes Plan: At 850 cc of fluid removed from right lung 01/27/2020. CT showing small right-sided effusion but moderate size in the left lung. Likely secondary to third spacing from renal failure and hypoalbuminemia Given SOB especially when laying flat and chest tightness, I have scheduled US chest for tomorrow for re-evaluation and subsequent therapeutic thoracentesis. Heparin gtt to be held at midnight. 01/31/2020-patient has bilateral pleural effusions, thoracentesis was done on the right side is going for less likely a thoracentesis today. 02/01/2020-repeat PTT is pending. Based on the results patient may or may not go to left-sided thoracentesis today. Comfortably in the bed communicating well. Not in distress. CT chest without contrast was requested for further assessment of the bilateral pleural effusions. (4) Chest pain Qualifiers: Chest pain type: unspecified Qualified Code(s): R07.9 - Chest pain, unspecified Is this a current diagnosis for this admission?: Yes Plan: troponin minimally elevated without upward trend. Obtained a limited TTE today to evaluate to see if any evidence of right heart strain/PE from his DVT but the TTE shows no evidence of RV dilation/strain or pulmonary htn. The TTE did however picking supervisor an acute EF drop but was very poor visualization of LV so could be skewed. I have discussed with Dr. Smalls who will be seeing patient tomorrow and getting better echo windows. Of note patient informs me that has had negative stress tests in the past 01/31/2020-patient denies any chest pains today. Echocardiogram shows drop in EF from 60% on 01/19 to 45% yesterday. On examination scrotal edema, right lower extremity edema present. 02/01/2020-denies any chest pains at the time of my examination this morning. Significant drop in EF of more than 20% during this hospital stay. (5) Acute deep vein thrombosis (DVT) of right lower extremity Qualifiers: Affected thrombotic vein of extremity: femoral Qualified Code(s): I82.411 - Acute embolism and thrombosis of right femoral vein Is this a current diagnosis for this admission?: Yes Plan: Has been on heparin drip and maintained therapeutic PTTs. Large clot burden involving distal femoral and popliteal but does not seem to have progressed on repeat venous Doppler Has very good DP & PT pulses on doppler w/o evidence of compartment syndrome at this time. Still continues to experience significant pain in Right calf. I will put him on Percocet on some as needed morphine for breakthrough. Wound was evaluated by trading specialist. 01/31/20-patient has right lower leg DVT on heparin drip at this time. Patient may need IVC filter in a tertiary care facility. Heparin drip is on hold because the patient is going for thoracentesis today. 02/01/2020-patient is on heparin drip for right lower leg DVT, VQ scan is negative for pulmonary embolism. Heparin drip is on hold for possible need for left-sided thoracentesis today. 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 Currently seems like down no further plans for surgical intervention and surgery has signed off. MRSA Bacteremia- C/w Vancomycin - ID recommending 28 days duration starting from last debridement on 01/21. EOT of 02/18. TTE was technically suboptimal but did not show any vegetations 01/31/2020-patient has a left BKA. 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 Has MRSA bacteremia treated with vancomycin but it was on hold for vancomycin toxicity. 02/01/2020-patient has a left BKA. Has has a bacteremia. Patient is presently on IV vancomycin. Latest vancomycin trough is 15.6 on 01 27. (7) Anemia of chronic disease Is this a current diagnosis for this admission?: Yes Plan: Labs consistent with anemia of chronic disease. Actually not iron deficient on all. I suspect this is probably due to pain in the prolonged infected state carrying around that foot abscess for several months likely. Complicated by acute blood loss from amputation. Received transfusions during this admission. Will monitor 01/31/2020-hemoglobin is 7.0 today. To transfuse 2 units of PRBC. And to give Lasix in between the transfusions. 01/02/2020-patient received 2 units of PRBC yesterday. Latest hemoglobin is 8.8. Patient has anemia of chronic disease most likely secondary to CKD. (8) Hyperglycemia due to type 2 diabetes mellitus Qualifiers: Diabetes mellitus skilled nursing insulin use: without skilled nursing use Qualified Code(s): E11.65 - Type 2 diabetes mellitus with hyperglycemia Is this a current diagnosis for this admission?: Yes Plan: Takes metformin and very recently started on Jardiance at home - held Hemoglobin A1c is 9.2. Continue Lantus for now (9) CHF (congestive heart failure) Is this a current diagnosis for this admission?: Yes Plan: 01/31/2020-echocardiogram indicates EF of 40 to 45% with bilateral pleural effusions and pulmonary edema. Patient is acute congestive systolic heart failure 02/01/2020-latest echocardiogram shows EF between 40 to 45%. On examination scrotal edema present, right lower extremity edema present. - Time Anticipated Discharge Disposition: Halfway Facility Anticipated Discharge Timeframe: within 72 hours
[2020-02-01] MEDS: METOPROLOL SUCCINATE 25 MG TAB.SR.24H PO SCH ×2 (10:21→17:46)
[2020-02-01] MEDS: DOCUSATE SODIUM 100 MG CAPSULE PO SCH ×2 (10:21→17:46)
[2020-02-01] MEDS: LORAZEPAM 1 MG TABLET PO SCH ×2 (10:21→21:37)
[2020-02-01] MEDS: FUROSEMIDE INJ/PF 40 MG/4 ML SDV IV SCH (10:21)
[2020-02-01] MEDS: AMLODIPINE BESYLATE 5 MG TABLET PO SCH (10:21)
[2020-02-01] MEDS: POLYETHYLENE GLYCOL 3350 POWDER 17 GM/1 PACKET PO SCH (10:22)
[2020-02-01] MEDS: ALBUMIN HUMAN 12.5 GM/50 ML RTUINJ IV SCH (10:22)
[2020-02-01] MEDS: VANCOMYCIN HCL 750 MG in DEXTROSE 5%-WATER 250 ML IV SCH (10:26)
[2020-02-01] MEDS: INSULIN GLARGINE,HUM.REC.ANLOG 1,000 UNIT/10 ML VIAL SUBCUT SCH ×2 (10:29→21:37)
[2020-02-01 12:13] LABS: VANCOMYCIN,TROUGH 17.6 ug/mL (5.0-20.0)
[2020-02-01] MEDS ORDERED: NORMAL SALINE 10 ML SDV (AFTER EACH USE) IV PRN (19:00)
[2020-02-01] MEDS: TEMAZEPAM 7.5 MG CAPSULE PO SCH (21:37)
[2020-02-01] MEDS: NORMAL SALINE 10 ML SDV (SCHEDULED) IV SCH (22:57)
[2020-02-02] MEDS: MELATONIN 5 MG TABLET PO PRN (02:27)
[2020-02-02] MEDS: MORPHINE SULFATE 10 MG/ML INJ IV PRN ×2 (03:44→08:36)
[2020-02-02] MEDS: PANTOPRAZOLE SODIUM 40 MG TABLET.DR PO SCH (05:10)
[2020-02-02] MEDS: OXYCODONE-ACETAMINOPHEN 5-325 MG TABLET PO PRN ×2 (05:10→11:23)
[2020-02-02] MEDS: CLONIDINE HCL 0.2 MG TABLET PO SCH ×2 (05:11→13:03)
[2020-02-02 07:19] LABS: HEMATOCRIT 25.4 % (37.9-51.0); HEMOGLOBIN 8.7 g/dL (13.5-17.0); MEAN CORPUSCULAR HEMOGLOBIN 28.7 pg (27.0-33.4); MEAN CORPUSCULAR HGB CONC 34.4 g/dL (32.0-36.0); MEAN CORPUSCULAR VOLUME 83 fl (80-97); PLATELET COUNT 339 10^3/uL (150-450); RED BLOOD COUNT 3.05 10^6/uL (4.35-5.55); RED CELL DISTRIBUTION WIDTH 16.2 % (11.5-14.0); WHITE BLOOD COUNT 17.4 10^3/uL (4.0-10.5)
[2020-02-02 07:31] LABS: ALBUMIN 2.3 g/dL (3.5-5.0); ALKALINE PHOSPHATASE 107 U/L (38-126); ANION GAP 8 (5-19); ASPARTATE AMINO TRANSFERASE 19 U/L (17-59); BILIRUBIN,DIRECT 0.5 mg/dL (0.0-0.4); BILIRUBIN,TOTAL 0.9 mg/dL (0.2-1.3); BLOOD UREA NITROGEN 34 mg/dL (7-20); CALCIUM 7.8 mg/dL (8.4-10.2); CARBON DIOXIDE 24 mmol/L (22-30); CHLORIDE 96 mmol/L (98-107); GLUCOSE 147 mg/dL (75-110); POTASSIUM 4.2 mmol/L (3.6-5.0); TOTAL PROTEIN 6.2 g/dL (6.3-8.2)
[2020-02-02] MEDS: INSULIN LISPRO 100 UNIT/ML 3 ML VIAL SUBCUT SCH ×2 (08:37→11:30)
[2020-02-02] MEDS: TOLVAPTAN 15 MG TABLET PO SCH (08:37)
--- NOTE | 2020-02-02 08:43 | RADIOLOGY REPORT (SQ) ---
EXAM DESCRIPTION: CT CHEST WITHOUT IMAGES COMPLETED DATE/TIME: 02/01/2020 10:01 pm REASON FOR STUDY: b/l plural effusions COMPARISON: 01/28/2020 TECHNIQUE: CT scan performed of the chest without intravenous contrast. Images reviewed with lung, soft tissue and bone windows. Reconstructed coronal and sagittal MPR images reviewed. All images st ored on PACS. All CT scanners at this facility use dose modulation, iterative reconstruction, and/or weight based d osing when appropriate to reduce radiation dose to as low as reasonably achievable (ALARA). [facility]: Dose Right [facility]: CareDose [facility]: Dose Right [facility]: Teradose 4D [facility]: [employer] RADIATION DOSE: CT Rad equipment meets quality standard of care and radiation dose reduction techniq ues were employed. CTDIvol: 21.1 mGy. DLP: 850 mGy-cm. mGy. LIMITATIONS: No technical limitations. FINDINGS: Increasing pleural effusions with volume on the left estimated 500 cc and volume on the ri ght estimated 750 cc. No evidence of loculation. New patchy airspace disease in the middle lobe. The appearance is otherwise unchanged. IMPRESSION: Increasing pleural effusions. New airspace disease in the middle lobe. TECHNICAL DOCUMENTATION: JOB ID: [id number] Quality ID # [id number]: Final reports with documentation of one or more dose reduction techniques (e.g., Au tomated exposure control, adjustment of the mA and/or kV according to patient size, use of iterative reconstruction technique) 2010 [employer]- All Rights Reserved Reading location - IP/workstation name: [email or web address]
[2020-02-02 08:51] LABS: ABSOLUTE LYMPHOCYTES# (MANUAL) 0.9 10^3/uL (0.5-4.7); ABSOLUTE MONOCYTES # (MANUAL) 0.7 10^3/uL (0.1-1.4); BASOPHILS % (MANUAL) 0 % (0-2); EOSINOPHILS % (MANUAL) 1 % (0-6); LYMPHOCYTES % (MANUAL) 5 % (13-45); MONOCYTES % (MANUAL) 4 % (3-13); SEGMENTED NEUTROPHILS % (MAN) 90 % (42-78); TOTAL CELLS COUNTED 100
[2020-02-02 08:52] LABS: ANISOCYTOSIS 1+; PLATELET COMMENT ADEQUATE
[2020-02-02] MEDS: FUROSEMIDE INJ/PF 40 MG/4 ML SDV IV SCH (09:22)
[2020-02-02] MEDS: VANCOMYCIN HCL 750 MG in DEXTROSE 5%-WATER 250 ML IV SCH (09:23)
[2020-02-02] MEDS: POLYETHYLENE GLYCOL 3350 POWDER 17 GM/1 PACKET PO SCH (09:23)
[2020-02-02] MEDS: AMLODIPINE BESYLATE 5 MG TABLET PO SCH (09:26)
[2020-02-02] MEDS: LORAZEPAM 1 MG TABLET PO SCH (09:26)
[2020-02-02] MEDS: METOPROLOL SUCCINATE 25 MG TAB.SR.24H PO SCH (09:26)
[2020-02-02] MEDS: DOCUSATE SODIUM 100 MG CAPSULE PO SCH (09:26)
[2020-02-02] MEDS ORDERED: LORAZEPAM INJ 2 MG/1 ML VIAL IV PRN (09:27)
[2020-02-02] MEDS: NORMAL SALINE 10 ML SDV (SCHEDULED) IV SCH (09:27)
[2020-02-02] MEDS: INSULIN GLARGINE,HUM.REC.ANLOG 1,000 UNIT/10 ML VIAL SUBCUT SCH (09:28)
--- NOTE | 2020-02-02 09:33 | PDOC PROGRESS REPORT ---
Subjective Progress Note for:: 02/02/20 Subjective:: 54 year old male with history of diabetes mellitus, hypertension, left foot fracture 2 years ago with subsequent deformity, GERD, who presents to the hospital with complaints of persistent pain in his right lower extremity from the region of years right thigh just above the knee to mid rubalcava. Mostly involving the posterior side and his calves. Pain is worse on ambulation. He denies chronic neuropathy. Patient notably had ankle fracture 2 years ago and never got surgical operation needs to fix it. Since then he has developed significant deformity of his right foot now with Charcot Beckie joint. He sees a upholstery auto trimmer outpatient and had initially planned to get it fixed but was never done. On his most recent visit with his upholstery auto trimmer, they made the decision that he needed to get it amputated. He is hoping that I could be a below the knee amputation. He denies any pain in the region but the area is pretty much normal. He does have significant ecchymosis and fluctuance over his left foot. Patient also notes that he was feeling ill about 3 weeks ago with generalized malaise and occasional chills. At this time he went to his PCP at [facility] and was placed on antibiotics. Reviewing his external medications it seems that this was Levaquin. He completed a course of 7 days of antibiotics and told he may have the flu but states he was treated for kidney infection. He however states he was not having any urinary symptoms at that point. And also had a COVID 19 test done at [facility] 2 weeks ago according to him which came back negative. Still occasionally feels malaise and some chills but not spiking any fevers. He denies any respiratory symptoms. 01/31/[id number]-old male with a diabetes mellitus, hypertension, left BKA, g astroparesis reflux disease came in with complaints of right lower extremity pain found to have a DVT. Patient is started on heparin drip. Hemoglobin is 7. Echocardiogram done on 928 shows EF of 60%, repeat echocardiogram yesterday indicates EF of 40 to 45%. He is also hyponatremic receiving IV fluids and tolvaptan. Cardiology team is concerned about fluid overload think he needed dialysis. Per the nephrology team thinks patient need IV fluids. Patient also has a low albumin with anasarca with edema around the scrotum and right lower extremity. Patient has bilateral pleural effusions had a right-sided thoracentesis is going for left-sided thoracentesis. Dr. Smalls called me to notify that patient is overall prognosis poor needs to be transferred to tertiary care facility. I spoke to Dr. Harrison java software architect and agreed with my recommendation that patient need to go to a tertiary care center for IVC filter placement for right-sided DVT.: Called [facility] for transfer request. 02/01/2020-patient looks much better compared to yesterday. He received 2 units of PRBC yesterday. Latest hemoglobin is 8.8. Today's PTT is pending. Based on the results patient may may not go to left-sided thoracentesis today. Comfortably in the bed communicating well not on oxygen at the time of examination. Patient is requiring BiPAP during the night. Heparin drip is on hold for possible left-sided thoracentesis today. Serum sodium improved to 128. To discontinue IV fluids at this time. To continue tolvaptan to continue Lasix at this time. 02/02/2020-patient looks depressed. Expressing desire to go home today. CT scan of the chest indicates increasing bilateral pleural effusions. Fluid restriction was advised. To increase the Lasix to 40 mg IV twice a day. WBC count went up to 17,400 patient is afebrile. Blood pressure is 150/90. Patient is afebrile. Plan is to discontinue IV vancomycin from today. Reason For Visit: LEFT FOOT ABSCESS,CHAROT JOINT,SEPSIS Physical Exam Vital Signs: Temp Pulse Resp BP Pulse Ox 97.7 F 107 H 16 134/80 H 94 02/02/20 07:36 02/02/20 07:36 02/02/20 07:36 02/02/20 07:36 02/02/20 07:36 Intake & Output 02/01/20 02/02/20 02/03/20 06:59 06:59 06:59 Intake Total 3089 640 Output Total 3500 3800 Balance -411 -3160 Weight 121.1 kg 123 kg General appearance: PRESENT: no acute distress, cooperative, morbidly obese Head exam: PRESENT: atraumatic Eye exam: PRESENT: conjunctiva pale, PERRLA Mouth exam: PRESENT: moist, tongue midline Teeth exam: PRESENT: poor dentation Neck exam: PRESENT: JVD Respiratory exam: PRESENT: crackles, decreased breath sounds Cardiovascular exam: PRESENT: RRR. ABSENT: diastolic murmur, rubs, systolic murmur GI/Abdominal exam: PRESENT: normal bowel sounds, soft. ABSENT: distended, guarding, mass, organolmegaly, rebound, tenderness Rectal exam: PRESENT: deferred Extremities exam: PRESENT: other - Left BKA. Right lower leg edema persisting. Neurological exam: PRESENT: alert, awake, oriented to person, oriented to place, oriented to time, oriented to situation, CN II-XII grossly intact. ABSENT: motor sensory deficit Psychiatric exam: PRESENT: appropriate affect, normal mood. ABSENT: homicidal ideation, suicidal ideation Results Laboratory Results: 02/02/20 07:00 02/02/20 07:00 02/01/20 02/02/20 02/02/20 10:07 07:00 07:00 WBC 17.4 H RBC 3.05 L Hgb 8.7 L Hct 25.4 L MCV 83 MCH 28.7 MCHC 34.4 RDW 16.2 H Plt Count 339 Seg Neutrophils % Not Reportable Sodium 128.0 L Potassium 4.2 Chloride 96 L Carbon Dioxide 24 Anion Gap 8 BUN 34 H Creatinine 2.21 H 2.21 H Est GFR ( Amer) 37 L 37 L Glucose 147 H Calcium 7.8 L Total Bilirubin 0.9 AST 19 Alkaline Phosphatase 107 Total Protein 6.2 L Albumin 2.3 L 01/24/20 01/28/20 01/30/20 08:25 05:45 03:05 Creatine Kinase 102 Troponin I 0.062 NT-Pro-B Natriuret Pep 17039 H 01/30/20 02/02/20 06:00 07:00 Creatine Kinase Troponin I 0.046 NT-Pro-B Natriuret Pep 64960 H Impressions: Foot X-Ray 01/17/20 13:13 IMPRESSION: There appear to be diabetic foot changes. No osteomyelitis is seen. Findings as described. Marked soft tissue swelling. Tibia/Fibula X-Ray 01/17/20 13:14 IMPRESSION: Possible prior interosseous ligament disruption. No acute finding in either the tibia or the fibula. Abdomen/Pelvis CT 01/25/20 00:00 IMPRESSION: 1. LARGE PLEURAL EFFUSIONS. 2. NO SIGNIFICANT OR ACUTE ABDOMINAL PROCESS. Lung Scan-VQ NM 01/25/20 23:10 IMPRESSION: LOW PROBABILITY OF PULMONARY EMBOLISM. PICC Line Insertion 01/27/20 00:00 IMPRESSION: SUCCESSFUL PLACEMENT OF A 5 FR DUAL LUMEN 42 CM PICC IN THE RIGHT BASILIC VEIN. Thoracentesis Ultrasound 01/27/20 08:00 IMPRESSION: SUCCESSFUL RIGHT THORACENTESIS USING ULTRASOUND GUIDANCE. Chest X-Ray 01/28/20 00:00 IMPRESSION: Increasing left medial basilar consolidation. Venous Doppler Study 01/28/20 00:00 IMPRESSION: Deep venous thrombosis left superficial femoral vein distally extending to popliteal. This appearance is similar to prior. The presumed complex Lucio's cyst within the popliteal fossa appears larger on current when compared to prior. Chest CT 02/01/20 00:00 IMPRESSION: Increasing pleural effusions. New airspace disease in the middle lobe. Assessment and Plan - Diagnosis (1) Acute kidney injury Is this a current diagnosis for this admission?: Yes Plan: Suspected to be secondary to vancomycin toxicity more likely and/or ATN from infection Nephrology is following - recommending continuation of daily Albumin and on minimal rate of saline We will monitor renal function closely. Urine output is improving 01/31/2020-serum creatinine is 2.36. Nonoliguric. Acute kidney injury most likely secondary to ATN from infection/vancomycin toxicity. 02/01/2020-serum creatinine today is 2.39. Stable. Estimated GFR is around 29. Nonoliguric. Nephrology on board. 02/02/2020-creatinine today is 2.3. Stable. Nonoliguric. Nephrology is following the patient. (2) Hyponatremia Is this a current diagnosis for this admission?: Yes Plan: Nephrology managing - tolvaptan administered today check chem 7 in am 01/31/2020-serum sodium is 125. Think IV gentle hydration and a tolvaptan.receiving gentle iv hydration and talvatan 02/01/2020-serum sodium today is 128. Improved from 125. On tolvaptan, Lasix at this time. IV fluids are discontinued. To discontinue tolvaptan for today and recheck the labs tomorrow. 02/02/2020-serum sodium today is 128. On tolvaptan, Lasix 40 mg IV twice a day. Not on IV fluids. To increase the Lasix to 40 mg IV twice a day. CT scan of the chest indicate worsening of the bilateral pleural effusions. Daily weight and input output chart is requested. (3) Pleural effusion Is this a current diagnosis for this admission?: Yes Plan: At 850 cc of fluid removed from right lung 01/27/2020. CT showing small right-sided effusion but moderate size in the left lung. Likely secondary to third spacing from renal failure and hypoalbuminemia Given SOB especially when laying flat and chest tightness, I have scheduled US chest for tomorrow for re-evaluation and subsequent therapeutic thoracentesis. Heparin gtt to be held at midnight. 01/31/2020-patient has bilateral pleural effusions, thoracentesis was done on the right side is going for less likely a thoracentesis today. 02/01/2020-repeat PTT is pending. Based on the results patient may or may not go to left-sided thoracentesis today. Comfortably in the bed communicating well. Not in distress. CT chest without contrast was requested for further assessment of the bilateral pleural effusions. 02/02/2020-CT scan of the chest suggestive of worsening of the bilateral pleural effusions. Unable to do the thoracentesis because of the elevated PTT. (4) Chest pain Qualifiers: Chest pain type: unspecified Qualified Code(s): R07.9 - Chest pain, unspecified Is this a current diagnosis for this admission?: Yes Plan: troponin minimally elevated without upward trend. Obtained a limited TTE today to evaluate to see if any evidence of right heart strain/PE from his DVT but the TTE shows no evidence of RV dilation/strain or pulmonary htn. The TTE did however pick pulling machine operator an acute EF drop but was very poor visualization of LV so could be skewed. I have discussed with Dr. Smalls who will be seeing patient tomorrow and getting better echo windows. Of note patient informs me that has had negative stress tests in the past 01/31/2020-patient denies any chest pains today. Echocardiogram shows drop in EF from 60% on 01/19 to 45% yesterday. On examination scrotal edema, right lower extremity edema present. 02/01/2020-denies any chest pains at the time of my examination this morning. Significant drop in EF of more than 20% during this hospital stay. 02/02/2020-patient denies any chest pains this morning. (5) Acute deep vein thrombosis (DVT) of right lower extremity Qualifiers: Affected thrombotic vein of extremity: femoral Qualified Code(s): I82.411 - Acute embolism and thrombosis of right femoral vein Is this a current diagnosis for this admission?: Yes Plan: Has been on heparin drip and maintained therapeutic PTTs. Large clot burden involving distal femoral and popliteal but does not seem to have progressed on repeat venous Doppler Has very good DP & PT pulses on doppler w/o evidence of compartment syndrome at this time. Still continues to experience significant pain in Right calf. I will put him on Percocet on some as needed morphine for breakthrough. Wound was evaluated by peer support specialist. 01/31/20-patient has right lower leg DVT on heparin drip at this time. Patient may need IVC filter in a tertiary care facility. Heparin drip is on hold bec ause the patient is going for thoracentesis today. 02/01/2020-patient is on heparin drip for right lower leg DVT, VQ scan is negative for pulmonary embolism. Heparin drip is on hold for possible need for left-sided thoracentesis today. 02/02/20-patient has right-sided DVT, VQ scan negative for PE. Heparin drip on hold for a thoracentesis. 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 Currently seems like down no further plans for surgical intervention and surgery has signed off. MRSA Bacteremia- C/w Vancomycin - ID recommending 28 days duration starting from last debridement on 01/21. EOT of 02/18. TTE was technically suboptimal but did not show any vegetations 01/31/2020-patient has a left BKA. 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 Has MRSA bacteremia treated with vancomycin but it was on hold for vancomycin toxicity. 02/01/2020-patient has a left BKA. Has has a bacteremia. Patient is presently on IV vancomycin. Latest vancomycin trough is 15.6 on 01/27. (7) Anemia of chronic disease Is this a current diagnosis for this admission?: Yes Plan: Labs consistent with anemia of chronic disease. Actually not iron deficient on all. I suspect this is probably due to pain in the prolonged infected state carrying around that foot abscess for several months likely. Complicated by acute blood loss from amputation. Received transfusions during this admission. Will monitor 01/31/2020-hemoglobin is 7.0 today. To transfuse 2 units of PRBC. And to give Lasix in between the transfusions. 02/01/2020-patient received 2 units of PRBC yesterday. Latest hemoglobin is 8.8. Patient has anemia of chronic disease most likely secondary to CKD. 02/02/2020-latest hemoglobin is 8.7. Stable. Patient has history of anemia of chronic disease. (8) Hyperglycemia due to type 2 diabetes mellitus Qualifiers: Diabetes mellitus detention insulin use: without terminal make up operator use Qualified Code(s): E11.65 - Type 2 diabetes mellitus with hyperglycemia Is this a current diagnosis for this admission?: Yes Plan: Takes metformin and very recently started on Jardiance at home - held Hemoglobin A1c is 9.2. Continue Lantus for now 02/02/2020-hemoglobin A1c is 9.2. Latest blood sugar is 159. Plan is to continue insulin sliding scale before meals and at bedtime and Lantus. Dietary consult was provided. (9) CHF (congestive heart failure) Is this a current diagnosis for this admission?: Yes Plan: 01/31/2020-echocardiogram indicates EF of 40 to 45% with bilateral pleural effusions and pulmonary edema. Patient is acute congestive systolic heart failure 02/01/2020-latest echocardiogram shows EF between 40 to 45%. On examination scrotal edema present, right lower extremity edema present. 02/02/2020-placed on fluid restriction 1500 cc/day. On tolvaptan, Lasix [address] scan indicate of worsening of the bilateral pleural effusions. Plan is to increase the Lasix to 40 mg IV twice a day. - Time Anticipated Discharge Disposition: Snf Facility Anticipated Discharge Timeframe: within 72 hours
[2020-02-02] MEDS: ALBUMIN HUMAN 12.5 GM/50 ML RTUINJ IV SCH ×2 (11:34→12:04)
--- NOTE | 2020-02-02 12:38 | PDOC TRANSFER SUMMARY ---
General Admission Date/PCP: 01/17/20 16:53 Resuscitation Status: Full Code - Transfer Diagnosis (1) Acute kidney injury Is this a current diagnosis for this admission?: Yes (2) Hyponatremia Is this a current diagnosis for this admission?: Yes (3) Pleural effusion Is this a current diagnosis for this admission?: Yes (4) Chest pain Is this a current diagnosis for this admission?: Yes (5) Acute deep vein thrombosis (DVT) of right lower extremity Is this a current diagnosis for this admission?: Yes (6) Abscess of left foot Is this a current diagnosis for this admission?: Yes (7) Anemia of chronic disease Is this a current diagnosis for this admission?: Yes (8) Hyperglycemia due to type 2 diabetes mellitus Is this a current diagnosis for this admission?: Yes (9) CHF (congestive heart failure) Is this a current diagnosis for this admission?: Yes - Transfer Medications Home Medications: Clonidine HCl 0.3 mg PO QIDP PRN 01/17/20 Diazepam [Valium 5 mg Tablet] 5 mg PO BID 01/17/20 Empagliflozin [Jardiance] 10 mg PO DAILY 01/17/20 Hydrochlorothiazide 12.5 mg PO DAILY 01/17/20 Hydrocodone/Acetaminophen [[place] 5-325 mg Tablet] 2 tab PO BIDP PRN 01/17/20 Levofloxacin [Levaquin 500 mg Tablet] 500 mg PO DAILY 01/17/20 Losartan Potassium 100 mg PO DAILY 01/17/20 Metoprolol Succinate [Toprol Xl 25 mg Tab.sr] 25 mg PO BID 01/17/20 Transfer Medications: Current Medications Al Hydrox/Mg Hydrox/Simethicone (Maalox Plus Susp 30 Udcup) 15 ml PO Q6HP PRN PRN Reason: HEARTBURN Stop: 02/16/20 16:51 Amlodipine Besylate (Norvasc 5 Mg Tablet) 5 mg PO DAILY WOJCIECH Stop: 02/24/20 09:59 Last Admin: 02/02/20 09:26 Dose: 5 mg Documented by: Clonidine (Catapres 0.2 Mg Tablet) 0.2 mg PO Q8 WOJCIECH Stop: 02/24/20 13:59 Last Admin: 02/02/20 05:11 Dose: 0.2 mg Documented by: Dextrose (Dextrose Inj 50% Syringe (25 Gm/50 Ml)) 12.5 gm IV PRN PRN; Protocol PRN Reason: FOR BG 50-69 IN ALERT PATIENT Stop: 02/16/20 16:57 Dextrose (Dextrose Inj 50% Syringe (25 Gm/50 Ml)) 25 gm IV PRN PRN; Protocol PRN Reason: PER PROTOCOL Stop: 02/16/20 16:57 Docusate Sodium (Colace 100 Mg Capsule) 100 mg PO BID WOJCIECH Stop: 02/17/20 17:59 Last Admin: 02/02/20 09:26 Dose: 100 mg Documented by: Furosemide (Lasix Inj/Pf 40 Mg/4 Ml Sdv) 40 mg IV BID WOJCIECH Stop: 03/03/20 17:59 Glucagon (Glucagen Inj 1 Mg Vial) 1 mg IM PRN PRN; Protocol PRN Reason: Evaluate for BG < 70 Stop: 02/16/20 16:57 Glucose (Glutose 40% Gel 15 Gm Tube) 15 gm PO PRN PRN; Protocol PRN Reason: FOR BG 50-69 IN ALERT PATIENT Stop: 02/16/20 16:57 Glucose (Glutose 40% Gel 15 Gm Tube) 30 gm PO PRN PRN; Protocol PRN Reason: FOR BG < 50 IN ALERT PATIENT Stop: 02/16/20 16:57 Guaifenesin (Robitussin Syrup 200 Mg/10 Ml Ud Cup) 200 mg PO Q4HP PRN PRN Reason: COUGH Stop: 02/24/20 17:55 Heparin Sodium (Porcine) (Heparin Inj 1,000 Unit/Ml 10 Ml Vial) 0 - 12,000 unit IV .BOLUS PER PROTOCOL PRN; Protocol PRN Reason: RESPOND TO aPTT VALUE Stop: 02/26/20 22:57 Heparin Sodium (Porcine) (Heparin Flush 10 Unit/Ml 5 Ml Disp.Syrg) 30 unit IV Q12 WOJCIECH Stop: 03/02/20 21:59 Last Admin: 02/02/20 09:23 Dose: 30 unit Documented by: Heparin Sodium (Porcine) (Heparin Flush 10 Unit/Ml 5 Ml Disp.Syrg) 30 unit IV .AFTER EACH USE PRN Stop: 03/02/20 18:59 Heparin Sodium/Dextrose (Heparin Rtu 25,000 Unit/250 Ml D5w Premix) 25,000 unit in 250 mls @ 0 mls/hr IV CONTINUOUS PRN; Protocol PRN Reason: THIS MED IS NOT "PRN" Stop: 02/26/20 22:57 Last Titration: 01/31/20 00:19 Dose: 0 mls/hr, 0 mls/hr Documented by: Albumin Human (Albuminar-25 Rtu Inj 12.5 Gm/50 Ml Premix) 12.5 gm in 50 mls @ 50 mls/hr IV Q1H [facility] Stop: 02/02/20 12:59 Last Admin: 02/02/20 12:04 Dose: 50 mls/hr, 50 mls/hr Documented by: Insulin Glargine (Lantus Insulin 100 Unit/1 Ml 10 Ml) 10 unit SUBCUT Q12 [facility] Stop: 02/18/20 09:59 Last Admin: 02/02/20 09:28 Dose: Not Given Documented by: Insulin Human Lispro (Humalog Insulin 100 Unit/1 Ml 3 Ml Vial) 0 - 12 unit S UBCUT ACHS [facility]; Protocol Stop: 02/17/20 15:59 Last Admin: 02/02/20 11:30 Dose: 4 unit Documented by: Lactulose (Cephulac Syrup 20 Gm/30 Ml Udcup) 10 gm PO DAILYP PRN PRN Reason: Constipation Stop: 02/22/20 15:17 Last Admin: 01/31/20 06:12 Dose: 10 gm Documented by: Levalbuterol HCl (Xopenex Neb 0.63 Mg/3 Ml Ampul) 0.63 mg NEB RTQ2HP PRN PRN Reason: SHORTNESS OF BREATH Stop: 02/26/20 01:44 Last Admin: 01/30/20 20:31 Dose: 0.63 mg Documented by: Lorazepam (Ativan Inj 2 Mg/1 Ml Vial) 1 mg IV Q4HP PRN PRN Reason: ANXIETY/AGITATION Stop: 02/09/20 09:26 Melatonin (Melatonin 5 Mg Tablet) 5 mg PO HSP PRN PRN Reason: INSOMNIA Stop: 02/17/20 00:39 Last Admin: 02/02/20 02:27 Dose: 5 mg Documented by: Metoprolol Succinate (Toprol Xl 25 Mg Tab.Sr) 37.5 mg PO BID [facility] Stop: 02/25/20 17:59 Last Admin: 02/02/20 09:26 Dose: 37.5 mg Documented by: Morphine Sulfate (Morphine 10 Mg/Ml Inj) 2 mg IV Q4HP PRN PRN Reason: FOR BREAKTHROUGH PAIN Stop: 02/06/20 14:18 Last Admin: 02/02/20 08:36 Dose: 2 mg Documented by: Nitroglycerin (Nitrostat 0.4 Mg (1/150 Gr) Tabs 25/Bottle) 1 tab SL Q5MP PRN PRN Reason: CHEST PAIN Stop: 02/29/20 09:58 Last Admin: 01/30/20 18:08 Dose: 1 tab Documented by: Oxycodone/Acetaminophen (Percocet 5-325 Mg Tablet) 2 tab PO Q6HP PRN PRN Reason: FOR PAIN SCALE 3-5 Stop: 02/06/20 17:40 Last Admin: 02/02/20 11:23 Dose: 2 tab Documented by: Pantoprazole Sodium (Protonix [address] Tablet) 40 mg PO Q6AM WOJCIECH Stop: 02/17/20 05:59 Last Admin: 02/02/20 05:10 Dose: 40 mg Documented by: Polyethylene Glycol (Miralax Powder 17 Gm/Packet) 17 gm PO DAILY WOJCIECH Stop: 03/01/20 09:59 Last Admin: 02/02/20 09:23 Dose: 17 gm Documented by: Sodium Chloride (Nacl 0.9% Inj/Pf 10 Ml Sdv) 10 ml IV Q12 WOJCIECH Stop: 03/02/20 21:59 Last Admin: 02/02/20 09:27 Dose: 10 ml Documented by: Sodium Chloride (Nacl 0.9% Inj/Pf 10 Ml Sdv) 10 ml IV .AFTER EACH USE PRN Stop: 03/02/20 18:59 Temazepam (Restoril 7.5 Mg Capsule) 7.5 mg PO QHS WOJCIECH Stop: 02/06/20 21:59 Last Admin: 02/01/20 21:37 Dose: 7.5 mg Documented by: Throat Lozenges (Chloraseptic Sore Throat Lozenge) 1 each BUCCAL Q4HP PRN PRN Reason: FOR SORE THROAT Stop: 02/24/20 17:55 Tolvaptan (Samsca 15 Mg Tablet) 15 mg PO QAM WOJCIECH Stop: 02/04/20 12:29 Last Admin: 02/02/20 08:37 Dose: 15 mg Documented by: - Allergies Allergies/Adverse Reactions: Penicillins Allergy (Verified 01/17/20 11:49) Hospital Course Hospital Course: 54 year old male with history of diabetes mellitus, hypertension, left foot fracture 2 years ago with subsequent deformity, GERD, who presents to the hospital with complaints of persistent pain in his right lower extremity from the region of years right thigh just above the knee to mid rubalcava. Mostly involving the posterior side and his calves. Pain is worse on ambulation. He denies chronic neuropathy. Patient notably had ankle fracture 2 years ago and never got surgical operation needs to fix it. Since then he has developed significant deformity of his right foot now with Charcot Beckie joint. He sees a golf course designer outpatient and had initially planned to get it fixed but was never done. On his most recent visit with his golf course designer, they made the decision that he needed to get it amputated. He is hoping that I could be a below the knee amputation. He denies any pain in the region but the area is pretty much normal. He does have significant ecchymosis and fluctuance over his left foot. Patient also notes that he was feeling ill about 3 weeks ago with generalized malaise and occasional chills. At this time he went to his PCP at [facility] and was placed on antibiotics. Reviewing his external medications it seems that this was Levaquin. He completed a course of 7 days of antibiotics and told he may have the flu but states he was treated for kidney infection. He however states he was not having any urinary symptoms at that point. And also had a COVID 19 test done at [facility] 2 weeks ago according to him which came back negative. Still occasionally feels malaise and some chills but not spiking any fevers. He denies any respiratory symptoms. 01/31/[id number]-yzgu-[id number] male with a diabetes mellitus, hypertension, left BKA, gastroparesis reflux disease came in with complaints of right lower extremity pain found to have a DVT. Patient is started on heparin drip. Hemoglobin is 7. Echocardiogram done on 928 shows EF of 60%, repeat echocardiogram yesterday indicates EF of 40 to 45%. He is also hyponatremic receiving IV fluids and tolvaptan. Cardiology team is concerned about fluid overload think he needed dialysis. Per the nephrology team thinks patient need IV fluids. Patient also has a low albumin with anasarca with edema around the scrotum and right lower extremity. Patient has bilateral pleural effusions had a right-sided thoracentesis is going for left-sided thoracentesis. Dr. Smalls called me to notify that patient is overall prognosis poor needs to be transferred to tertiary care facility. I spoke to Dr. Harrison captain assistant and agreed with my recommendation that patient need to go to a tertiary care center for IVC filter placement for right-sided DVT.: Called [facility] for transfer request. 02/01/2020-patient looks much better compared to yesterday. He received 2 units of PRBC yesterday. Latest hemoglobin is 8.8. Today's PTT is pending. Based on the results patient may may not go to left-sided thoracentesis today. Comfortably in the bed communicating well not on oxygen at the time of examination. Patient is requiring BiPAP during the night. Heparin drip is on hold for possible left-sided thoracentesis today. Serum sodium improved to 128. To discontinue IV fluids at this time. To continue tolvaptan to continue Lasix at this time. 02/02/2020-patient looks depressed. Expressing desire to go home today. CT scan of the chest indicates increasing bilateral pleural effusions. Fluid restriction was advised. To increase the Lasix to 40 mg IV twice a day. WBC count went up to 17,400 patient is afebrile. Blood pressure is 150/90. Patient is afebrile. Plan is to discontinue IV vancomycin from today. Reason For Visit: LEFT FOOT ABSCESS,CHAROT JOINT,SEPSIS Physical Exam Vital Signs: Temp Pulse Resp BP Pulse Ox 97.7 F 107 H 16 134/80 H 94 02/02/20 07:36 02/02/20 07:36 02/02/20 07:36 02/02/20 07:36 02/02/20 07:36 Intake & Output 02/01/20 02/02/20 02/03/20 06:59 06:59 06:59 Intake Total 3089 640 Output Total 3500 3800 Balance -411 -3160 Weight 121.1 kg 123 kg General appearance: PRESENT: no acute distress, cooperative, morbidly obese Head exam: PRESENT: atraumatic Eye exam: PRESENT: conjunctiva pale, PERRLA Mouth exam: PRESENT: moist, tongue midline Teeth exam: PRESENT: poor dentation Neck exam: PRESENT: JVD Respiratory exam: PRESENT: crackles, decreased breath sounds Cardiovascular exam: PRESENT: RRR. ABSENT: diastolic murmur, rubs, systolic murmur GI/Abdominal exam: PRESENT: normal bowel sounds, soft. ABSENT: distended, guarding, mass, organolmegaly, rebound, tenderness Rectal exam: PRESENT: deferred Extremities exam: PRESENT: other - Left BKA. Right lower leg edema persisting. Neurological exam: PRESENT: alert, awake, oriented to person, oriented to place, oriented to time, oriented to situation, CN II-XII grossly intact. ABSENT: motor sensory deficit Psychiatric exam: PRESENT: appropriate affect, normal mood. ABSENT: homicidal ideation, suicidal ideation Results Laboratory Results: 02/02/20 07:00 02/02/20 07:00 02/01/20 02/02/20 02/02/20 10:07 07:00 07:00 WBC 17.4 H RBC 3.05 L Hgb 8.7 L Hct 25.4 L MCV 83 MCH 28.7 MCHC 34.4 RDW 16.2 H Plt Count 339 Seg Neutrophils % Not Reportable Sodium 128.0 L Potassium 4.2 Chloride 96 L Carbon Dioxide 24 Anion Gap 8 BUN 34 H Creatinine 2.21 H 2.21 H Est GFR ( Amer) 37 L 37 L Glucose 147 H Calcium 7.8 L Total Bilirubin 0.9 AST 19 Alkaline Phosphatase 107 Total Protein 6.2 L Albumin 2.3 L 01/24/20 01/28/20 01/30/20 08:25 05:45 03:05 Creatine Kinase 102 Troponin I 0.062 NT-Pro-B Natriuret Pep 41652 H 01/30/20 02/02/20 06:00 07:00 Creatine Kinase Troponin I 0.046 NT-Pro-B Natriuret Pep 53123 H Impressions: Foot X-Ray 01/17/20 13:13 IMPRESSION: There appear to be diabetic foot changes. No osteomyelitis is seen. Findings as described. Marked soft tissue swelling. Tibia/Fibula X-Ray 01/17/20 13:14 IMPRESSION: Possible prior interosseous ligament disruption. No acute finding in either the tibia or the fibula. Abdomen/Pelvis CT 01/25/20 00:00 IMPRESSION: 1. LARGE PLEURAL EFFUSIONS. 2. NO SIGNIFICANT OR ACUTE ABDOMINAL PROCESS. Lung Scan-VQ NM 01/25/20 23:10 IMPRESSION: LOW PROBABILITY OF PULMONARY EMBOLISM. PICC Line Insertion 01/27/20 00:00 IMPRESSION: SUCCESSFUL PLACEMENT OF A 5 FR DUAL LUMEN 42 CM PICC IN THE RIGHT BASILIC VEIN. Thoracentesis Ultrasound 01/27/20 08:00 IMPRESSION: SUCCESSFUL RIGHT THORACENTESIS USING ULTRASOUND GUIDANCE. Chest X-Ray 01/28/20 00:00 IMPRESSION: Increasing left medial basilar consolidation. Venous Doppler Study 01/28/20 00:00 IMPRESSION: Deep venous thrombosis left superficial femoral vein distally extending to popliteal. This appearance is similar to prior. The presumed complex Lucio's cyst within the popliteal fossa appears larger on current when compared to prior. Chest CT 02/01/20 00:00 IMPRESSION: Increasing pleural effusions. New airspace disease in the middle lobe. Assessment and Plan - Diagnosis (1) Acute kidney injury Is this a current diagnosis for this admission?: Yes Plan: Suspected to be secondary to vancomycin toxicity more likely and/or ATN from infection Nephrology is following - recommending continuation of daily Albumin and on minimal rate of saline We will monitor renal function closely. Urine output is improving 01/31/2020-serum creatinine is 2.36. Nonoliguric. Acute kidney injury most likely secondary to ATN from infection/vancomycin toxicity. 02/01/2020-serum creatinine today is 2.39. Stable. Estimated GFR is around 29. Nonoliguric. Nephrology on board. 02/02/2020-creatinine today is 2.3. Stable. Nonoliguric. Nephrology is following the patient. 02/02/2020-creatinine today is 2.2. Nonoliguric. Patient is accepted to [facility] for further management. We do not have any nephrology services during this weekend. (2) Hyponatremia Is this a current diagnosis for this admission?: Yes Plan: Nephrology managing - tolvaptan administered today check chem 7 in am 01/31/2020-serum sodium is 125. Think IV gentle hydration and a tolvaptan.receiving gentle iv hydration and talvatan 02/01/2020-serum sodium today is 128. Improved from 125. On tolvaptan, Lasix at this time. IV fluids are discontinued. To discontinue tolvaptan for today and recheck the labs tomorrow. 02/02/2020-serum sodium today is 128. On tolvaptan, Lasix 40 mg IV twice a day. Not on IV fluids. To increase the Lasix to 40 mg IV twice a day. CT scan of the chest indicate worsening of the bilateral pleural effusions. Daily weight and input output chart is requested. 02/02/2020-patient is accepted to [facility] for further management. (3) Pleural effusion Is this a current diagnosis for this admission?: Yes Plan: At 850 cc of fluid removed from right lung 01/27/2020. CT showing small right-sided effusion but moderate size in the left lung. Likely secondary to third spacing from renal failure and hypoalbuminemia Given SOB especially when laying flat and chest tightness, I have scheduled US chest for tomorrow for re-evaluation and subsequent therapeutic thoracentesis. Heparin gtt to be held at midnight. 01/31/2020-patient has bilateral pleural effusions, thoracentesis was done on the right side is going for less likely a thoracentesis today. 02/01/2020-repeat PTT is pending. Based on the results patient may or may not go to left-sided thoracentesis today. Comfortably in the bed communicating well. Not in distress. CT chest without contrast was requested for further assessment of the bilateral pleural effusions. 02/02/2020-CT scan of the chest suggestive of worsening of the bilateral pleural effusions. Unable to do the thoracentesis because of the elevated PTT. (4) Chest pain Qualifiers: Chest pain type: unspecified Qualified Code(s): R07.9 - Chest pain, unspecified Is this a current diagnosis for this admission?: Yes Plan: troponin minimally elevated without upward trend. Obtained a limited TTE today to evaluate to see if any evidence of right heart strain/PE from his DVT but the TTE shows no evidence of RV dilation/strain or pu lmonary htn. The TTE did however tow picker an acute EF drop but was very poor visualization of LV so could be skewed. I have discussed with Dr. Smalls who will be seeing patient tomorrow and getting better echo windows. Of note patient informs me that has had negative stress tests in the past 01/31/2020-patient denies any chest pains today. Echocardiogram shows drop in EF from 60% on 01/19 to 45% yesterday. On examination scrotal edema, right lower extremity edema present. 02/01/2020-denies any chest pains at the time of my examination this morning. Significant drop in EF of more than 20% during this hospital stay. 02/02/2020-patient denies any chest pains this morning. (5) Acute deep vein thrombosis (DVT) of right lower extremity Qualifiers: Affected thrombotic vein of extremity: femoral Qualified Code(s): I82.411 - Acute embolism and thrombosis of right femoral vein Is this a current diagnosis for this admission?: Yes Plan: Has been on heparin drip and maintained therapeutic PTTs. Large clot burden involving distal femoral and popliteal but does not seem to have progressed on repeat venous Doppler Has very good DP & PT pulses on doppler w/o evidence of compartment syndrome at this time. Still continues to experience significant pain in Right calf. I will put him on Percocet on some as needed morphine for breakthrough. Wound was evaluated by child protective services specialist. 01/31/20-patient has right lower leg DVT on heparin drip at this time. Patient may need IVC filter in a tertiary care facility. Heparin drip is on hold because the patient is going for thoracentesis today. 02/01/2020-patient is on heparin drip for right lower leg DVT, VQ scan is negative for pulmonary embolism. Heparin drip is on hold for possible need for left-sided thoracentesis today. 02/02/20-patient has right-sided DVT, VQ scan negative for PE. Heparin drip on hold for a thoracentesis. 02/02/2020-PTT is 57 today. Not on heparin drip for the last 3 days. Unable to do the thoracentesis because of the elevated PTT. 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 Currently seems like down no further plans for surgical intervention and surgery has signed off. MRSA Bacteremia- C/w Vancomycin - ID recommending 28 days duration starting from last debridement on 01/21. EOT of 02/18. TTE was technically suboptimal but did not show any vegetations 01/31/2020-patient has a left BKA. 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 Has MRSA bacteremia treated with vancomycin but it was on hold for vancomycin toxicity. 02/01/2020-patient has a left BKA. Has has a bacteremia. Patient is presently on IV vancomycin. Latest vancomycin trough is 15.6 on 01/27. 02/02/2020-latest WBC count is 17,400. Afebrile. Blood pressure stable. Recent blood cultures are negative. IV antibiotics are discontinued. (7) Anemia of chronic disease Is this a current diagnosis for this admission?: Yes Plan: Labs consistent with anemia of chronic disease. Actually not iron deficient on all. I suspect this is probably due to pain in the prolonged infected state carrying around that foot abscess for several months likely. Complicated by acute blood loss from amputation. Received transfusions during this admission. Will monitor 01/31/2020-hemoglobin is 7.0 today. To transfuse 2 units of PRBC. And to give Lasix in between the transfusions. 02/01/2020-patient received 2 units of PRBC yesterday. Latest hemoglobin is 8.8. Patient has anemia of chronic disease most likely secondary to CKD. 02/02/2020-latest hemoglobin is 8.7. Stable. Patient has history of anemia of chronic disease. (8) Hyperglycemia due to type 2 diabetes mellitus Qualifiers: Diabetes mellitus terminal operator insulin use: without terminal operator use Qualified Code(s): E11.65 - Type 2 diabetes mellitus with hyperglycemia Is this a current diagnosis for this admission?: Yes Plan: Takes metformin and very recently started on Jardiance at home - held Hemoglobin A1c is 9.2. Continue Lantus for now 02/02/2020-hemoglobin A1c is 9.2. Latest blood sugar is 159. Plan is to continue insulin sliding scale before meals and at bedtime and Lantus. Dietary consult was provided. (9) CHF (congestive heart failure) Is this a current diagnosis for this admission?: Yes Plan: 01/31/2020-echocardiogram indicates EF of 40 to 45% with bilateral pleural effusions and pulmonary edema. Patient is acute congestive systolic heart failure 02/01/2020-latest echocardiogram shows EF between 40 to 45%. On examination scrotal edema present, right lower extremity edema present. 02/02/2020-placed on fluid restriction 1500 cc/day. On tolvaptan, Lasix [address] scan indicate of worsening of the bilateral pleural effusions. Plan is to increase the Lasix to 40 mg IV twice a day. 02/02/2020-patient is accepted to [facility] for further management. Physical Exam Vital Signs: Temp Pulse Resp BP Pulse Ox 97.7 F 114 H 24 H 134/80 H 95 02/02/20 10:00 02/02/20 08:50 02/02/20 08:50 02/02/20 07:36 02/02/20 08:50 Intake & Output 02/01/20 02/02/20 02/03/20 06:59 06:59 06:59 Intake Total 3089 640 275 Output Total 3500 3800 Balance -411 -3160 275 Weight 121.1 kg 123 kg General appearance: PRESENT: no acute distress, cooperative, morbidly obese Head exam: PRESENT: atraumatic Eye exam: PRESENT: conjunctiva pale, PERRLA Mouth exam: PRESENT: neck supple Teeth exam: PRESENT: poor dentation Neck exam: PRESENT: JVD Respiratory exam: PRESENT: crackles, decreased breath sounds Cardiovascular exam: PRESENT: tachycardia GI/Abdominal exam: PRESENT: normal bowel sounds, soft. ABSENT: distended, guarding, mass, organolmegaly, rebound, tenderness Rectal exam: PRESENT: deferred Gentrourinary exam: PRESENT: other - scrotal edema Extremities exam: PRESENT: other - lt bka/ rt lower edema 1 plus Neurological exam: PRESENT: alert, awake, oriented to person, oriented to place, oriented to time, oriented to situation, CN II-XII grossly intact. ABSENT: mo tor sensory deficit Psychiatric exam: PRESENT: appropriate affect, normal mood. ABSENT: homicidal ideation, suicidal ideation Results Laboratory Results: 02/02/20 07:00 02/02/20 07:00 02/02/20 02/02/20 07:00 07:00 WBC 17.4 H RBC 3.05 L Hgb 8.7 L Hct 25.4 L MCV 83 MCH 28.7 MCHC 34.4 RDW 16.2 H Plt Count 339 Seg Neutrophils % Not Reportable Sodium 128.0 L Potassium 4.2 Chloride 96 L Carbon Dioxide 24 Anion Gap 8 BUN 34 H Creatinine 2.21 H Est GFR ( Amer) 37 L Glucose 147 H Calcium 7.8 L Total Bilirubin 0.9 AST 19 Alkaline Phosphatase 107 Total Protein 6.2 L Albumin 2.3 L 01/24/20 01/28/20 01/30/20 08:25 05:45 03:05 Creatine Kinase 102 Troponin I 0.062 NT-Pro-B Natriuret Pep 30400 H 01/30/20 02/02/20 06:00 07:00 Creatine Kinase Troponin I 0.046 NT-Pro-B Natriuret Pep 00412 H Impressions: Foot X-Ray 01/17/20 13:13 IMPRESSION: There appear to be diabetic foot changes. No osteomyelitis is seen. Findings as described. Marked soft tissue swelling. Tibia/Fibula X-Ray 01/17/20 13:14 IMPRESSION: Possible prior interosseous ligament disruption. No acute finding in either the tibia or the fibula. Abdomen/Pelvis CT 01/25/20 00:00 IMPRESSION: 1. LARGE PLEURAL EFFUSIONS. 2. NO SIGNIFICANT OR ACUTE ABDOMINAL PROCESS. Lung Scan-VQ NM 01/25/20 23:10 IMPRESSION: LOW PROBABILITY OF PULMONARY EMBOLISM. PICC Line Insertion 01/27/20 00:00 IMPRESSION: SUCCESSFUL PLACEMENT OF A 5 FR DUAL LUMEN 42 CM PICC IN THE RIGHT BASILIC VEIN. Thoracentesis Ultrasound 01/27/20 08:00 IMPRESSION: SUCCESSFUL RIGHT THORACENTESIS USING ULTRASOUND GUIDANCE. Chest X-Ray 01/28/20 00:00 IMPRESSION: Increasing left medial basilar consolidation. Venous Doppler Study 01/28/20 00:00 IMPRESSION: Deep venous thrombosis left superficial femoral vein distally extending to popliteal. This appearance is similar to prior. The presumed complex Lucio's cyst within the popliteal fossa appears larger on current when compared to prior. Chest CT 02/01/20 00:00 IMPRESSION: Increasing pleural effusions. New airspace disease in the middle lobe. Plan Discharge Plan: pt is accepted to [facility]. Time Spent: Greater than 30 Minutes
[2020-02-02 13:48] VITALS: BP 146/86
[2020-02-02] MEDS ORDERED: FUROSEMIDE INJ/PF 40 MG/4 ML SDV IV SCH (18:00)
== END 2020-02-02 14:54 | disposition short-term general hospital (02) | DRG 616 ==
LOC: ER 10:21 → EH 16:53 → 3S 21:04
PROVIDERS: ADMIT Internal Medicine; ATTEND Internal Medicine
PROC: 30233N1 Transfusion of Nonautologous Red Blood Cells into Peripheral Vein, Percutaneous Approach (ICD-10-PCS; 2020-01-17)
PROC: 0Y6J0Z3 Detachment at Left Lower Leg, Low, Open Approach (ICD-10-PCS; principal; 2020-01-17 18:45)
PROC: 0JBP0ZZ Excision of Left Lower Leg Subcutaneous Tissue and Fascia, Open Approach (ICD-10-PCS; 2020-01-20)
PROC: B24BZZZ Ultrasonography of Heart with Aorta (ICD-10-PCS; 2020-01-20)
PROC: 0Y6J0Z1 Detachment at Left Lower Leg, High, Open Approach (ICD-10-PCS; 2020-01-22)
PROC: 0W993ZX Drainage of Right Pleural Cavity, Percutaneous Approach, Diagnostic (ICD-10-PCS; 2020-01-27)
PROC: 02HV33Z Insertion of Infusion Device into Superior Vena Cava, Percutaneous Approach (ICD-10-PCS; 2020-01-27)
PROC: B548ZZA Ultrasonography of Superior Vena Cava, Guidance (ICD-10-PCS; 2020-01-27)
PROC: B24BZZZ Ultrasonography of Heart with Aorta (ICD-10-PCS; 2020-01-30)
DX: E11.69 Type 2 diabetes mellitus with other specified complication (principal); A41.02 Sepsis due to Methicillin resistant Staphylococcus aureus; I50.21 Acute systolic (congestive) heart failure; L02.612 Cutaneous abscess of left foot; D62 Acute posthemorrhagic anemia; E87.1 Hypo-osmolality and hyponatremia; J90 Pleural effusion, not elsewhere classified; M86.9 Osteomyelitis, unspecified; E11.610 Type 2 diabetes mellitus with diabetic neuropathic arthropathy; N17.0 Acute kidney failure with tubular necrosis; I82.411 Acute embolism and thrombosis of right femoral vein; I82.431 Acute embolism and thrombosis of right popliteal vein; X58.XXXS Exposure to other specified factors, sequela; S82.892S Other fracture of left lower leg, sequela; E11.65 Type 2 diabetes mellitus with hyperglycemia; K21.9 Gastro-esophageal reflux disease without esophagitis; D47.3 Essential (hemorrhagic) thrombocythemia; D63.8 Anemia in other chronic diseases classified elsewhere; E11.51 Type 2 diabetes mellitus with diabetic peripheral angiopathy without gangrene; I11.0 Hypertensive heart disease with heart failure; K59.00 Constipation, unspecified; E66.01 Morbid (severe) obesity due to excess calories; R09.02 Hypoxemia; L98.491 Non-pressure chronic ulcer of skin of other sites limited to breakdown of skin; E83.42 Hypomagnesemia; I87.2 Venous insufficiency (chronic) (peripheral); T36.8X5A Adverse effect of other systemic antibiotics, initial encounter; F41.9 Anxiety disorder, unspecified; Z79.84 Long term (current) use of oral hypoglycemic drugs; Z20.828 Contact with and (suspected) exposure to other viral communicable diseases; Z82.49 Family history of ischemic heart disease and other diseases of the circulatory system; Z83.3 Family history of diabetes mellitus; Z88.0 Allergy status to penicillin; Z87.891 Personal history of nicotine dependence
CPT/HCPCS: 00400; 01482; 32555; 36415; 36430; 36573; 36600; 71045; 71250; 74176; 78580; 80048; 80053; 80076; 80202; 81001; 82040; 82042; 82330; 82550; 82565; 82607; 82728; 82746; 82803; 82945; 82962; 83036; 83540; 83550; 83605; 83615; 83735; 83880; 83930; 83935; 83986; 84157; 84295; 84300; 84484; 85025; 85027; 85045; 85610; 85730; 86850; 86900; 86901; 86920; 87040; 87070; 87075; 87077; 87086; 87150; 87186; 87205; 87635; 88305; 88307; 88311; 89050; 93005; 93010; 93306; 93308; 93971; 94640; 94660; 96365; 96366; 96368; 96375; 99140; 99285; J0610; A9540; C9803; J0330; J0692; J1170; J1642; J1644; J1815; J1885; J1940; J1956; J2060; J2250; J2270; J2370; J2405; J2704; J2765; J3010; J3370; J3475; J3490; J7030; J7060; J7120; J7614; L1830; L4386; P9016; P9047; Q9969

== ENCOUNTER → 2020-04-13 | Outpatient (CLI) | payer BC ==
[2020-04-13 13:39] LABS: ABSOLUTE BASOPHILS # (AUTO) 0.1 10^3/uL (0.0-0.2); ABSOLUTE EOSINOPHILS # (AUTO) 0.3 10^3/uL (0.0-0.6); ABSOLUTE LYMPHOCYTES (AUTO) 0.7 10^3/uL (0.5-4.7); ABSOLUTE MONOCYTES (AUTO) 0.4 10^3/uL (0.1-1.4); ABSOLUTE NEUT (AUTO) 4.1 10^3/uL (1.7-8.2); BASOPHILS % (AUTO) 0.9 % (0-2); EOSINOPHILS % (AUTO) 4.7 % (0-6); HEMATOCRIT 22.9 % (37.9-51.0); LYMPHOCYTES % (AUTO) 13.1 % (13-45); MEAN CORPUSCULAR HEMOGLOBIN 30.7 pg (27.0-33.4); MEAN CORPUSCULAR VOLUME 88 fl (80-97); MONOCYTES % (AUTO) 7.9 % (3-13); PLATELET COUNT 252 10^3/uL (150-450); RED CELL DISTRIBUTION WIDTH 16.2 % (11.5-14.0); SEGMENTED NEUTROPHILS % (AUTO) 73.4 % (42-78); TOTAL CELLS COUNTED % (AUTO) 100 %; WHITE BLOOD COUNT 5.6 10^3/uL (4.0-10.5)
--- NOTE | 2020-04-13 13:55 | RADIOLOGY REPORT (SQ) ---
EXAM DESCRIPTION: FEMUR RIGHT IMAGES COMPLETED DATE/TIME: 04/13/2020 1:15 pm REASON FOR STUDY: (L97.)NON-PRS CHRONIC ULCER OF RIGHT THIGH W FAT LAYER EXPOSED [id number] NON-PRS CHRONIC ULCER OF RIGHT THIGH W FAT LAYER EXP E11.622 TYPE 2 DIABETES MELLITUS WITH OTHER SKIN ULCER COMPARISON: None. NUMBER OF VIEWS: Two views. TECHNIQUE: Two radiographic images acquired of the right femur to include hip and knee in at least o ne projection. LIMITATIONS: None. FINDINGS: MINERALIZATION: Normal. BONES: Prior AKA. No evidence of osteomyelitis. SOFT TISSUES: Dystrophic calcifications in the soft tissues of the stump. OTHER: No other significant finding. IMPRESSION: There is no evidence of osteomyelitis. TECHNICAL DOCUMENTATION: JOB ID: [id number] 2010 [employer]- All Rights Reserved Reading location - IP/workstation name: [email or web address]
[2020-04-13 14:01] LABS: ALBUMIN 3.4 g/dL (3.5-5.0); ALKALINE PHOSPHATASE 94 U/L (38-126); ANION GAP 9 (5-19); ASPARTATE AMINO TRANSFERASE 21 U/L (17-59); BILIRUBIN,DIRECT 0.2 mg/dL (0.0-0.4); BILIRUBIN,TOTAL 0.5 mg/dL (0.2-1.3); BLOOD UREA NITROGEN 33 mg/dL (7-20); C-REACTIVE PROTEIN 19.7 mg/L (<10.0); CARBON DIOXIDE 28 mmol/L (22-30); CHLORIDE 103 mmol/L (98-107); GLUCOSE 284 mg/dL (75-110); POTASSIUM 3.8 mmol/L (3.6-5.0); TOTAL PROTEIN 7.1 g/dL (6.3-8.2)
[2020-04-13 14:19] LABS: ERYTHROCYTE SEDIMENTATION RATE 116 mm/hr (0-20)
== END ==
LOC: RAD 12:49
PROVIDERS: ATTEND Nurse Practitioner Family
DX: E11.622 Type 2 diabetes mellitus with other skin ulcer (principal); L97.112 Non-pressure chronic ulcer of right thigh with fat layer exposed
CPT/HCPCS: 36415; 80053; 83036; 85025; 85652; 86140